=== PATIENT | male | born 1950 | race Caucasian/White ===

== ENCOUNTER → 2016-08-12 | Outpatient (CLI) | payer OTHER, MEDICARE ==
[~2016-08-12] MED LIST: ACET-1256 PO; ALLO300T2 PO; ASCO1CAP3 PO; CLIN1CAP51 PO; CYAN10005 PO; DOXA2TAB PO; FLUT0.15 NAE; FURO-85 PO; GLIM4TAB2 PO; INSU1.2I SC; LISI-725 PO; METF1TAB53 PO; MULTTAB58 PO; OMEGCAP2 PO; POTA20TA16 PO; PYRI50TA77 PO; VERA360C2 PO
[2016-08-12 18:20] LABS: BLOOD UREA NITROGEN 13 mg/dl (7-18); BUN/CREATININE RATIO 11.8 (10-20); CALCIUM 9.4 mg/dl (8.5-10.1); CARBON DIOXIDE 22 mmol/L (21-32); CHLORIDE 105 mmol/L (98-107); GLUCOSE 84 mg/dl (70-99); POTASSIUM 3.8 mmol/L (3.5-5.1); SODIUM 139 mmol/L (136-145)
[2016-08-13 06:40] LABS: ESTIMATED AVERAGE GLUCOSE 154 mg/dl; HA1C FLAG Normal (Normal)
== END | disposition home or self-care (01) ==
LOC: C.LABPBG 15:38
PROVIDERS: ATTEND Family Medicine
DX: Z00.00 Encounter for general adult medical examination without abnormal findings (principal); N18.9 Chronic kidney disease, unspecified; E11.9 Type 2 diabetes mellitus without complications; I10 Essential (primary) hypertension

== ENCOUNTER → 2016-12-07 | Outpatient (CLI) | payer OTHER, MEDICARE ==
[~2016-12-07] MED LIST changes: +LIRA18IN SQ; +LVMI SQ
[2016-12-07 13:21] LABS: ESTIMATED AVERAGE GLUCOSE 143 mg/dl; HA1C FLAG Normal (Normal)
[2016-12-07 13:42] LABS: ALT/SGPT 40 U/L (12-78); BLOOD UREA NITROGEN 19 mg/dl (7-18); BUN/CREATININE RATIO 17.5 (10-20); CARBON DIOXIDE 23 mmol/L (21-32); CHLORIDE 104 mmol/L (98-107); CHOLESTEROL 118 mg/dl (0-200); GLUCOSE 144 mg/dl (70-99); SODIUM 139 mmol/L (136-145)
[2016-12-07 13:45] LABS: CHOLESTEROL/HDL RATIO 2.3; HDL CHOLESTEROL 52 mg/dl; LDL CHOLESTEROL CALCULATED 48 mg/dl; TRIGLYCERIDES 91 mg/dl (0-150); VERY LOW DENSITY LIPOPROT CALC 18 mg/dl
[2016-12-07 14:35] LABS: LYME DISEASE AB IGM NEG (NEG)
[2016-12-07 14:38] LABS: LYME DISEASE AB IGG NEG (NEG)
== END | disposition home or self-care (01) ==
LOC: C.LABPBG 09:56
PROVIDERS: ATTEND Family Medicine
DX: E11.22 Type 2 diabetes mellitus with diabetic chronic kidney disease (principal); N18.9 Chronic kidney disease, unspecified; M19.90 Unspecified osteoarthritis, unspecified site

== ENCOUNTER → 2016-12-19 | Outpatient (CLI) | payer OTHER, MEDICARE ==
--- NOTE | 2016-12-19 13:53 | DIAGNOSTIC IMAGING REPORT ---
Right knee including BILATERAL STANDING AP VIEWS CLINICAL HISTORY: M25.561 right knee pain COMPARISON: None. DISCUSSION: No acute fractures or dislocations are visualized. There are mild osteoarthritic changes with small dorsal patellar spurs. There are suspected subtle chondrocalcinosis. IMPRESSION: Degenerative change with small dorsal patellar spurs. No acute fractures. Electronically signed by: Diego Broderick M.D. 12/19/2016 1:52 PM Dictated Date/Time: 12/19/2016 1:51 PM
== END | disposition home or self-care (01) ==
LOC: C.RAD 12:22
PROVIDERS: ATTEND Family Medicine
DX: M25.561 Pain in right knee (principal)

== ENCOUNTER → 2017-03-24 | Outpatient (CLI) | payer OTHER, MEDICARE ==
[~2017-03-24] MED LIST changes: -LIRA18IN SQ; -LVMI SQ
[2017-03-24 13:05] LABS: ESTIMATED AVERAGE GLUCOSE 148 mg/dl; HA1C FLAG Normal (Normal)
[2017-03-24 13:26] LABS: BLOOD UREA NITROGEN 19 mg/dl (7-18); BUN/CREATININE RATIO 17.4 (10-20); CALCIUM 8.8 mg/dl (8.5-10.1); CARBON DIOXIDE 23 mmol/L (21-32); CHLORIDE 106 mmol/L (98-107); GLUCOSE 226 mg/dl (70-99); SODIUM 137 mmol/L (136-145)
== END | disposition home or self-care (01) ==
LOC: C.LABPBG 09:40
PROVIDERS: ATTEND Family Medicine
DX: E11.9 Type 2 diabetes mellitus without complications (principal)

== ENCOUNTER → 2017-04-27 | Outpatient (CLI) | payer OTHER, MEDICARE ==
--- NOTE | 2017-04-27 18:01 | DIAGNOSTIC IMAGING REPORT ---
C-SPINE ROUTINE 4 OR 5 VIEWS CLINICAL HISTORY: Bilateral arm numbness. COMPARISON STUDY: No previous studies for comparison. FINDINGS: C7 is partially obscured on this exam. There is slight reversal of the normal cervical lordosis. No acute fracture or suspicious osseous lesion is present. Note is made of moderate bony neural foraminal narrowing of the right C4-C5 and C5-C6 neural foramen. Prevertebral soft tissues are unremarkable. There is moderate disc space narrowing at C5-C6 and mild disc space narrowing at C4-C5. IMPRESSION: 1. Moderate degenerative disc disease at C5-C6 and mild degenerative disc disease at C4-C5. Moderate bony neural foraminal narrowing of the right C4-C5 and C5-C6 neural foramen. 2. Largely obscured C7. Electronically signed by: Teofilo Garcia M.D. 04/27/2017 5:59 PM Dictated Date/Time: 04/27/2017 5:57 PM
== END | disposition home or self-care (01) ==
LOC: C.RAD 16:37
PROVIDERS: ATTEND Family Medicine
DX: M50.322 Other cervical disc degeneration at C5-C6 level (principal); M48.02 Spinal stenosis, cervical region

== ENCOUNTER → 2017-05-08 | Outpatient (CLI) | payer OTHER, MEDICARE ==
--- NOTE | 2017-05-08 15:24 | DIAGNOSTIC IMAGING REPORT ---
ORBITS FOR MRI HISTORY: 67 years-old Male Z77.018 history of metal exposure with concern for foreign body. COMPARISON: ORBIT radiographs 05/09/2016 TECHNIQUE: 3 views of the orbits FINDINGS: No radiopaque foreign body the orbits identified. No orbital fracture identified. Imaged paranasal sinuses appear generally symmetric. IMPRESSION: No opaque foreign bodies identified. The above report was generated using voice recognition software. It may contain grammatical, syntax or spelling errors. Electronically signed by: Benjamin Hanson M.D. 05/08/2017 3:23 PM Dictated Date/Time: 05/08/2017 3:22 PM
[2017-05-08 16:10] LABS: ALT/SGPT 34 U/L (12-78); AST/SGOT 18 U/L (15-37); BLOOD UREA NITROGEN 27 mg/dl (7-18); BUN/CREATININE RATIO 23.6 (10-20); CALCIUM 9.4 mg/dl (8.5-10.1); CARBON DIOXIDE 25 mmol/L (21-32); CHLORIDE 104 mmol/L (98-107); CREATININE 1.15 mg/dl (0.60-1.40); GLUCOSE 235 mg/dl (70-99); POTASSIUM 3.9 mmol/L (3.5-5.1); SODIUM 138 mmol/L (136-145)
[2017-05-08 16:12] LABS: ALKALINE PHOSPHATASE 133 U/L (45-117)
--- NOTE | 2017-05-08 17:13 | DIAGNOSTIC IMAGING REPORT ---
MRI THE RIGHT KNEE NO CONTRAST CLINICAL HISTORY: M25.561 right knee pain status post trauma COMPARISON STUDY: Conventional radiographic study dated 12/19/2016 FINDINGS: Imaging was performed in the sagittal, coronal, and axial planes. There is a small suprapatellar joint effusion. The anterior and posterior cruciate ligaments appear intact. The quadriceps and patellar tendons appear intact. The patellar retinacular structures appear intact. The medial and lateral collateral ligaments appear intact. There is a complex tear involving the posterior horn the medial meniscus. There is mild medial extrusion of the medial meniscus. There is a subchondral fracture involving the medial tibial plateau with associated marrow edema. This is nondisplaced. There is mild chondrosis involving the medial joint compartment. IMPRESSION: 1. Small nondisplaced subchondral fracture of the medial tibial plateau with adjacent marrow edema 2. Tear of the posterior horn of the medial meniscus 3. No evidence of cruciate or collateral ligament disruption Electronically signed by: Diego Broderick M.D. 05/08/2017 5:12 PM Dictated Date/Time: 05/08/2017 5:06 PM
--- NOTE | 2017-05-08 21:09 | DIAGNOSTIC IMAGING REPORT ---
MRI OF THE CERVICAL SPINE WITHOUT IV CONTRAST CLINICAL HISTORY: Neck pain. Bilateral arm numbness. Lower extremity weakness. COMPARISON STUDY: Radiographs of the cervical spine dated 04/27/2017. TECHNIQUE: MRI of the cervical spine is performed utilizing various T1 and T2-weighted sequences in the axial and sagittal planes. IV contrast was not administered for this examination. FINDINGS: Cervical spine: Vertebral body height is maintained throughout the cervical spine. There is minimal retrolisthesis at C4-C5. Alignment is otherwise preserved. There is straightening of the cervical lordosis with mild reversal centered at C4-C5. The atlantodental articulation appears preserved. The spinous processes are intact as imaged. No destructive bony lesion is seen. Intervertebral discs: There is degenerative disc desiccation seen throughout the cervical spine. Moderate loss of height is seen at C4-C5 and C5-C6. Spinal cord: The cervical spinal cord is normal in morphology and signal intensity. C2-C3: Unremarkable. C3-C4: A large posterior disc osteophyte complex effaces the ventral cord. The minimum AP canal diameter at this level measures 6.5 mm. Uncovertebral and facet arthropathy cause [id number] right and [id number] left neural foraminal stenosis. C4-C5: A posterior disc osteophyte complex effaces the ventral cord. The minimum AP canal diameter at this level measures 7 mm. Uncovertebral and facet arthropathy cause severe bilateral neural foraminal stenosis. C5-C6: A posterior disc osteophyte complex effaces the ventral cord. The minimum AP canal diameter at this level measures 7 mm. Uncovertebral and facet arthropathy contribute to [id number] left and moderate right neural foraminal stenosis. C6-C7: A posterior disc osteophyte complex abuts the ventral cord. Facet arthropathy causes minimal left-sided neural foraminal stenosis. C7-T1: Unremarkable. Soft tissues: The prevertebral and paraspinous soft tissues are normal in appearance. Brain parenchyma: Partially imaged brain parenchyma at the skull base is within normal limits. IMPRESSION: 1. Multilevel cervical spondylosis with significant acquired compromise of the central canal seen from C3 -C4 through C5-C6. See discussion for detailed [id number] analysis. 2. The cervical spinal cord is normal in morphology and signal intensity. 3. No destructive bony lesion is seen. Dictated: 05/08/2017 5:08 PM Transcribed: 05/08/2017 9:09 PM [email or web address] Electronically signed by: Neil Arroyo M.D. 05/08/2017 9:10 PM Dictated Date/Time: 05/08/2017 5:08 PM
== END | disposition home or self-care (01) ==
LOC: C.MRI 14:39
PROVIDERS: ATTEND Family Medicine
DX: Z77.018 Contact with and (suspected) exposure to other hazardous metals (principal); M50.90 Cervical disc disorder, unspecified, unspecified cervical region; R20.0 Anesthesia of skin; M25.561 Pain in right knee; S82.134A Nondisplaced fracture of medial condyle of right tibia, initial encounter for closed fracture; S83.241A Other tear of medial meniscus, current injury, right knee, initial encounter; X58.XXXA Exposure to other specified factors, initial encounter; M47.812 Spondylosis without myelopathy or radiculopathy, cervical region

== ENCOUNTER 2017-06-26 05:23 | Inpatient (IN) | payer OTHER, MEDICARE ==
[2017-06-06 13:15] VITALS: BMI 40.0
--- NOTE | 2017-06-06 13:53 | PAT Medication Instructions ---
Service Date Jun 06, 2017. Current Home Medication List Allopurinol (Zyloprim), 300 MG PO QPM Ascorbic Acid (Vitamin C), 500 MG PO BID Cyanocobalamin (Vitamin B-12), 1,000 MCG PO QAM Doxazosin Mesylate (Cardura), 2 MG PO BID Furosemide (Lasix), 40 MG PO DAILY PRN for EDEMA Glimepiride (Glimepiride), 4 TAB PO BID Insulin Detemir (Levemir), 120 UNITS SQ HS Liraglutide (Victoza), 1.8 MG SQ QAM Lisinopril (Zestril), 40 MG PO QAM Metformin Hcl (Glucophage Ext Rel), 1,000 MG PO BID Multiple Vitamin (Multivitamin), 1 TAB PO BIDM [place]-3 Fatty Acids (Fish Oil), 1 CAP PO BID Potassium Ext Rel (Klor-Con), 20 MEQ PO QPM Pyridoxine Hcl (Vitamin B 6), 100 MG PO QAM Verapamil Hcl (Verapamil Hcl Sr), 360 MG PO QAM Medication Instructions For Your Scheduled Surgery - Hold the following medications 2 weeks prior to surgery: [place]-3 Fatty Acids (Fish Oil), 1 CAP PO BID - Hold the following medications 48 hours prior to surgery: Metformin Hcl (Glucophage Ext Rel), 1,000 MG PO BID - Hold the following medications the morning of surgery: Ascorbic Acid (Vitamin C), 500 MG PO BID Cyanocobalamin (Vitamin B-12), 1,000 MCG PO QAM Doxazosin Mesylate (Cardura), 2 MG PO BID Furosemide (Lasix), 40 MG PO DAILY PRN for EDEMA Glimepiride (Glimepiride), 4 TAB PO BID Lisinopril (Zestril), 40 MG PO QAM Multiple Vitamin (Multivitamin), 1 TAB PO BIDM Pyridoxine Hcl (Vitamin B 6), 100 MG PO QAM - Take the following medications the morning of surgery with a sip of water: Liraglutide (Victoza), 1.8 MG SQ QAM Verapamil Hcl (Verapamil Hcl Sr), 360 MG PO QAM - Take the following medications as scheduled the night before surgery: Potassium Ext Rel (Klor-Con), 20 MEQ PO QPM Multiple Vitamin (Multivitamin), 1 TAB PO BIDM Insulin Detemir (Levemir), 120 UNITS SQ HS Glimepiride (Glimepiride), 4 TAB PO BID Furosemide (Lasix), 40 MG PO DAILY PRN for EDEMA (if needed) Doxazosin Mesylate (Cardura), 2 MG PO BID Ascorbic Acid (Vitamin C), 500 MG PO BID Allopurinol (Zyloprim), 300 If you have any questions please call us at [phone] or [phone] or [phone]
--- NOTE | 2017-06-06 14:31 | DIAGNOSTIC IMAGING REPORT ---
TWO VIEW CHEST CLINICAL HISTORY: Preoperative examination. FINDINGS: PA and lateral chest radiographs are compared to study dated 10/27/2013. The cardiomediastinal silhouette is unremarkable. Tiny calcified granulomas are observed. The lungs and pleural spaces are otherwise clear. There is no pneumothorax. The bony thorax appears intact. Degenerative change is noted in the thoracic spine. Surgical clips are present in the abdomen. IMPRESSION: No active disease in the chest. Electronically signed by: Neil Arroyo M.D. 06/06/2017 2:30 PM Dictated Date/Time: 06/06/2017 2:29 PM
[2017-06-06 14:54] LABS: BASO % 0.3 %; BASO ABS # 0.02 K/uL (0-0.2); COMPLETE YES; EOS % 1.8 %; HEMATOCRIT 40.5 % (42-52); IG% 0.3 %; LYMPH % 30.6 %; LYMPH ABS # 2.04 K/uL (1.2-3.4); MEAN CELL VOLUME 93.5 fL (80-100); MEAN CORPUSCULAR HEMOGLOBIN 32.3 pg (25-34); MEAN CORPUSCULAR HGB CONC 34.6 g/dl (32-36); MEAN PLATELET VOLUME 9.7 fL (7.4-10.4); MONO % 6.7 %; NEUT % 60.3 %; PLATELET COUNT 214 K/uL (130-400); RED BLOOD COUNT 4.33 M/uL (4.7-6.1); WHITE BLOOD COUNT 6.67 K/uL (4.8-10.8)
[2017-06-06 15:07] LABS: PROTHROMBIN TIME (PATIENT) 10.6 SECONDS (9.0-12.0)
[2017-06-06 15:09] LABS: URINE APPEARANCE CLEAR (CLEAR); URINE BILIRUBIN NEG (NEG); URINE COLOR YELLOW; URINE NITRITE NEG (NEG); URINE PH 5.5 (4.5-7.5); URINE SPECIFIC GRAVITY 1.025 (1.000-1.030); UROBILINOGEN NEG (NEG)
[2017-06-06 15:13] LABS: MANUAL MICROSCOPIC REQUIRED? NO; REVIEW REQ? NO
[2017-06-06 15:35] LABS: CREATININE 1.26 mg/dl (0.60-1.40)
--- NOTE | 2017-06-25 14:43 | HISTORY & PHYSICAL EXAMINATION ---
DATE OF ADMISSION: 06/26/2017 CHIEF COMPLAINT: He is here for cervical spine surgery. He has spinal cord compression. He has upper extremity pain, numbness, tingling; weakness to his upper and lower extremity, and slight abnormality of his walking ability. PAST MEDICAL HISTORY: Obesity, hypertension, carcinoma, kidney disease, diabetes. PAST SURGICAL HISTORY: Cholecystectomy, kidney stones, knee surgery. ALLERGIES: DEMEROL, TRAMADOL, LODINE. SOCIAL HISTORY: Nonsmoker, non-ET[employer] user. MEDICATIONS: Numerous, they are on an attached sheet of paper, they are placed into the computer. REVIEW OF SYSTEMS: Positive for neck pain, stiffness, muscle pain, weakness. No fevers, sweats, chills, history of cervical migraines. Ear, nose and throat negative. Denies chest pain, shortness of breath. Denies nausea, vomiting, urgency, frequency, dysuria. PHYSICAL EXAMINATION: GENERAL: He is 6 feet 2 inches, 300 pounds, conversant, alert, oriented, no signs of mental depression. VITAL SIGNS: Blood pressure 140/80, pulse 80, respiratory rate 16, temperature 97.4. CARDIAC: Normal S1, S2. Distant S3, regular at 80 beats per minute. LUNGS: Clear. ABDOMEN: Soft, nontender, obese. SKIN: Intact. VASCULAR: Structures intact, minimal varicosities. X-RAY: Reviewed. He has spinal cord compression C3-C6 of the cervical spine. ASSESSMENT: Spinal cord compression, cervical spine; obesity; diabetes mellitus. DISPOSITION: Anterior cervical discectomy and fusion C3-C4, C4-C5, C5-C6 with iliac crest bone graft.
[~2017-06-26] VITALS: Ht 188 cm; Wt 140.9 kg
[2017-06-26] VITALS (16 sets, daily range): BP systolic 133–159; BP diastolic 74–87; PULSE 67–99; TEMP 36.3–37.1; O2SAT 94–97; BMI 40.0
[~2017-06-26 05:23] MED LIST changes: -ACET-1256 PO; -CLIN1CAP51 PO; -FLUT0.15 NAE; -INSU1.2I SC; +LIRA18IN SQ; +LVMI SQ
[2017-06-26] MEDS ORDERED: LACTATED RINGER'S 1000ML 1,000 ML IV SCH (06:00)
[2017-06-26] MEDS ORDERED: CEFAZOLIN 3000MG IV PUSH 15 ML IV SCH (06:00)
[2017-06-26] MEDS ORDERED: SODIUM CHLORIDE 0.9% 1000ML 1,000 ML IV SCH (06:00)
[2017-06-26] MEDS ORDERED: BACITRACIN 50000 UNIT VIAL ONE (07:00)
[2017-06-26] MEDS ORDERED: GELATIN SPONGE SZ 100 ONE (07:00)
[2017-06-26] MEDS ORDERED: BUPIVACAINE/EPINEPHRINE 0.5% MPF 1:200,000 30 ML VIAL ONE ×2 (07:00→07:20)
[2017-06-26] MEDS ORDERED: THROMBIN FOR SOLN 20000 UNIT KIT ONE (07:00)
[2017-06-26] MEDS ORDERED: FENTANYL CITRATE INJ 50 MCG/1 ML 2 ML VIAL ONE (07:06)
[2017-06-26] MEDS ORDERED: MIDAZOLAM HCL 1 MG/ML 2ML VIAL ONE (07:06)
[2017-06-26] MEDS ORDERED: ATROPINE SULFATE 0.1 MG/ML 5ML SYR IV PRN (07:15)
[2017-06-26] MEDS ORDERED: LABETALOL HCL IV 5 MG/ML 20ML IV PRN (07:15)
[2017-06-26] MEDS ORDERED: ONDANSETRON INJ 2 MG/ML 2 ML VIAL IV PRN ×2 (07:15→10:15)
[2017-06-26] MEDS ORDERED: HYDROmorphone INJ 2 MG/ML SYR/VIAL IV PRN (07:15)
--- NOTE | 2017-06-26 07:25 | History & Physical Bridge Note ---
H&P Re-Evaluation Bridge Note: I have examined the patient, reviewed the History & Physical and in the interval since the performance of the History & Physical I have noted the following changes of clinical significance: No changes noted
[2017-06-26] MEDS ORDERED: GLYCOPYRROLATE INJ 0.2 MG/ML VIAL ONE (08:15)
[2017-06-26] MEDS ORDERED: LIDOCAINE HCL 2% 2 ML VIAL (20MG/ML) ONE (08:15)
[2017-06-26] MEDS ORDERED: LARYING-O-JET KIT (LTA) ONE ×2 (08:15)
[2017-06-26] MEDS ORDERED: NEOSTIGMINE METHYLSULFATE 5 MG/5 ML SYR ONE (08:15)
[2017-06-26] MEDS ORDERED: ROCURONIUM BROMIDE 10 MG/ML 5 ML VIAL IV ONE ×2 (08:15→08:19)
[2017-06-26] MEDS ORDERED: EpHEDrine SULFATE 50MG/5ML SYR ONE (08:15)
[2017-06-26] MEDS ORDERED: HYDROmorphone INJ 2 MG/ML SYR/VIAL ONE (08:15)
[2017-06-26] MEDS ORDERED: DEXAMETHASONE SOD INJ 4 MG/ML VIAL ONE (08:15)
[2017-06-26] MEDS ORDERED: PROPOFOL IV EMULSION 10 MG/ML 20 ML VIAL IV ONE (08:15)
[2017-06-26] MEDS ORDERED: ONDANSETRON INJ 2 MG/ML 2 ML VIAL ONE (08:15)
--- NOTE | 2017-06-26 10:03 | DIAGNOSTIC IMAGING REPORT ---
SPINE ONE VIEW, ANY LEVEL HISTORY: Cervical fusion. FLUOROSCOPY TIME: 16 seconds. FINDINGS: Intraoperative fluoroscopy was provided for the cervical spine. 3 fluoroscopic spot images were obtained. IMPRESSION: Fluoroscopy provided for a anterior cervical fusion from C3 through C6.. The above report was generated using voice recognition software. It may contain grammatical, syntax or spelling errors. Electronically signed by: Alexis Ag M.D. 06/26/2017 10:02 AM Dictated Date/Time: 06/26/2017 10:01 AM
--- NOTE | 2017-06-26 10:12 | [facility] Post Operative Brief Note ---
Immediate Operative Summary Operative Date Jun 26, 2017. Pre-Operative Diagnosis Cervical spinal stenosis, Cervical spondylosis Post-Operative Diagnosis Cervical spinal stenosis, Cervical spondylosis Procedure(s) Performed C3-C4, C4-C5, C5-C6 Anterior Cervical Discectomy and Fusion with Allograft Surgeon Dr. Bojorquez Assembler Tubing Surgeon(s) ADRIA Sotelo Estimated Blood Loss 20ml Findings cord compression Specimens none per surgeon Complication(s) None Disposition Recovery Room / PACU
[2017-06-26] MEDS ORDERED: HYDROmorphone INJ 0.5 MG/0.5 ML SYR IV PRN (10:15)
[2017-06-26] MEDS ORDERED: RACEPINEPHRINE 2.25% NEBU SOLN 0.5 ML VIAL INH PRN (10:15)
[2017-06-26] MEDS ORDERED: NALOXONE HCL 0.4 MG/1 ML VIAL/CARP IV PRN (10:15)
[2017-06-26] MEDS ORDERED: DEXAMETHASONE INJ 8 MG in SYRINGE 0 ML IV PRN (10:15)
[2017-06-26] MEDS ORDERED: ACETAMINOPHEN IV 100 ML IV PRN (10:15)
[2017-06-26] MEDS ORDERED: CEFAZOLIN IV 1,000 MG in DEXTROSE 5% 50ML 50 ML IV SCH (10:15)
[2017-06-26] MEDS ORDERED: MAGNESIUM HYDROXIDE SUSP 30 ML UDC PO PRN (10:15)
[2017-06-26] MEDS ORDERED: HYDROmorphone INJ 1 MG/ML SYR ONE (10:25)
--- NOTE | 2017-06-26 10:58 | OPERATIVE REPORT ---
DATE OF OPERATION: 06/26/2017 PREOPERATIVE DIAGNOSIS: Spinal cord compression, cervical spine C3-4, C4-5 and C5-6. POSTOPERATIVE DIAGNOSIS: Same. PROCEDURE: Anterior cervical discectomy and fusion C3-4, C4-5, C5-6 with allograft and anterior plating. A formal discectomy, foraminotomy and decompression of spinal cord at C3-4, C4-5 and C5-6. DESCRIPTION OF PROCEDURE: The patient was taken to the operating room, a general intubated anesthetic provided to the patient, kept supine, scrubbed, prepped and draped sterile. Montero catheter administered and Ancef provided. A formal timeout was obtained. We then made a transverse skin incision roughly over the C5 vertebral body dissecting the soft tissue. We had to use quite long blades to hold the self-retaining retractors. We came down on the spinal canal. We were able to first do the discectomy at C4-5, then up at C3-4, then done at C5-6. I was very pleased with the decompression and the disc material removed. There was no residual, we took off osteophytes at each and every level as well. Completed the foraminotomies. We then went with allograft. Allograft 7 mm in height placed at C5-6 and C4-5 and an 8 mm graft placed at the C3-4 interval. The anatomic fit was excellent put on anterior plate 51 mm in length by the [employer] secured with screws and locked. We irrigated thoroughly at many intervals, closed over a Stephenson drain with 4-0 Monocryl suture. Sterile dressing applied, collar applied. The patient extubated to PACU stable. No apparent intraoperative complications. Sponge and needle count correct. IMPLANTS USED: By the [employer]. I attest to the content of the Intraoperative Record and any orders documented therein. Any exception s are noted below.
[2017-06-26] MEDS ORDERED: IV FLUIDS COMPLETED PRN (11:45)
--- NOTE | 2017-06-26 12:04 | Anesthesiology Progress Note ---
Anesthesia Post Op Note Date & Time Jun 26, 2017 at 12:04 Vital Signs Vital Signs Past 12 Hours Date Time Temp Pulse Resp B/P (MAP) Pulse Ox O2 Delivery O2 Flow Rate FiO2 06/26/17 11:50 36.6 67 16 144/74 95 Nasal Cannula 4.0 Humidified Oxygen 06/26/17 11:40 67 14 130/70 95 Nasal Cannula 4 06/26/17 11:25 77 14 133/64 98 Nasal Cannula 4 06/26/17 11:15 67 14 162/82 93 Nasal Cannula 4 06/26/17 11:05 37.2 69 16 148/84 93 Nasal Cannula 4 06/26/17 10:55 63 18 152/77 95 Nasal Cannula 4 06/26/17 10:45 84 20 165/90 98 Nasal Cannula 4 06/26/17 10:35 82 18 165/84 96 Oxymask 8 06/26/17 10:25 76 18 161/90 96 Oxymask 8 06/26/17 10:15 82 16 151/88 96 Oxymask 8 06/26/17 10:08 36.5 83 16 158/84 95 Oxymask 8 06/26/17 05:50 36.8 80 20 141/87 95 Room Air Notes Mental Status: alert / awake / arousable, participated in evaluation Pt Amnestic to Procedure: Yes Nausea / Vomiting: adequately controlled Pain: adequately controlled Airway Patency, RR, SpO2: stable & adequate BP & HR: stable & adequate Hydration State: stable & adequate Anesthetic Complications: no major complications apparent
[2017-06-26] MEDS: SODIUM CHLORIDE 0.9% 1000ML 1,000 ML IV SCH (12:27)
--- NOTE | 2017-06-26 13:28 | Medical Consult ---
Consultation Date of Consultation: Jun 26, 2017. Attending Physician: Alfredito Bojorquez DO Reason for Consultation: Medical management History of Present Illness This is a 67 yo M with PMHx of DM II, hx of testicular cancer, smokeless tobacco use, who is now s/p anterior cervical discectomy and fusion C3-4, C4-5 , C5-6 with allograft and anterior plating. A formal discectomy, foraminotomy and decompression of spinal cord at C3-4, C4-5 and C5-[address] Bojorquez on 06/26/17. Hospital medicine has been consulted for hyperglycemia. The patient reports that he is having an severe/pain of the back of his neck and around both sides equally. He denies any diminished sensation to light touch or difficulty with swallowing. His is present at bedside. Her questions and concerns were addressed. The patient has been made nothing by mouth, as this is Dr. Frazier preference until he personally rounds on the patient this afternoon. Patient has been using IV Dilaudid for pain relief, although currently asking for something else to help with pain as previously described. Past Medical/Surgical History Medical Problems: (1) Cellulitis Status: Acute (2) Cellulitis of left leg Status: Acute (3) Diabetic ulcer of left great toe Status: Acute Family History Blood clots Diabetes mellitus Kidney stones Social History Smoking Status: Former Smoker Drug Use: none Marital Status: Housing Status: lives with family Occupation Status: unemployed Allergies Coded Allergies: Etodolac (Verified Allergy, Intermediate, RASH, 06/26/17) Canagliflozin (Verified Allergy, Unknown, LE SWELLING, WT GAIN, 06/26/17) Tramadol (Verified Adverse Reaction, Intermediate, NAUSEA, 06/26/17) Meperidine (Verified Adverse Reaction, Unknown, NAUSEA, 06/26/17) Current Inpatient Medications Current Inpatient Medications Medications (Trade) Dose Ordered Sig/Cyndi Route Start Time Stop Time Status Last Admin Dose Admin Lactated Ringer's 1,000 ml @ 15 mls/hr Q24H IV 06/26/17 06:00 06/27/17 05:59 Racepinephrine (Raccemic Epinephrine 2.25% 0.5ML Neb) 0.5 ml ONE PRN INH 06/26/17 10:15 06/26/17 23:59 Acetaminophen 100 ml @ 400 mls/hr Q8H PRN IV 06/26/17 10:15 07/26/17 10:14 06/26/17 10:57 400 MLS/HR Hydromorphone HCl (Dilaudid Inj) 0.5 mg Q3H PRN IV 06/26/17 10:15 07/10/17 10:14 Magnesium Hydroxide (Milk Of Magnesia Susp) 30 ml DAILY PRN PO 06/26/17 10:15 07/26/17 10:14 Docusate Sodium (coLACE CAP) 100 mg BID PO 06/26/17 21:00 07/26/17 20:59 Ondansetron HCl (Zofran Inj) 4 mg Q6 PRN IV 06/26/17 10:15 07/26/17 10:14 Lorazepam 0.5 mg/ Syringe 1 ml @ 1 mls/min Q8H PRN IV 06/26/17 10:15 07/26/17 10:14 Dexamethasone Sodium Phosphate 6 mg/Syringe 1.5 ml @ 1 mls/min Q8H IV 06/26/17 16:00 06/27/17 08:02 Sodium Chloride 1,000 ml @ 80 mls/hr [id number] IV 06/26/17 13:00 06/27/17 12:59 06/26/17 12:27 80 MLS/HR Oxycodone HCl (Roxicodone Immediate Rel Tab) 5mg for pain scale 4-6 1... Q4H PRN PO 06/26/17 10:15 07/10/17 10:14 Bisacodyl (Dulcolax Tab) 5 mg DAILY PRN PO 06/28/17 06:00 07/28/17 05:59 Bisacodyl (Dulcolax Supp) 10 mg DAILY PRN ME 06/28/17 06:00 07/28/17 05:59 Dexamethasone Sodium Phosphate 8 mg/Syringe 2 ml @ 1 mls/min ONE PRN IV 06/26/17 10:15 06/26/17 23:59 Naloxone HCl (Narcan Inj) 0.1 mg Q5M PRN IV 06/26/17 10:15 07/26/17 10:14 Hydromorphone HCl (Dilaudid Inj) 1 mg Q3H PRN IV 06/26/17 11:00 07/10/17 10:59 Miscellaneous (Iv Fluids Completed) 1 ea PRN PRN N/A 06/26/17 11:45 06/26/18 11:44 Cefazolin Sodium 1000 mg/Syringe 5 ml @ 1.667 mls/ min Q8H IV 06/26/17 16:00 06/27/17 08:02 Insulin Aspart (novoLOG ASPART) SLIDING SCALE G... ACHS SC 06/26/17 17:15 07/26/17 17:14 UNV Review of Systems Constitutional: No fever, sweats or chills Eyes: No diplopia, no worsening or blurred vision ENT: normal hearing, no trouble swallowing Respiratory: No cough, sputum, dyspnea at rest or on exertion Cardiovascular: No chest pain, tightness or palpitations Abdomen: No pain, nausea, vomiting, diarrhea or constipation Musculoskeletal: + neck pain as per HPI, no calf pain, + chronic lymphedema in the left lower extremity status post radical lymph node dissection for testicular cancer. Neurologic: No weakness, numbness/tingling, or balance problems Psychiatric: No anxiety or depression Skin: No rash or itch Physical Exam Date Time Temp Pulse Resp B/P (MAP) Pulse Ox O2 Delivery O2 Flow Rate FiO2 06/26/17 12:36 36.7 85 16 135/76 97 Nasal Cannula 4.0 06/26/17 12:20 93 16 96 Nasal Cannula 4.0 06/26/17 12:17 Nasal Cannula Humidified Oxygen 06/26/17 12:10 36.6 72 16 154/76 94 Nasal Cannula 4.0 06/26/17 12:02 95 Nasal Cannula 4.0 06/26/17 11:50 36.6 67 16 144/74 95 Nasal Cannula 4.0 Humidified Oxygen 06/26/17 11:40 67 14 130/70 95 Nasal Cannula 4 06/26/17 11:25 77 14 133/64 98 Nasal Cannula 4 06/26/17 11:15 67 14 162/82 93 Nasal Cannula 4 06/26/17 11:05 37.2 69 16 148/84 93 Nasal Cannula 4 06/26/17 10:55 63 18 152/77 95 Nasal Cannula 4 06/26/17 10:45 84 20 165/90 98 Nasal Cannula 4 06/26/17 10:35 82 18 165/84 96 Oxymask 8 06/26/17 10:25 76 18 161/90 96 Oxymask 8 06/26/17 10:15 82 16 151/88 96 Oxymask 8 06/26/17 10:08 36.5 83 16 158/84 95 Oxymask 8 06/26/17 05:50 36.8 80 20 141/87 95 Room Air General: awake, alert, no apparent distress Head: Normocephalic, atraumatic ENT: PERRL, EOMI, no pharyngeal exudate, mucous membranes dry, with bandage in place, C/D/I Chest: Clear to auscultation, on room air, no adventitious breath sounds Cardiac: Regular rate and rhythm, no murmur, no JVD, normal peripheral pulses, good capillary refill Abdominal: NABS x 4 quadrants, soft, nontender to palpation, no rebound, guarding or tenderness Extremities: Normal inspection, + LLE edema 1+ pitting, + RLE edema with nonpitting edema. No erythema, calfs nontender to palpation Psych: Normal mood and affect Neuro: AAO x 3, strength intact bilaterally and related 5/5, no motor deficits, speech is clear, no peripheral sensory deficits Laboratory Results Last 24 Hours Test 06/26/17 05:41 06/26/17 10:32 06/26/17 13:02 Bedside Glucose 269 mg/dl 270 mg/dl 322 mg/dl Assessment & Plan This is a 67 yo M with PMHx of DM II, hx of testicular cancer, smokeless tobacco use, who is now s/p anterior cervical discectomy and fusion C3-4, C4-5 , C5-6 with allograft and anterior plating. A formal discectomy, foraminotomy and decompression of spinal cord at C3-4, C4-5 and C5-[address] Bojorquez on 06/26/17. Hospital medicine has been consulted for hyperglycemia. S/p Cervical spine surgery - Pain management, bowel regimen, DVT ppx per primary team - PT per primary team already ordered - Pt received dexamethasone which increase glucose for short term DM II - Resume home medications including metformin 1000 mg BID, glimepiride 4 mg BID , and Levemir 120 U subq HS as long as patient is tolerating food well this afternoon and evening - ISS with accuchecks ACHS HTN - Holding lisinopril - pending am labs can reinstitute Hx of testicular cancer - Diagnosed 1983, status post radical lymph node dissection causing chronic lymphedema in the left lower extremity - In remission DVT ppx: no chemical w spinal surgery at this time CODE STATUS: FULL CODE Disposition: From home, lives with , discharge per primary team
[2017-06-26] MEDS ORDERED: DEXTROSE 50% 50 ML SYR IV PRN (13:30)
[2017-06-26] MEDS ORDERED: GLUCOSE 10 TABS/TUBE PO PRN (13:30)
[2017-06-26] MEDS ORDERED: GLUCAGON FOR INJ 1 MG VIAL SQ PRN (13:30)
[2017-06-26] MEDS ORDERED: GLUCOSE 40% GEL 15 GM TUBE PO PRN (13:30)
[2017-06-26] MEDS ORDERED: INSULIN ASPART 100 UNITS/ML 3 ML PEN SC ONE (14:00)
[2017-06-26] MEDS: DEXAMETHASONE INJ 6 MG in SYRINGE 0 ML IV SCH (15:52)
[2017-06-26] MEDS: CEFAZOLIN IV 1,000 MG in SYRINGE 0 ML IV SCH (16:15)
[2017-06-26] MEDS ORDERED: INSULIN ASPART 100 UNITS/ML 3 ML PEN SC SCH (17:15)
[2017-06-26] MEDS: LORAZEPAM INJ 0.5 MG in SYRINGE 0.75 ML IV PRN (17:37)
[2017-06-26] MEDS: HYDROmorphone INJ 1 MG/ML SYR IV PRN ×2 (18:24→22:54)
[2017-06-26] MEDS: INSULIN ASPART 100 UNITS/ML 3 ML PEN SC SCH ×2 (18:41→21:40)
[2017-06-26] MEDS ORDERED: INSULIN DETEMIR SC SCH (21:00)
[2017-06-26] MEDS ORDERED: GLIMEPIRIDE 2 MG TAB PO SCH (21:00)
[2017-06-26] MEDS ORDERED: INSULIN DETEMIR FLEXPEN/FLEX TOUCH 100 UNITS/ML 3ML SC SCH (21:00)
[2017-06-26] MEDS: DOCUSATE SODIUM 100 MG CAP PO SCH (21:34)
[2017-06-26] MEDS: METFORMIN HCL 500 MG TABCR PO SCH (21:34)
[2017-06-27] VITALS (19 sets, daily range): BP systolic 130–164; BP diastolic 70–91; PULSE 84–103; TEMP 36.5–37; O2SAT 88–96; Ht 188 cm; Wt 140.9 kg
[2017-06-27] MEDS: CEFAZOLIN IV 1,000 MG in SYRINGE 0 ML IV SCH ×2 (00:36→08:48)
[2017-06-27] MEDS: SODIUM CHLORIDE 0.9% 1000ML 1,000 ML IV SCH (00:36)
[2017-06-27] MEDS: DEXAMETHASONE INJ 6 MG in SYRINGE 0 ML IV SCH ×2 (00:36→08:36)
[2017-06-27] MEDS: LORAZEPAM INJ 0.5 MG in SYRINGE 0.75 ML IV PRN (01:00)
[2017-06-27] MEDS: OXYCODONE HCL IR 5 MG TAB (IMMEDIATE RELEASE) PO PRN ×3 (05:57→22:34)
--- NOTE | 2017-06-27 08:05 | Anesthesiology Progress Note ---
Anesthesia Post Op Note Date & Time Jun 27, 2017 at 08:05 Vital Signs Pain Intensity: 6.0 Vital Signs Past 12 Hours Date Time Temp Pulse Resp B/P (MAP) Pulse Ox O2 Delivery O2 Flow Rate FiO2 06/27/17 07:35 Room Air 06/27/17 07:34 90 16 93 Room Air 06/27/17 06:40 36.7 85 16 145/81 88 Room Air 2.0 06/27/17 06:40 36.7 85 16 145/81 (102) 88 Room Air 06/27/17 04:40 36.9 90 16 145/79 (101) 93 Nasal Cannula 2.0 06/27/17 04:40 36.9 90 16 145/79 93 Nasal Cannula 2.0 06/27/17 04:02 84 16 92 Nasal Cannula 2.0 06/27/17 02:40 37.0 87 16 130/76 94 Nasal Cannula 2.0 Humidified Oxygen 06/27/17 02:40 36.9 87 16 130/76 (94) 94 Nasal Cannula 2.0 Humidified Oxygen 06/27/17 00:40 36.9 85 16 133/78 (96) 93 Nasal Cannula 2.0 Humidified Oxygen 06/27/17 00:40 36.9 85 16 133/78 93 Nasal Cannula 2.0 Humidified Oxygen 06/27/17 00:00 Nasal Cannula 2.0 Humidified Oxygen 06/26/17 23:43 90 16 96 Nasal Cannula 4.0 06/26/17 22:44 37.1 90 16 133/80 95 Nasal Cannula 4.0 Humidified Oxygen 06/26/17 20:41 36.7 99 16 133/78 95 Nasal Cannula Humidified Oxygen 06/26/17 20:21 97 16 94 Nasal Cannula 4.0 Notes Mental Status: alert / awake / arousable, participated in evaluation Pt Amnestic to Procedure: Yes Nausea / Vomiting: adequately controlled Pain: adequately controlled Airway Patency, RR, SpO2: stable & adequate BP & HR: stable & adequate Hydration State: stable & adequate Anesthetic Complications: no major complications apparent
[2017-06-27] MEDS: METFORMIN HCL 500 MG TABCR PO SCH ×2 (08:37→21:18)
[2017-06-27] MEDS: DOCUSATE SODIUM 100 MG CAP PO SCH ×2 (08:37→21:19)
[2017-06-27] MEDS: INSULIN ASPART 100 UNITS/ML 3 ML PEN SC SCH ×4 (08:41→21:27)
--- NOTE | 2017-06-27 12:59 | Progress Note ---
Subjective Date of Service: Jun 27, 2017. Subjective Pt evaluation today including: conversation w/ patient, physical exam, chart review, lab review, review of studies, review of inpatient medication list Resting comfortably in bed No complaints at this time Problem List Medical Problems: (1) Cellulitis Status: Acute (2) Cellulitis of left leg Status: Acute (3) Diabetic ulcer of left great toe Status: Acute Review of Systems Constitutional: No fever, No chills, No sweats, No weight loss Eyes: No worsening of vision, No eye pain, No redness, No discharge ENT: No hearing loss, No unusual epistaxis, No nasal symptoms, No sore throat Respiratory: No cough, No sputum, No wheezing, No shortness of breath, No dyspnea on exertion Cardiac: No chest pain, No orthopnea, No PND, No edema Abdomen: No pain, No nausea, No vomiting, No diarrhea, No constipation Musculoskeletal: No joint pain, No muscle pain, No swelling, No calf pain Male : No dysuria, No urinary frequency, No incontinence, No slowing stream Neurologic: No memory loss, No paralysis, No weakness, No numbness/tingling Psychiatric: No depression symptoms, No anhedonism, No anxiety, No insomnia Heme: No abnormal bleeding/bruising, No clotting problems Skin: No rash, No itch Objective Vital Signs Date Time Temp Pulse Resp B/P (MAP) Pulse Ox O2 Delivery O2 Flow Rate FiO2 06/27/17 11:36 91 16 95 Room Air 06/27/17 10:40 36.8 90 18 149/83 92 Room Air 06/27/17 09:42 96 06/27/17 08:40 36.5 89 18 144/75 93 Room Air 06/27/17 07:35 Room Air 06/27/17 07:34 90 16 93 Room Air 06/27/17 06:40 36.7 85 16 145/81 88 Room Air 2.0 06/27/17 06:40 36.7 85 16 145/81 (102) 88 Room Air 06/27/17 04:40 36.9 90 16 145/79 (101) 93 Nasal Cannula 2.0 06/27/17 04:40 36.9 90 16 145/79 93 Nasal Cannula 2.0 06/27/17 04:02 84 16 92 Nasal Cannula 2.0 06/27/17 02:40 37.0 87 16 130/76 94 Nasal Cannula 2.0 Humidified Oxygen 06/27/17 02:40 36.9 87 16 130/76 (94) 94 Nasal Cannula 2.0 Humidified Oxygen 06/27/17 00:40 36.9 85 16 133/78 (96) 93 Nasal Cannula 2.0 Humidified Oxygen 06/27/17 00:40 36.9 85 16 133/78 93 Nasal Cannula 2.0 Humidified Oxygen 06/27/17 00:00 Nasal Cannula 2.0 Humidified Oxygen 06/26/17 23:43 90 16 96 Nasal Cannula 4.0 06/26/17 22:44 37.1 90 16 133/80 95 Nasal Cannula 4.0 Humidified Oxygen 06/26/17 20:41 36.7 99 16 133/78 95 Nasal Cannula Humidified Oxygen 06/26/17 20:21 97 16 94 Nasal Cannula 4.0 06/26/17 18:40 36.9 90 16 146/80 94 Nasal Cannula Humidified Oxygen 06/26/17 16:40 36.8 86 18 151/79 95 Nasal Cannula 4.0 Humidified Air 06/26/17 16:08 92 16 94 Nasal Cannula 4.0 06/26/17 15:50 95 Nasal Cannula 4.0 Humidified Oxygen 06/26/17 14:51 36.6 75 19 151/79 (103) 95 Nasal Cannula 4.0 06/26/17 14:35 36.5 89 16 135/74 95 Nasal Cannula 4.0 Humidified Oxygen 06/26/17 13:44 36.3 89 18 159/84 (109) 94 Nasal Cannula 4.0 Physical Exam General Appearance: WD/WN, no apparent distress Eyes: normal inspection, PERRL, EOMI, sclerae normal Neck: supple, no adenopathy, thyroid normal, no JVD Respiratory/Chest: chest non-tender, lungs clear, normal breath sounds, no respiratory distress Cardiovascular: regular rate, rhythm, no edema, no gallop, no JVD Abdomen: normal bowel sounds, non tender, soft, no organomegaly Extremities: normal range of motion, non-tender, normal inspection, no pedal edema Neurologic/Psychiatric: no motor/sensory deficits, alert, normal mood/affect, oriented x 3 Skin: normal color, warm/dry, no rash Lymphatic: no adenopathy Laboratory Results Last 24 Hours Test 06/26/17 13:02 06/26/17 17:32 06/26/17 20:43 06/27/17 08:13 Bedside Glucose 322 mg/dl 282 mg/dl 319 mg/dl 228 mg/dl Test 06/27/17 12:12 Bedside Glucose 254 mg/dl Assessment and Plan This is a 67 yo M with PMHx of DM II, hx of testicular cancer, smokeless tobacco use, who is now s/p anterior cervical discectomy and fusion C3-4, C4-5 , C5-6 with allograft and anterior plating. A formal discectomy, foraminotomy and decompression of spinal cord at C3-4, C4-5 and C5-[address] Bojorquez on 06/26/17. Hospital medicine has been consulted for hyperglycemia. S/p Cervical spine surgery - Pain management, bowel regimen, DVT ppx per primary team - PT per primary team already ordered - Pt received dexamethasone which will increase glucose for short term DM II - Resume home medications including metformin 1000 mg BID, glimepiride 4 mg BID , and increased levemir to 130 U subq HS due to hyperglycemia - ISS with accuchecks ACHS HTN - Holding lisinopril - pending labs can reinstitute Hx of testicular cancer - Diagnosed 1983, status post radical lymph node dissection causing chronic lymphedema in the left lower extremity - In remission DVT ppx: no chemical w spinal surgery at this time CODE STATUS: FULL CODE
[2017-06-27 14:28] LABS: BUN/CREATININE RATIO 12.5 (10-20); CALCIUM 8.8 mg/dl (8.5-10.1); CREATININE 1.41 mg/dl (0.60-1.40); POTASSIUM 4.1 mmol/L (3.5-5.1)
[2017-06-27 14:38] LABS: BETA-HYDROXYBUTYRATE 1.99 mg/dL (0.2-2.81)
[2017-06-27] MEDS ORDERED: NURSING DECISION MEDICATION ORDER SCH (17:15)
[2017-06-27] MEDS ORDERED: COUGH DROP (SUGAR FREE) LOZ 24 LOZ/1 BOX PO PRN (17:45)
[2017-06-27] MEDS ORDERED: INSULIN DETEMIR SC SCH (21:00)
[2017-06-28] VITALS (7 sets, daily range): BP systolic 133–161; BP diastolic 69–87; PULSE 78–89; TEMP 36.6–36.9; O2SAT 92–95
[2017-06-28] MEDS: OXYCODONE HCL IR 5 MG TAB (IMMEDIATE RELEASE) PO PRN ×3 (02:08→13:00)
[2017-06-28] MEDS ORDERED: BISACODYL 5 MG TABEC PO PRN (06:00)
[2017-06-28] MEDS ORDERED: BISACODYL 10 MG SUPP PR PRN (06:00)
[2017-06-28] MEDS: INSULIN ASPART 100 UNITS/ML 3 ML PEN SC SCH ×2 (08:45→12:59)
[2017-06-28] MEDS: METFORMIN HCL 500 MG TABCR PO SCH (08:46)
[2017-06-28] MEDS: DOCUSATE SODIUM 100 MG CAP PO SCH (08:46)
[2017-06-28] MEDS ORDERED: HYDR-5688 PO ×2 (10:26→10:35)
--- NOTE | 2017-06-28 10:27 | Discharge Instructions ---
Discharge Instructions Date of Service Jun 28, 2017. Admission Reason for Admission: Cervical Spondylosis, Disc Herniation Discharge Discharge Diagnosis / Problem: SAME ABOVE Discharge Goals Goal(s): Decrease discomfort, Improve function Activity Recommendations Activity Limitations: as noted below Lifting Limitations: until after follow-up appointment Exercise/Sports Limitations: until after follow-up appointment Shower/Bathe: tomorrow . Instructions / Follow-Up Instructions / Follow-Up MEDICATIONS: Please take your prescriptions as instructed at your pre-op appointment. SPECIAL CARE: The following information is intended to answer some of the common questions and concerns regarding your surgery. Each patient is an individual and receives individual counselling throughout the course of treatment, from diagnosis to surgery all the way through recovery. What follows is not an exhaustive list, but should be a useful guide to some of the common questions and concerns patients have regarding their surgeries. These are not provided to keep you from calling us; rather, they give you something accurate and concrete to reference as you recover from your procedure. If you need us, we are available to you. As always, if you are not sure about something, call us at [phone]. MEDICAL EMERGENCIES: For these conditions, call 911 or go to your local hospital-based Emergency Department - not [facility] or equivalent. * Paralysis * Severe chest pain or difficulty breathing * Swelling or redness of either leg Spine procedures can be rather complex and though complications are rare, they do occur. In such cases, effective advice regarding emergency situations cannot always be addressed over the telephone. You may be referred to the emergency department for more effective management of your problem. Activity Limitations: It is important to give your body time to heal, so please limit your activities : * In general, don't do anything that moves your spine too much. You should avoid contact sports, twisting or heavy lifting while you recover. * 5-10 pounds is all you should attempt to lift. * You should not plan on driving for approximately 3 weeks and you should avoid traveling more than 30-45 minutes at a time. Longer trips should be broken down with walking breaks spaced appropriately. * Physical therapy is not usually required. * Walking and good posture practices will help you recover and regain your function. * Avoid straining or sudden changes in position. * In general, the goal is to take it easy and recover. Don't cause any new problems. Just relax. Showers: * Do not take a bath, use a Jacuzzi or hot tub or otherwise submerge your incision. * It is usually safe to take a shower 4-5 days after your surgery. * Your incision does not require any special creams or ointments. * Simply clean it with soap and water, dry and re-dress with a clean bandage afterwards. Incision: * Keep incision clean, dry and protected until your first follow-up appointment. * Some amount of drainage and redness is normal. Any drainage should be fairly clear and not have a foul odor. * If you feel anything is wrong or you have excessive drainage, please call us. * Your stitches and hernan will be removed 10-14 days after your surgery. At the time of your first post-op visit. * Neck surgeries are typically closed with a suture underneath the skin. The steri-strips over the incision should be maintained until we see you in the office. Bracing: * You may be provided with a back or neck brace to encourage good posture and prevent injury. It will remind you not to do too much as you heal and will alert others to the fact that you have had a surgery. * Back braces may be removed for showers and when you are resting at home. They must be worn when you are walking around for any period of time or for travel. * For neck surgery, you will likely be provided with two cervical collars. The soft collar ([place] or foam rubber) is worn most commonly throughout the day and while sleeping. The plastic collar (provided at the hospital) is for showering/bathing. * Except while eating, collars should remain in place. More specifically, bracing is provided for a purpose and should be worn. * Please obtain your brace or collars prior to your operation and bring them to the hospital with you on the day of surgery. * You should also bring your collars to your post-op appointment with Dr. Bojorquez. You should always take good care of your body and practice healthy habits, especially following surgery. You should: * Follow your doctor's treatment plan * Sit and stand properly with good posture (ears over shoulders, shoulders over hips) Don't slouch * Learn to lift correctly * Exercise regularly (low-impact aerobic exercise is especially good, but check with your doctor first) * Generally, be up and walking for 5-10 minutes at a time at least 3-4 times per day from the day you get home * Increasing walking to tolerance until you can walk for 20-30 minutes at a time * Attain and maintain a healthy body weight * Eat healthy foods ( a well-balanced, low-fat diet rich in fruits and vegetables) and get enough calcium * Avoid excessive use of alcohol When to call our office - If you notice any of the following: * Increased pain not relieve by pain medicine * Fevers greater then 100 degrees F, chills or flu symptoms * Increased redness around incision * Drainage from the incision that is not clear * Any foul smelling drainage * Swelling or fluid collection beneath the skin Miscellaneous: * In the hospital, you may be given a walker or cane for support while walking. These are temporary needs and are intended to prevent injuries due to falls. You may discontinue them when you feel strong and steady enough on your feet. * Sleep in a comfortable position. We find that many patients find a lounge chair or recliner with several pillows to be beneficial in the early post-operative period. * The support stockings should be used for 7-10 days and may be discontinued when you are back to walking more and conducting usual household activities. No problem is insignificant. We are here to help you and get you well. Contact us at [phone]. Definitions: Foraminotomy: If part of the disc or a bone spur (osteophyte) is pressing on a nerve as it leaves the vertebra (through an exit called the foramen), a foraminotomy may be done. Otomy means "to make an opening." A foraminotomy is making the opening of the foramen larger, so the nerve can exit without being compressed. Laminotomy: Similar to the foraminotomy, a laminotomy makes a larger opening, this time in your bony plate protecting your spinal canal and spinal cord (the lamina). The lamina may be pressing on your nerve, so the surgeon may make more room for the nerves using a laminotomy. Laminectomy: Sometimes, a laminotomy is not sufficient. The surgeon may need to remove all or part of the lamina. This procedure is called a laminectomy. This can often be done at many levels without any harmful effects. Current Hospital Diet Patient's current hospital diet: Diabetes Type 2 Diet Discharge Diet Recommended Diet: Regular Diet, Diabetes Type 2 Diet Procedures Procedures Performed: C3-C4, C4-C5, C5-C6 Anterior Cervical Discectomy and Fusion with Allograft Pending Studies Studies pending at discharge: no Medical Emergencies . Who to Call and When: Medical Emergencies: If at any time you feel your situation is an emergency, please call 911 immediately. . Non-Emergent Contact Non-Emergency issues call your: Primary Care Provider . "Provider Documentation" section prepared by Gonzalo Rubio. . VTE Core Measure Inpt VTE Proph given/why not?: Treatment not indicated
[2017-06-28] MEDS ORDERED: INSULIN DETEMIR SC SCH (21:00)
== END 2017-06-28 14:00 | disposition home health service (06) | DRG 473 ==
LOC: C.ACU 05:23 → C.3E 07:19 → INTOOBSV 07:19 → ENRESERV 11:03 → OBSVTOIN 06-27 16:24
PROVIDERS: ADMIT Orthopaedic Surgery Orthopaedic Surgery of the Spine; ATTEND Orthopaedic Surgery Orthopaedic Surgery of the Spine
PROC: 0RT30ZZ Resection of Cervical Vertebral Disc, Open Approach (ICD-10-PCS; principal; 2017-06-27)
PROC: 0RG2070 Fusion of 2 or more Cervical Vertebral Joints with Autologous Tissue Substitute, Anterior Approach, Anterior Column, Open Approach (ICD-10-PCS; principal; 2017-06-27)
PROC: 01N10ZZ Release Cervical Nerve, Open Approach (ICD-10-PCS; principal; 2017-06-27)
DX: M47.12 Other spondylosis with myelopathy, cervical region (principal); M48.02 Spinal stenosis, cervical region; E11.65 Type 2 diabetes mellitus with hyperglycemia; T38.0X5A Adverse effect of glucocorticoids and synthetic analogues, initial encounter; I10 Essential (primary) hypertension; N28.9 Disorder of kidney and ureter, unspecified; E66.9 Obesity, unspecified; Z68.39 Body mass index [BMI] 39.0-39.9, adult; Z85.47 Personal history of malignant neoplasm of testis; Z87.442 Personal history of urinary calculi; Z87.891 Personal history of nicotine dependence; Z79.4 Long term (current) use of insulin; Z79.84 Long term (current) use of oral hypoglycemic drugs; Z79.899 Other long term (current) drug therapy; Z83.3 Family history of diabetes mellitus; Z84.1 Family history of disorders of kidney and ureter; Z83.2 Family history of diseases of the blood and blood-forming organs and certain disorders involving the immune mechanism

== ENCOUNTER → 2017-08-02 | Outpatient (CLI) | payer OTHER, MEDICARE ==
[~2017-08-02] MED LIST changes: +HYDR-5688 PO
[2017-08-02 12:20] LABS: HEMOGLOBIN A1C 7.9 % (4.5-5.6)
[2017-08-02 12:28] LABS: ALT/SGPT 31 U/L (12-78); BLOOD UREA NITROGEN 10 mg/dl (7-18); CALCIUM 8.6 mg/dl (8.5-10.1); CARBON DIOXIDE 26 mmol/L (21-32); CREATININE 1.04 mg/dl (0.60-1.40); GLUCOSE 116 mg/dl (70-99); POTASSIUM 3.4 mmol/L (3.5-5.1); SODIUM 136 mmol/L (136-145)
[2017-08-02 12:32] LABS: CHOLESTEROL 123 mg/dl (0-200); LDL CHOLESTEROL CALCULATED 48 mg/dl
== END | disposition home or self-care (01) ==
LOC: C.LABPBG 08:17
PROVIDERS: ATTEND Family Medicine
DX: Z85.47 Personal history of malignant neoplasm of testis (principal); E11.9 Type 2 diabetes mellitus without complications

== ENCOUNTER 2020-08-19 12:32 | Observation (INO) ==
--- NOTE | 2020-07-22 11:27 | PAT Medication Instructions ---
Medication Instructions Date of Service July 22, 2020 Home Medications Medication Instructions Recorded ascorbic acid (vitamin C) 500 mg 500 mg PO BID #60 tab 01/15/19 tablet multivitamin 1 tab PO BID #60 tab 01/15/19 omega 2-esl-lmw-fish oil 1,000 mg 1 cap PO BID #30 cap 01/15/19 (120 mg-180 mg) capsule Diabetic Shoes #1 ea 09/12/19 blood sugar diagnostic See Rx Instructions .ROUTE 12/25/19 .COMPLEX #360 strip lancets 33 gauge #360 ea 12/25/19 doxazosin 2 mg tablet See Rx Instructions .ROUTE 01/27/20 .COMPLEX #270 tab dulaglutide 1.5 mg/0.5 mL 1.5 mg SUBCUT WEEKLY 90 Days #6 ml 01/27/20 subcutaneous pen injector insulin detemir U-100 100 unit/mL 90 units SUBCUT BID 90 Days #165 ml 01/27/20 (3 mL) subcutaneous pen pen needle,diabetic dual safty 30 #100 ea 01/27/20 gauge x 3/16" oxycodone-acetaminophen 10 mg-325 1 tab PO Q6H PRN #20 tab 05/26/20 mg tablet allopurinol 300 mg tablet 300 mg PO QPM #90 tab 06/15/20 glimepiride 4 mg tablet 4 mg PO BID #180 tab 06/15/20 lisinopril 40 mg tablet 40 mg PO QAM #90 tab 06/15/20 metformin 1,000 mg tablet 1,000 mg PO BID #180 tab 06/15/20 verapamil 360 mg 24 hr 360 mg PO QAM #90 cap 06/15/20 capsule,extended release gabapentin 300 mg capsule 300 mg PO TID #270 cap 06/18/20 furosemide 40 mg tablet 40 mg PO BID PRN #180 tab 06/30/20 ascorbic acid (vitamin C) 500 mg tablet 500 mg PO BID multivitamin 1 tab PO BID omega 8-npw-djj-fish oil 1,000 mg (120 mg-180 mg) capsule 1 cap PO BID doxazosin 2 mg tablet See Rx Instructions .ROUTE .COMPLEX dulaglutide 1.5 mg/0.5 mL subcutaneous pen injector 1.5 mg SUBCUT WEEKLY insulin detemir U-100 100 unit/mL (3 mL) subcutaneous pen 90 units SUBCUT BID oxycodone-acetaminophen 10 mg-325 mg tablet 1 tab PO Q6H PRN allopurinol 300 mg tablet 300 mg PO QPM glimepiride 4 mg tablet 4 mg PO BID lisinopril 40 mg tablet 40 mg PO QAM metformin 1,000 mg tablet 1,000 mg PO BID verapamil 360 mg 24 hr capsule,extended release 360 mg PO QAM gabapentin 300 mg capsule 300 mg PO TID furosemide 40 mg tablet 40 mg PO BID PRN cyanocobalamin (vitamin B-12) [Vitamin B-12] 1,000 mcg PO HS fluticasone propionate 2 spray INTNAS DAILY PRN potassium chloride 20 meq PO QAM pyridoxine (vitamin B6) [Vitamin B-6] 500 mg PO QAM Continue as directed dulaglutide 1.5 mg/0.5 mL subcutaneous pen injector 1.5 mg SUBCUT WEEKLY (just do not take on morning of surgery) STOP taking 2 weeks before surgery omega 8-dmm-utp-fish oil 1,000 mg (120 mg-180 mg) capsule 1 cap PO BID DO NOT take the morning of surgery ascorbic acid (vitamin C) 500 mg tablet 500 mg PO BID multivitamin 1 tab PO BID glimepiride 4 mg tablet 4 mg PO BID lisinopril 40 mg tablet 40 mg PO QAM metformin 1,000 mg tablet 1,000 mg PO BID furosemide 40 mg tablet 40 mg PO BID PRN potassium chloride 20 meq PO QAM pyridoxine (vitamin B6) [Vitamin B-6] 500 mg PO QAM Take morning of surgery With a small sip of water, OTHERWISE NOTHING TO EAT OR DRINK AFTER MIDNIGHT: doxazosin 2 mg tablet See Rx Instructions .ROUTE .COMPLEX oxycodone-acetaminophen 10 mg-325 mg tablet 1 tab PO Q6H PRN (okay to take up to 4 hours prior to surgery if needed) verapamil 360 mg 24 hr capsule,extended release 360 mg PO QAM gabapentin 300 mg capsule 300 mg PO TID fluticasone propionate 2 spray INTNAS DAILY PRN (if needed) Take evening before surgery ascorbic acid (vitamin C) 500 mg tablet 500 mg PO BID multivitamin 1 tab PO BID doxazosin 2 mg tablet See Rx Instructions .ROUTE .COMPLEX insulin detemir U-100 100 unit/mL (3 mL) subcutaneous pen 90 units SUBCUT BID oxycodone-acetaminophen 10 mg-325 mg tablet 1 tab PO Q6H PRN (if needed) allopurinol 300 mg tablet 300 mg PO QPM glimepiride 4 mg tablet 4 mg PO BID metformin 1,000 mg tablet 1,000 mg PO BID gabapentin 300 mg capsule 300 mg PO TID furosemide 40 mg tablet 40 mg PO BID PRN (if needed) cyanocobalamin (vitamin B-12) [Vitamin B-12] 1,000 mcg PO HS Insulin Dependent Diabetic Patients * Test your blood sugar the morning of surgery * If Blood Sugar is GREATER THAN 150, take HALF of your regular dose of: insulin detemir U-100 100 unit/mL (3 mL) subcutaneous pen (45 units) * If Blood Sugar is LESS THAN 150, DO NOT TAKE ANY: insulin detemir U-100 100 unit/mL (3 mL) subcutaneous pen Other Notes If you have any questions please call us at [phone] or [phone] or [phone] or [phone]
--- NOTE | 2020-07-24 12:52 | Anesthesiology Consultation ---
Date of Service July 24, 2020 Assessment & Plan (1) Encounter for pre-operative examination: COVID Status: As of 07/24 assessment, patient denies travel to endemic area, known exposure/sick contacts, or symptoms of COVID19. Patient instructed that they and their household members must follow strict social distancing guidelines, wear a mask in public and avoid travel/events/gatherings for 14 days prior to surgery. Patient reports he is retired and largely stays home. Preoperative COVID19 testing to be completed prior to surgery per surgeon's arrangements [place] [facility] [place] made aware to self-isolate as much as possible between COVID testing and surgery. - Appears possible difficult intubation based on exam, however no issues noted in review of past anesthesia records -- ACDF C3-C6 06/27/17 -- ETT 8.0, MAC 3.0, atraumatic. Grade view III. EZ mask. - Difficult venipuncture per laborer cement gun placing, likely difficult IV access, may need IV team. - Chewing tobacco: patient instructed to hold AM DOS. -Mild HALI and elevated A1C/glucose on pre-op labs. PCP notified, will f/u at their discretion ([facility]). BSG AM DOS Chart Review Chart Review: Acceptable Risk for Surgery and Patient seen in Pre Admission Testing Teaching & Discussion Instructed NPO after midnight before surgery, except medications with 15 cc of water. Medication instructions provided according to the PAT guidelines. History Surgery Operation Date: 08/19/20 09:25 Proposed Procedures p Right shoulder Arthroscopic subacromial Decompression, Distal Clavicle Excision, Debridement Versus Rotator Cuff Repair with Regenetin Biologial Implant, Bicep Tenodesis - Cipriano Hightower MD Height/Weight Height: 6 ft 2 in Weight: 149.2 kg Allergies Allergy/AdvReac Type Severity Reaction Status Date / Time etodolac Allergy Intermediate Rash Verified 07/23/20 14:20 canagliflozin Allergy Unknown LE Verified 07/23/20 14:20 swelling, weight gain tramadol AdvReac Intermediate Nausea Verified 07/23/20 14:20 meperidine AdvReac Unknown Nausea Verified 07/23/20 14:20 Medications Home Medications Medication Instructions Recorded Confirmed Last Taken ascorbic acid (vitamin C) 500 mg 500 mg PO BID #60 tab 01/15/19 07/14/20 02/12/19 tablet multivitamin 1 tab PO BID #60 tab 01/15/19 07/14/20 02/12/19 omega 9-dqm-cgb-fish oil 1,000 mg 1 cap PO BID #30 cap 01/15/19 07/14/20 02/12/19 (120 mg-180 mg) capsule Diabetic Shoes #1 ea 09/12/19 03/20/20 Unknown blood sugar diagnostic See Rx Instructions .ROUTE 12/25/19 03/20/20 Unknown .COMPLEX #360 strip lancets 33 gauge #360 ea 12/25/19 03/20/20 Unknown doxazosin 2 mg tablet See Rx Instructions .ROUTE 01/27/20 07/14/20 Unknown .COMPLEX #270 tab dulaglutide 1.5 mg/0.5 mL 1.5 mg SUBCUT WEEKLY 90 Days #6 ml 01/27/20 07/14/20 Unknown subcutaneous pen injector insulin detemir U-100 100 unit/mL 90 units SUBCUT BID 90 Days #165 ml 01/27/20 07/14/20 Unknown (3 mL) subcutaneous pen pen needle,diabetic dual safty 30 #100 ea 01/27/20 Unknown gauge x 3/16" allopurinol 300 mg tablet 300 mg PO QPM #90 tab 06/15/20 07/14/20 Unknown glimepiride 4 mg tablet 4 mg PO BID #180 tab 06/15/20 07/14/20 Unknown lisinopril 40 mg tablet 40 mg PO QAM #90 tab 06/15/20 07/14/20 Unknown metformin 1,000 mg tablet 1,000 mg PO BID #180 tab 06/15/20 07/14/20 Unknown verapamil 360 mg 24 hr 360 mg PO QAM #90 cap 06/15/20 07/14/20 Unknown capsule,extended release gabapentin 300 mg capsule 300 mg PO TID #270 cap 06/18/20 07/14/20 Unknown furosemide 40 mg tablet 40 mg PO BID PRN #180 tab 06/30/20 07/14/20 Unknown cyanocobalamin (vitamin B-12) 1,000 mcg PO HS 07/14/20 07/14/20 Unknown [Vitamin B-12] fluticasone propionate 2 spray INTNAS DAILY PRN 07/14/20 07/14/20 Unknown potassium chloride 20 meq PO QAM 07/14/20 07/14/20 Unknown pyridoxine (vitamin B6) [Vitamin 500 mg PO QAM 07/14/20 07/14/20 Unknown B-6] oxycodone-acetaminophen 10 mg-325 1 tab PO Q6H PRN #20 tab 07/23/20 Unknown mg tablet Past Medical History Medical History Acquired claw toe of right foot Acquired hammer toe of left foot Cervical spondylolysis Chronic back pain Chronic kidney disease HALI (6+ years ago) d/t medication reaction, was on dialysis for short period of time, kidney function "recovered" per patient/under surveillance by PCP Degenerative disc disease Diabetes Diabetic peripheral neuropathy associated with type 2 diabetes mellitus Disorder of right rotator cuff Gout Hearing deficit B/L, no hearing aids History of diabetic ulcer of foot R foot, pt reports mostly healed, it "comes and goes" History of testicular cancer Hypertension Kidney stones Lumbar spinal stenosis 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, follows with clinic in [place] Osteoarthritis Exercise / Class Metabolic Activity II 4-5 Yardwork/Stairs/Walk up hill (Can do 1 FOS, denies any CP, does get SOB but can do it without stopping, has stairs at home) Past Family History Family History Mother Lung disease Hypertension Liver cancer Diabetes Breast cancer Father Kidney disease Grandfather (Paternal) Stroke Denies family history of Colon cancer Ovarian cancer Prostate cancer Myocardial infarction Colorectal cancer Past Surgical History Surgical History Fusion of spine (06/2017) C3-C6 ACDF: 06/26/17: Grade 3 view, MAC 3.0, ETT 8.0 at [facility] History of appendectomy History of arthroscopy (05/2017) right knee History of cholecystectomy open History of cystoscopy History of ERCP History of laminectomy lumbar x3 History of tonsillectomy S/P decompression of ulnar nerve (01/2019) Right CTR, right ulnar nerve trans[place]: 02[place]13/19[place] [facility] [place]/P decompression of ulnar nerve at elbow (01/09/19) LUE S/P orchiectomy Left Status post carpal tunnel release (01/09/19) L wrist Status post surgery radical lymphadenectomy ("left inguinal through center of back") r/t testicular cancer Past Anesthesia History No Hx of Anesthesia Complications (just one incident of awareness with sedation) and No Family Hx of Anesthesia Complications History of PONV No Hx of PONV and No Hx of Motion Sickness Social History Smoking Status: Former smoker tobacco type: smokeless tobacco Do You Dip or Chew Tobacco: Yes (1 CAN PER 2 DAYS -- ADVISED NONE AM DOS) Smoking End Date: QUIT 40 YRS AGO Hx Alcohol Use: Yes Alcohol type: beer alcohol intake frequency: a few times a week Hx Substance Use: No Review of Systems Pt denies any recent chest pain, shortness of breath, palpitations, fever, URI, or uncontrolled acid reflux. +persistent productive cough, chronic, 2/2 black lung Physical Exam Vital Signs BP: 100/62 (asymptomatic) P: 89bpm SPO2: 95% RA T: 98.6 F R: 18 Constitutional + morbidly obese ENMT Mouth: + dentures (partial upper), + chipped teeth and + macroglossia; no loose teeth Thyromental Distance: > or= 3.5 Finger Breadths Mallampati Class: III Loose tobacco/snuff covering mouth and buccal mucosa. Neck + thick neck and + limited neck extension Respiratory normal respiratory effort, lungs clear to auscultation Auscultation: + diminished lung sounds (B/L) Cardiovascular RRR, no murmur, no edema Vessels: no carotid bruit Testing Laboratory Results 07/24/20 13:14 07/24/20 13:14 PT 10.2 Seconds (9.0-12.0) 07/24/20 13:14 INR 1.0 (0.9-1.1) 07/24/20 13:14 APTT 25.6 Seconds (21.0-31.0) 07/24/20 13:14 Hemoglobin A1c 7.8 % (4.5-5.6) H 07/24/20 13:14 *Surgeon's office and PCP notified of elevated glucose and HALI. PCP to f/u at their discretion. Electrocardiogram Date: 07/24/20 Findings: + NSR @ (81bpm) and + no change from (12/2018) Chest X-Ray Date: 07/24/20 FINDINGS: PA and lateral chest radiographs are compared to study dated 06/06/2017. The heart is top normal for projection. Chronic interstitial thickening is similar to previous. There is mild elevation of the right hemidiaphragm with bibasilar scarring/atelectasis. No airspace consolidation or pleural effusion is identified. There is no pneumothorax. The skeletal structures are osteopenic. The bony thorax appears intact. Fusion hardware is seen in the lower cervical spine. Degenerative change is noted in the thoracic spine. IMPRESSION: Chronic changes as above with no active disease in the chest.
[2020-07-24 13:37] LABS: Basophils # (auto) 0.02 K/uL (0-0.2); Basophils % (auto) 0.2 %; Eosinophils # (auto) 0.19 K/uL (0-0.5); Eosinophils % (auto) 2.3 %; Hemoglobin 13.8 g/dL (14.0-18.0); Immature Granulocytes # (auto) 0.02 K/uL (0.00-0.02); Immature Granulocytes % (auto) 0.2 %; Lymphocytes # (auto) 2.34 K/uL (1.2-3.4); Lymphocytes % (auto) 28.4 %; Mean Corpuscular Hgb Conc 34.5 g/dL (32-36); Mean Corpuscular Volume 95.7 fL (80-100); Monocytes # (auto) 0.64 K/uL (0.11-0.59); Monocytes % (auto) 7.8 %; Neutrophils # (auto) 5.02 K/uL (1.4-6.5); Neutrophils % (auto) 61.1 %; Platelet Count 250 K/uL (130-400); RDW Coefficient of Variation 14.1 % (11.5-14.5); RDW Standard Deviation 48.8 fL (36.4-46.3); Red Blood Count 4.18 M/uL (4.7-6.1); White Blood Count 8.23 K/uL (4.8-10.8)
[2020-07-24 13:51] LABS: BUN Creatinine Ratio 16.5 (10-20); Calcium 9.4 mg/dl (8.5-10.1); Creatinine Clr Calc Pharmacy 66.3 ml/min; Est GFR (African American) 49.5; Est GFR (Non-African American) 42.7; Potassium 4.3 mmol/L (3.5-5.1)
[2020-07-24 13:53] LABS: Partial Thromboplastin Ratio 0.9; Partial Thromboplastin Time 25.6 Seconds (21.0-31.0); Prothrombin Time 10.2 Seconds (9.0-12.0)
--- NOTE | 2020-07-24 14:03 | XRay Report ---
TWO VIEW CHEST CLINICAL HISTORY: Preoperative examination. FINDINGS: PA and lateral chest radiographs are compared to study dated 06/06/2017. The heart is top n ormal for projection. Chronic interstitial thickening is similar to previous. There is mild elevation of the right hemidiaphragm with bibasilar scarring/atelectasis. No airspace consolidation or pleural effusion is identified. There is no pneumothorax. The skeletal structures are osteopenic. The bony t horax appears intact. Fusion hardware is seen in the lower cervical spine. Degenerative change is not ed in the thoracic spine. IMPRESSION: Chronic changes as above with no active disease in the chest. ACT 112: Negative or not required by law. Electronically signed by: Neil Arroyo M.D. 07/24/2020 2:01 PM
[2020-07-25 06:53] LABS: Estimated Average Glucose 177 mg/dl; Hemoglobin A1C 7.8 % (4.5-5.6)
--- NOTE | 2020-07-25 10:59 | Electrocardiogram Report ---
Test Reason : Blood Pressure : / mmHG Vent. Rate : 081 BPM Atrial Rate : 081 BPM P-R Int : 186 ms QRS Dur : 076 ms QT Int : 406 ms P-R-T Axes : -08 053 057 degrees QTc Int : 471 ms Normal sinus rhythm Normal ECG When compared with ECG of 31-DEC-2018 13:58, No significant change was found Confirmed by Saturnino Villa ([id number]) on 07/25/2020 10:59:07 AM Referred By: Cipriano Hightower Confirmed By:Alcon Villa
--- NOTE | 2020-07-26 07:51 | History & Physical Report ---
Date of Service July 26, 2020 Assessment & Plan (1) Impingement syndrome of right shoulder: Treatment options discussed with patient. He has continued pain and dysfunction despite care home conservative management. He would like to proceed with surgical intervention. Risks, benefits and alternatives to surgery including but not limited to infection, DVT, pain, stiffness, need for revision surgery, damage to blood vessels, damage to nerves, PE, , were discussed with the patient and they wish to proceed. Plan will be for right shoulder arthroscopy with rotator cuff repair with Regeneten biologic implant, possible suture repair vs suture anchor repair, subacromial decompression, distal clavicle excision, and biceps tenotomy vs biceps tenodesis. Surgery scheduled for 08/19/20 at [facility] with Dr. Hightower. All questions answered. He will follow up post operatively. (2) Full thickness rotator cuff tear: History of Present Illness Chief Complaint: Right shoulder pain Primary Care Provider: Candi Carrera DO 70yo male with PMHx significant for HTN, DM2, chronic lung disease possible black lung, testicular ca, CKD with history of HALI requiring dialysis. He presents with longstanding history of right shoulder pain. He has failed conservative measures including injections and therapy. He has continued pain and dysfunction. He would like to proceed with surgical intervention. Patient denies headaches, sweats, fevers, chills, double vision, blurred vision, sore throat, dysphagia, chest pain, wheezing, n/v/d/c, numbness, tingling, fatigue, urinary symptoms, mood disorders. ROS positive for right shoulder pain and stiffness, cough and sob at baseline. Allergies Allergy/AdvReac Type Severity Reaction Status Date / Time etodolac Allergy Intermediate Rash Verified 07/23/20 14:20 canagliflozin Allergy Unknown LE Verified 07/23/20 14:20 swelling, weight gain tramadol AdvReac Intermediate Nausea Verified 07/23/20 14:20 meperidine AdvReac Unknown Nausea Verified 07/23/20 14:20 Home Medications Medication Instructions Recorded Confirmed Type ascorbic acid (vitamin C) 500 mg 500 mg PO BID #60 tab 01/15/19 07/14/20 Rx tablet multivitamin 1 tab PO BID #60 tab 01/15/19 07/14/20 Rx omega 5-vqz-sos-fish oil 1,000 mg 1 cap PO BID #30 cap 01/15/19 07/14/20 Rx (120 mg-180 mg) capsule Diabetic Shoes #1 ea 09/12/19 03/20/20 Rx blood sugar diagnostic See Rx Instructions .ROUTE 12/25/19 03/20/20 Rx .COMPLEX #360 strip lancets 33 gauge #360 ea 12/25/19 03/20/20 Rx doxazosin 2 mg tablet See Rx Instructions .ROUTE 01/27/20 07/14/20 Rx .COMPLEX #270 tab dulaglutide 1.5 mg/0.5 mL 1.5 mg SUBCUT WEEKLY 90 Days #6 ml 01/27/20 07/14/20 Rx subcutaneous pen injector insulin detemir U-100 100 unit/mL 90 units SUBCUT BID 90 Days #165 ml 01/27/20 07/14/20 Rx (3 mL) subcutaneous pen pen needle,diabetic dual safty 30 #100 ea 01/27/20 Rx gauge x 3/16" allopurinol 300 mg tablet 300 mg PO QPM #90 tab 06/15/20 07/14/20 Rx glimepiride 4 mg tablet 4 mg PO BID #180 tab 06/15/20 07/14/20 Rx lisinopril 40 mg tablet 40 mg PO QAM #90 tab 06/15/20 07/14/20 Rx metformin 1,000 mg tablet 1,000 mg PO BID #180 tab 06/15/20 07/14/20 Rx verapamil 360 mg 24 hr 360 mg PO QAM #90 cap 06/15/20 07/14/20 Rx capsule,extended release gabapentin 300 mg capsule 300 mg PO TID #270 cap 06/18/20 07/14/20 Rx furosemide 40 mg tablet 40 mg PO BID PRN #180 tab 06/30/20 07/14/20 Rx cyanocobalamin (vitamin B-12) 1,000 mcg PO HS 07/14/20 07/14/20 History [Vitamin B-12] fluticasone propionate 2 spray INTNAS DAILY PRN 07/14/20 07/14/20 History potassium chloride 20 meq PO QAM 07/14/20 07/14/20 History pyridoxine (vitamin B6) [Vitamin 500 mg PO QAM 07/14/20 07/14/20 History B-6] oxycodone-acetaminophen 10 mg-325 1 tab PO Q6H PRN #20 tab 07/23/20 Rx mg tablet Past Med/Surg History Medical History (Updated 07/26/20 @ 08:00 by Alfredito Lopez) Acquired claw toe of right foot Acquired hammer toe of left foot Cervical spondylolysis Chronic back pain Chronic kidney disease HALI (6+ years ago) d/t medication reaction, was on dialysis for short period of time, kidney function "recovered" per patient/under surveillance by PCP Degenerative disc disease Diabetes Diabetic peripheral neuropathy associated with type 2 diabetes mellitus Disorder of right rotator cuff Gout Hearing deficit B/L, no hearing aids History of diabetic ulcer of foot R foot, pt reports mostly healed, it "comes and goes" History of testicular cancer Hypertension Kidney stones Lumbar spinal stenosis 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, follows with clinic in [place] Osteoarthritis Surgical History (Updated 07/23/20 @ 14:22 by Letha Sanderson) Fusion of spine (06/2017) C3-C6 ACDF: 06/26/17: Grade 3 view, MAC 3.0, ETT 8.0 at [facility] History of appendectomy History of arthroscopy (05/2017) right knee History of cholecystectomy open History of cystoscopy History of ERCP History of laminectomy lumbar x3 History of tonsillectomy S/P decompression of ulnar nerve (01/2019) Right CTR, right ulnar nerve transposition: 02/13/19: L[place]#5 [place] [facility] [place] S/P decompression of ulnar nerve at elbow (01/09/19) LUE S/P orchiectomy Left Status post carpal tunnel release (01/09/19) L wrist Status post surgery radical lymphadenectomy ("left inguinal through center of back") r/t testicular cancer Family History Mother Lung disease Hypertension Liver cancer Diabetes Breast cancer Father Kidney disease Grandfather (Paternal) Stroke Denies family history of Colon cancer Ovarian cancer Prostate cancer Myocardial infarction Colorectal cancer Social History Smoking Status: Former smoker packs per day: 3; Smoking End Date: QUIT 40 YRS AGO; Second Hand Exposure: No; Do You Dip or Chew Tobacco: Yes (1 CAN PER 2 DAYS -- ADVISED NONE AM DOS); Hx Alcohol Use: Yes Alcohol type: beer Alcohol Intake Frequency Comment: 3 Hx Substance Use: No Preferred Language: Samoan Communication Ability: Effective Visual Impairment: No Limitations Hearing Ability: Normal Field Hockey Coach Required: No Beliefs That Will Affect Care: None marital status: Current Living Situation: Spouse current occupational status: unemployed Other Information That Helps Us Care for You: No Feels Safe at Home: Yes Safety Concerns: Feels Safe At This Time Childhood Exposure to Second-Hand Smoke: No Diet Comment: regular caffeine: No during the past year weight has: decreased > 10 lbs Dental Care, Regularly: No Physical Activity Frequency: Does not Exercise Seatbelt Use: sometimes Sunscreen Use: No Assistive Devices: Denture - Upper and Glasses Review of Systems All systems reviewed & are unremarkable except as noted in HPI & below Physical Exam Constitutional: well developed and well nourished; no acute distress Eyes: PERRL, conjunctivae normal, anicteric sclerae ENMT: external ear and nose normal, oropharynx normal Neck: trachea midline, no thyromegaly Respiratory: normal respiratory effort, lungs clear to auscultation Cardiovascular: RRR, no murmur, no edema Mild LLE edema Musculoskeletal: Right shoulder: Tenderness AC joint, anterolateral acromion, biceps tendon. Positive O'ramírez's, speeds, Yergason's, Schwartz, Cross body, and Neer's impingement. Pain with strength testing. 5-/5 ER, 5/5 IR, 4+/5 supraspinatus. ROM-painful impingement arc but full motion. Pain with passive IR. Skin: no rashes, warm and dry Neurologic: patellar DTR's 2+ bilat, sensation intact Psychiatric: A+Ox3, euthymic affect Results & Data ([facility]) Laboratory Results Lab Results 07/24/20 07/24/20 07/24/20 Range/Units 13:14 13:14 13:14 WBC 8.23 (4.8-10.8) K/uL RBC 4.18 L (4.7-6.1) M/uL Hgb 13.8 L (14.0-18.0) g/dL Hct 40.0 L (42-52) % MCV 95.7 (80-100) fL MCH 33.0 (25-34) pg MCHC 34.5 (32-36) g/dL RDW Std Deviation 48.8 H (36.4-46.3) fL RDW Coeff of Hoang 14.1 (11.5-14.5) % Plt Count 250 (130-400) K/uL MPV 10.0 (7.4-10.4) fL Immature Gran % (Auto) 0.2 % Neut % (Auto) 61.1 % Lymph % (Auto) 28.4 % Sharp % (Auto) 7.8 % Eos % (Auto) 2.3 % Baso % (Auto) 0.2 % Neut # (Auto) 5.02 (1.4-6.5) K/uL Lymph # (Auto) 2.34 (1.2-3.4) K/uL Sharp # (Auto) 0.64 H (0.11-0.59) K/uL Eos # (Auto) 0.19 (0-0.5) K/uL Baso # (Auto) 0.02 (0-0.2) K/uL Immature Gran # (Auto) 0.02 (0.00-0.02) K/uL PT 10.2 (9.0-12.0) Seconds INR 1.0 (0.9-1.1) APTT 25.6 (21.0-31.0) Seconds PTT Ratio 0.9 Sodium 138 (136-145) mmol/L Potassium 4.3 (3.5-5.1) mmol/L Chloride 101 (98-107) mmol/L Carbon Dioxide 28 (21-32) mmol/L Anion Gap 8.0 (3-11) BUN 27 H (7-18) mg/dl Creatinine 1.62 H (0.6-1.4) mg/dl Est Cr Clr Drug Dosing 66.3 ml/min Est GFR ( Amer) 49.5 Est GFR (Non-Af Amer) 42.7 BUN/Creatinine Ratio 16.5 (10-20) Glucose 240 H (70-99) mg/dl Estimat Average Glucose mg/dl Hemoglobin A1c (4.5-5.6) % Calcium 9.4 (8.5-10.1) mg/dl 07/24/20 Range/Units 13:14 WBC (4.8-10.8) K/uL RBC (4.7-6.1) M/uL Hgb (14.0-18.0) g/dL Hct (42-52) % MCV (80-100) fL MCH (25-34) pg MCHC (32-36) g/dL RDW Std Deviation (36.4-46.3) fL RDW Coeff of Hoang (11.5-14.5) % Plt Count (130-400) K/uL MPV (7.4-10.4) fL Immature Gran % (Auto) % Neut % (Auto) % Lymph % (Auto) % Sharp % (Auto) % Eos % (Auto) % Baso % (Auto) % Neut # (Auto) (1.4-6.5) K/uL Lymph # (Auto) (1.2-3.4) K/uL Sharp # (Auto) (0.11-0.59) K/uL Eos # (Auto) (0-0.5) K/uL Baso # (Auto) (0-0.2) K/uL Immature Gran # (Auto) (0.00-0.02) K/uL PT (9.0-12.0) Seconds INR (0.9-1.1) APTT (21.0-31.0) Seconds PTT Ratio Sodium (136-145) mmol/L Potassium (3.5-5.1) mmol/L Chloride (98-107) mmol/L Carbon Dioxide (21-32) mmol/L Anion Gap (3-11) BUN (7-18) mg/dl Creatinine (0.6-1.4) mg/dl Est Cr Clr Drug Dosing ml/min Est GFR ( Amer) Est GFR (Non-Af Amer) BUN/Creatinine Ratio (10-20) Glucose (70-99) mg/dl Estimat Average Glucose 177 mg/dl Hemoglobin A1c 7.8 H (4.5-5.6) % Calcium (8.5-10.1) mg/dl Diagnostic Findings Right shoulder MRI: severe chronic rotator cuff tendinopathy with intratendinous degenerative tearing, high grade partial with small full thickness tear likely. Subluxation of biceps tendon with tendinopathy. Hypertrophic AC joint.
[~2020-08-19 12:32] MED LIST changes: -ALLO300T2 PO; -ASCO1CAP3 PO; -CYAN10005 PO; -DOXA2TAB PO; -FURO-85 PO; -GLIM4TAB2 PO; -HYDR-5688 PO; -LIRA18IN SQ; -LISI-725 PO; +LR 15ML/HR IV SCH; -LVMI SQ; -METF1TAB53 PO; -MULTTAB58 PO; -OMEGCAP2 PO; -POTA20TA16 PO; -PYRI50TA77 PO; +ROPIVACAINE 0.5% 5 MG/ML 30 ML VIAL ONE; -VERA360C2 PO
[2020-08-19] MEDS ORDERED: ROCURONIUM BROMIDE 10 MG/ML 5 ML VIAL IV ONE (14:41)
[2020-08-19] MEDS ORDERED: PROPOFOL IV EMULSION 10 MG/ML 20 ML VIAL IV ONE (14:41)
[2020-08-19] MEDS ORDERED: LIDOCAINE HCL 2% 2 ML VIAL/AMP(20MG/ML) INFIL ONE (14:41)
[2020-08-19] MEDS ORDERED: ONDANSETRON INJ 2 MG/ML 2 ML VIAL ONE (14:41)
[2020-08-19] MEDS ORDERED: MIDAZOLAM HCL 1 MG/ML 2ML VIAL ONE (14:42)
[2020-08-19] MEDS ORDERED: fentaNYL citrate 100 MCG/2 ML VIAL ONE (14:42)
[2020-08-19] MEDS ORDERED: ATROPINE SULFATE 0.1 MG/ML 10ML SYR IV PRN (15:04)
[2020-08-19] MEDS ORDERED: fentaNYL citrate 100 MCG/2 ML VIAL IV PRN (15:04)
[2020-08-19] MEDS ORDERED: ONDANSETRON INJ 2 MG/ML 2 ML VIAL IV PRN ×2 (15:04→19:51)
--- NOTE | 2020-08-19 15:08 | History & Physical Bridge Note ---
Date of Service August 19, 2020 History & Physical Bridge Note I have examined the patient, reviewed the History & Physical and in the interval since the performance of the History & Physical I have noted the following changes of clinical significance: no changes noted
[2020-08-19] MEDS ORDERED: PHENYLEPHRINE 100MCG/ML 5ML SYR ONE (16:33)
[2020-08-19] MEDS ORDERED: ePHEDrine sulfate 50 MG/ML AMP ONE (16:33)
[2020-08-19] MEDS ORDERED: SODIUM CHLORIDE 0.9% INJ 10 ML VIAL ONE (16:43)
[2020-08-19] MEDS ORDERED: EPINEPHRINE HCL 1 MG/ML IR ONE (16:53)
--- NOTE | 2020-08-19 18:29 | Post Operative Brief Note ---
Immediate Post Op Note v1 Date of Surgery August 19, 2020 Pre & Post Diagnosis Operation Date: 08/19/20 14:10 Pre-Op Diagnosis: Right Shoulder Impingement Syndrome, AC joint osteoarthritis, high-grade partial rotator cuff tear versus small full-thickness tear, biceps tendinopathy. Post-Op Diagnosis: Right Shoulder Impingement Syndrome, AC joint osteoarthritis, high-grade partial rotator cuff tear supraspinatus tendon, partial tear subscapularis tendon with subluxation biceps tendon with marked biceps tendinopathy, degenerative glenoid labral tearing, subacromial bursitis I identified the patient and participated in the time-out.: Yes Procedure Operation Date: 08/19/20 14:10 Actual Procedures p Right Shoulder Arthroscopic Subacromial Decompression, Distal Clavicle Excision, Repair Rotator Cuff, Debridement Subacromial Bursa, Glenoid Labral Tear and Biceps Tendon, Biceps Tenotomy(Right) - Cipriano Hightower MD Surgeon Cipriano Hightower MD Vice President Of Consulting Services Chele [place] Estimated Blood Loss 5 Findings Consistent with Post-Op Diagnosis Anesthesia Type General Regional Complications none Disposition Accompanied Patient To Recovery: No Disposition: Recovery Room Overlapping Procedure I was immediately available: during the entire case.
[2020-08-19] MEDS ORDERED: oxyCODONE/ACETAMINOPHEN 5mg/325mg TAB PO PRN (18:35)
[2020-08-19] MEDS ORDERED: GLYCOPYRROLATE 0.2 MG/ML VIAL ONE (18:40)
[2020-08-19] MEDS ORDERED: NEOSTIGMINE METHYLSULFATE 5 MG/5 ML SYR ONE (18:40)
--- NOTE | 2020-08-19 18:41 | Operative Report ---
Post Operative Report Pre & Post Diagnosis Operation Date: 08/19/20 14:10 Pre-Op Diagnosis: Right Shoulder Impingement Syndrome, acromioclavicular joint osteoarthritis, high-grade partial rotator cuff tear possible full-thickness rotator cuff tear, biceps tendinopathy, morbid obesity BMI 42.9 Post-Op Diagnosis: Right Shoulder Impingement Syndrome, AC joint osteoarthritis osteoarthritis, chondrocalcinosis AC joint, high-grade partial rotator cuff tear supraspinatus, partial tear subscapularis, marked biceps tendinopathy with subluxation, degenerative glenoid labral tear, chronic subacromial bursitis, morbid obesity BMI 42.9. I identified the patient and participated in the time-out.: Yes Procedure Operation Date: 08/19/20 14:10 Actual Procedures p Right Shoulder Arthroscopic Subacromial Decompression, Distal Clavicle Excision, Repair Rotator Cuff, Debridement partial tear rotator cuff, subacromial Bursa, Glenoid Labral Tear and Biceps Tendon, Biceps Tenotomy(Right), increased difficulty BMI 42.9- Cipriano Hightower MD Surgeon Cipriano Hightower MD Anode Rebuilder Chele COVINGTON Estimated Blood Loss 5 Findings Consistent with Post-Op Diagnosis Specimens None Anesthesia Type General Regional Complications none Disposition Accompanied Patient To Recovery: No Disposition: Recovery Room Indications 70-year male with chronic right shoulder pain failed conservative management. Patient has radiographs demonstrate hypertrophic AC joint arthritis type 2 -3 acromion process with subacromial impingement with MRI demonstrating high-grade near complete full-thickness rotator cuff tear supraspinatus tendon with biceps tendinopathy possible subluxation biceps tendon to partial tear subscapularis tendon. Patient has obesity BMI 42.9 Description of Procedure The patient was to the operating room anesthetized under regional block and general anesthesia. The patient was positioned on the operating table in the 70 beach chair position. All of the other extremities were well-padded. The right upper extremity was prepped and draped in the usual sterile fashion. Examination demonstrated patient a heavy arm and generalized obesity. Patient had abdominal obesity. Positioning took some extra time due to his size to place him in a well-padded position in the [facility] shoulder table. Arthroscopy of the shoulder was performed via anterior and posterior arthroscopy portals. Posterior portal was placed in the soft spot and the anterior portal was placed in the rotator interval. Subsequent portals included lateral subacromial and superior lateral incision for suture anchor placement. The following findings were noted: There was degenerative tearing of the superior labrum there was degenerative tearing of the anterior and anterior-inferior labrum. The articular surfaces on humeral head and the glenoid were still intact. The biceps tendon was markedly widened and markedly frayed with extensive tendinopathy with the entire segment of the intra-articular portion being involved with marked tendinopathy which extended into the bicipital groove. There is splitting of the biceps tendon and partial tearing. There was subluxation into small partial-thickness tear of the subscapularis tendon with no major detachment of subscapularis. There was a high-grade partial tear of the supraspinatus released 85% of the tendon was torn off the bone exposing the footprint. The infraspinatus tendon was intact. The supraspinatus partial tear was marked with a suture. In the subacromial space there was no was a full- thickness tear. There was chronic subacromial bursitis. There was a type III acromion process with substantial spur extending of the CA ligament with significant fraying of the CA ligament consistent with impingement. There was extensive capsule deposits in the AC joint chondrocalcinosis grade 4 osteoarthritis AC joint and a hypertrophic AC joint with significant arthritis with a very low-lying distal clavicle causing significant impingement and subacromial space. Attention was first taken to debriding the superior labrum anterior-inferior labrum removing some the inflamed synovial tissue in the joint. Biceps tendon was debrided. After thorough debridement of the biceps tendon I felt that not do well with tenodesis with a poor tissue and a tenotomy was the best treatment option. The tenotomy was performed with a radiofrequency ablator. There was a very widened proximal aspect of the biceps tendon and it did get captured in bicipital groove and did not retract. The undersurface of the rotator cuff was debrided the footprint of the supraspinatus was debrided out to the intact tendon fibers exposing the bone from the articular margin out to the lateral greater tuberosity intact fibers. In the subacromial space a thorough subacromial bursectomy was performed removing all the thickened subacromial bursa tissue and fully exposing the bursal surface of the rotator cuff. The bursa and periosteum on the undersurface of the acromion was ablated with the radiofrequency ablator and the CA ligament was released off the anterior acromion. The CA ligament was debrided back. A 5.5 bur was used to plane down the acromion to type I flat shape. A radio frequency ablator was used to ablate the undersurface of 1 cm of the distal clavicle ablating the inferior capsule. This exposed the spurs on the undersurface of the clavicle. A 5.5 bur was used to resect 1 cm distal clavicle using the dora through both the lateral and anterior portal. The superior and posterior capsule was preserved for sta bility. The rotator cuff was repaired with a PASTA technique. A [employer] Q fix anchor insertion device was used to penetrate the rotator cuff and then the drill was used and a 2.8 mm Q fix anchor was inserted just off the articular margin for medial row fixation. Sutures were passed out through an anterior working cannula. A spinal needle was passed percutaneously passing a #1 PDS suture which was brought out through the anterior working cannula with a grasper. This was individually tied to one of the bradycardia sutures from the Q fix. These were shuttled through the rotator cuff tear. This procedure was performed 4 times to span the tear. The sutures were retrieved in subacromial space and tied with A Mendel sliding locking knot with 3 reversed half hitches and alternating posts. 2 horizontal mattress repairs were performed. The tails of the tied sutures were placed into a 5.5 footprint laterally getting double row fixation . Anchors were stable with rotation there was no impingement. Was some increased length of time of the surgery and some increased difficulty due to the obesity. The portal sites were closed with interrupted nylon sutures. Sterile dressings were applied and a sling immobilizer. The patient tolerated the procedure well. My physician food and beverage assistant Chele Lopez, assisted in arm positioning, instrument management, suture management when indicated, incision closure, sling application, and will participate in the postoperative care of the patient. I attest to the content of the Intraoperative Record and any orders documented therein. Any exceptions are noted below.
--- NOTE | 2020-08-19 19:13 | Anesthesiology Progress Note ---
Date of Service August 19, 2020 Anesthesia Post Procedure Vital Signs Vital Signs: Temp Pulse Pulse Resp BP Pulse Ox 08/19/20 19:05 70 18 131/63 97 08/19/20 18:55 70 18 97/56 L 96 08/19/20 18:45 70 18 123/65 96 08/19/20 18:35 36.5 C 78 18 135/68 95 08/19/20 13:07 37.0 C 93 H 20 141/78 H 96 Transfer of Care Handoff Completed per policy Notes Mental Status: alert / awake / arousable and participated in evaluation Patient Amnestic to Procedure: Yes Nausea / Vomiting: adequately controlled Pain: adequately controlled Airway Patency, RR, SpO2: stable & adequate BP & HR: stable & adequate Hydration State: stable & adequate Anesthetic Complications: no major complications apparent and Pt Satisfied with anesthetic care Notes: Block functioning well. Pt doing ok, but decision made to admit overnight due to patient still requiring oxygen in PACU after shoulder surgery with interscalene block and the late time at which surgery was completed. Patient ok with planned overnight admit for obs.
[2020-08-19] MEDS ORDERED: METOCLOPRAMIDE HCL INJ 5 MG/ML 2 ML VIAL IV PRN (19:51)
[2020-08-19] MEDS ORDERED: FLUTICASONE PROPIONATE NA SPR 16 GM BTL PRN (19:51)
[2020-08-19] MEDS ORDERED: FUROSEMIDE 40 MG TAB PO PRN (19:51)
[2020-08-19] MEDS ORDERED: TAMSULOSIN HCL 0.4 MG CAP PO PRN (19:51)
[2020-08-19] MEDS ORDERED: MAGNESIUM HYDROXIDE SUSP 30 ML UDC PO PRN (19:51)
[2020-08-19] MEDS ORDERED: bisacodyL 10 MG SUPP PR PRN (19:51)
[2020-08-19] MEDS ORDERED: SODIUM CHLORIDE 0.9% 1000ML 1,000 ML IV SCH (19:51)
[2020-08-19] MEDS ORDERED: NALOXONE HCL 0.4 MG/1 ML VIAL/CARP IV PRN (19:51)
[2020-08-19] MEDS ORDERED: PHARMACY GLYCEMIC MGMT CONSULT PRN (20:06)
--- NOTE | 2020-08-19 20:28 | Hospitalist Consultation ---
Date of Consultation August 19, 2020 Assessment & Plan (1) SOB (shortness of breath): 70-year-old male past medical history significant for DM 2 on oral and insulin therapy, testicular cancer status post radical lymphadenectomy, hypertension, CKD, full-thickness right rotator cuff tear POD#0 s/p rotator cuff repair and and distal clavicle resection. Hospitalist service consulted due to patient's SOB and for medical management of chronic conditions. Shortness of breath: Following surgery with increased oxygen demand to 3 L nasal cannula rapidly decreased to 2 L nasal cannula. Patient is comfortable and saturating well on 2 L nasal cannula. Chest x-ray shows findings most consistent with bilateral lower lobe atelectasis, no findings suggestive of pulmonary edema or pneumonia. Patient noted to have a mild leukocytosis to 11. Incentive spirometry every hour while awake, titrate oxygen as needed with goal SPO2 greater than 92%. Shortness of breath is likely secondary to atelectasis noted on chest x-ray. Patient does not endorse a history of CAD or CHF, no echocardiogram on chart. DM2: In the outpatient setting, patient is on insulin detemir 94 units twice daily, metformin 1000 twice daily, dulaglutide 1.5 mg weekly. Most recent A1c 1 month ago was 7.5%. Pharmacy consult placed by surgical team. DM2 diet. Hypertension: Patient with mildly elevated BP following surgery. Continue home lisinopril, verapamil. Peripheral edema: At home patient is on Lasix 40 mg p.o. twice daily, this is following radical lymphadenectomy over 20 years ago when diagnosed with testicular cancer. This is at baseline, continue home meds. CODE STATUS: Full code FEN GI: Heart healthy DM2 diet DVT prophylaxis: Heparin 5000 units subcu every 12 hours Dispo: MedSurg for postop follow-up, evaluation and management of shortness of breath (2) Uncontrolled type 2 diabetes mellitus with insulin therapy: (3) Hypertension: (4) Peripheral edema: (5) Full thickness rotator cuff tear: Supervising Physician Co-Signing Physician Notes Attending addendum: I have physically seen this patient, have supervised the medical residents activities, and agree with the H&P unless as otherwise noted. Assessment and Plan: Shortness of breath- Atelectasis noted on chest x-ray Briefly increasing oxygen supply from 2 to 3 L, with rapid decrease back to 2 L. Incentive spirometry. Duonebs every 4 hours while awake and every 2 hours when necessary. Every 2 hours as needed Follow clinically Hypertension- Continue dosing lisinopril and verapamil Diabetes mellitus- Glycemic consult has already been placed with pharmacy Remaining orders and notations as noted History of Present Illness Reason for Consultation: Shortness of breath Requesting Physician: Cipriano Hightower MD Attending Physician: Cipriano Hightower MD History of Present Illness 70-year-old male past medical history significant for DM 2 on oral and insulin therapy, testicular cancer status post radical lymphadenectomy, hypertension, CKD, full-thickness right rotator cuff tear admitted for right rotator cuff repair. After surgery this afternoon patient endorsed shortness of breath requiring 3 L nasal cannula which was rapidly decreased to 2 L. Hospitalist service was consulted. On my interview patient feels comfortable on 2 L nasal cannula, but does not endorse any chest pain, dizziness, headache. No recent fevers, sick contacts. Does not endorse a history of shortness of breath, does not wear oxygen at baseline, no history of COPD or asthma but does endorse a history of "borderline black lung". Patient does take Lasix 40mg BID PRN lower extremity edema for several years following lymph node removal due to his testicular cancer. Does not endorse a history of heart failure or CAD. Allergies Allergy/AdvReac Type Severity Reaction Status Date / Time etodolac Allergy Intermediate Rash Verified 08/19/20 12:52 canagliflozin Allergy Unknown LE Verified 08/19/20 12:52 swelling, weight gain tramadol AdvReac Intermediate Nausea Verified 08/19/20 12:52 meperidine AdvReac Unknown Nausea Verified 08/19/20 12:52 Home Medications Medication Instructions Recorded Confirmed Type ascorbic acid (vitamin C) 500 mg 500 mg PO BID #60 tab 01/15/19 08/19/20 Rx tablet multivitamin 1 tab PO BID #60 tab 01/15/19 08/19/20 Rx omega 1-hnd-bxz-fish oil 1,000 mg 1 cap PO BID #30 cap 01/15/19 08/19/20 Rx (120 mg-180 mg) capsule Diabetic Shoes #1 ea 09/12/19 03/20/20 Rx dulaglutide 1.5 mg/0.5 mL 1.5 mg SUBCUT WEEKLY 90 Days #6 ml 01/27/20 08/19/20 Rx subcutaneous pen injector pen needle,diabetic dual safty 30 #100 ea 01/27/20 Rx gauge x 3/16" allopurinol 300 mg tablet 300 mg PO QPM #90 tab 06/15/20 08/19/20 Rx glimepiride 4 mg tablet 4 mg PO BID #180 tab 06/15/20 08/19/20 Rx lisinopril 40 mg tablet 40 mg PO QAM #90 tab 06/15/20 08/19/20 Rx metformin 1,000 mg tablet 1,000 mg PO BID #180 tab 06/15/20 08/19/20 Rx verapamil 360 mg 24 hr 360 mg PO QAM #90 cap 06/15/20 08/19/20 Rx capsule,extended release gabapentin 300 mg capsule 300 mg PO TID #270 cap 06/18/20 08/19/20 Rx furosemide 40 mg tablet 40 mg PO BID PRN #180 tab 06/30/20 08/19/20 Rx cyanocobalamin (vitamin B-12) 1,000 mcg PO HS 07/14/20 08/19/20 History [Vitamin B-12] fluticasone propionate 2 spray INTNAS DAILY PRN 07/14/20 08/19/20 History potassium chloride 20 meq PO QAM 07/14/20 08/19/20 History pyridoxine (vitamin B6) [Vitamin 500 mg PO QAM 07/14/20 08/19/20 History B-6] insulin detemir U-100 100 unit/mL 94 unit SUBCUT BID 90 Days #169.2 07/27/20 08/19/20 Rx (3 mL) subcutaneous pen ml doxazosin 2 mg tablet See Rx Instructions .ROUTE 08/14/20 08/19/20 Rx .COMPLEX #270 tab blood sugar diagnostic See Rx Instructions .ROUTE 08/18/20 Rx .COMPLEX #360 strip MDD USE 1 STRIP TO CHECK GLUCOSE 3 lancets 33 gauge #360 ea 08/18/20 Rx oxycodone-acetaminophen [Percocet] 1 - 2 tab PO .Q4h-6h PRN #30 tab 08/19/20 Rx MDD 6 Patient History Medical History Acquired claw toe of right foot Acquired hammer toe of left foot Cervical spondylolysis Chronic back pain Chronic kidney disease HALI (6+ years ago) d/t medication reaction, was on dialysis for short period of time, kidney function "recovered" per patient/under surveillance by PCP Degenerative disc disease Diabetes Diabetic peripheral neuropathy associated with type 2 diabetes mellitus Disorder of right rotator cuff Hearing deficit B/L, no hearing aids History of diabetic ulcer of foot R foot, pt reports mostly healed, it "comes and goes" History of testicular cancer Hypertension Impacted tooth Kidney stones Lumbar spinal stenosis 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, follows with clinic in [place] Osteoarthritis Surgical History Fusion of spine (06/2017) C3-C6 ACDF: 06/26/17: Grade 3 view, MAC 3.0, ETT 8.0 at [facility] History of appendectomy History of arthroscopy (05/2017) right knee History of cholecystectomy open History of cystoscopy History of ERCP History of laminectomy lumbar x3 History of tonsillectomy S/P decompression of ulnar nerve (01/2019) Right CTR, right ulnar nerve transposition: 02/13/19: LMA#5 at [facility] [place] S/P decompression of ulnar nerve at elbow (01/09/19) LUE S/P orchiectomy Left Status post carpal tunnel release (01/09/19) L wrist Status post surgery radical lymphadenectomy ("left inguinal through center of back") r/t testicular cancer Family History Mother Lung disease Hypertension Liver cancer Diabetes Breast cancer Father Kidney disease Grandfather (Paternal) Stroke Denies family history of Colon cancer Ovarian cancer Prostate cancer Myocardial infarction Colorectal cancer Social History Smoking Status: Former smoker packs per day: 3; Smoking End Date: QUIT 40 YRS AGO; Second Hand Exposure: No; Do You Dip or Chew Tobacco: Yes (1 CAN PER 2 DAYS -- ADVISED NONE AM DOS); Hx Alcohol Use: Yes Alcohol type: beer Alcohol Intake Frequency Comment: 3 Hx Substance Use: No Preferred Language: [place] Communication Ability: Effective Visual Impairment: No Limitations Hearing Ability: Normal Business Development Required: No Beliefs That Will Affect Care: None marital status: Current Living Situation: Spouse current occupational status: unemployed Other Information That Helps Us Care for You: No Feels Safe at Home: Yes Safety Concerns: Feels Safe At This Time Childhood Exposure to Second-Hand Smoke: No Diet Comment: regular caffeine: No during the past year weight has: decreased > 10 lbs Dental Care, Regularly: No Physical Activity Frequency: Does not Exercise Seatbelt Use: sometimes Sunscreen Use: No Assistive Devices: Oxygen - Continuous Review of Systems Review of Systems: All systems reviewed & are unremarkable except as noted in HPI & below Constitutional: no fever, no chills and no malaise Respiratory: + cough (intermittent noticed during interview) and + dyspnea (prior to starting supplemental O2, comfortable following) Cardiovascular: no chest pain, no palpitations and no edema Gastrointestinal: no abdominal pain, no constipation and no diarrhea/loose stools Physical Exam Constitutional: WD/WN, vitals as above Eyes: PERRL, conjunctivae normal, anicteric sclerae ENMT: external ear and nose normal, oropharynx normal Neck: normal visual inspection Respiratory: normal respiratory effort, lungs clear to auscultation Cardiovascular: Rate/Rhythm: regular rate and regular rhythm L>R peripheral LE edema Gastrointestinal (Abdomen): normal bowel sounds, soft, nontender, no hepatosplenomegaly Musculoskeletal: no cyanosis or clubbing, extremities motor strength 5/5 Skin: no rashes, warm and dry Neurologic: AAOx3, normal speech. Bilateral UE, LE, and face without sensory or motor deficits.No tremor. Psychiatric: A+Ox3, euthymic affect Results & Data Results & Data ([facility]) Vital Signs (Past 12 Hours) Vital Signs Temp Pulse Pulse Resp BP Pulse Ox 08/19/20 20:21 36.6 C 75 18 145/81 H 100 08/19/20 19:35 36.5 C 69 20 151/69 H 95 08/19/20 19:25 69 22 147/70 H 97 08/19/20 19:15 70 22 142/71 H 96 08/19/20 19:05 36.0 C L 70 22 140/68 96 08/19/20 18:55 70 18 97/56 L 96 08/19/20 18:45 70 18 123/65 96 08/19/20 18:35 36.5 C 78 18 135/68 95 08/19/20 13:07 37.0 C 93 H 20 141/78 H 96 Resident Activity Tracking Resident Involvement: Resident Care Provided Care Provided: Adult Hospital Medicine (1) Full thickness rotator cuff tear Laterality: right Rotator cuff tear trauma status: unspecified whether traumatic Qualified Code(s): M75.121 - Complete rotator cuff tear or rupture of right shoulder, not specified as traumatic (2) Hypertension Hypertension type: essential hypertension Qualified Code(s): I10 - Essential (primary) hypertension
[2020-08-19] MEDS ORDERED: GLUCAGON FOR INJ 1 MG VIAL SQ PRN (20:47)
[2020-08-19] MEDS ORDERED: CARBOHYDRATES FOR HYPOGLYCEMIA PO PRN (20:47)
[2020-08-19] MEDS ORDERED: DEXTROSE 50% 50 ML SYRINGE IV PRN (20:47)
[2020-08-19] MEDS ORDERED: GLUCOSE 10 TABS/TUBE PO PRN (20:47)
[2020-08-19] MEDS ORDERED: CYANOCOBALAMIN 500 MCG TABLET (VITAMIN B-12) PO SCH (21:00)
[2020-08-19] MEDS ORDERED: DOXAZosin MESYLATE TAB 2 MG TAB PO SCH (21:00)
[2020-08-19] MEDS ORDERED: MULTIVITAMIN TAB PO SCH (21:00)
[2020-08-19] MEDS ORDERED: SENNA 8.6 MG TAB PO SCH (21:00)
[2020-08-19] MEDS ORDERED: INSULIN DETEMIR FLEXPEN/FLEX TOUCH 100 UNITS/ML 3ML SQ SCH (21:00)
--- NOTE | 2020-08-19 21:06 | XRay Report ---
XR chest 1V portable CLINICAL HISTORY: increased o2 demand COMPARISON STUDY: Chest radiograph July 24, 2020. FINDINGS: Incidental note is made of an anterior cervical spine fusion. There is no pneumothorax. No definite pleural effusion is noted. Elevation of the right hemidiaphragm has developed since prior ex am. Linear right midlung opacity reflects atelectasis. There is also right infrahilar airspace opacit y. Right lung volume loss is noted. There is no evidence for pulmonary edema. IMPRESSION: 1. Right midlung linear opacity consistent with atelectasis. Right infrahilar opacity which also favo rs atelectasis given evidence for volume loss with elevation of the right hemidiaphragm. Radiographic follow-up to ensure resolution is recommended. 2. No pneumothorax. 3. No evidence for pulmonary edema. ACT 112: Negative or not required by law. Electronically signed by: Teofilo Garcia M.D. 08/19/2020 9:05 PM
[2020-08-19 21:14] LABS: Basophils # (auto) 0.01 K/uL (0-0.2); Basophils % (auto) 0.1 %; Eosinophils # (auto) 0.06 K/uL (0-0.5); Eosinophils % (auto) 0.5 %; Hematocrit (blood only) 36.8 % (42-52); Hemoglobin 12.2 g/dL (14.0-18.0); Immature Granulocytes # (auto) 0.02 K/uL (0.00-0.02); Immature Granulocytes % (auto) 0.2 %; Lymphocytes # (auto) 1.63 K/uL (1.2-3.4); Lymphocytes % (auto) 14.7 %; Mean Corpuscular Hemoglobin 31.9 pg (25-34); Mean Corpuscular Hgb Conc 33.2 g/dL (32-36); Mean Corpuscular Volume 96.3 fL (80-100); Mean Platelet Volume 9.7 fL (7.4-10.4); Monocytes # (auto) 0.61 K/uL (0.11-0.59); Monocytes % (auto) 5.5 %; Neutrophils # (auto) 8.78 K/uL (1.4-6.5); Platelet Count 229 K/uL (130-400); RDW Coefficient of Variation 14.1 % (11.5-14.5); RDW Standard Deviation 49.5 fL (36.4-46.3); Red Blood Count 3.82 M/uL (4.7-6.1); White Blood Count 11.11 K/uL (4.8-10.8)
[2020-08-19] MEDS: DOCUSATE SODIUM 100 MG CAP PO SCH (21:25)
[2020-08-19] MEDS: ASCORBIC ACID 500 MG TAB PO SCH (21:27)
[2020-08-19] MEDS: GABAPENTIN 300 MG CAP PO SCH (21:27)
[2020-08-19] MEDS: INSULIN DETEMIR FLEXPEN/FLEX TOUCH 100 UNITS/ML 3ML SC SCH (21:29)
[2020-08-19] MEDS: INSULIN ASPART 100 UNITS/ML 3 ML PEN SC SCH (21:29)
[2020-08-19 21:30] LABS: Albumin Level 3.3 gm/dl (3.4-5.0); BUN Creatinine Ratio 12.2 (10-20); Calcium 8.8 mg/dl (8.5-10.1); Creatinine Clr Calc Pharmacy 93.5 ml/min; Est GFR (African American) 74.1; Est GFR (Non-African American) 63.9; Potassium 3.3 mmol/L (3.5-5.1)
[2020-08-19 21:32] LABS: Bilirubin,Total 0.4 mg/dl (0.2-1); Globulin 3.3 gm/dl (2.5-4.0); Total Protein 6.6 gm/dl (6.4-8.2)
[2020-08-20] MEDS ORDERED: ALBUTEROL 0.083% NEBU SOLN 3 ML VIAL NEB STA (00:36)
[2020-08-20] MEDS: oxyCODONE/ACETAMINOPHEN 10-325 TAB PO PRN ×4 (00:42→13:25)
[2020-08-20] MEDS: HYDROmorphone INJ 0.5 MG/0.5 ML SYR IV PRN ×2 (00:50→05:11)
[2020-08-20] MEDS ORDERED: ALBUTEROL 0.083% NEBU SOLN 3 ML VIAL NEB PRN (04:00)
[2020-08-20] MEDS: MoRPHine SULFATE 2 MG/ML CARP IV PRN ×2 (04:13→11:27)
[2020-08-20 05:56] LABS: Hematocrit (blood only) 36.9 % (42-52); Hemoglobin 12.3 g/dL (14.0-18.0); Mean Corpuscular Hemoglobin 32.2 pg (25-34); Mean Corpuscular Hgb Conc 33.3 g/dL (32-36); Mean Corpuscular Volume 96.6 fL (80-100); Mean Platelet Volume 9.3 fL (7.4-10.4); Platelet Count 227 K/uL (130-400); RDW Coefficient of Variation 14.3 % (11.5-14.5); RDW Standard Deviation 50.4 fL (36.4-46.3); Red Blood Count 3.82 M/uL (4.7-6.1); White Blood Count 10.95 K/uL (4.8-10.8)
[2020-08-20 06:26] LABS: BUN Creatinine Ratio 11.4 (10-20); Calcium 8.3 mg/dl (8.5-10.1); Creatinine Clr Calc Pharmacy 98.6 ml/min; Est GFR (Non-African American) 68.1; Potassium 3.5 mmol/L (3.5-5.1)
--- NOTE | 2020-08-20 07:20 | Orthopedic Progress Note ---
Date of Service August 20, 2020 Assessment & Plan (1) Impingement syndrome of right shoulder: POD#1 Right shoulder arthroscopy with SAD, DCE, RCR, biceps tenotomy, and debridement -Pain management-a lot of pain since block wore off, controlled with ordered pain medication -AM labs-Hemoglobin stable at 12.3. Creatinine at baseline -NWB RUE, sling in place. No active motion of shoulder -Patient's sob is improving, continues to be on 1L O2 this morning via nasal canula. -D/C planning-home with outpatient PT when stable, likely later today if okay with medicine service. (2) Full thickness rotator cuff tear: Admission and Anticipated Discharge Date Admission Date: August 19, 2020 Subjective POD#1 right shoulder scope. Patient doing okay, having a lot of pain since block wore off. SOB has improved. Is on 1L nasal canula. No other complaints. Review of Systems Review of Systems: All systems reviewed & are unremarkable except as noted in HPI & below Physical Exam Physical Exam: Right shoulder dressing is c/d/i, sling in place. Fingers are mobile. Distally n/v status and sensation intact. Constitutional: well developed and well nourished; no acute distress Results & Data ([facility]) Vital Signs (Past 12 Hours) Vital Signs Temp Pulse Pulse Resp BP Pulse Ox 08/20/20 05:02 183/71 H 92 08/20/20 03:55 192/95 H 94 08/20/20 03:32 36.6 C 82 20 191/96 H 93 08/20/20 01:02 83 18 94 08/19/20 22:49 36.4 C L 85 18 159/75 H 99 08/19/20 21:47 36.6 C 78 18 153/83 H 93 08/19/20 20:50 36.6 C 76 18 164/91 H 98 08/19/20 20:21 36.6 C 75 18 145/81 H 100 08/19/20 19:35 36.5 C 69 20 151/69 H 95 08/19/20 19:25 69 22 147/70 H 97 (1) Full thickness rotator cuff tear Rotator cuff tear trauma status: unspecified whether traumatic Laterality: right Qualified Code(s): M75.121 - Complete rotator cuff tear or rupture of right shoulder, not specified as traumatic
[2020-08-20] MEDS ORDERED: MULTIVITAMIN TAB PO SCH (09:00)
[2020-08-20] MEDS ORDERED: POTASSIUM CHLORIDE CRTAB 20 MEQ TABCR PO SCH (09:00)
[2020-08-20] MEDS ORDERED: VERAPAMIL HCL 180 MG TABCR PO SCH (09:00)
[2020-08-20] MEDS ORDERED: lisinopril 40 MG TAB PO SCH (09:00)
[2020-08-20] MEDS ORDERED: DOXAZosin MESYLATE TAB 2 MG TAB PO SCH (09:00)
[2020-08-20] MEDS ORDERED: HEPARIN SOD 5,000 UNIT/0.5 ML VIAL SQ SCH (09:00)
[2020-08-20] MEDS ORDERED: PYRIDOXINE HCL 50 MG TAB PO SCH (09:00)
[2020-08-20] MEDS: GABAPENTIN 300 MG CAP PO SCH ×2 (09:09→13:26)
[2020-08-20] MEDS: DOCUSATE SODIUM 100 MG CAP PO SCH (09:10)
[2020-08-20] MEDS: INSULIN DETEMIR FLEXPEN/FLEX TOUCH 100 UNITS/ML 3ML SC SCH (09:11)
[2020-08-20] MEDS: INSULIN ASPART 100 UNITS/ML 3 ML PEN SC SCH ×2 (09:12→13:25)
--- NOTE | 2020-08-20 09:48 | Hospitalist Progress Note ---
Date of Service August 20, 2020 Assessment & Plan (1) Hypoxia: almost certainly atelectasis, and is improving with "borderline black lung" unclear what his baseline O2 sats are, but certainly this could contribute to a degree of hypoxia as well strongly suspect ANN underlying this too - and rec'd sleep study as outpt --->at this point has improved, is asymptomatic. as long as he can ambulate w pulse ox >90%, medically OK for home (provided dopplers negative - which is expected, see below) (2) Leg swelling: L sided, and L leg >>> R. however, he has a lot of prior procedures on that side, and also notes that prior to surgery he was drinking "14 bottles of water a day" because he was told his preop labs showed an elevated creatinine -suspect baseline postprocedure venous/lymphatic insufficiency, exacerbated by fairly massive H2O intake. venous dopplers for completeness given that VTE risk is possible (although not overtly likely). otherwise discussed ambulation, compression, elevation; also discussed how diuretics tend to cause more harm than good in situations like venous/lymphatic insufficiency Admission and Anticipated Discharge Date Admission Date: August 19, 2020 Subjective feeling fine breathing fine no sob. no murillo. notes L leg swollen last few days, but had been drinking a ton of liquid because in his preop labs he was told that his creatinine was elevated. No other new complaints. Review of Systems Review of Systems: All systems reviewed & are unremarkable except as noted in HPI & below Physical Exam Physical Exam: General he is awake alert oriented x3, pleasant no distress. HEENT normocephalic atraumatic mucous membranes moist lungs are clear to auscultation bilaterally no rales rhonchi or wheezes good effort. Abdomen soft nondistended nontender no masses organomegaly. Extremities show left lower extremity with about 2-3+ edema nontender no erythema no cords, right lower extremity no sinus clubbing or edema no calf tenderness. Results & Data Results & Data ([facility]) Vital Signs (Past 12 Hours) Vital Signs Temp Pulse Pulse Resp BP Pulse Ox 08/20/20 07:46 92 08/20/20 07:24 98.1 F 90 20 163/82 H 94 08/20/20 05:02 183/71 H 92 08/20/20 03:55 192/95 H 94 02/04/21 03:32 97.9 F 82 20 191/96 H 93 08/20/20 01:02 83 18 94 08/19/20 22:49 97.5 F L 85 18 159/75 H 99 08/19/20 21:47 97.9 F 78 18 153/83 H 93 PG Care Time/CCT Total # of Minutes Spent Total Time Spent with Patient: Total time spent is greater than 50% in coordi nation of care (as documented) at patient's floor/unit and/or counseling patient: Coding Level of Care Code 13615 Subseq Hosp Care Lvl 3 Diagnoses Hypoxia R09.02 Leg swelling M79.89
[2020-08-20] MEDS: ASCORBIC ACID 500 MG TAB PO SCH (10:36)
--- NOTE | 2020-08-20 13:21 | Ultrasound Report ---
BILATERAL LOWER EXTREMITY VENOUS DOPPLER HISTORY: Acute pain and swelling of the lower extremities L sided swelling r/o DVT COMPARISON STUDY: None. FINDINGS: There is normal compressibility, flow, and augmentation within the bilateral lower extremit y deep venous systems. IMPRESSION: No DVT within the right or left lower extremity. ACT 112: Negative or not required by law. Electronically signed by: Benjamin Hanson M.D. 08/20/2020 1:20 PM
[2020-08-20] MEDS ORDERED: INSULIN DETEMIR FLEXPEN/FLEX TOUCH 100 UNITS/ML 3ML SC SCH (21:00)
--- NOTE | 2020-08-20 23:28 | Billing Data ---
Date of Service August 20, 2020 Coding Level of Care Code 09829 Inpt Consult Level 3
--- NOTE | 2020-08-22 08:58 | Discharge Summary ---
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 He presents with longstanding history of right shoulder pain. He has failed conservative measures including injections and therapy. He has continued pain and dysfunction. He would like to proceed with surgical intervention. Patient denies headaches, sweats, fevers, chills, double vision, blurred vision, sore throat, dysphagia, chest pain, wheezing, n/v/d/c, numbness, tingling, fatigue, urinary symptoms, mood disorders. ROS positive for right shoulder pain and stiffness, cough and sob at baseline. Admission Exam Per Admitting Provider Constitutional: well developed and well nourished; no acute distress Eyes: PERRL, conjunctivae normal, anicteric sclerae ENMT: external ear and nose normal, oropharynx normal Neck: trachea midline, no thyromegaly Respiratory: normal respiratory effort, lungs clear to auscultation Cardiovascular: RRR, no murmur, no edema Mild LLE edema Musculoskeletal: Right shoulder: Tenderness AC joint, anterolateral acromion, biceps tendon. Positive O'ramírez's, speeds, Yergason's, Schwartz, Cross body, and Neer's impingement. Pain with strength testing. 5-/5 ER, 5/5 IR, 4+/5 supraspinatus. ROM-painful impingement arc but full motion. Pain with passive IR. Skin: no rashes, warm and dry Neurologic: patellar DTR's 2+ bilat, sensation intact Psychiatric: A+Ox3, euthymic affect Principal Diagnosis Right shoulder impingement, rotator cuff tear, hypoxia Discharge Exam Constitutional well developed and well nourished; no acute distress Eyes PERRL, conjunctivae normal, anicteric sclerae ENMT external ear and nose normal, oropharynx normal Neck trachea midline, no thyromegaly Respiratory normal respiratory effort, lungs clear to auscultation Cardiovascular RRR, no murmur, no edema Skin no rashes, warm and dry Neurologic patellar DTR's 2+ bilat, sensation intact Psychiatric A+Ox3, euthymic affect Discharge Data Allergies Allergy/AdvReac Type Severity Reaction Status Date / Time etodolac Allergy Intermediate Rash Verified 08/19/20 12:52 canagliflozin Allergy Unknown LE Verified 08/19/20 12:52 swelling, weight gain tramadol AdvReac Intermediate Nausea Verified 08/19/20 12:52 meperidine AdvReac Unknown Nausea Verified 08/19/20 12:52 Consultations 08/19/20 19:51 Consult Case Management - Discharge Planning Routine Consult Hospitalist Routine Procedures Performed Operation Date: 08/19/20 14:10 Actual Procedures p Right Shoulder Arthroscopic Subacromial Decompression, Distal Clavicle Excision, Repair Rotator Cuff, Debridement Subacromial Bursa, Glenoid Labral Tear and Biceps Tendon, Biceps Tenotomy(Right) - Cipriano Hightower MD Ordered Studies 08/19/20 05:00 US - OR guided needle placemen Routine 08/20/20 09:43 US venous doppler LE Routine Hospital Course (1) Impingement syndrome of right shoulder: Patient presented for same day admission following right shoulder arthroscopic subacromial decompression, distal clavicle excision, rotator cuff repair, biceps tenotomy, and debridement on 08/19/20. He tolerated procedure well. Decision was made to admit patient due to post operative hypoxia and shortness of breath. Post operatively he was placed on O2, which was weaned off by POD#1 and was maintaining adequate oxygen saturation. The Patient otherwise had an uneventful hospital course. Dr. Nilesh Mcgregor of medical service was consulted for medical management during admission. Pain controlled on oral medications. Please refer to daily progress notes for complete details. After exam on 08/20/20, patient was felt to be stable for discharge home with plans on attending outpatient PT. Patient will f/u in the office in about 2 weeks for further evaluation including x-rays and incision check, sooner if having any issues or concerns. POD#1 Right shoulder arthroscopy with SAD, DCE, RCR, biceps tenotomy, and debridement -Pain management-a lot of pain since block wore off, controlled with ordered pain medication -AM labs-Hemoglobin stable at 12.3. Creatinine at baseline -NWB RUE, sling in place. No active motion of shoulder -Patient's sob is improving, continues to be on 1L O2 this morning via nasal canula. -D/C planning-home with outpatient PT when stable, likely later today if okay with medicine service. Lab Results 01/08/21 01/08/21 01/08/21 Range/Units 13:14 13:14 13:14 WBC 8.23 (4.8-10.8) K/uL RBC 4.18 L (4.7-6.1) M/uL Hgb 13.8 L (14.0-18.0) g/dL Hct 40.0 L (42-52) % MCV 95.7 (80-100) fL MCH 33.0 (25-34) pg MCHC 34.5 (32-36) g/dL RDW Std Deviation 48.8 H (36.4-46.3) fL RDW Coeff of Hoang 14.1 (11.5-14.5) % Plt Count 250 (130-400) K/uL MPV 10.0 (7.4-10.4) fL Immature Gran % (Auto) 0.2 % Neut % (Auto) 61.1 % Lymph % (Auto) 28.4 % Gray % (Auto) 7.8 % Eos % (Auto) 2.3 % Baso % (Auto) 0.2 % Neut # (Auto) 5.02 (1.4-6.5) K/uL Lymph # (Auto) 2.34 (1.2-3.4) K/uL Gray # (Auto) 0.64 H (0.11-0.59) K/uL Eos # (Auto) 0.19 (0-0.5) K/uL Baso # (Auto) 0.02 (0-0.2) K/uL Immature Gran # (Auto) 0.02 (0.00-0.02) K/uL PT 10.2 (9.0-12.0) Seconds INR 1.0 (0.9-1.1) APTT 25.6 (21.0-31.0) Seconds PTT Ratio 0.9 Sodium 138 (136-145) mmol/L Potassium 4.3 (3.5-5.1) mmol/L Chloride 101 (98-107) mmol/L Carbon Dioxide 28 (21-32) mmol/L Anion Gap 8.0 (3-11) BUN 27 H (7-18) mg/dl Creatinine 1.62 H (0.6-1.4) mg/dl Est Cr Clr Drug Dosing 66.3 ml/min Est GFR ( Amer) 49.5 Est GFR (Non-Af Amer) 42.7 BUN/Creatinine Ratio 16.5 (10-20) Glucose 240 H (70-99) mg/dl POC Glucose (70-99) mg/dl Estimat Average Glucose mg/dl Hemoglobin A1c (4.5-5.6) % Calcium 9.4 (8.5-10.1) mg/dl Total Bilirubin (0.2-1) mg/dl AST (15-37) U/L ALT (12-78) U/L Alkaline Phosphatase (45-117) U/L Total Protein (6.4-8.2) gm/dl Albumin (3.4-5.0) gm/dl Globulin (2.5-4.0) gm/dl Albumin/Globulin Ratio (0.9-2) 07/24/20 08/19/20 08/19/20 Range/Units 13:14 12:54 18:39 WBC (4.8-10.8) K/uL RBC (4.7-6.1) M/uL Hgb (14.0-18.0) g/dL Hct (42-52) % MCV (80-100) fL MCH (25-34) pg MCHC (32-36) g/dL RDW Std Deviation (36.4-46.3) fL RDW Coeff of Hoang (11.5-14.5) % Plt Count (130-400) K/uL MPV (7.4-10.4) fL Immature Gran % (Auto) % Neut % (Auto) % Lymph % (Auto) % Gray % (Auto) % Eos % (Auto) % Baso % (Auto) % Neut # (Auto) (1.4-6.5) K/uL Lymph # (Auto) (1.2-3.4) K/uL Gray # (Auto) (0.11-0.59) K/uL Eos # (Auto) (0-0.5) K/uL Baso # (Auto) (0-0.2) K/uL Immature Gran # (Auto) (0.00-0.02) K/uL PT (9.0-12.0) Seconds INR (0.9-1.1) APTT (21.0-31.0) Seconds PTT Ratio Sodium (136-145) mmol/L Potassium (3.5-5.1) mmol/L Chloride (98-107) mmol/L Carbon Dioxide (21-32) mmol/L Anion Gap (3-11) BUN (7-18) mg/dl Creatinine (0.6-1.4) mg/dl Est Cr Clr Drug Dosing ml/min Est GFR ( Amer) Est GFR (Non-Af Amer) BUN/Creatinine Ratio (10-20) Glucose (70-99) mg/dl POC Glucose 125 H 101 H (70-99) mg/dl Estimat Average Glucose 177 mg/dl Hemoglobin A1c 7.8 H (4.5-5.6) % Calcium (8.5-10.1) mg/dl Total Bilirubin (0.2-1) mg/dl AST (15-37) U/L ALT (12-78) U/L Alkaline Phosphatase (45-117) U/L Total Protein (6.4-8.2) gm/dl Albumin (3.4-5.0) gm/dl Globulin (2.5-4.0) gm/dl Albumin/Globulin Ratio (0.9-2) 08/19/20 08/19/20 08/19/20 Range/Units 19:52 20:40 20:40 WBC 11.11 H (4.8-10.8) K/uL RBC 3.82 L (4.7-6.1) M/uL Hgb 12.2 L (14.0-18.0) g/dL Hct 36.8 L (42-52) % MCV 96.3 (80-100) fL MCH 31.9 (25-34) pg MCHC 33.2 (32-36) g/dL RDW Std Deviation 49.5 H (36.4-46.3) fL RDW Coeff of Hoang 14.1 (11.5-14.5) % Plt Count 229 (130-400) K/uL MPV 9.7 (7.4-10.4) fL Immature Gran % (Auto) 0.2 % Neut % (Auto) 79.0 % Lymph % (Auto) 14.7 % Gray % (Auto) 5.5 % Eos % (Auto) 0.5 % Baso % (Auto) 0.1 % Neut # (Auto) 8.78 H (1.4-6.5) K/uL Lymph # (Auto) 1.63 (1.2-3.4) K/uL Gray # (Auto) 0.61 H (0.11-0.59) K/uL Eos # (Auto) 0.06 (0-0.5) K/uL Baso # (Auto) 0.01 (0-0.2) K/uL Immature Gran # (Auto) 0.02 (0.00-0.02) K/uL PT (9.0-12.0) Seconds INR (0.9-1.1) APTT (21.0-31.0) Seconds PTT Ratio Sodium 142 (136-145) mmol/L Potassium 3.3 L (3.5-5.1) mmol/L Chloride 111 H (98-107) mmol/L Carbon Dioxide 23 (21-32) mmol/L Anion Gap 8.0 (3-11) BUN 14 (7-18) mg/dl Creatinine 1.16 (0.6-1.4) mg/dl Est Cr Clr Drug Dosing 93.5 ml/min Est GFR ( Amer) 74.1 Est GFR (Non-Af Amer) 63.9 BUN/Creatinine Ratio 12.2 (10-20) Glucose 113 H (70-99) mg/dl POC Glucose 118 H (70-99) mg/dl Estimat Average Glucose mg/dl Hemoglobin A1c (4.5-5.6) % Calcium 8.8 (8.5-10.1) mg/dl Total Bilirubin 0.4 (0.2-1) mg/dl AST 15 (15-37) U/L ALT 37 (12-78) U/L Alkaline Phosphatase 123 H (45-117) U/L Total Protein 6.6 (6.4-8.2) gm/dl Albumin 3.3 L (3.4-5.0) gm/dl Globulin 3.3 (2.5-4.0) gm/dl Albumin/Globulin Ratio 1.0 (0.9-2) 08/20/20 08/20/20 08/20/20 Range/Units 05:41 05:41 08:04 WBC 10.95 H (4.8-10.8) K/uL RBC 3.82 L (4.7-6.1) M/uL Hgb 12.3 L (14.0-18.0) g/dL Hct 36.9 L (42-52) % MCV 96.6 (80-100) fL MCH 32.2 (25-34) pg MCHC 33.3 (32-36) g/dL RDW Std Deviation 50.4 H (36.4-46.3) fL RDW Coeff of Hoang 14.3 (11.5-14.5) % Plt Count 227 (130-400) K/uL MPV 9.3 (7.4-10.4) fL Immature Gran % (Auto) % Neut % (Auto) % Lymph % (Auto) % Gray % (Auto) % Eos % (Auto) % Baso % (Auto) % Neut # (Auto) (1.4-6.5) K/uL Lymph # (Auto) (1.2-3.4) K/uL Gray # (Auto) (0.11-0.59) K/uL Eos # (Auto) (0-0.5) K/uL Baso # (Auto) (0-0.2) K/uL Immature Gran # (Auto) (0.00-0.02) K/uL PT (9.0-12.0) Seconds INR (0.9-1.1) APTT (21.0-31.0) Seconds PTT Ratio Sodium 142 (136-145) mmol/L Potassium 3.5 (3.5-5.1) mmol/L Chloride 110 H (98-107) mmol/L Carbon Dioxide 26 (21-32) mmol/L Anion Gap 6.0 (3-11) BUN 13 (7-18) mg/dl Creatinine 1.10 (0.6-1.4) mg/dl Est Cr Clr Drug Dosing 98.6 ml/min Est GFR ( Amer) 79.0 Est GFR (Non-Af Amer) 68.1 BUN/Creatinine Ratio 11.4 (10-20) Glucose 79 (70-99) mg/dl POC Glucose 100 H (70-99) mg/dl Estimat Average Glucose mg/dl Hemoglobin A1c (4.5-5.6) % Calcium 8.3 L (8.5-10.1) mg/dl Total Bilirubin (0.2-1) mg/dl AST (15-37) U/L ALT (12-78) U/L Alkaline Phosphatase (45-117) U/L Total Protein (6.4-8.2) gm/dl Albumin (3.4-5.0) gm/dl Globulin (2.5-4.0) gm/dl Albumin/Globulin Ratio (0.9-2) 08/20/20 08/20/20 Range/Units 09:26 12:15 WBC (4.8-10.8) K/uL RBC (4.7-6.1) M/uL Hgb (14.0-18.0) g/dL Hct (42-52) % MCV (80-100) fL MCH (25-34) pg MCHC (32-36) g/dL RDW Std Deviation (36.4-46.3) fL RDW Coeff of Hoang (11.5-14.5) % Plt Count (130-400) K/uL MPV (7.4-10.4) fL Immature Gran % (Auto) % Neut % (Auto) % Lymph % (Auto) % Gray % (Auto) % Eos % (Auto) % Baso % (Auto) % Neut # (Auto) (1.4-6.5) K/uL Lymph # (Auto) (1.2-3.4) K/uL Gray # (Auto) (0.11-0.59) K/uL Eos # (Auto) (0-0.5) K/uL Baso # (Auto) (0-0.2) K/uL Immature Gran # (Auto) (0.00-0.02) K/uL PT (9.0-12.0) Seconds INR (0.9-1.1) APTT (21.0-31.0) Seconds PTT Ratio Sodium (136-145) mmol/L Potassium (3.5-5.1) mmol/L Chloride (98-107) mmol/L Carbon Dioxide (21-32) mmol/L Anion Gap (3-11) BUN (7-18) mg/dl Creatinine (0.6-1.4) mg/dl Est Cr Clr Drug Dosing ml/min Est GFR ( Amer) Est GFR (Non-Af Amer) BUN/Creatinine Ratio (10-20) Glucose (70-99) mg/dl POC Glucose 119 H 130 H (70-99) mg/dl Estimat Average Glucose mg/dl Hemoglobin A1c (4.5-5.6) % Calcium (8.5-10.1) mg/dl Total Bilirubin (0.2-1) mg/dl AST (15-37) U/L ALT (12-78) U/L Alkaline Phosphatase (45-117) U/L Total Protein (6.4-8.2) gm/dl Albumin (3.4-5.0) gm/dl Globulin (2.5-4.0) gm/dl Albumin/Globulin Ratio (0.9-2) (2) Full thickness rotator cuff tear: Total Time Total Time Spent Total Time Spent (In Minutes): 20 Discharge Plan Discharge Items Patient Disposition: Home - Self-Care Reason For Visit: Right Shoulder Impingement Syndrome, Osteoarthriti Discharge Diagnosis: Right shoulder rotator cuff tear, impingement, AC joint OA Activity: Per Instructions section Non-emergency contact: Surgeon Call non-emergency contact if: you have any medication questions, your pain is worsening, your pain is concerning for you, you have a fever, your temperature is above 101, your wound has increased redness, your wound has increased drainage and your wound pain has increased Follow-up/Referrals: Candi Carrera DO [Primary Care Provider] - Cipriano Hightower MD [Surgeon] - 09/04/20 10:45 am Diet: Regular Addtl Attending Provider Instructions: UOC DISCHARGE IN STRUCTIONS: ROTATOR CUFF REPAIR SELF CARE INSTRUCTIONS A. You are permitted to loosen your sling/immobilizer to move your elbow, wrist, and hand to prevent stiffness. You should use your well arm (good arm) to assist the operated extremity when trying to raise the arm away from the body, hygiene purposes. Do NOT actively try to use/engage your shoulder muscles in operative arm at this time. You should NOT do overhead activity, lifting, or attempt to reach behind your back. B. You may/may not be instructed to start Physical Therapy upon discharge depending upon the size and difficulty of the repair. You will be provided a prescription for therapy with specific restrictions, if needed, at time of discharge. C. At 48 hours post-operatively, you may change your dressing. (Leave white steri-strips intact if present). Use band-aids and change daily. You are allowed to shower at this time and get the incision area wet, but DO NOT soak or submerge incision area in water. (No baths, swimming pools, hot tubs) D. Do NOT apply soap or any ointment/lotions directly over incision. E. You may use ice as needed to operative shoulder SPECIAL CARE INSTRUCTIONS: VERY IMPORTANT TO READ AND REVIEW A. There are a few signs you need to watch for after you are home. Call [facility] at [phone] if you experience any of the following: a. Increased severe shoulder pain. Some pain is expected especially when you exercise b. Increased swelling in your shoulder or arm; pain or swelling in either upper extremity. (Note: swelling and stiffness is normal and expected for se veral weeks post op, depending on type of shoulder surgery you had). c. Any fluid or drainage from the incision; redness of the incision. d. Shortness of breath or chest pain. B. Please call [facility] at [phone] if you have any questions or concerns about your operation or recovery. C. Call your physician if: a. Temperature is greater than 101 degrees (F). b. Pain is not relieved by prescribed pain medications. c. Increase drainage or redness from incision. d. Unanswered questions or concerns. D. Pain Medication: a. You will be prescribed pain medication upon discharge that should last till your first post-operative appointment. b. If you experience nausea and/or skin rash, discontinue this medication and contact our office for an alternative medication. c. Caution- narcotic pain medication can cause constipation. FOLLOW UP VISIT: Please call [facility] at [phone] to schedule a follow up appointment 10-14 days from your surgery date. Stand-Alone Forms: [employer], Opioid Pain Management Medications and DC Order Prescriptions: New oxycodone-acetaminophen [Percocet] 5-325 mg tablet 1 - 2 tab PO .Q4h-6h MDD 6 PRN (Reason: pain) Qty: 30 RF: 0 Continued dulaglutide 1.5 mg/0.5 mL pen injector 1.5 mg subcut WEEKLY 90 Days Qty: 6 RF: 1 (DME) BD AutoShield Duo Pen Needle 30 gauge x 3/16" needle See Rx Instructions .ROUTE .MEDSUPPLY Qty: 100 RF: 3 allopurinol 300 mg tablet 300 mg PO QPM Qty: 90 RF: 3 glimepiride 4 mg tablet 4 mg PO BID Qty: 180 RF: 3 lisinopril 40 mg tablet 40 mg PO QAM Qty: 90 RF: 3 metformin 1,000 mg tablet 1,000 mg PO BID Qty: 180 RF: 3 verapamil 360 mg capsule,ext rel. pellets 24 hr 360 mg PO QAM Qty: 90 RF: 3 gabapentin 300 mg capsule 300 mg PO TID Qty: 270 RF: 1 furosemide 40 mg tablet 40 mg PO BID PRN (Reason: Edema) Qty: 180 RF: 3 Levemir FlexTouch U-100 Insuln 100 unit/mL (3 mL) insulin pen 94 unit SUBCUT BID 90 Days Qty: 169.2 RF: 1 doxazosin 2 mg tablet See Rx Instructions .ROUTE .COMPLEX Qty: 270 RF: 1 OneTouch Ultra Blue Test Strip Strip See Rx Instructions .ROUTE .COMPLEX MDD USE 1 STRIP TO CHECK GLUCOSE 3 Qty: 360 RF: 1 (DME) lancets [OneTouch Delica Lancets] 33 gauge misc See Rx Instructions .ROUTE .MEDSUPPLY Qty: 360 RF: 1 ascorbic acid (vitamin C) [Vitamin C] 500 mg tablet 500 mg PO BID Qty: 60 RF: 5 multivitamin tablet 1 tab PO BID Qty: 60 RF: 5 omega 4-atc-gsi-fish oil [Fish Oil] 1,000 mg (120 mg-180 mg) capsule 1 cap PO BID Qty: 30 RF: 5 (DME) Diabetic Shoes Misc See Rx Instructions .ROUTE .MEDSUPPLY Qty: 1 RF: 0 cyanocobalamin (vitamin B-12) [Vitamin B-12] 1,000 mcg tablet 1,000 mcg PO HS RF: 0 fluticasone propionate 50 mcg/actuation spray,suspension 2 spray INTNAS DAILY PRN (Reason: Congestion) RF: 0 pyridoxine (vitamin B6) [Vitamin B-6] 250 mg tablet 500 mg PO QAM RF: 0 potassium chloride 20 mEq tablet extended release 20 meq PO QAM RF: 0 Discontinued oxycodone-acetaminophen [Percocet] 10-325 mg tablet 1 tab PO Q6H PRN (Reason: pain) Qty: 20 RF: 0 Discharge Orders: Discharge Order (Routine); Ordered 08/20/20 Ordered By: Alfredito Scott/Other Patient Handouts: Managing Type 2 Diabetes, Managing Diabetes: The A1C Test Admission Data Admit Date/Time: 08/19/20 18:51 Attending Provider: Ciprinao Hightower Admit Provider: Cipriano Hightower Primary Care Provider: Candi Carrera Other Providers: Orlando Sow Other Interventions: Discharge Summary Assessment (RN) Last Done: 08/20/20 13:38
== END 2020-08-20 16:05 | disposition home or self-care (01) ==
LOC: 3W 12:32 → ASU 12:32

== ENCOUNTER 2025-01-29 05:09 | Inpatient (IN) ==
--- NOTE | 2025-01-29 05:17 | Emergency Department Note ---
Impression & Plan Sepsis, Vasovagal near syncope ED Provider Note CHIEF COMPLAINT: Syncope HISTORY OF PRESENTING ILLNESS: The patient is a 74-year-old male who arrives to the emergency department via EMS from home for an episode of unresponsiveness. The patient was up most of the evening of the night, getting ready to travel to [facility] for lumbar spine surgery. He reports noting he has been taking oxycodone, for pain and has had some constipation from the medication. He states he took 2 laxatives yesterday, which began to feel as if they were working later into the night. He states he went to the bathroom to have a bowel movement, and was having a difficult time passing a bowel movement. He states he was forcefully pushing, and did have a small amount of stool expelled, then he returned to his bed as he was not feeling well. He reports while in bed, he noted a massive evacuation of his bowels, and he soiled the bed. He states he then began to feel faint, and weak. He reports notifying his that he was not feeling well, and she called EMS. EMS reported to nursing staff that upon arrival the patient was minimally responsive, with significant hypotension, and mottling of the lower extremities. Patient states he did take an extra dose of oxycodone prior to bedtime, for the severe back pain that he was having. He arrived via EMS on nasal cannula, for saturation in the 80s. The patient does not wear nasal cannula at baseline. His vital signs had improved from EMS arrival, and they provided him IV hydration. He reports no chest pain, abdominal pain, nausea, vomiting, shortness of breath, or dysuria. He reports no recent fevers, or feeling ill. REVIEW OF SYSTEMS: See HPI for pertinent positives and pertinent negatives. ALLERGIES: See below MEDICATIONS: See below PAST MEDICAL HISTORY: See below PHYSICAL EXAM: VITALS: Vitals are noted on the nurse's note and reviewed by myself. Hypoxia on room air, with slight hypotension upon arrival. Hypothermia, 34.7 Celsius. GENERAL: 74-year-old male, nondiaphoretic, obese. SKIN: The skin was without rashes, erythema, edema, or bruising. HEAD: Normocephalic atraumatic. EARS: External auditory canals clear, tympanic membranes pearly [place] without erythema or effusion bilaterally. EYES: Pupils equal round and reactive to light and accommodation. Conjunctivae without injection, sclerae without icterus. Extraocular movements intact. NOSE: Patent, turbinates without inflammation or discharge. No sinus tenderness. MOUTH: Mucous membranes moist. No tonsillar hypertrophy. Pharynx without erythema or exudate. Uvula midline. Airway patent. Tongue does not deviate. NECK: Supple without nuchal rigidity. No lymphadenopathy. No JVD. HEART: Regular rate and rhythm without murmurs gallops or rubs. LUNGS: Clear to auscultation bilaterally without wheezes, rales or rhonchi. No retractions or accessory muscle use. ABDOMEN: Positive bowel sounds x 4. Soft, nontender, without masses or organomegaly. Kraus sign negative. No guarding or rebound tenderness. MUSCULOSKELETAL: No muscle atrophy, erythema, or edema noted. Strength 5/5 throughout. NEURO: Patient was alert and oriented to person place and time. No focal neurological deficits. DIFFERENTIAL DIAGNOSIS: Vasovagal event, dehydration, infection, hypoglycemia, electrolyte abnormalities, cardiac sources, intracerebral event, pulmonary embolism, seizure, toxicologic, neurologic, as well as other pathologies. ED COURSE AND MEDICAL DECISION MAKING: HISTORY FROM INDEPENDENT HISTORIAN: serving as secondary historian MEDICATIONS GIVEN: 2 L NSS bolus, IV vancomycin, IV Zosyn, Narcan 0.4 mg, magnesium 2 g IV MONITOR: Continuous well driller: Order was placed for continuous well driller. Patient was placed on the well driller and continuous pulse ox. Patient was noted to be in normal sinus rhythm at an initial rate of 77 bpm per my interpretation. EKG: EKG was interpreted by myself as sinus rhythm at a rate of 77 bpm, with a first-degree AV block, no ST elevation, or depression. Previous for comparison from 01/25/2024 showed resolution of premature atrial complexes, no other concerning changes. INTERPRETATION OF LABS: I interpreted the labs with full lab results as below in the lab section of this note. Pertinent lab results discussed in the MDM section below. INTERPRETATION OF IMAGING: Imaging studies were interpreted by myself and read by radiology as per the imaging section of this note. CHRONIC MEDICAL/SOCIAL CONDITIONS AFFECTING CARE: Type 2 diabetes, close obesity, diastolic dysfunction. ESCALATION OF CARE CONSIDERED: Admission indicated, as the patient meets sepsis criteria. MDM SUMMARY: The patient is a pleasant, 74-year-old male who arrives to the emergency department for evaluation of the above-stated complaint. Saline lock was established prior to patient's arrival in the emergency department via EMS. IV fluid boluses were provided for fluid resuscitation, due to severe hypotension upon EMS arrival. Upon arrival to the emergency department the patient's blood pressure was stable, however still slightly hypotensive. Sepsis workup was obtained. Lab work shows leukocytosis 14.00 with a stable anemia. CMP shows sodium 138, potassium 4.5, chloride 103, anion gap 18, BUN 37, creatinine 3.18, glucose 148, magnesium 1.3. Lactate 7.0, with repeat after hydration 4.7. Patient was provided warmed fluids, and a warming blanket for rectal temperature consistent with hypothermia. The patient was provided a single dose of IV Narcan, as there was concern for narcotic overdose which could be causing the patient's hypoxia. The patient did show slight improvement after administration of IV Narcan. The patient received multiple IV fluid boluses with evaluation between each bolus to ensure no pulmonary edema has occurred. The patient also received IV magnesium for hypomagnesemia. An ABG was obtained which showed findings consistent with acidosis. pH 7.25, PO237, HCO3 17, CO2 18, POC ABG O2 sat 62. Urinalysis shows 1+ ketones trace leukocyte esterase, no bacteria. Viral panel obtained which was negative. Empiric antibiotics were provided, per sepsis protocol. CT imaging of the chest, abdomen and pelvis were obtained, which showed no source of infection, or significant findings per my interpretation. The patient remained hypotensive, during his stay in the emergency department. Consideration for vasopressors, however the patient's MAP was consistently at or above 65. Repeat rectal temperatures showed improvement in hypothermia. I spoke with the [facility] hospitalist regarding admission, Dr. Hernández who agreed to evaluate and accept the patient for admission. Please refer to his documentation for further patient workup and care. DIAGNOSIS: Sepsis, hypomagnesemia, lactic acidosis, leukocytosis I have personally spent greater than 30 minutes of critical care time in the direct management of this patient. This includes bedside care, interpretation of diagnostic studies, and testing, discussion with consultants, patient, and family members, and other required patient management activities. This 30 minutes is in excess of all separately billable procedures. The patient's case was discussed with Dr. Nicole, who agreed with my evaluation and treatment plan. The chart was completed utilizing Dragon Speech voice recognition software. Grammatical errors, random word insertions, pronoun errors, and incomplete sentences are an occasional consequence of this system due to software limitations, ambient noise, and hardware issues. Any formal questions or concerns about the content, text, or information contained within the body of this dictation should be directly addressed to the provider for clarification. Past Med/Surg History Problem List (Updated 02/02/25 @ 00:08 by PJ Murphy) Vasovagal near syncope (Acute) Sepsis (Acute) Abnormal MRI, lumbar spine Severe sepsis Hypovolemic shock Leukocytosis Hypercapnic respiratory failure Chronic kidney disease, stage 3a Hypomagnesemia Lactic acidosis Lumbar radiculopathy HALI (acute kidney injury) Sepsis Hypotension Lumbar spondylosis (10/15/24) History of testicular cancer Insomnia Ulnar neuropathy at elbow of right upper extremity Carpal tunnel syndrome, right Statin myopathy Dyslipidemia Diabetes type 2, controlled Class 3 obesity Hypothyroidism Diastolic dysfunction Pulmonary nodule Abnormal PFT Lymphedema of left lower extremity Personal history of diabetic foot ulcer Cervical stenosis of spine Gout Diabetic peripheral neuropathy associated with type 2 diabetes mellitus Osteoarthritis Hypertension Lumbar spinal stenosis Cervical spondylolysis Medical History Acute urinary retention (10/14/24) Vitamin D deficiency Rib contusion SOB (shortness of breath) 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 Cipriano Hightower- Right Shoulder Arthroscopic Subacromial Decompression, Distal Clavicle Excision, Repair Rotator Cuff, Debridement partial tear rotator cuff, subacromial Bursa, Glenoid Labral Tear and Biceps Tendon, Biceps Tenotomy(Right) S/P decompression of ulnar nerve (01/2019) Right CTR, right ulnar nerve transposition: 02/13/19: LMA#5 at [facility] S/P decompression of ulnar nerve at elbow (01/09/19) LUE Status post carpal tunnel release (01/09/19) L wrist History of cystoscopy S/P orchiectomy Left Status post surgery radical lymphadenectomy ("left inguinal through center of back") r/t testicular cancer History of appendectomy History of ERCP History of cholecystectomy open History of arthroscopy (05/2017) right knee History of laminectomy lumbar x3 Fusion of spine (06/2017) C3-C6 ACDF: 06/26/17: Grade 3 view, MAC 3.0, ETT 8.0 at [facility] History of tonsillectomy Family History Mother Lung disease Hypertension Liver cancer Diabetes Breast cancer Father Kidney disease Grandfather (Paternal) Stroke Denies family history of Colon cancer Ovarian cancer Prostate cancer Myocardial infarction Colorectal cancer Social History Smoking Status: Former smoker Tobacco Type: Cigarettes Age Started Using Tobacco: 17; Age Quit Using Tobacco: 24; packs per day: 3; Cigarettes Per Day: 10; Smoking End Date: 2016; Second Hand Exposure: No; Do You Dip or Chew Tobacco: No; Hx Alcohol Use: Yes Alcohol type: beer Alcohol Intake Frequency: 2-4 x/Month Alcohol Intake Frequency Comment: 3 Hx Substance Use: No Preferred Language: Icelandic Communication Ability: Effective Visual Impairment: No Limitations Hearing Ability: Hard of Hearing Mixed Signal Design Engineer Required: No Beliefs That Will Affect Care: None marital status: Current Living Situation: Spouse current occupational status: unemployed Other Information That Helps Us Care for You: No Feels Safe at Home: Yes Safety Concerns: Feels Safe At This Time Childhood Exposure to Second-Hand Smoke: No Diet: regular Diet Comment: Regular caffeine: Yes during the past year weight has: remained stable Dental Care, Regularly: No Physical Activity Frequency: Does not Exercise Seatbelt Use: always Sunscreen Use: No Assistive Devices: None Allergies Allergies Allergy/AdvReac Type Severity Reaction Status Date / Time etodolac Allergy Intermediate Rash Verified 01/28/25 11:31 canagliflozin Allergy Unknown LE Verified 01/28/25 11:31 swelling, weight gain tramadol AdvReac Intermediate Nausea Verified 01/28/25 11:31 meperidine AdvReac Unknown Nausea Verified 01/28/25 11:31 Lodine Allergy Intermediate Rash Uncoded 07/15/25 11:31 Home Meds Home Medications Medication Instructions Recorded Confirmed pyridoxine (vitamin B6) 250 mg 500 mg PO QAM 07/14/20 01/29/25 tablet (Vitamin B-6) furosemide 40 mg tablet 40 mg PO BID 09/30/24 01/29/25 acetaminophen 500 mg tablet 500 mg PO Q8H PRN Pain 10/28/24 01/29/25 allopurinol 300 mg tablet 600 mg PO BID 10/28/24 01/29/25 bumetanide 2 mg tablet 2 mg PO DAILY PRN swelling 10/28/24 01/29/25 miscellaneous medical supply 01/29/25 01/29/25 Previous Rx's Medication Instructions Recorded multivitamin 1 tab PO BID #60 tabs 01/15/19 cyanocobalamin (vitamin B-12) 1,000 mcg PO HS #90 tabs 09/17/21 1,000 mcg tablet (Vitamin B-12) omega [id number] oil 1,000 mg 1 cap PO BID #180 caps 12/07/21 (120 mg-180 mg) capsule (Fish Oil) lancets 33 gauge #300 ea 10/12/23 gabapentin 300 mg capsule 600 mg (2 x 300 mg) PO BID #720 03/07/24 caps insulin syringe-needle U-100 1 mL #200 ea 03/15/24 30 gauge x 5/16" pen needle, diabetic 31 gauge x #300 ea 06/12/24 5/16" (BD Ultra-Fine Short Pen Needle) lisinopril 40 mg tablet 40 mg PO QAM #90 tabs 06/17/24 metformin 1,000 mg tablet 1,000 mg PO BID #180 tabs 06/17/24 raised toilet seat #1 ea 09/30/24 Wheeled Walker #1 ea 10/04/24 potassium chloride 20 mEq 20 meq PO TID PRN edema #270 tabs 10/04/24 tablet,extended release blood sugar diagnostic (OneTouch #360 ea 11/28/24 Ultra Test strips) doxazosin 2 mg tablet See Rx Instructions .Route 11/28/24 .COMPLEX #270 tabs fluticasone propionate 50 2 spray intranasal DAILY PRN 11/28/24 mcg/actuation nasal Congestion #48 grams spray,suspension Tresiba FlexTouch U-100 100 See Rx Instructions subcut 12/03/24 unit/mL (3 mL) subcutaneous pen .COMPLEX #165 mL (insulin degludec) baclofen 10 mg tablet 5 mg (1/2 x 10 mg) PO BID PRN 12/24/24 muscle spasm #30 tabs tirzepatide 15 mg/0.5 mL 15 mg (0.5 mL) subcut Q7D #2 mL 12/25/24 subcutaneous pen injector trazodone 50 mg tablet 150 mg (3 x 50 mg) PO HS #270 tabs 12/31/24 levothyroxine 112 mcg tablet 112 mcg PO DAILY #30 tabs 01/02/25 verapamil 180 mg 24 hr 360 mg (2 x 180 mg) PO QAM #180 01/03/25 capsule,extended release caps benzonatate 200 mg capsule See Rx Instructions .Route 01/20/25 .COMPLEX #30 caps oxycodone-acetaminophen 10 mg-325 1 tab PO Q8H PRN pain #60 tabs 01/22/25 mg tablet Results & Data (ED) Vital Signs Vital Signs - 24 hr 01/29/25 05:14 01/29/25 05:17 01/29/25 05:17 Temperature 34.7 C L Temperature Source Rectal Pulse Rate 77 76 Pulse Rate [Apical] Pulse Rate from SpO2 Sensor Pulse Rhythm Regular Pulse Strength Normal Respiratory Rate 20 Respiratory Effort / Characteristics Non-Labored Spontaneous Respiratory Depth Normal Respiratory Pattern Regular Blood Pressure 116/61 Blood Pressure [Right Arm] Blood Pressure Mean 79 Blood Pressure Mean [Right Arm] Blood Pressure Position Lying Blood Pressure Position [Right Arm] Pulse Oximetry 88 L 88 L Oxygen Delivery Method Room Air Room Air Oxygen Flow Rate Sepsis Recent Fever Within 48 Hours No Sepsis New/Unexplained Change in Mental Status N/A Sepsis Action Taken by Nursing No Action Required 01/29/25 05:18 01/29/25 05:21 01/29/25 05:31 Temperature Temperature Source Pulse Rate 78 78 Pulse Rate [Apical] Pulse Rate from SpO2 Sensor 78 78 Pulse Rhythm Pulse Strength Respiratory Rate 14 16 Respiratory Effort / Characteristics Respiratory Depth Respiratory Pattern Blood Pressure 104/52 L 116/61 Blood Pressure [Right Arm] Blood Pressure Mean 69 79 Blood Pressure Mean [Right Arm] Blood Pressure Position Blood Pressure Position [Right Arm] Pulse Oximetry 95 94 94 Oxygen Delivery Method Nasal Cannula Oxygen Flow Rate 2 Sepsis Recent Fever Within 48 Hours Sepsis New/Unexplained Change in Mental Status Sepsis Action Taken by Nursing 01/29/25 05:45 01/29/25 06:30 01/29/25 06:36 Temperature Temperature Source Pulse Rate 84 80 Pulse Rate [Apical] Pulse Rate from SpO2 Sensor 79 Pulse Rhythm Pulse Strength Respiratory Rate 16 Respiratory Effort / Characteristics Respiratory Depth Respiratory Pattern Blood Pressure 123/55 L 123/64 Blood Pressure [Right Arm] Blood Pressure Mean 86 83 Blood Pressure Mean [Right Arm] Blood Pressure Position Blood Pressure Position [Right Arm] Pulse Oximetry 97 95 Oxygen Delivery Method Nasal Cannula Nasal Cannula Oxygen Flow Rate 4 5 Sepsis Recent Fever Within 48 Hours Sepsis New/Unexplained Change in Mental Status Sepsis Action Taken by Nursing 01/29/25 06:52 01/29/25 07:00 01/29/25 07:30 Temperature 35.3 C L 35.3 C L Temperature Source Rectal Rectal Pulse Rate Pulse Rate [Apical] 85 Pulse Rate from SpO2 Sensor Pulse Rhythm Pulse Strength Respiratory Rate 22 Respiratory Effort / Characteristics Respiratory Depth Respiratory Pattern Blood Pressure Blood Pressure [Right Arm] 84/46 L Blood Pressure Mean Blood Pressure Mean [Right Arm] 58 Blood Pressure Position Blood Pressure Position [Right Arm] Sitting Pulse Oximetry 90 Oxygen Delivery Method Oxymask Oxygen Flow Rate 6 Sepsis Recent Fever Within 48 Hours Sepsis New/Unexplained Change in Mental Status Sepsis Action Taken by Nursing 01/29/25 08:01 01/29/25 08:22 01/29/25 08:46 Temperature 36 C L Temperature Source Rectal Pulse Rate Pulse Rate [Apical] 88 83 Pulse Rate from SpO2 Sensor Pulse Rhythm Pulse Strength Respiratory Rate 20 16 Respiratory Effort / Characteristics Non-Labored Spontaneous Non-Labored Spontaneous Respiratory Depth Normal Normal Respiratory Pattern Regular Regular Blood Pressure Blood Pressure [Right Arm] 104/67 96/50 L Blood Pressure Mean Blood Pressure Mean [Right Arm] 79 65 Blood Pressure Position Blood Pressure Position [Right Arm] Sitting Sitting Pulse Oximetry 92 94 Oxygen Delivery Method Room Air Oxymask Oxygen Flow Rate 6 Sepsis Recent Fever Within 48 Hours Sepsis New/Unexplained Change in Mental Status Sepsis Action Taken by Nursing 01/29/25 09:28 01/29/25 09:33 Temperature Temperature Source Pulse Rate 83 Pulse Rate [Apical] 81 Pulse Rate from SpO2 Sensor Pulse Rhythm Pulse Strength Respiratory Rate 16 Respiratory Effort / Characteristics Non-Labored Spontaneous Respiratory Depth Normal Respiratory Pattern Regular Blood Pressure Blood Pressure [Right Arm] 98/49 L Blood Pressure Mean Blood Pressure Mean [Right Arm] 65 Blood Pressure Position Blood Pressure Position [Right Arm] Sitting Pulse Oximetry 96 Oxygen Delivery Method Oxymask Oxygen Flow Rate 6 Sepsis Recent Fever Within 48 Hours Sepsis New/Unexplained Change in Mental Status Sepsis Action Taken by Correction Medications Current Medication List: was personally reviewed by me Laboratory Data Attestation: I reviewed the patient's lab results. 02/01/25 05:58 02/01/25 05:58 Lab Results 01/29/25 01/29/25 01/29/25 Range/Units 05:17 05:19 05:20 WBC 14.00 H (4.8-10.8) K/ul RBC 3.61 L (4.70-6.10) M/uL Hgb 11.3 L (14.0-18.0) g/dl POC Hgb (14.0-18.0) g/dl Hct 35.4 L (42.0-52.0) % POC Hct (42-52) % MCV 98.1 (80.0-100.0) fL MCH 31.3 (25.0-34.0) pg MCHC 31.9 L (32.0-36.0) g/dL RDW Std Deviation 55.9 H (36.4-46.3) fL RDW Coeff of Hoang 15.7 H (11.5-14.5) % Plt Count 210 (130-400) K/uL MPV 9.8 (9.4-12.4) fL Immature Gran % (Auto) 0.4 % Neut % (Auto) 82.8 % Lymph % (Auto) 10.1 % [place] % (Auto) 6.2 % Eos % (Auto) 0.2 % Baso % (Auto) 0.3 % Neut # (Auto) 11.59 H (1.40-6.50) K/uL Lymph # (Auto) 1.42 (1.20-3.40) K/uL [place] # (Auto) 0.87 H (0.11-0.59) K/uL Eos # (Auto) 0.03 (0.00-0.50) K/uL Baso # (Auto) 0.04 (0.00-0.20) K/uL Immature Gran # (Auto) 0.05 (0.01-0.20) K/uL POC pH (7.35-7.45) POC pCO2 (35-46) mmHg POC pO2 (80-95) mmHg POC HCO3 (19-24) silvestre/L POC Total CO2 (24-31) mmol/L POC Base Excess (-9-1.8) silvestre/L POC ABG O2 Sat (90-95) % POC Sodium (135-144) mmol/L Sodium 138 (136-145) mmol/L POC Potassium (3.3-5.0) mmol/L Potassium 4.5 (3.5-5.1) mmol/L Chloride 103 (98-107) mmol/L Carbon Dioxide 17 L (21-32) mmol/L Anion Gap 18 H (3-11) BUN 37 H (6-23) mg/dl Creatinine 3.18 H (0.6-1.4) mg/dl Est Cr Clr Drug Dosing 31.6 ml/min eGFR 19.83 BUN/Creatinine Ratio 11.6 (10-20) Glucose 148 H (70-99(Fasting)) mg/dl POC Glucose 132 H (70-99) mg/dl Lactate 7.0 H* (0.4-2.0) mmol/L Calcium 8.6 (8.6-10.3) mg/dl Magnesium 1.3 L (1.7-2.4) mg/dl Total Bilirubin 0.4 (0.2-1.0) mg/dl AST 19 (13-39) U/L ALT 18 (7-52) U/L Alkaline Phosphatase 134 H (34-104) U/L Troponin I High Sens 6.3 (0-20) pg/ml B-Natriuretic Peptide 25 (0-100) pg/ml Total Protein 6.8 (6.0-8.3) gm/dl Albumin 3.5 (3.4-5.0) gm/dl Globulin 3.3 (2.5-4.0) gm/dl Albumin/Globulin Ratio 1.1 (0.9-2) Procalcitonin 0.14 (0-0.5) ng/ml Random Cortisol 30.43 mcg/dl Urine Color Urine Appearance (Clear) Urine pH (4.5-7.5) Ur Specific [place] (1.000-1.030) Urine Protein (Negative) Urine Glucose (UA) (Negative) Urine Ketones (Negative) Urine Blood (Negative) Urine Nitrite (Negative) Urine Bilirubin (Negative) Urine Urobilinogen (Negative) Ur Leukocyte Esterase (Negative) Urine WBC (Auto) (0-5) /hpf Urine RBC (Auto) (0-2) /hpf U Hyaline Cast (Auto) (0-2) /lpf U Epithel Cells (Auto) (0-2) /hpf Urine Bacteria (Auto) (None Seen) Calcium Oxalate Crystal (None Prsent) Urine Comment Adenovirus (PCR) (NotDetected) B. pertussis DNA (PCR) (NotDetected) B.parapertussis DNA PCR (NotDetected) C. pneumoniae DNA (PCR) (NotDetected) Coronavirus OC43 (PCR) (NotDetected) Coronavirus HKU1 (PCR) (NotDetected) Coronavirus 229E (PCR) (NotDetected) SARS-CoV-2 (PCR) (NotDetected) Coronavirus NL63 (PCR) (NotDetected) Human Metapneumovir PCR (NotDetected) Influenza Type A (PCR) (NotDetected) Influenza Type B (PCR) (NotDetected) M. pneumoniae (PCR) (NotDetected) Parainfluenza 1 (PCR) (NotDetected) Parainfluenza 2 (PCR) (NotDetected) Parainfluenza 3 (PCR) (NotDetected) Parainfluenza 4 (PCR) (NotDetected) RSV (PCR) (NotDetected) Entero/Rhino (PCR) (NotDetected) 01/29/25 01/29/25 01/29/25 Range/Units 06:10 06:11 06:38 WBC (4.8-10.8) K/ul RBC (4.70-6.10) M/uL Hgb (14.0-18.0) g/dl POC Hgb 11.2 L (14.0-18.0) g/dl Hct (42.0-52.0) % POC Hct 33 L (42-52) % MCV (80.0-100.0) fL MCH (25.0-34.0) pg MCHC (32.0-36.0) g/dL RDW Std Deviation (36.4-46.3) fL RDW Coeff of Hoang (11.5-14.5) % Plt Count (130-400) K/uL MPV (9.4-12.4) fL Immature Gran % (Auto) % Neut % (Auto) % Lymph % (Auto) % [place] % (Auto) % Eos % (Auto) % Baso % (Auto) % Neut # (Auto) (1.40-6.50) K/uL Lymph # (Auto) (1.20-3.40) K/uL [place] # (Auto) (0.11-0.59) K/uL Eos # (Auto) (0.00-0.50) K/uL Baso # (Auto) (0.00-0.20) K/uL Immature Gran # (Auto) (0.01-0.20) K/uL POC pH 7.25 L (7.35-7.45) POC pCO2 38 (35-46) mmHg POC pO2 37 L (80-95) mmHg POC HCO3 17 L (19-24) silvestre/L POC Total CO2 18 L (24-31) mmol/L POC Base Excess -10.0 L (-9-1.8) silvestre/L POC ABG O2 Sat 62.0 L (90-95) % POC Sodium 138 (135-144) mmol/L Sodium (136-145) mmol/L POC Potassium 5.5 H (3.3-5.0) mmol/L Potassium (3.5-5.1) mmol/L Chloride (98-107) mmol/L Carbon Dioxide (21-32) mmol/L Anion Gap (3-11) BUN (6-23) mg/dl Creatinine (0.6-1.4) mg/dl Est Cr Clr Drug Dosing ml/min eGFR BUN/Creatinine Ratio (10-20) Glucose (70-99(Fasting)) mg/dl POC Glucose (70-99) mg/dl Lactate (0.4-2.0) mmol/L Calcium (8.6-10.3) mg/dl Magnesium (1.7-2.4) mg/dl Total Bilirubin (0.2-1.0) mg/dl AST (13-39) U/L ALT (7-52) U/L Alkaline Phosphatase (34-104) U/L Troponin I High Sens (0-20) pg/ml B-Natriuretic Peptide (0-100) pg/ml Total Protein (6.0-8.3) gm/dl Albumin (3.4-5.0) gm/dl Globulin (2.5-4.0) gm/dl Albumin/Globulin Ratio (0.9-2) Procalcitonin (0-0.5) ng/ml Random Cortisol mcg/dl Urine Color Dark Yellow Urine Appearance Clear (Clear) Urine pH 5.0 (4.5-7.5) Ur Specific [place] 1.026 (1.000-1.030) Urine Protein Trace H (Negative) Urine Glucose (UA) Negative (Negative) Urine Ketones 1+ H (Negative) Urine Blood Negative (Negative) Urine Nitrite Negative (Negative) Urine Bilirubin 1+ H (Negative) Urine Urobilinogen Negative (Negative) Ur Leukocyte Esterase Trace H (Negative) Urine WBC (Auto) 0-5 (0-5) /hpf Urine RBC (Auto) 0-2 (0-2) /hpf U Hyaline Cast (Auto) >20 H (0-2) /lpf U Epithel Cells (Auto) 0-2 (0-2) /hpf Urine Bacteria (Auto) None Seen (None Seen) Calcium Oxalate Crystal Present A (None Prsent) Urine Comment Adenovirus (PCR) Not Detected (NotDetected) B. pertussis DNA (PCR) Not Detected (NotDetected) B.parapertussis DNA PCR Not Detected (NotDetected) C. pneumoniae DNA (PCR) Not Detected (NotDetected) Coronavirus OC43 (PCR) Not Detected (NotDetected) Coronavirus HKU1 (PCR) Not Detected (NotDetected) Coronavirus 229E (PCR) Not Detected (NotDetected) SARS-CoV-2 (PCR) Not Detected (NotDetected) Coronavirus NL63 (PCR) Not Detected (NotDetected) Human Metapneumovir PCR Not Detected (NotDetected) Influenza Type A (PCR) Not Detected (NotDetected) Influenza Type B (PCR) Not Detected (NotDetected) M. pneumoniae (PCR) Not Detected (NotDetected) Parainfluenza 1 (PCR) Not Detected (NotDetected) Parainfluenza 2 (PCR) Not Detected (NotDetected) Parainfluenza 3 (PCR) Not Detected (NotDetected) Parainfluenza 4 (PCR) Not Detected (NotDetected) RSV (PCR) Not Detected (NotDetected) Entero/Rhino (PCR) Not Detected (NotDetected) 01/29/25 Range/Units 07:10 WBC (4.8-10.8) K/ul RBC (4.70-6.10) M/uL Hgb (14.0-18.0) g/dl POC Hgb (14.0-18.0) g/dl Hct (42.0-52.0) % POC Hct (42-52) % MCV (80.0-100.0) fL MCH (25.0-34.0) pg MCHC (32.0-36.0) g/dL RDW Std Deviation (36.4-46.3) fL RDW Coeff of Hoang (11.5-14.5) % Plt Count (130-400) K/uL MPV (9.4-12.4) fL Immature Gran % (Auto) % Neut % (Auto) % Lymph % (Auto) % [place] % (Auto) % Eos % (Auto) % Baso % (Auto) % Neut # (Auto) (1.40-6.50) K/uL Lymph # (Auto) (1.20-3.40) K/uL [place] # (Auto) (0.11-0.59) K/uL Eos # (Auto) (0.00-0.50) K/uL Baso # (Auto) (0.00-0.20) K/uL Immature Gran # (Auto) (0.01-0.20) K/uL POC pH (7.35-7.45) POC pCO2 (35-46) mmHg POC pO2 (80-95) mmHg POC HCO3 (19-24) silvestre/L POC Total CO2 (24-31) mmol/L POC Base Excess (-9-1.8) silvestre/L POC ABG O2 Sat (90-95) % POC Sodium (135-144) mmol/L Sodium (136-145) mmol/L POC Potassium (3.3-5.0) mmol/L Potassium (3.5-5.1) mmol/L Chloride (98-107) mmol/L Carbon Dioxide (21-32) mmol/L Anion Gap (3-11) BUN (6-23) mg/dl Creatinine (0.6-1.4) mg/dl Est Cr Clr Drug Dosing ml/min eGFR BUN/Creatinine Ratio (10-20) Glucose (70-99(Fasting)) mg/dl POC Glucose (70-99) mg/dl Lactate 4.7 H* (0.4-2.0) mmol/L Calcium (8.6-10.3) mg/dl Magnesium (1.7-2.4) mg/dl Total Bilirubin (0.2-1.0) mg/dl AST (13-39) U/L ALT (7-52) U/L Alkaline Phosphatase (34-104) U/L Troponin I High Sens (0-20) pg/ml B-Natriuretic Peptide (0-100) pg/ml Total Protein (6.0-8.3) gm/dl Albumin (3.4-5.0) gm/dl Globulin (2.5-4.0) gm/dl Albumin/Globulin Ratio (0.9-2) Procalcitonin (0-0.5) ng/ml Random Cortisol mcg/dl Urine Color Urine Appearance (Clear) Urine pH (4.5-7.5) Ur Specific [place] (1.000-1.030) Urine Protein (Negative) Urine Glucose (UA) (Negative) Urine Ketones (Negative) Urine Blood (Negative) Urine Nitrite (Negative) Urine Bilirubin (Negative) Urine Urobilinogen (Negative) Ur Leukocyte Esterase (Negative) Urine WBC (Auto) (0-5) /hpf Urine RBC (Auto) (0-2) /hpf U Hyaline Cast (Auto) (0-2) /lpf U Epithel Cells (Auto) (0-2) /hpf Urine Bacteria (Auto) (None Seen) Calcium Oxalate Crystal (None Prsent) Urine Comment Adenovirus (PCR) (NotDetected) B. pertussis DNA (PCR) (NotDetected) B.parapertussis DNA PCR (NotDetected) C. pneumoniae DNA (PCR) (NotDetected) Coronavirus OC43 (PCR) (NotDetected) Coronavirus HKU1 (PCR) (NotDetected) Coronavirus 229E (PCR) (NotDetected) SARS-CoV-2 (PCR) (NotDetected) Coronavirus NL63 (PCR) (NotDetected) Human Metapneumovir PCR (NotDetected) Influenza Type A (PCR) (NotDetected) Influenza Type B (PCR) (NotDetected) M. pneumoniae (PCR) (NotDetected) Parainfluenza 1 (PCR) (NotDetected) Parainfluenza 2 (PCR) (NotDetected) Parainfluenza 3 (PCR) (NotDetected) Parainfluenza 4 (PCR) (NotDetected) RSV (PCR) (NotDetected) Entero/Rhino (PCR) (NotDetected) Administered Medications Gabapentin (Gabapentin 100 Mg Cap) 100 mg PO DAILY [facility] Stop: 03/02/25 08:59 Last Admin: 02/01/25 09:16 Dose: 100 mg Documented By: Admin: 01/31/25 08:07 Dose: 100 mg Documented By: DEBORAH Heparin Sodium (Beef Lung) (Heparin 10 Unit/Ml 5 Ml Flush) 5 ml FLUSH PRN PRN PRN Reason: Flush Stop: 03/03/25 02:53 Last Admin: 02/01/25 09:48 Dose: 5 ml Documented By: OSMIN Heparin Sodium (Porcine) (Heparin Sod 5,000 Unit/0.5 Ml Vial) 5,000 units SQ Q8 AZUL Stop: 02/28/25 13:59 Last Admin: 02/01/25 21:45 Dose: 5,000 units Documented By: [id number] Admin: 02/01/25 13:15 Dose: 5,000 units Documented By: Admin: 02/01/25 05:23 Dose: 5,000 units Documented By: Admin: 01/31/25 21:57 Dose: 5,000 units Documented By: Admin: 01/31/25 13:58 Dose: 5,000 units Documented By: Admin: 01/31/25 06:19 Dose: 5,000 units Documented By: Admin: 01/30/25 21:48 Dose: 5,000 units Documented By: Admin: 01/30/25 14:01 Dose: 5,000 units Documented By: Admin: 01/30/25 07:27 Dose: 5,000 units Documented By: Admin: 01/29/25 22:42 Dose: 5,000 units Documented By: Admin: 01/29/25 17:55 Dose: 5,000 units Documented By: EDNA Hydromorphone HCl (Hydromorphone Inj 1 Mg/Ml Syringe) 1 mg IV Q2H PRN PRN Reason: Severe Pain (7,8,9,10) on NRS Stop: 02/12/25 11:39 Last Admin: 02/01/25 19:59 Dose: 1 mg Documented By: [id number] Admin: 02/01/25 17:20 Dose: 1 mg Documented By: Admin: 02/01/25 12:50 Dose: 1 mg Documented By: Admin: 02/01/25 05:23 Dose: 1 mg Documented By: Admin: 01/31/25 23:37 Dose: 1 mg Documented By: MELODY Cefepime HCl (Maxipime 2000mg) 1,000 mg in 10 mls @ 5 mls/min IV Q12H AZUL; Protocol Stop: 02/08/25 00:00 Last Admin: 02/01/25 13:14 Dose: 5 mls/min Documented By: Admin: 01/31/25 23:47 Dose: 5 mls/min Documented By: MELODY Daptomycin 700 mg/ Syringe 14 mls @ 7 mls/min IV Q48H AZUL; Protocol Stop: 02/07/25 23:29 Last Admin: 01/31/25 23:47 Dose: 7 mls/min Documented By: MELODY Insulin Aspart (Insulin Aspart Per Unit Charge) 0 units SC ACHS AZUL Stop: 03/02/25 07:59 Last Admin: 02/01/25 20:46 Dose: Not Given Documented By: [id number] Co-signed By: FRANCISCO Admin: 02/01/25 17:46 Dose: 5 units Documented By: NEGRA Co-signed By: LAMONT Admin: 02/01/25 13:15 Dose: 3 units Documented By: NEGRA Co-signed By: NAOMI Admin: 02/01/25 09:16 Dose: 2 units Documented By: GEGE Co-signed By: NAOMI Admin: 01/31/25 21:44 Dose: Not Given Documented By: Admin: 01/31/25 17:44 Dose: 2 units Documented By: TIMI Co-signed By: BAHMAN Admin: 01/31/25 11:32 Dose: Not Given Documented By: DEBORAH Insulin Glargine (Lantus Per Unit Charge) 0 units SC HS [facility]; Protocol Stop: 03/02/25 20:59 Last Admin: 02/01/25 20:46 Dose: Not Given Documented By: [id number] Admin: 01/31/25 21:45 Dose: Not Given Documented By: MELODY Levothyroxine Sodium (Levothyroxine Sodium 112 Mcg Tablet) 112 mcg PO DAILYBB [facility] Stop: 03/01/25 06:29 Last Admin: 02/01/25 05:23 Dose: 112 mcg Documented By: Admin: 01/31/25 06:20 Dose: 112 mcg Documented By: Admin: 01/30/25 07:34 Dose: Not Given Documented By: DEBORAH Mupirocin (Mupirocin 2% Oint 22 Gm Tube) 1 appln EXT BID [facility] Stop: 03/02/25 20:59 Last Admin: 02/01/25 21:46 Dose: 1 appln Documented By: [id number] Admin: 02/01/25 09:17 Dose: 1 appln Documented By: Admin: 01/31/25 21:58 Dose: 1 appln Documented By: MELODY Pyridoxine HCl (Pyridoxine Hcl 50 Mg Tab) 500 mg PO QAM [facility] Stop: 03/01/25 08:59 Last Admin: 02/01/25 09:15 Dose: 500 mg Documented By: Admin: 01/31/25 08:07 Dose: 500 mg Documented By: Admin: 01/30/25 09:20 Dose: 500 mg Documented By: DEBORAH Discontinued Medications Dextrose (Dextrose 50% 50 Ml Syringe) 50 ml IV NOW STA Stop: 01/30/25 05:12 Last Admin: 01/30/25 05:38 Dose: 50 ml Documented By: LEFTY Gabapentin (Gabapentin 300 Mg Cap) 300 mg PO BID [facility] Stop: 02/28/25 20:59 Last Admin: 01/30/25 09:19 Dose: 300 mg Documented By: Admin: 01/29/25 22:07 Dose: Not Given Documented By: LEFTY Sodium Chloride (Nss) 1,000 mls @ 999 mls/hr IV .Q1H1M AZUL Stop: 01/29/25 06:30 Last Infusion: 01/29/25 06:32 Dose: Infused Documented By: Admin: 01/29/25 05:40 Dose: 999 mls/hr Documented By: BRISA Sodium Chloride (Nss) 1,000 mls @ 999 mls/hr IV .Q1H1M [facility] Stop: 01/29/25 07:30 Last Admin: 01/29/25 08:02 Dose: Not Given Documented By: Infusion: 01/29/25 06:32 Dose: Infused Documented By: Admin: 01/29/25 05:41 Dose: 999 mls/hr Documented By: BRISA Vancomycin HCl 2,750 mg/ (Sodium Chloride) 555 mls @ 200 mls/hr IV NOW ONE Stop: 01/29/25 08:47 Last Infusion: 01/29/25 10:12 Dose: Infused Documented By: Admin: 01/29/25 07:06 Dose: 200 mls/hr Documented By: JALEESA Piperacillin Sod/Tazobactam Sod (Zosyn) 4.5 gm in 100 mls @ 200 mls/hr IV NOW ONE; Protocol Stop: 01/29/25 06:30 Last Infusion: 01/29/25 07:21 Dose: Infused Documented By: Admin: 01/29/25 06:36 Dose: 200 mls/hr Documented By: IRA Magnesium Sulfate/Dextrose (Magnesium Sulfate / D5w) 1 gm in 100 mls @ 100 mls/hr IV Q1H [facility] Stop: 01/29/25 08:51 Last Infusion: 01/29/25 09:32 Dose: Infused Documented By: Admin: 01/29/25 08:20 Dose: 100 mls/hr Documented By: Infusion: 01/29/25 08:17 Dose: Infused Documented By: Admin: 01/29/25 07:17 Dose: 100 mls/hr Documented By: JALEESA Sodium Chloride (Nss) 1,000 mls @ 999 mls/hr IV .Q1H1M ONE Stop: 01/29/25 07:52 Last Admin: 01/29/25 08:02 Dose: Not Given Documented By: JALEESA Sodium Chloride (Nss) 1,000 mls @ 150 mls/hr IV .Q6H40M [facility] Stop: 02/01/25 08:59 Last Infusion: 01/29/25 19:45 Dose: Infused Documented By: Admin: 01/29/25 17:41 Dose: 150 mls/hr Documented By: Infusion: 01/29/25 16:23 Dose: Infused Documented By: Infusion: 01/29/25 14:17 Dose: 150 mls/hr Documented By: Admin: 01/29/25 08:50 Dose: 126 mls/hr Documented By: KR Norepinephrine Bitartrate (Levophed/D5w) 4 mg in 250 mls @ 0 mls/hr IV .Q0M AZUL; Protocol Stop: 02/28/25 09:59 Last Titration: 01/30/25 20:34 Dose: Infused Documented By: ESG Co-signed By: [id number] Admin: 01/30/25 17:31 Dose: Not Given Documented By: Admin: 01/30/25 17:04 Dose: Not Given Documented By: Titration: 01/30/25 14:00 Dose: 0 mcg/kg/min, 0 mls/hr Documented By: NMK Co-signed By: CB Titration: 01/30/25 13:20 Dose: 0.02 mcg/kg/min, 11 mls/hr Documented By: NMK Co-signed By: KJL Titration: 01/30/25 13:05 Dose: 0.04 mcg/kg/min, 22 mls/hr Documented By: NMK Co-signed By: CB Titration: 01/30/25 12:45 Dose: 0.06 mcg/kg/min, 33 mls/hr Documented By: NMK Co-signed By: TIMOTHY Admin: 01/30/25 07:49 Dose: 0.08 mcg/kg/min, 44 mls/hr Documented By: NMK Co-signed By: NEGRA Titration: 01/30/25 07:49 Dose: Infused Documented By: NMK Co-signed By: NEGRA Titration: 01/30/25 07:25 Dose: 0.08 mcg/kg/min, 44 mls/hr Documented By: LEFTY Co-signed By: DEBORAH Admin: 01/30/25 02:32 Dose: Not Given Documented By: Admin: 01/30/25 02:32 Dose: Not Given Documented By: Admin: 01/30/25 02:14 Dose: 0.08 mcg/kg/min, 44 mls/hr Documented By: ESG Co-signed By: CLC Titration: 01/30/25 02:14 Dose: Infused Documented By: ESG Co-signed By: CLC Titration: 01/29/25 21:10 Dose: 0.08 mcg/kg/min, 44 mls/hr Documented By: ESG Co-signed By: CLC Admin: 01/29/25 20:54 Dose: 0.1 mcg/kg/min, 55.1 mls/hr Documented By: ESG Co-signed By: MPC Titration: 01/29/25 20:35 Dose: Infused Documented By: ESG Co-signed By: MPC Titration: 01/29/25 20:30 Dose: 0.1 mcg/kg/min, 55.1 mls/hr Documented By: ESG Co-signed By: MPC Titration: 01/29/25 20:15 Dose: 0.12 mcg/kg/min, 66.1 mls/hr Documented By: ESG Co-signed By: MPC Titration: 01/29/25 20:00 Dose: 0.14 mcg/kg/min, 77.1 mls/hr Documented By: ESG Co-signed By: MPC Titration: 01/29/25 19:25 Dose: 0.16 mcg/kg/min, 88.1 mls/hr Documented By: AMB Co-signed By: ESG Admin: 01/29/25 17:44 Dose: 0.16 mcg/kg/min, 88.1 mls/hr Documented By: AMB Co-signed By: WMK Titration: 01/29/25 16:21 Dose: Infused Documented By: AMB Co-signed By: WMK Titration: 01/29/25 15:00 Dose: 0.14 mcg/kg/min, 77.1 mls/hr Documented By: AMB Co-signed By: WMK Titration: 01/29/25 14:30 Dose: 0.12 mcg/kg/min, 66.1 mls/hr Documented By: AMB Co-signed By: WMK Titration: 01/29/25 14:00 Dose: 0.1 mcg/kg/min, 55.1 mls/hr Documented By: AMB Co-signed By: WMK Titration: 01/29/25 13:15 Dose: 0.08 mcg/kg/min, 44 mls/hr Documented By: AMB Co-signed By: WMK Titration: 01/29/25 12:45 Dose: 0.06 mcg/kg/min, 33 mls/hr Documented By: AMB Co-signed By: LAF Titration: 01/29/25 12:20 Dose: 0.04 mcg/kg/min, 22 mls/hr Documented By: AMB Co-signed By: LAF Admin: 01/29/25 09:48 Dose: 0.02 mcg/kg/min, 11 mls/hr Documented By: KR Co-signed By: QGV Sodium Chloride (Nss) 1,000 mls @ 999 mls/hr IV .Q1H1M ONE Stop: 01/29/25 11:10 Last Infusion: 01/29/25 15:11 Dose: Infused Documented By: Admin: 01/29/25 10:15 Dose: 999 mls/hr Documented By: JALEESA Cefepime HCl (Maxipime 2000mg) 1,000 mg in 10 mls @ 5 mls/min IV Q12H AZUL Stop: 02/01/25 01:59 Last Admin: 01/31/25 02:30 Dose: 5 mls/min Documented By: Admin: 01/30/25 14:01 Dose: 5 mls/min Documented By: Admin: 01/30/25 02:13 Dose: 5 mls/min Documented By: LEFTY Cefepime HCl (Maxipime 2000mg) 2,000 mg in 20 mls @ 5 mls/min IV NOW ONE Stop: 01/29/25 13:18 Last Admin: 01/29/25 14:14 Dose: 5 mls/min Documented By: AMB Sodium Chloride (Nss) 1,000 mls @ 999 mls/hr IV .Q1H1M AZUL Stop: 01/29/25 15:15 Last Infusion: 01/29/25 15:11 Dose: Infused Documented By: Admin: 01/29/25 14:00 Dose: 999 mls/hr Documented By: Infusion: 01/29/25 13:51 Dose: Infused Documented By: Admin: 01/29/25 12:50 Dose: 999 mls/hr Documented By: AMB Sodium Chloride (Nss) 1,000 mls @ 999 mls/hr IV .Q1H1M ONE Stop: 01/29/25 15:07 Last Infusion: 01/29/25 15:12 Dose: Infused Documented By: Infusion: 01/29/25 15:11 Dose: Infused Documented By: Admin: 01/29/25 14:17 Dose: 999 mls/hr Documented By: AMB Vancomycin HCl 500 mg/ Sodium (Chloride) 110 mls @ 200 mls/hr IV TODAY@1700 ONE Stop: 01/29/25 17:32 Last Infusion: 01/29/25 18:39 Dose: Infused Documented By: Admin: 01/29/25 17:40 Dose: 200 mls/hr Documented By: AMB Vasopressin 20 units/ Sodium (Chloride) 101 mls @ 12.12 mls/hr IV .Q8H20M AZUL Stop: 02/28/25 19:44 Last Infusion: 01/31/25 06:35 Dose: Infused Documented By: ESG Co-signed By: [id number] Admin: 01/31/25 05:33 Dose: Not Given Documented By: Admin: 01/30/25 20:34 Dose: Not Given Documented By: Admin: 01/30/25 13:59 Dose: Not Given Documented By: Infusion: 01/30/25 07:25 Dose: 0 unit/min, 0 mls/hr Documented By: ESG Co-signed By: NMK Infusion: 01/30/25 06:45 Dose: 0 unit/min, 0 mls/hr Documented By: ESG Co-signed By: NMK Infusion: 01/30/25 06:15 Dose: 0.04 unit/min, 12.1 mls/hr Documented By: ESG Co-signed By: MNM Infusion: 01/30/25 05:27 Dose: 0 unit/min, 0 mls/hr Documented By: ESG Co-signed By: MNM Admin: 01/30/25 02:25 Dose: 0.04 unit/min, 12.1 mls/hr Documented By: ESG Co-signed By: CLC Infusion: 01/30/25 02:25 Dose: Infused Documented By: ESG Co-signed By: CLC Admin: 01/29/25 19:46 Dose: 0.04 unit/min, 12.1 mls/hr Documented By: ESG Co-signed By: MPC Calcium Gluconate () 1,000 mg in 60 mls @ 240 mls/hr IV NOW STA Stop: 01/30/25 05:24 Last Infusion: 01/30/25 06:15 Dose: Infused Documented By: Infusion: 01/30/25 05:31 Dose: 240 mls/hr Documented By: Admin: 01/30/25 05:27 Dose: 240 mls/hr Documented By: LEFTY Insulin Human Regular 10 units (/ Syringe) 9.9 mls @ 3 mls/sec IV ONE STA Stop: 01/30/25 05:11 Last Admin: 01/30/25 05:38 Dose: 3 mls/sec Documented By: LEFTY Co-signed By: CLC Magnesium Sulfate/Dextrose (Magnesium Sulfate / D5w) 1 gm in 100 mls @ 50 mls/hr IV Q2H AZUL Stop: 01/30/25 11:14 Last Infusion: 01/30/25 11:19 Dose: Infused Documented By: Admin: 01/30/25 09:19 Dose: 50 mls/hr Documented By: Infusion: 01/30/25 09:19 Dose: Infused Documented By: Admin: 01/30/25 07:28 Dose: 50 mls/hr Documented By: Infusion: 01/30/25 07:28 Dose: Infused Documented By: Admin: 01/30/25 05:31 Dose: 50 mls/hr Documented By: LEFTY Vancomycin HCl (Vancomycin Hcl) 1,000 mg in 270 mls @ 200 mls/hr IV NOW ONE Stop: 01/30/25 09:20 Last Infusion: 01/30/25 10:38 Dose: Infused Documented By: Admin: 01/30/25 09:15 Dose: 200 mls/hr Documented By: DEBORAH Bumetanide 2 mg/ Syringe 8 mls @ 4 mls/min IV ONE ONE Stop: 01/31/25 10:16 Last Admin: 01/31/25 10:46 Dose: 4 mls/min Documented By: DEBORAH Insulin Aspart (Insulin Aspart Per Unit Charge) 0 units SC ACHS AZUL Stop: 02/28/25 16:29 Last Admin: 01/29/25 16:32 Dose: Not Given Documented By: EDNA Insulin Aspart (Insulin Aspart Per Unit Charge) 0 units SC Q6 [facility] Stop: 03/01/25 00:00 Last Admin: 01/30/25 07:26 Dose: 2 units Documented By: LEFTY Co-signed By: DEBORAH Admin: 01/30/25 00:10 Dose: Not Given Documented By: LEFTY Insulin Aspart (Insulin Aspart Per Unit Charge) 0 units SC NOW STA Stop: 01/29/25 18:03 Last Admin: 01/29/25 19:23 Dose: Not Given Documented By: EDNA Insulin Aspart (Insulin Aspart Per Unit Charge) 0 units SC TODAY@0300,2100 [facility] Stop: 01/30/25 03:01 Last Admin: 01/30/25 03:33 Dose: Not Given Documented By: Admin: 01/29/25 22:08 Dose: Not Given Documented By: LEFTY Insulin Aspart (Insulin Aspart Per Unit Charge) 0 units SC Q4 [facility] Stop: 03/01/25 11:59 Last Admin: 01/30/25 16:45 Dose: Not Given Documented By: Admin: 01/30/25 11:49 Dose: Not Given Documented By: DEBORAH Insulin Aspart (Insulin Aspart Per Unit Charge) 0 units SC ACHS [facility] Stop: 03/01/25 20:59 Last Admin: 01/31/25 08:00 Dose: Not Given Documented By: Admin: 01/30/25 20:34 Dose: Not Given Documented By: LEFTY Insulin Aspart (Insulin Aspart Per Unit Charge) 0 units SC Q4 [facility] Stop: 03/01/25 20:59 Last Admin: 01/31/25 08:06 Dose: Not Given Documented By: DEBORAH Insulin Glargine (Lantus Per Unit Charge) 40 units SC HS ONE Stop: 01/29/25 21:01 Last Admin: 01/29/25 22:45 Dose: Not Given Documented By: LEFTY Insulin Glargine (Lantus Per Unit Charge) 0 units SC TODAY@1999 ONE; Protocol Stop: 01/30/25 20:01 Last Admin: 01/30/25 20:32 Dose: 20 units Documented By: LEFTY Co-signed By: POLLO Miscellaneous (Stat Iv Infusion Titration Per Protocol) 1 each N/A NOW STA Stop: 01/29/25 19:15 Last Admin: 01/29/25 22:46 Dose: Not Given Documented By: ESG Miscellaneous Information (Nursing To Pharmacy Communication) 1 each N/A TODAY [facility] Stop: 02/28/25 17:59 Last Admin: 01/29/25 18:40 Dose: Not Given Documented By: AMB Naloxone HCl (Naloxone Hcl 0.4 Mg/1 Ml Vial/Carp) Confirm Administered Dose 0.4 mg .ROUTE .STK-MED ONE Stop: 01/29/25 05:42 Last Admin: 01/29/25 05:45 Dose: 0.4 mg Documented By: NAW Norepinephrine Bitartrate (Norepinephrine/D5w 4 Mg/250 Ml) Confirm Administered Dose 4 mg IV .STK-MED ONE Stop: 01/29/25 09:39 Last Admin: 01/29/25 10:10 Dose: Not Given Documented By: KR Sodium Bicarbonate (Sodium Bicarb 8.4% Inj 50 Meq/50 Ml Syr) 100 meq IV NOW [facility] Stop: 01/29/25 19:54 Last Admin: 01/29/25 20:47 Dose: 100 meq Documented By: ESG Sodium Zirconium Cyclosilicate (Sodium Zirconium Cyclosilicate 10 Gm Packet) 10 gm PO TID@0600,1200,1800 [facility] Stop: 01/31/25 18:01 Last Admin: 01/31/25 16:53 Dose: 10 gm Documented By: WRPatricia Admin: 01/31/25 11:59 Dose: 10 gm Documented By: Admin: 01/31/25 06:20 Dose: 10 gm Documented By: Admin: 01/30/25 17:40 Dose: 10 gm Documented By: Admin: 01/30/25 12:39 Dose: 10 gm Documented By: Admin: 01/30/25 07:09 Dose: Not Given Documented By: ESG Imaging Data Attestation: I personally reviewed and interpreted this imaging study as follows: Discharge Plan Visit Data Chief Complaint: Syncope (Near Syncope) Stated Complaint: Near Syncope, N/V/D, Hypotension ED Provider: Shayna Nicole ED Midlevel Provider: Marjorie Nogueira Discharge Problem: Sepsis, Vasovagal near syncope Patient Disposition: Admitted As Inpatient Discharge Instructions Interventions: ED Discharge Assessment Last Done: 01/29/25 10:35
[2025-01-29 05:36] LABS: Hematocrit (blood only) 35.4 % (42.0-52.0); Hemoglobin 11.3 g/dl (14.0-18.0); Immature Granulocytes # (auto) 0.05 K/uL (0.01-0.20); Immature Granulocytes % (auto) 0.4 %; Mean Corpuscular Hemoglobin 31.3 pg (25.0-34.0); Mean Corpuscular Volume 98.1 fL (80.0-100.0); Platelet Count 210 K/uL (130-400); RDW Standard Deviation 55.9 fL (36.4-46.3); Red Blood Count 3.61 M/uL (4.70-6.10); White Blood Count 14.00 K/ul (4.8-10.8)
[2025-01-29] MEDS: SODIUM CHLORIDE 0.9% 1,000 ML IV SCH ×4 (05:40→12:50)
[2025-01-29] MEDS: NALOXONE HCL 0.4 MG/1 ML VIAL/CARP ONE (05:45)
[2025-01-29 05:55] LABS: Alanine Aminotransferase 18.0 U/L (7-52); Albumin Globulin Ratio 1.1 (0.9-2); Alkaline Phosphatase 134.0 U/L (34-104); Anion Gap 18.0 (3-11); Bilirubin,Total 0.4 mg/dl (0.2-1.0); Blood Urea Nitrogen 37.0 mg/dl (6-23); Calcium 8.6 mg/dl (8.6-10.3); Carbon Dioxide 17.0 mmol/L (21-32); Chloride 103.0 mmol/L (98-107); Creatinine Clr Calc Pharmacy 31.6 ml/min; Globulin 3.3 gm/dl (2.5-4.0); Glucose 148.0 mg/dl (70-99(Fasting)); Magnesium 1.3 mg/dl (1.7-2.4); Potassium 4.5 mmol/L (3.5-5.1); Sodium 138.0 mmol/L (136-145); Total Protein 6.8 gm/dl (6.0-8.3)
[2025-01-29] MEDS ORDERED: VANCOMYCIN CONSULT ACTIVE PRN ×2 (06:01→11:40)
[2025-01-29 06:25] LABS: iSTAT Art Bld Gas Base Excess -10.0 meg/L (-9-1.8)
[2025-01-29] MEDS: PIPERACILLIN/TAZOBACTAM 4.5 GM/100 ML BAG IV ONE (06:36)
[2025-01-29 06:48] LABS: Appearance Urine Clear (Clear); Bacteria Urine Automated None Seen (None Seen); Cast Urine Automated >20 /lpf (0-2); Epithelial Cell Urine Auto 0-2 /hpf (0-2); Glucose Urine UA Negative (Negative); WBC Urine Automated 0-5 /hpf (0-5)
[2025-01-29 06:59] LABS: RBC Urine Automated 0-2 /hpf (0-2)
[2025-01-29] MEDS: VANCOMYCIN HCL 2,750 MG in SODIUM CHLORIDE 0.9% 500 ML IV ONE (07:06)
--- NOTE | 2025-01-29 07:12 | Emergency Department Note ---
ED Visit Note I was consulted by the Advanced Practice Provider. I personally made/approved the management plan and take responsibility for the patient management. I performed a substantive portion of the visit. This includes the aspects of: Personally seeing the patient -MDM -I independently interpreted the following studies: portable chest x-ray- No acute pulmonary infiltrates or consolidation as per my independent interpretation. .
[2025-01-29] MEDS: MAGNESIUM SULFATE / D5W 1 GM/100 ML BAG IV SCH (07:17)
--- NOTE | 2025-01-29 07:27 | XRay Report ---
EXAM: XR chest 1V portable CLINICAL HISTORY: Sepsis TECHNIQUE: An X-ray image of the chest is obtained in AP projection. COMPARISON: 01/25/2024 12:12:42 [employer] FINDINGS: Pulmonary Parenchyma: Lungs are clear bilaterally. No evidence of consolidation, collapse, or focal opacities. No pulmonary nodules are identified. No evidence of pleural effusion or pleural thickening. Heart and Mediastinum: Heart size and shape are normal. No mediastinal widening or masses. No hilar or mediastinal lymphadenopathy. Bony Thorax: Bony thorax appears intact without fractures or deformities. Soft Tissues: Soft tissues overlying the chest wall are unremarkable. IMPRESSION: Normal chest X-ray. No acute cardiopulmonary abnormalities are identified. No other new interval abnormality since prior study. Electronically signed by Edward Wolfe 01-29-2025 07:27 AM
--- NOTE | 2025-01-29 07:34 | CT Scan Report ---
EXAM: CT chest diagnostic wo con CLINICAL HISTORY: PE TECHNIQUE: Contiguous axial images were obtained from the neck base through the upper abdomen without contrast. In addition, sagittal and coronal reconstructions were performed to potentially increase the sensitivity for the detection of disease. CT scan was performed according to ALARA (as low as reasonable achievable). COMPARISON: 15:22:32 [facility] . FINDINGS: Diffuse ground-glass haze with subpleural atelectasis are noted involving dependent portion of both lower lobes - suggest possibility of due to insufficient inspiration. Rest of lungs are clear, with no focal areas of consolidation. No pulmonary nodules are seen. The central airways are patent. There are no pleural effusions. No pneumothorax is seen. Evaluation of the mediastinum and amina is limited due to the lack of intravenous contrast. No axillary or mediastinal adenopathy is identified. The thyroid is unremarkable. The heart, aorta, and pulmonary arteries are of normal size and configuration. There is no appreciable coronary artery calcifications. Mild aortic atherosclerotic calcifications. No pericardial effusion is identified. Imaged portions of the upper abdomen shows tiny concretion in right kidney. No aggressive appearing osseous lesions are identified. IMPRESSION: 1. Diffuse ground-glass haze with subpleural atelectasis are noted involving dependent portion of both lower lobes - suggest possibility of due to insufficient inspiration. 2. No other new interval abnormality since prior study. Electronically signed by Edward Wolfe 01-29-2025 07:33 AM
--- NOTE | 2025-01-29 07:42 | CT Scan Report ---
EXAM: CT abd pelvis wo con CLINICAL HISTORY: abdominal pain, pre-syncope TECHNIQUE: Contiguous axial images were obtained from the level of the diaphragm to the pubic symphysis without intravenous or oral contrast. Coronal and sagittal reconstructions were likewise performed and indicated to increase the sensitivity for detecting clinically relevant pathology. CT scan was performed according to ALARA (as low as reasonable achievable). COMPARISON: October 15:22:32 LINE DRIVER FINDINGS: The visualized lung bases are clear. Evaluation of the abdominal and pelvic visceral organs is limited without intravenous contrast. The unenhanced liver, spleen, pancreas, and adrenal glands are grossly unremarkable. The gallbladder is absent. The kidneys are normal in size and attenuation without obvious calcification. There is no hydronephrosis or perinephric stranding. Right kidney show nonobstructing calculus of size 2 mm in middle calyx Left kidney show nonobstructing calculus of size 5mm in lower calyx. A simple cortical cyst of size 57 mm is noted in right kidney. The ureters are normal in caliber. No adenopathy or fluid collections are seen. No evidence of focal or diffuse bowel wall thickening or evidence of bowel obstruction is seen. The aorta is normal in caliber. The urinary bladder is normal in contour. Pelvic viscera are grossly unremarkable. No aggressive appearing osseous lesions are identified. Multiple metallic clips are noted in the retroperitoneum adjacent to the retroperitoneal vessels-stable. Diffuse atherosclerotic calcification is noted involving aorta iliac arteries. Spinal fixation screws are seen in situ without obvious loosening.-stable. IMPRESSION: 1. Right kidney show nonobstructing calculus of size 2 mm in middle calyx- reduced in number. 2. Left kidney show nonobstructing calculus of size 5mm in lower calyx.-stable. 3. A simple cortical cyst of size 57 mm is noted in right kidney.-stable. Electronically signed by Edward Wolfe 01-29-2025 07:42 AM
[2025-01-29 08:01] LABS: Chlamydia pneumoniae PCR Not Detected (NotDetected); Coronavirus 229E PCR Not Detected (NotDetected); Coronavirus CoV-2 (COVID19)PCR Not Detected (NotDetected); Coronavirus HKU1 PCR Not Detected (NotDetected); Coronavirus NL63 PCR Not Detected (NotDetected); Coronavirus OC43PCR Not Detected (NotDetected); Human Metapneumovirus PCR Not Detected (NotDetected); Parainfluenza Virus 1 PCR Not Detected (NotDetected); Parainfluenza Virus 2 PCR Not Detected (NotDetected); Parainfluenza Virus 3 PCR Not Detected (NotDetected); Parainfluenza Virus 4 PCR Not Detected (NotDetected); Respiratory Syncytial VirusPCR Not Detected (NotDetected); Rhinovirus/Enterovirus PCR Not Detected (NotDetected)
[2025-01-29] MEDS: SODIUM CHLORIDE 0.9% 1,000 ML IV ONE ×3 (08:02→14:17)
--- NOTE | 2025-01-29 08:20 | History & Physical Report ---
Date of Service January 29, 2025 Assessment & Plan (1) Sepsis: (2) HALI (acute kidney injury): (3) Lumbar radiculopathy: (4) Hypotension: (5) Lactic acidosis: (6) Hypomagnesemia: Plan This patient is a 74-year-old male who presented on 01/29 following a presyncopal episode. He was originally supposed to have lower back surgery at [place] with Dr. Galeas at 5:30am on 01/29, but woke up overnight feeling feverish. Use the bedside commode at 2:30 AM, and reports he was pale/diaphoretic; was constipated first, then had hard stool followed by loose runny stool; felt presyncopal and laid down in bed. While he did not pass out, EMS reported low BP on arrival. #Sepsis | hypotension Unclear source on admission; hypotensive at 84/46 + hypothermic at 34.7 C Leading DDx includes spinal abscess Leukocytosis of 14.00 with a neutrophilic predominance Lactate 7.0->4.7 on arrival Procalcitonin WNL Blood cultures drawn Patient relieved NSS 2L en route prehospital He then received 2 additional liters of NSS on arrival Despite this, patient has remained hypotensive BP cycled in the room at time of admission is 84/47 (MAP of 59) Hold all antihypertensive medications (verapamil, lisinopril, Lasix, doxazosin) Additional 1 L NSS bolus ordered + maintenance fluids at 126mL/hr Random cortisol 30.43 Case was discussed with Dr. Gomes who reached out to the ICU Levophed stared at 0.02 Vancomycin 2000 mg IV q12h Zosyn 4.5g IV q8h Follow current BCx #HALI Creatinine 3.18 (baseline 1.18) Avoid nephrotoxic agents where possible A/P CT without acute findings Hold lisinopril, Lasix, Bumex, allopurinol Nephrology consult appreciated Trend BMP #Lumbar radiculopathy | neuropathic pain H/o multiple back surgeries Lumbar spine MRI on 12/10/2024 revealed hardware grossly intact with adjacent enhancing inflammatory changes Patient will likely require repeat lumbar spine MRI once hemodynamically stable Home pain regimen oxycodone-acetaminophen 10 mg-325mg, which he reports taking q6h at home Hold oxycodone, trazodone Dose-reduce gabapentin 600->300mg BID in the setting of HALI IV pain control PRN #Hypoxia SpO2 88% on RA on arrival Chest CT revealed diffuse ground-glass haze; ?Insufficient inspiration Patient reported dry heaving this morning, but denied any sort of vomiting or aspiration events Supplemental oxygen as needed to maintain SpO2 >94% Antibiotics (as above) Continuous pulse oximetry #Hypothermia 34.7 C on arrival Fluid warmer Nathaniel hugger PRN Repeat temp q1h until WNL #T2DM Last A1c at 7.1% on 09/30/2024 Hold Andrea winter Patient is normally on Tresiba 80 units once daily Lantus BID + SSI while inpatient T2DM diet BSG ACHS Adjust regimen as needed Pharmacy glycemic consult appreciated given patient now requiring ICU level of care AM A1c #Lactic acidosis Noted; anion gap 18, lactate 7.0, POC pH 7.25 Treatment (as above) #Hypomagnesemia Magnesium 1.3 on arrival Magnesium sulfate 1 g IV x 2 Recheck a.m. mag #Anemia Chronic; Hgb 11.3 No active bleeding on clinical exam Trend CBC Disposition: Admit to ICU VTE PPx: Lovenox 40mg SQ q12h History of Present Illness Chief Complaint: Syncope Primary Care Provider: Candi Carrera DO Mr. Jung is a 74-year-old male with PMH of testicular cancer, lumbar spondylosis, dyslipidemia, T2DM, hypothyroidism, HTN, gout, and osteoarthritis. He presented via EMS on 01/29 following a presyncopal episode. Patient woke up at approximately 1:45 AM with his in preparation of surgery today at [facility]. He was set to have lower back surgery with Dr. Galeas, and was supposed to be at the hospital at 5:30 AM; he reports he was feeling "feverish" when he woke up. He got up to use his bedside commode around 2:30 AM, and noted that he was pale and sweaty. Patient reports he had difficulty breathing on the commode. Initially, he was straining due to constipation, but then had a hard bowel movement. He then had significant loose stool and noted his stool was very runny. Patient was having significant abdominal cramping and was dry heaving on the commode. He does not believe he aspirated, or that anything went down the wrong pipe. No vomiting. At no point did the patient pass out, but he was feeling lightheaded. reports no witnessed syncope, strokelike activity, or seizure-like activity. When he returned to the bed, he was still feeling lightheaded, sweaty, pale and his called 911. Low BP per EMS (he received 2 L of NSS en route). Patient reports he has had ongoing lower back pain for a long period of time. He reports that yesterday, it felt like someone was "punching him in the kidneys". His pain is in the lower back bilaterally and it is constant. He rates the pain 5/10 at present. He has been taking oxycodone 10 mg tablets every 6 hours as needed for the pain. Last took oxycodone last night before sleep, but did not get much sleep last night. Additionally, the patient does report he suffered a fall on Monday when he was leaning up against the pickup truck. His legs gave out and he believes he might of injured his back. He also reports that the most recent imaging of his spine showed that 2 of the screws were loose. Patient was hypotensive at 84/46 on ED arrival. No prior history of adrenal insufficiency to his knowledge. Not on chronic steroids. He took only some of his regular medicine this morning (as per was instructed prior to surgery). He is unsure which ones. Patient does have a history of testicular cancer, and had lymph nodes removed from his left leg in 1982. For this reason, he reports his left leg is always more swollen than the right. No other history of cancer. He denies smoking or tobacco use; quit 45 years ago. Hypothermic at 35.3 C; BP remains low at 84/47 at time of admission ED Course: Vancomycin 2750 mg IV Zosyn 4.5 g IV NSS 1000 mL IV x 3 Magnesium sulfate 1 g IV Narcan 0.4 mg ROS: Patient endorses feeling feverish with chills and rigors, lethargy, confusion, chronic cough, constipation followed by loose/runny stool, numbness or tingling going on the legs, fecal incontinence this morning (per ), abdominal cramping, nausea, and dry heaving. Patient denies chest pain, chest palpitations, pleuritic CP, SOB, rashes, tick bites, changes in vision, photophobia, neck pain, bright red blood in urine or stool, urinary continence, or saddle anesthesia. Allergies Allergy/AdvReac Type Severity Reaction Status Date / Time etodolac Allergy Intermediate Rash Verified 01/28/25 11:31 canagliflozin Allergy Unknown LE Verified 01/28/25 11:31 swelling, weight gain tramadol AdvReac Intermediate Nausea Verified 01/28/25 11:31 meperidine AdvReac Unknown Nausea Verified 01/28/25 11:31 Lodine Allergy Intermediate Rash Uncoded 01/28/25 11:31 Home Medications Medication Instructions Recorded Confirmed Type multivitamin 1 tab PO BID #60 tabs 01/15/19 01/29/25 Rx pyridoxine (vitamin B6) 250 mg 500 mg PO QAM 07/14/20 01/29/25 History tablet (Vitamin B-6) cyanocobalamin (vitamin B-12) 1,000 mcg PO HS #90 tabs 09/17/21 01/29/25 Rx 1,000 mcg tablet (Vitamin B-12) omega 7-xgo-cac-fish oil 1,000 mg 1 cap PO BID #180 caps 12/07/21 01/29/25 Rx (120 mg-180 mg) capsule (Fish Oil) lancets 33 gauge #300 ea 10/12/23 01/28/25 Rx gabapentin 300 mg capsule 600 mg (2 x 300 mg) PO BID #720 03/07/24 01/29/25 Rx caps insulin syringe-needle U-100 1 mL #200 ea 03/15/24 01/28/25 Rx 30 gauge x 5/16" pen needle, diabetic 31 gauge x #300 ea 06/12/24 01/28/25 Rx 5/16" (BD Ultra-Fine Short Pen Needle) lisinopril 40 mg tablet 40 mg PO QAM #90 tabs 06/17/24 01/29/25 Rx metformin 1,000 mg tablet 1,000 mg PO BID #180 tabs 06/17/24 01/29/25 Rx furosemide 40 mg tablet 40 mg PO BID 09/30/24 01/29/25 History raised toilet seat #1 ea 09/30/24 01/28/25 Rx Wheeled Walker #1 ea 10/04/24 01/28/25 Rx potassium chloride 20 mEq 20 meq PO TID PRN edema #270 tabs 10/04/24 01/29/25 Rx tablet,extended release acetaminophen 500 mg tablet 500 mg PO Q8H PRN Pain 10/28/24 01/29/25 History allopurinol 300 mg tablet 600 mg PO BID 10/28/24 01/29/25 History bumetanide 2 mg tablet 2 mg PO DAILY PRN swelling 10/28/24 01/29/25 History blood sugar diagnostic (OneTouch #360 ea 11/28/24 01/28/25 Rx Ultra Test strips) doxazosin 2 mg tablet See Rx Instructions .Route 11/28/24 01/29/25 Rx .COMPLEX #270 tabs fluticasone propionate 50 2 spray intranasal DAILY PRN 11/28/24 01/29/25 Rx mcg/actuation nasal Congestion #48 grams spray,suspension Tresiba FlexTouch U-100 100 See Rx Instructions subcut 12/03/24 01/29/25 Rx unit/mL (3 mL) subcutaneous pen .COMPLEX #165 mL (insulin degludec) baclofen 10 mg tablet 5 mg (1/2 x 10 mg) PO BID PRN 12/24/24 01/29/25 Rx muscle spasm #30 tabs tirzepatide 15 mg/0.5 mL 15 mg (0.5 mL) subcut Q7D #2 mL 12/25/24 01/29/25 Rx subcutaneous pen injector trazodone 50 mg tablet 150 mg (3 x 50 mg) PO HS #270 tabs 12/31/24 01/29/25 Rx levothyroxine 112 mcg tablet 112 mcg PO DAILY #30 tabs 01/02/25 01/29/25 Rx verapamil 180 mg 24 hr 360 mg (2 x 180 mg) PO QAM #180 01/03/25 01/29/25 Rx capsule,extended release caps benzonatate 200 mg capsule See Rx Instructions .Route 01/20/25 01/29/25 Rx .COMPLEX #30 caps oxycodone-acetaminophen 10 mg-325 1 tab PO Q8H PRN pain #60 tabs 01/22/25 01/29/25 Rx mg tablet miscellaneous medical supply 01/29/25 01/29/25 History Past Med/Surg History Problem List (Updated 01/29/25 @ 10:05 by Joseph Otero PA-C) Hypomagnesemia Lactic acidosis Lumbar radiculopathy HALI (acute kidney injury) Sepsis Hypotension Lumbar spondylosis (10/15/24) History of testicular cancer Insomnia Ulnar neuropathy at elbow of right upper extremity Carpal tunnel syndrome, right Statin myopathy Dyslipidemia Diabetes type 2, controlled Class 3 obesity Hypothyroidism Diastolic dysfunction Pulmonary nodule Abnormal PFT Lymphedema of left lower extremity Personal history of diabetic foot ulcer Cervical stenosis of spine Gout Diabetic peripheral neuropathy associated with type 2 diabetes mellitus Osteoarthritis Hypertension Lumbar spinal stenosis Cervical spondylolysis Medical History (Updated 01/29/25 @ 10:05 by Joseph Otero PA-C) Acute urinary retention (10/14/24) Vitamin D deficiency Rib contusion SOB (shortness of breath) 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, follows with clinic in [place] Kidney stones Hearing deficit B/L, no hearing aids Surgical History (Updated 12/31/24 @ 08:08 by Candi Carrera DO) History of back surgery (09/2024) Revision L3-L5 laminectomy, decompression and fusion Dr Galeas [facility] [place] S/P cataract extraction (2021) b/l eyes S/P hammer toe correction 12/20/21 S/P arthroscopy of right shoulder (08/19/20) Dr. Cipriano Hightower- Right Shoulder Arthroscopic Subacromial Decompression, Distal Clavicle Excision, Repair Rotator Cuff, Debridement partial tear rotator cuff, subacromial Bursa, Glenoid Labral Tear and Biceps Tendon, Biceps Tenotomy(Right) S/P decompression of ulnar nerve (01/2019) Right CTR, right ulnar nerve transposition: 02/13/19: LMA#5 at [facility] [place] [place] S/P decompression of ulnar nerve at elbow (01/09/19) LUE Status post carpal tunnel release (01/09/19) L wrist History of cystoscopy S/P orchiectomy Left Status post surgery radical lymphadenectomy ("left inguinal through center of back") r/t testicular cancer History of appendectomy History of ERCP History of cholecystectomy open History of arthroscopy (05/2017) right knee History of laminectomy lumbar x3 Fusion of spine (06/2017) C3-C6 ACDF: 06/26/17: Grade 3 view, MAC 3.0, ETT 8.0 at [facility] History of tonsillectomy Family History Mother Lung disease Hypertension Liver cancer Diabetes Breast cancer Father Kidney disease Grandfather (Paternal) Stroke Denies family history of Colon cancer Ovarian cancer Prostate cancer Myocardial infarction Colorectal cancer Social History Smoking Status: Former smoker Tobacco Type: Cigarettes and Smokeless Tobacco (Dip or Chew) Age Started Using Tobacco: 17; Age Quit Using Tobacco: 24; packs per day: 3; Second Hand Exposure: No; Do You Dip or Chew Tobacco: Yes (1/2 can per day); Hx Alcohol Use: Yes Alcohol type: beer Alcohol Intake Frequency: 2-4 x/Month Alcohol Intake Frequency Comment: 3 Hx Substance Use: No Preferred Language: Russian Communication Ability: Effective Visual Impairment: No Limitations Hearing Ability: Hard of Hearing Tile Sprayer Required: No Beliefs That Will Affect Care: None marital status: Current Living Situation: Spouse current occupational status: unemployed Feels Safe at Home: Yes Childhood Exposure to Second-Hand Smoke: No Diet: regular Diet Comment: Regular caffeine: Yes during the past year weight has: remained stable Dental Care, Regularly: No Physical Activity Frequency: Does not Exercise Seatbelt Use: always Sunscreen Use: No Review of Systems Review of Systems: See HPI above Physical Exam Physical Exam: General: no acute distress; lethargic, and occasionally nods off during conversation; patient exhibits mild rigors and does appear toxic; (Kristy) at bedside; cooperative; SpO2 94% on oxymask 4L HEENT: normocephalic, atraumatic; no scleral icterus; PERRLA w/ EOMs intact; vision and hearing intact Neck: supple; trachea midline Skin: warm, dry without signs of tenting; no cyanosis; no rashes, bruising, lesions, or erythema noted CV: chest wall NTP; RRR; S1/S2 normal; no murmurs/rubs/gallops; pulses intact and symmetric at radial, DP, and PT Lungs: no acute respiratory distress; symmetrical chest wall expansion; clear breath sounds across all lung ball w/o adventitious sounds; no wheezing ABD: Soft, NTP; BS present; no rebound/guarding; no distention Back: Upper spine is NTP; lower spine is TTP just above the sacrum bilaterally; no rashes or erythema noted; positive leg lift bilaterally with minimal elevation (worse on the left side) MSK: no tics or fasciculations; left lower extremity is swollen when compared to the right, +2 pitting edema in the LLE, nonerythematous; 5/5 central office frame wirer strength bilaterally Neuro: A&Ox3; normal mood and affect; fluent speech; no focal deficits appreciated; diminished sensation in the left lower extremity when compared to the right assessed via light touch Results & Data Results & Data Vital Signs (Past 12 Hours) Vital Signs Temp Pulse Pulse Resp BP BP Pulse Ox 01/29/25 08:01 88 20 104/67 92 01/29/25 07:30 85 22 84/46 L 90 01/29/25 06:52 35.3 C L 01/29/25 06:36 80 16 95 01/29/25 06:30 123/64 01/29/25 05:45 84 123/55 L 97 01/29/25 05:31 94 01/29/25 05:21 78 16 116/61 94 01/29/25 05:18 78 14 104/52 L 95 01/29/25 05:17 88 L 01/29/25 05:17 34.7 C L 76 20 116/61 88 L 01/29/25 05:14 77 O2 Del Method O2 Flow Rate 01/29/25 08:01 Room Air 01/29/25 07:30 Oxymask 6 01/29/25 06:52 01/29/25 06:36 Nasal Cannula 5 01/29/25 06:30 01/29/25 05:45 Nasal Cannula 4 01/29/25 05:31 Nasal Cannula 2 01/29/25 05:21 01/29/25 05:18 01/29/25 05:17 Room Air 01/29/25 05:17 Room Air 01/29/25 05:14 Laboratory Results Abnormal lab results 01/29/25 01/29/25 01/29/25 Range/Units 05:17 05:20 06:10 WBC 14.00 H (4.8-10.8) K/ul RBC 3.61 L (4.70-6.10) M/uL Hgb 11.3 L (14.0-18.0) g/dl POC Hgb 11.2 L (14.0-18.0) g/dl Hct 35.4 L (42.0-52.0) % POC Hct 33 L (42-52) % MCHC 31.9 L (32.0-36.0) g/dL RDW Std Deviation 55.9 H (36.4-46.3) fL RDW Coeff of Hoang 15.7 H (11.5-14.5) % Neut # (Auto) 11.59 H (1.40-6.50) K/uL Mariposa # (Auto) 0.87 H (0.11-0.59) K/uL POC pH 7.25 L (7.35-7.45) POC pO2 37 L (80-95) mmHg POC HCO3 17 L (19-24) silvestre/L POC Total CO2 18 L (24-31) mmol/L POC Base Excess -10.0 L (-9-1.8) silvestre/L POC ABG O2 Sat 62.0 L (90-95) % POC Potassium 5.5 H (3.3-5.0) mmol/L Carbon Dioxide 17 L (21-32) mmol/L Anion Gap 18 H (3-11) BUN 37 H (6-23) mg/dl Creatinine 3.18 H (0.6-1.4) mg/dl Glucose 148 H (70-99(Fasting)) mg/dl POC Glucose 132 H (70-99) mg/dl Lactate 7.0 H* (0.4-2.0) mmol/L Magnesium 1.3 L (1.7-2.4) mg/dl Alkaline Phosphatase 134 H (34-104) U/L Urine Protein (Negative) Urine Ketones (Negative) Urine Bilirubin (Negative) Ur Leukocyte Esterase (Negative) U Hyaline Cast (Auto) (0-2) /lpf Calcium Oxalate Crystal (None Prsent) 01/29/25 01/29/25 Range/Units 06:11 07:10 WBC (4.8-10.8) K/ul RBC (4.70-6.10) M/uL Hgb (14.0-18.0) g/dl POC Hgb (14.0-18.0) g/dl Hct (42.0-52.0) % POC Hct (42-52) % MCHC (32.0-36.0) g/dL RDW Std Deviation (36.4-46.3) fL RDW Coeff of Hoang (11.5-14.5) % Neut # (Auto) (1.40-6.50) K/uL Mariposa # (Auto) (0.11-0.59) K/uL POC pH (7.35-7.45) POC pO2 (80-95) mmHg POC HCO3 (19-24) silvestre/L POC Total CO2 (24-31) mmol/L POC Base Excess (-9-1.8) silvestre/L POC ABG O2 Sat (90-95) % POC Potassium (3.3-5.0) mmol/L Carbon Dioxide (21-32) mmol/L Anion Gap (3-11) BUN (6-23) mg/dl Creatinine (0.6-1.4) mg/dl Glucose (70-99(Fasting)) mg/dl POC Glucose (70-99) mg/dl Lactate 4.7 H* (0.4-2.0) mmol/L Magnesium (1.7-2.4) mg/dl Alkaline Phosphatase (34-104) U/L Urine Protein Trace H (Negative) Urine Ketones 1+ H (Negative) Urine Bilirubin 1+ H (Negative) Ur Leukocyte Esterase Trace H (Negative) U Hyaline Cast (Auto) >20 H (0-2) /lpf Calcium Oxalate Crystal Present A (None Prsent) Diagnostic Findings Abdomen/Pelvis CT 01/29/25 05:29 EXAM: CT abd pelvis wo con CLINICAL HISTORY: abdominal pain, pre-syncope TECHNIQUE: Contiguous axial images were obtained from the level of the diaphragm to the pubic symphysis without intravenous or oral contrast. Coronal and sagittal reconstructions were likewise performed and indicated to increase the sensitivity for detecting clinically relevant pathology. CT scan was performed according to ALARA (as low as reasonable achievable). COMPARISON: October 15:22:32 INSPECTING SUPERVISOR FINDINGS: The visualized lung bases are clear. Evaluation of the abdominal and pelvic visceral organs is limited without intravenous contrast. The unenhanced liver, spleen, pancreas, and adrenal glands are grossly unremarkable. The gallbladder is absent. The kidneys are normal in size and attenuation without obvious calcification. There is no hydronephrosis or perinephric stranding. Right kidney show nonobstructing calculus of size 2 mm in middle calyx Left kidney show nonobstructing calculus of size 5mm in lower calyx. A simple cortical cyst of size 57 mm is noted in right kidney. The ureters are normal in caliber. No adenopathy or fluid collections are seen. No evidence of focal or diffuse bowel wall thickening or evidence of bowel obstruction is seen. The aorta is normal in caliber. The urinary bladder is normal in contour. Pelvic viscera are grossly unremarkable. No aggressive appearing osseous lesions are identified. Multiple metallic clips are noted in the retroperitoneum adjacent to the retroperitoneal vessels-stable. Diffuse atherosclerotic calcification is noted involving aorta iliac arteries. Spinal fixation screws are seen in situ without obvious loosening.-stable. IMPRESSION: 1. Right kidney show nonobstructing calculus of size 2 mm in middle calyx- reduced in number. 2. Left kidney show nonobstructing calculus of size 5mm in lower calyx.-stable. 3. A simple cortical cyst of size 57 mm is noted in right kidney.-stable. Electronically signed by Edward Wolfe 01-29-2025 07:[address] 01/29/25 05:29 EXAM: CT chest diagnostic wo con CLINICAL HISTORY: PE TECHNIQUE: Contiguous axial images were obtained from the neck base through the upper abdomen without contrast. In addition, sagittal and coronal reconstructions were performed to potentially increase the sensitivity for the detection of disease. CT scan was performed according to ALARA (as low as reasonable achievable). COMPARISON: 15:22:32 INSPECTING SUPERVISOR . FINDINGS: Diffuse ground-glass haze with subpleural atelectasis are noted involving dependent portion of both lower lobes - suggest possibility of due to insufficient inspiration. Rest of lungs are clear, with no focal areas of consolidation. No pulmonary nodules are seen. The central airways are patent. There are no pleural effusions. No pneumothorax is seen. Evaluation of the mediastinum and amina is limited due to the lack of intravenous contrast. No axillary or mediastinal adenopathy is identified. The thyroid is unremarkable. The heart, aorta, and pulmonary arteries are of normal size and configuration. There is no appreciable coronary artery calcifications. Mild aortic atherosclerotic calcifications. No pericardial effusion is identified. Imaged portions of the upper abdomen shows tiny concretion in right kidney. No aggressive appearing osseous lesions are identified. IMPRESSION: 1. Diffuse ground-glass haze with subpleural atelectasis are noted involving dependent portion of both lower lobes - suggest possibility of due to insufficient inspiration. 2. No other new interval abnormality since prior study. Electronically signed by Edward Wolfe 01-29-2025 07:33 AM Chest X-Ray 01/29/25 05:29 EXAM: XR chest 1V portable CLINICAL HISTORY: Sepsis TECHNIQUE: An X-ray image of the chest is obtained in AP projection. COMPARISON: 01/25/2024 12:12:42 INSPECTING SUPERVISOR FINDINGS: Pulmonary Parenchyma: Lungs are clear bilaterally. No evidence of consolidation, collapse, or focal opacities. No pulmonary nodules are identified. No evidence of pleural effusion or pleural thickening. Heart and Mediastinum: Heart size and shape are normal. No mediastinal widening or masses. No hilar or mediastinal lymphadenopathy. Bony Thorax: Bony thorax appears intact without fractures or deformities. Soft Tissues: Soft tissues overlying the chest wall are unremarkable. IMPRESSION: Normal chest X-ray. No acute cardiopulmonary abnormalities are identified. No other new interval abnormality since prior study. Electronically signed by Edward Wolfe 01-29-2025 07:27 AM ECG Additional Comments: ECG revealed sinus rhythm with first-degree AV block at 77 bpm; QTc 513 (caution use of QT prolonging agents) Code Status & VTE Plan Code Status Full code VTE Prophylaxis Plan VTE Prophylaxis will be ordered: Yes Supervising Physician Co-Signing Physician Notes Attending Attestation & Admit Note: Pt seen/examined, chart reviewed, admit care plan d/w ADRIA tOero. I agree w/ the newell components of his admission documentation with the following addition - -shock - septic + hypovolemic 74yo male with history of testicular cancer, lumbar spondylosis with multiple back surgeries, dyslipidemia, T2DM, hypothyroidism, HTN, gout, and osteoarthritis. Was to have lumbar back surgery today at [facility] due to loosening of hardware and refractory lumbar back pain. He takes chronic oxycodone prn for pain - 10mg tablets, about 3-4x's/day. Presented early this am with hypotension, presyncope, lethargy, hypothermia, constipation, chills, weakness. Has poor intake chronically, but was even worse yesterday. PG Care Time/CCT Total # of Minutes Spent Total Time Spent with Patient: Total time spent is greater than 50% in coordination of care (as documented) at patient's floor/unit and/or counseling patient: [place] [address] INT INP/OBS CARE 3/75MIN Patient Type Established History Comprehensive Exam Comprehensive Medical Decision Making High Complexity Diagnoses Sepsis A41.9 HALI (acute kidney injury) N17.9 Lumbar radiculopathy M54.16 Hypotension I95.9 Lactic acidosis E87.20 Hypomagnesemia E83.42
[2025-01-29] MEDS: NOREPINEPHRINE/D5W 4 MG/250 ML PLCT IV SCH (09:48)
[2025-01-29] MEDS ORDERED: STAT IV Infusion **Titration per Protocol STA (09:58)
--- NOTE | 2025-01-29 10:04 | Critical Care Consultation ---
Date of Consultation January 29, 2025 Assessment & Plan (1) Lumbar spondylosis: (2) Hypotension: Plan Impression: 74-year-old male who presented on 01/29 following a presyncopal episode. He was originally supposed to have lower back surgery at [facility] with Dr. Galeas at 5:30am on 01/29, but woke up overnight feeling feverish. Use the bedside commode at 2:30 AM, and reports he was pale/diaphoretic; was constipated first, then had hard stool followed by loose runny stool; felt presyncopal and laid down in bed. While he did not pass out, EMS reported low BP on arrival. Recommendations: 1. Neurologic: No current issues. Continue outpatient medications. Chronic back pain will need to be addressed in the outpatient setting. 2. Cardiovascular: Lactic acidosis with hypotension, likely prerenal. [id number] ultrasound performed in the ICU which were demonstrated a collapsed right ventricle with systole consistent with volume depletion. Will give an additional 2 L of crystalloid bolus at this point in time and attempt to wean norepinephrine to off. 3. Respiratory: pCO2 elevated with respect to the patient's pH consistent with chronic hypercapnic respiratory failure. 4. ID: Patient was placed on vancomycin and Zosyn empirically in the emergency room. There does not appear to be a pulmonary or intra-abdominal source. Will continue antibiotics for 24 hours empirically and then discontinue tomorrow if no source identified. 5. GI: PPI given pressor requirements. Can advance diet as tolerated. 6. Renal: Acute renal failure. Suspect prerenal etiology. Patients on diuretics and will hold for now. Will pursue additional fluid adjustment. Neph rology consultation reviewed. Repeat BMP this afternoon to follow hyperkalemia. Patient should have received bicarb in the emergency room. 7. Heme-onc: Mild anemia. No evidence of acute blood loss no indication for transfusion currently. Would not use Lovenox for DVT prophylaxis given acute renal failure. Will transition to subcu heparin 8. Endocrine: Random cortisol greater than 30. No indication for stress dose steroids. Glycemic control per protocol. Continue Synthroid Disposition: ICU VTE PPx: Subcu heparin History of Present Illness Reason for Consultation: suspected septic shock History of Present Illness Dilshad Jung is a 74yo male with history of DM2 with nephropathy (baseline Cr 1.4-1.5) and neuropathy, chronic back pain with failed L4-L5 surgery November 2024, venous insufficiency, and HTN brought to the ED for near syncope and progressing weakness. Admitted for acute dehydration with hypotension (lowest 84/46) and hypoxia with elevated lactate and leukocytosis. Patient received crystalloid in the emergency room and was initiated on empiric antibiotics. Pressors were started based on elevated lactate and he was admitted to the ICU. Allergies Allergy/AdvReac Type Severity Reaction Status Date / Time etodolac Allergy Intermediate Rash Verified 01/28/25 11:31 canagliflozin Allergy Unknown LE Verified 01/28/25 11:31 swelling, weight gain tramadol AdvReac Intermediate Nausea Verified 01/28/25 11:31 meperidine AdvReac Unknown Nausea Verified 01/28/25 11:31 Lodine Allergy Intermediate Rash Uncoded 01/28/25 11:31 Home Medications Medication Instructions Recorded Confirmed Type multivitamin 1 tab PO BID #60 tabs 01/15/19 01/29/25 Rx pyridoxine (vitamin B6) 250 mg 500 mg PO QAM 07/14/20 01/29/25 History tablet (Vitamin B-6) cyanocobalamin (vitamin B-12) 1,000 mcg PO HS #90 tabs 09/17/21 01/29/25 Rx 1,000 mcg tablet (Vitamin B-12) omega 0-wqq-zro-fish oil 1,000 mg 1 cap PO BID #180 caps 12/07/21 01/29/25 Rx (120 mg-180 mg) capsule (Fish Oil) lancets 33 gauge #300 ea 10/12/23 01/28/25 Rx gabapentin 300 mg capsule 600 mg (2 x 300 mg) PO BID #720 03/07/24 01/29/25 Rx caps insulin syringe-needle U-100 1 mL #200 ea 03/15/24 01/28/25 Rx 30 gauge x 5/16" pen needle, diabetic 31 gauge x #300 ea 06/12/24 01/28/25 Rx 5/16" (BD Ultra-Fine Short Pen Needle) lisinopril 40 mg tablet 40 mg PO QAM #90 tabs 06/17/24 01/29/25 Rx metformin 1,000 mg tablet 1,000 mg PO BID #180 tabs 06/17/24 01/29/25 Rx furosemide 40 mg tablet 40 mg PO BID 09/30/24 01/29/25 History raised toilet seat #1 ea 09/30/24 01/28/25 Rx Wheeled Walker #1 ea 10/04/24 01/28/25 Rx potassium chloride 20 mEq 20 meq PO TID PRN edema #270 tabs 10/04/24 01/29/25 Rx tablet,extended release acetaminophen 500 mg tablet 500 mg PO Q8H PRN Pain 10/28/24 01/29/25 History allopurinol 300 mg tablet 600 mg PO BID 10/28/24 01/29/25 History bumetanide 2 mg tablet 2 mg PO DAILY PRN swelling 10/28/24 01/29/25 History blood sugar diagnostic (OneTouch #360 ea 11/28/24 01/28/25 Rx Ultra Test strips) doxazosin 2 mg tablet See Rx Instructions .Route 11/28/24 01/29/25 Rx .COMPLEX #270 tabs fluticasone propionate 50 2 spray intranasal DAILY PRN 11/28/24 01/29/25 Rx mcg/actuation nasal Congestion #48 grams spray,suspension Tresiba FlexTouch U-100 100 See Rx Instructions subcut 12/03/24 01/29/25 Rx unit/mL (3 mL) subcutaneous pen .COMPLEX #165 mL (insulin degludec) baclofen 10 mg tablet 5 mg (1/2 x 10 mg) PO BID PRN 12/24/24 01/29/25 Rx muscle spasm #30 tabs tirzepatide 15 mg/0.5 mL 15 mg (0.5 mL) subcut Q7D #2 mL 12/25/24 01/29/25 Rx subcutaneous pen injector trazodone 50 mg tablet 150 mg (3 x 50 mg) PO HS #270 tabs 12/31/24 01/29/25 Rx levothyroxine 112 mcg tablet 112 mcg PO DAILY #30 tabs 01/02/25 01/29/25 Rx verapamil 180 mg 24 hr 360 mg (2 x 180 mg) PO QAM #180 01/03/25 01/29/25 Rx capsule,extended release caps benzonatate 200 mg capsule See Rx Instructions .Route 01/20/25 01/29/25 Rx .COMPLEX #30 caps oxycodone-acetaminophen 10 mg-325 1 tab PO Q8H PRN pain #60 tabs 01/22/25 01/29/25 Rx mg tablet miscellaneous medical supply 01/29/25 01/29/25 History Patient History Medical History (Updated 01/29/25 @ 10:05 by Joseph Otero PA-C) Acute urinary retention (10/14/24) Vitamin D deficiency Rib contusion SOB (shortness of breath) 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, follows with clinic in [place] Kidney stones Hearing deficit B/L, no hearing aids Surgical History (Updated 12/31/24 @ 08:08 by Candi Carrera DO) History of back surgery (09/2024) Revision L3-L5 laminectomy, decompression and [place] [facility] [place] extraction (2021) b/l eyes S/P hammer toe correction 12/20/21 S/P arthroscopy of right shoulder (08/19/20) Dr. Cipriano Hightower- Right Shoulder Arthroscopic Subacromial Decompression, Distal Clavicle Excision, Repair Rotator Cuff, Debridement partial tear rotator cuff, subacromial Bursa, Glenoid Labral Tear and Biceps Tendon, Biceps Tenotomy(Right) S/P decompression of ulnar nerve (01/2019) Right CTR, right ulnar nerve transposition: 02/13/19: LMA#5 at [facility] [place] S/P decompression of ulnar nerve at elbow (01/09/19) LUE Status post carpal tunnel release (01/09/19) L wrist History of cystoscopy S/P orchiectomy Left Status post surgery radical lymphadenectomy ("left inguinal through center of back") r/t testicular cancer History of appendectomy History of ERCP History of cholecystectomy open History of arthroscopy (05/2017) right knee History of laminectomy lumbar x3 Fusion of spine (06/2017) C3-C6 ACDF: 06/26/17: Grade 3 view, MAC 3.0, ETT 8.0 at [facility] History of tonsillectomy Family History Mother Lung disease Hypertension Liver cancer Diabetes Breast cancer Father Kidney disease Grandfather (Paternal) Stroke Denies family history of Colon cancer Ovarian cancer Prostate cancer Myocardial infarction Colorectal cancer Social History Smoking Status: Former smoker Tobacco Type: Cigarettes and Smokeless Tobacco (Dip or Chew) Age Started Using Tobacco: 17; Age Quit Using Tobacco: 24; packs per day: 3; Second Hand Exposure: No; Do You Dip or Chew Tobacco: Yes (1/2 can per day); Hx Alcohol Use: Yes Alcohol type: beer Alcohol Intake Frequency: 2-4 x/Month Alcohol Intake Frequency Comment: 3 Hx Substance Use: No Preferred Language: Georgian Communication Ability: Effective Visual Impairment: No Limitations Hearing Ability: Hard of Hearing Plush Brusher Required: No Beliefs That Will Affect Care: None marital status: Current Living Situation: Spouse current occupational status: unemployed Feels Safe at Home: Yes Childhood Exposure to Second-Hand Smoke: No Diet: regular Diet Comment: Regular caffeine: Yes during the past year weight has: remained stable Dental Care, Regularly: No Physical Activity Frequency: Does not Exercise Seatbelt Use: always Sunscreen Use: No Review of Systems Review of Systems: Please refer to admission H&P. No additions or deletions Physical Exam Constitutional: WD/WN, vitals as above + morbidly obese Neck: trachea midline, no thyromegaly Respiratory: normal respiratory effort, lungs clear to auscultation Cardiovascular: RRR, no murmur, no edema Gastrointestinal (Abdomen): normal bowel sounds, soft, nontender, no hepatosplenomegaly Musculoskeletal: Extremities: extremities normal to inspection Skin: no rashes, warm and dry Neurologic: Nonfocal exam Lymphatic: no cervical lymphadenopathy Results & Data Results & Data Vital Signs (Past 12 Hours) Vital Signs Temp Pulse Pulse Resp BP BP Pulse Ox 01/29/25 09:33 81 16 98/49 L 96 01/29/25 09:28 83 01/29/25 08:46 83 16 96/50 L 94 01/29/25 08:22 36 C L 01/29/25 08:01 88 20 104/67 92 01/29/25 07:30 85 22 84/46 L 90 01/29/25 07:00 35.3 C L 01/29/25 06:52 35.3 C L 01/29/25 06:36 80 16 95 01/29/25 06:30 123/64 01/29/25 05:45 84 123/55 L 97 01/29/25 05:31 94 01/29/25 05:21 78 16 116/61 94 01/29/25 05:18 78 14 104/52 L 95 01/29/25 05:17 88 L 01/29/25 05:17 34.7 C L 76 20 116/61 88 L 01/29/25 05:14 77 O2 Del Method O2 Flow Rate 01/29/25 09:33 Oxymask 6 01/29/25 09:28 01/29/25 08:46 Oxymask 6 01/29/25 08:22 01/29/25 08:01 Room Air 01/29/25 07:30 Oxymask 6 01/29/25 07:00 01/29/25 06:52 01/29/25 06:36 Nasal Cannula 5 01/29/25 06:30 01/29/25 05:45 Nasal Cannula 4 01/29/25 05:31 Nasal Cannula 2 01/29/25 05:21 01/29/25 05:18 01/29/25 05:17 Room Air 01/29/25 05:17 Room Air 01/29/25 05:14 Critical Care Results & Data Vital Signs (Past 12 Hours) Vital Signs Temp Pulse Pulse Resp BP BP Pulse Ox 01/29/25 10:35 85 18 115/61 93 01/29/25 09:33 81 16 98/49 L 96 01/29/25 09:28 83 01/29/25 08:46 83 16 96/50 L 94 01/29/25 08:22 36 C L 01/29/25 08:01 88 20 104/67 92 01/29/25 07:30 85 22 84/46 L 90 01/29/25 07:00 35.3 C L 01/29/25 06:52 35.3 C L 01/29/25 06:36 80 16 95 01/29/25 06:30 123/64 01/29/25 05:45 84 123/55 L 97 01/29/25 05:31 94 01/29/25 05:21 78 16 116/61 94 01/29/25 05:18 78 14 104/52 L 95 01/29/25 05:17 88 L 01/29/25 05:17 34.7 C L 76 20 116/61 88 L 01/29/25 05:14 77 O2 Del Method O2 Flow Rate 01/29/25 10:35 Oxymask 6 01/29/25 09:33 Oxymask 6 01/29/25 09:28 01/29/25 08:46 Oxymask 6 01/29/25 08:22 01/29/25 08:01 Room Air 01/29/25 07:30 Oxymask 6 01/29/25 07:00 01/29/25 06:52 01/29/25 06:36 Nasal Cannula 5 01/29/25 06:30 01/29/25 05:45 Nasal Cannula 4 01/29/25 05:31 Nasal Cannula 2 01/29/25 05:21 01/29/25 05:18 01/29/25 05:17 Room Air 01/29/25 05:17 Room Air 01/29/25 05:14 Lab & Micro Results (Past 24 Hours) RBC 3.61 M/uL (4.70-6.10) L 01/29/25 WBC 14.00 K/ul (4.8-10.8) H 01/29/25 Hgb 11.3 g/dl (14.0-18.0) L 01/29/25 Hct 35.4 % (42.0-52.0) L 01/29/25 MCV 98.1 fL (80.0-100.0) 01/29/25 MCH 31.3 pg (25.0-34.0) 01/29/25 MCHC 31.9 g/dL (32.0-36.0) L 01/29/25 RDW Standard Deviation 55.9 fL (36.4-46.3) H 01/29/25 RDW Coefficient of Variation 15.7 % (11.5-14.5) H 01/29/25 Plt Count 210 K/uL (130-400) 01/29/25 MPV 9.8 fL (9.4-12.4) 01/29/25 Neutrophils (%) (Auto) 82.8 % 01/29/25 Lymphocytes (%) (Auto) 10.1 % 01/29/25 Monocytes # (Auto) 0.87 K/uL (0.11-0.59) H 01/29/25 Eosinophils # (Auto) 0.03 K/uL (0.00-0.50) 01/29/25 Immature Granulocyte % (Auto) 0.4 % 01/29/25 Neutrophils # (Auto) 11.59 K/uL (1.40-6.50) H 01/29/25 Lymphocytes # (Auto) 1.42 K/uL (1.20-3.40) 01/29/25 Monocytes # (Auto) 0.87 K/uL (0.11-0.59) H 01/29/25 Eosinophils # (Auto) 0.03 K/uL (0.00-0.50) 01/29/25 Basophils # (Auto) 0.04 K/uL (0.00-0.20) 01/29/25 Immature Granulocyte # (Auto) 0.05 K/uL (0.01-0.20) 5 Na 138 mmol/L (136-145) 01/29/25 K 4.5 mmol/L (3.5-5.1) 01/29/25 Cl 103 mmol/L (98-107) 01/29/25 CO2 17 mmol/L (21-32) L 01/29/25 Anion Gap 18 (3-11) H 01/29/25 BUN 37 mg/dl (6-23) H 01/29/25 Creatinine 3.18 mg/dl (0.6-1.4) H 01/29/25 BUN/Creatinine Ratio 11.6 (10-20) 01/29/25 Glu 148 mg/dl (70-99(Fasting)) H 01/29/25 Ca 8.6 mg/dl (8.6-10.3) 01/29/25 Total Bilirubin 0.4 mg/dl (0.2-1.0) 01/29/25 AST 19 U/L (13-39) 01/29/25 ALT 18 U/L (7-52) 01/29/25 Alkaline Phosphatase 134 U/L (34-104) H 01/29/25 TP 6.8 gm/dl (6.0-8.3) 01/29/25 Albumin 3.5 gm/dl (3.4-5.0) 01/29/25 Globulin 3.3 gm/dl (2.5-4.0) 01/29/25 Albumin/Globulin Ratio 1.1 (0.9-2) 01/29/25 Mg 1.3 mg/dl (1.7-2.4) L 07/16/25 05:17 Calcium Level 8.6 mg/dl (8.6-10.3) 01/29/25 05:17 Diagnostic Findings (Past 24 Hours) Abdomen/Pelvis CT 01/29/25 05:29 EXAM: CT abd pelvis wo con CLINICAL HISTORY: abdominal pain, pre-syncope TECHNIQUE: Contiguous axial images were obtained from the level of the diaphragm to the pubic symphysis without intravenous or oral contrast. Coronal and sagittal reconstructions were likewise performed and indicated to increase the sensitivity for detecting clinically relevant pathology. CT scan was performed according to ALARA (as low as reasonable achievable). COMPARISON: October 15:22:32 SEED CORE OPERATOR FINDINGS: The visualized lung bases are clear. Evaluation of the abdominal and pelvic visceral organs is limited without intravenous contrast. The unenhanced liver, spleen, pancreas, and adrenal glands are grossly unremarkable. The gallbladder is absent. The kidneys are normal in size and attenuation without obvious calcification. There is no hydronephrosis or perinephric stranding. Right kidney show nonobstructing calculus of size 2 mm in middle calyx Left kidney show nonobstructing calculus of size 5mm in lower calyx. A simple cortical cyst of size 57 mm is noted in right kidney. The ureters are normal in caliber. No adenopathy or fluid collections are seen. No evidence of focal or diffuse bowel wall thickening or evidence of bowel obstruction is seen. The aorta is normal in caliber. The urinary bladder is normal in contour. Pelvic viscera are grossly unremarkable. No aggressive appearing osseous lesions are identified. Multiple metallic clips are noted in the retroperitoneum adjacent to the retroperitoneal vessels-stable. Diffuse atherosclerotic calcification is noted involving aorta iliac arteries. Spinal fixation screws are seen in situ without obvious loosening.-stable. IMPRESSION: 1. Right kidney show nonobstructing calculus of size 2 mm in middle calyx- reduced in number. 2. Left kidney show nonobstructing calculus of size 5mm in lower calyx.-stable. 3. A simple cortical cyst of size 57 mm is noted in right kidney.-stable. Electronically signed by Edward Wolfe 01-29-2025 07:[address] 01/29/25 05:29 EXAM: CT chest diagnostic wo con CLINICAL HISTORY: PE TECHNIQUE: Contiguous axial images were obtained from the neck base through the upper abdomen without contrast. In addition, sagittal and coronal reconstructions were performed to potentially increase the sensitivity for the detection of disease. CT scan was performed according to ALARA (as low as reasonable achievable). COMPARISON: 15:22:32 SEED CORE OPERATOR . FINDINGS: Diffuse ground-glass haze with subpleural atelectasis are noted involving dependent portion of both lower lobes - suggest possibility of due to insufficient inspiration. Rest of lungs are clear, with no focal areas of consolidation. No pulmonary nodules are seen. The central airways are patent. There are no pleural effusions. No pneumothorax is seen. Evaluation of the mediastinum and amina is limited due to the lack of intravenous contrast. No axillary or mediastinal adenopathy is identified. The thyroid is unremarkable. The heart, aorta, and pulmonary arteries are of normal size and configuration. There is no appreciable coronary artery calcifications. Mild aortic atherosclerotic calcifications. No pericardial effusion is identified. Imaged portions of the upper abdomen shows tiny concretion in right kidney. No aggressive appearing osseous lesions are identified. IMPRESSION: 1. Diffuse ground-glass haze with subpleural atelectasis are noted involving dependent portion of both lower lobes - suggest possibility of due to insufficient inspiration. 2. No other new interval abnormality since prior study. Electronically signed by Edward Wolfe 01-29-2025 07:33 AM Chest X-Ray 01/29/25 05:29 EXAM: XR chest 1V portable CLINICAL HISTORY: Sepsis TECHNIQUE: An X-ray image of the chest is obtained in AP projection. COMPARISON: 01/25/2024 12:12:42 SEED CORE OPERATOR FINDINGS: Pulmonary Parenchyma: Lungs are clear bilaterally. No evidence of consolidation, collapse, or focal opacities. No pulmonary nodules are identified. No evidence of pleural effusion or pleural thickening. Heart and Mediastinum: Heart size and shape are normal. No mediastinal widening or masses. No hilar or mediastinal lymphadenopathy. Bony Thorax: Bony thorax appears intact without fractures or deformities. Soft Tissues: Soft tissues overlying the chest wall are unremarkable. IMPRESSION: Normal chest X-ray. No acute cardiopulmonary abnormalities are identified. No other new interval abnormality since prior study. Electronically signed by Edward Wolfe 01-29-2025 07:27 AM I & O Totals 24 Hours 01/28/25 01/29/25 01/30/25 06:59 06:59 06:59 Intake Total 1999 855 / 855 Output Total 200 / 200 Balance 1999 655 / 655 Cumulative 01/29/25 04:57 thru 01/29/25 10:12 Intake Total 2855 Output Total 200 Balance 2655 RT Ventilator Mngmt (Last Documented) Ventilator Ordered Settings Respiratory Rate 18 01/29/25 10:35 Ventilator - PT Measurements Respiratory Rate 18 Resident Activity Tracking Resident Involvement: Resident Care Provided Care Provided: Adult Hospital Medicine
[2025-01-29] MEDS: NOREPINEPHRINE/D5W 4 MG/250 ML IV ONE (10:10)
--- NOTE | 2025-01-29 10:29 | Nephrology Consultation ---
Date of Consultation January 29, 2025 Assessment & Plan (1) HALI (acute kidney injury): (2) Lactic acidosis: (3) Hypomagnesemia: (4) Hypotension: (5) Sepsis: (6) Chronic kidney disease, stage 3a: Plan 74-year-old gentleman with history of stage III A CKD baseline creatinine 1.4- 1.5 mg/dl with history of hypertension, diabetes, dyslipidemia and degenerative disease, admitted to the hospital with presyncope hypotension and concern for sepsis of unclear source. On admission noted to have HALI, creatinine 3.1, potassium 5.5. Urinalysis unremarkable except trace proteinuria. CT abdomen pelvis with no postrenal obstruction, has nonobstructing bilateral nephrolithiasis and small right renal cyst, stable. Received IV fluid and empiric antibiotic, blood culture pending. HALI most likely prerenal etiology as clinically noted to be volume depleted with syncope, hypotension and possible sepsis of unclear source. Has been on IV fluid and pressor blood pressure slightly improved. --Agree with continuing to support hemodynamically with IV fluid and pressor as needed --Repeat electrolyte panel in afternoon, if potassium remains elevated, will consider Lokelma. - Dose medications for eGFR less than 10, continue to hold KELECHI inhibitor, diuretics. Thank you for allowing me to participate in your patient's care. It was a pleasure to see Dilshad. History of Present Illness Reason for Consultation: HALI, hyperkalemia History of Present Illness Mr. Dilshad Jung is a 74-year-old male with PMH significant for stage III A CKD, hypertension, diabetes, dyslipidemia, history of degenerative disease and gout admitted to the hospital after an episode of presyncope at home and found to be in sepsis and noted to have HALI. Nephrology consult requested for management of HALI and hyperkalemia. EMR records were reviewed in detail during patient's visit. Dilshad was brought to ER by EMS after he had an episode of presyncope at home around 2:30 AM this morning after he woke up earlier with a plan to drive to [facility] for back surgery. He was hypotensive and given 2 L of normal saline by EMS en route to ER. His blood pressure was noted to be low at 84/46 when he arrived to ER. Lab in ER was notable for acute kidney injury, creatinine was 3.2 with baseline creatinine around 1.5 mg/dl. Urinalysis with trace proteinuria but no hematuria, pyuria or bacteriuria. CT abdomen pelvis without monitors showed bilateral nonobstructing kidney stone and simple cyst in right kidney but no postrenal obstruction. Lab was also notable for lactic acidosis and hyperkalemia, potassium was 5.5. Noted to have leukocytosis, blood culture was drawn and started empirically on Vanco and Cefepime Already received 3 L of IV fluid and currently continue on normal saline at 150 mL/h. Also on low-dose pressor. At home he was on lisinopril, Lasix, both on hold. Remote history of smoking briefly many years ago. Unemployed. Family history significant for dad with history of provide chronic kidney disease. Past medical history significant for stage IIIa CKD baseline creatinine 1.4-1.5 mg/dl with history of hypertension, diabetes. Blood pressure continues to be low, with history of hypertension, all antihypertensive currently on hold. Of testicular cancer, lumbar spondylosis, dyslipidemia, T2DM, hypothyroidism, HTN, gout, and osteoarthritis. He was scheduled to be at [facility] this morning for back surgery. Overall reports feeling tired, denied any shortness of breath, chest pain. Allergies Allergy/AdvReac Type Severity Reaction Status Date / Time etodolac Allergy Intermediate Rash Verified 01/28/25 11:31 canagliflozin Allergy Unknown LE Verified 01/28/25 11:31 swelling, weight gain tramadol AdvReac Intermediate Nausea Verified 01/28/25 11:31 meperidine AdvReac Unknown Nausea Verified 01/28/25 11:31 Lodine Allergy Intermediate Rash Uncoded 01/28/25 11:31 Home Medications Medication Instructions Recorded Confirmed Type multivitamin 1 tab PO BID #60 tabs 01/15/19 01/29/25 Rx pyridoxine (vitamin B6) 250 mg 500 mg PO QAM 07/14/20 01/29/25 History tablet (Vitamin B-6) cyanocobalamin (vitamin B-12) 1,000 mcg PO HS #90 tabs 09/17/21 01/29/25 Rx 1,000 mcg tablet (Vitamin B-12) omega 1-kji-emu-fish oil 1,000 mg 1 cap PO BID #180 caps 12/07/21 01/29/25 Rx (120 mg-180 mg) capsule (Fish Oil) lancets 33 gauge #300 ea 10/12/23 01/28/25 Rx gabapentin 300 mg capsule 600 mg (2 x 300 mg) PO BID #720 03/07/24 01/29/25 Rx caps insulin syringe-needle U-100 1 mL #200 ea 03/15/24 01/28/25 Rx 30 gauge x 5/16" pen needle, diabetic 31 gauge x #300 ea 06/12/24 01/28/25 Rx 5/16" (BD Ultra-Fine Short Pen Needle) lisinopril 40 mg tablet 40 mg PO QAM #90 tabs 06/17/24 01/29/25 Rx metformin 1,000 mg tablet 1,000 mg PO BID #180 tabs 06/17/24 01/29/25 Rx furosemide 40 mg tablet 40 mg PO BID 09/30/24 01/29/25 History raised toilet seat #1 ea 09/30/24 01/28/25 Rx Wheeled Walker #1 ea 10/04/24 01/28/25 Rx potassium chloride 20 mEq 20 meq PO TID PRN edema #270 tabs 10/04/24 01/29/25 Rx tablet,extended release acetaminophen 500 mg tablet 500 mg PO Q8H PRN Pain 10/28/24 01/29/25 History allopurinol 300 mg tablet 600 mg PO BID 10/28/24 01/29/25 History bumetanide 2 mg tablet 2 mg PO DAILY PRN swelling 10/28/24 01/29/25 History blood sugar diagnostic (OneTouch #360 ea 11/28/24 01/28/25 Rx Ultra Test strips) doxazosin 2 mg tablet See Rx Instructions .Route 11/28/24 01/29/25 Rx .COMPLEX #270 tabs fluticasone propionate 50 2 spray intranasal DAILY PRN 11/28/24 01/29/25 Rx mcg/actuation nasal Congestion #48 grams spray,suspension Tresiba FlexTouch U-100 100 See Rx Instructions subcut 12/03/24 01/29/25 Rx unit/mL (3 mL) subcutaneous pen .COMPLEX #165 mL (insulin degludec) baclofen 10 mg tablet 5 mg (1/2 x 10 mg) PO BID PRN 12/24/24 01/29/25 Rx muscle spasm #30 tabs tirzepatide 15 mg/0.5 mL 15 mg (0.5 mL) subcut Q7D #2 mL 12/25/24 01/29/25 Rx subcutaneous pen injector trazodone 50 mg tablet 150 mg (3 x 50 mg) PO HS #270 tabs 12/31/24 01/29/25 Rx levothyroxine 112 mcg tablet 112 mcg PO DAILY #30 tabs 01/02/25 01/29/25 Rx verapamil 180 mg 24 hr 360 mg (2 x 180 mg) PO QAM #180 01/03/25 01/29/25 Rx capsule,extended release caps benzonatate 200 mg capsule See Rx Instructions .Route 01/20/25 01/29/25 Rx .COMPLEX #30 caps oxycodone-acetaminophen 10 mg-325 1 tab PO Q8H PRN pain #60 tabs 01/22/25 01/29/25 Rx mg tablet miscellaneous medical supply 01/29/25 01/29/25 History Patient History Medical History (Updated 01/29/25 @ 15:44 by Kim West MD) Acute urinary retention (10/14/24) Vitamin D deficiency Rib contusion SOB (shortness of breath) 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, follows with clinic in [place] Kidney stones Hearing deficit B/L, no hearing aids Surgical History (Updated 12/31/24 @ 08:08 by Candi Carrera DO) History of back surgery (09/2024) Revision L3-L5 laminectomy, decompression and fusion Dr Galeas [facility] [place] S/P cataract extraction (2021) b/l eyes S/P hammer toe correction 12/20/21 S/P arthroscopy of right shoulder (08/19/20) Dr. Cipriano Hightower- Right Shoulder Arthroscopic Subacromial Decompression, Distal Clavicle Excision, Repair Rotator Cuff, Debridement partial tear rotator cuff, subacromial Bursa, Glenoid Labral Tear and Biceps Tendon, Biceps Tenotomy(Right) S/P decompression of ulnar nerve (01/2019) Right CTR, right ulnar nerve transposition: 02/13/19: [place] [facility] [place] [facility] [place]P decompression of ulnar nerve at elbow (01/09/19) LUE Status post carpal tunnel release (01/09/19) L wrist History of cystoscopy S/P orchiectomy Left Status post surgery radical lymphadenectomy ("left inguinal through center of back") r/t testicular cancer History of appendectomy History of ERCP History of cholecystectomy open History of arthroscopy (05/2017) right knee History of laminectomy lumbar x3 Fusion of spine (06/2017) C3-C6 ACDF: 06/26/17: Grade 3 view, MAC 3.0, ETT 8.0 at [facility] History of tonsillectomy Family History Mother Lung disease Hypertension Liver cancer Diabetes Breast cancer Father Kidney disease Grandfather (Paternal) Stroke Denies family history of Colon cancer Ovarian cancer Prostate cancer Myocardial infarction Colorectal cancer Social History Smoking Status: Former smoker Tobacco Type: Cigarettes Age Started Using Tobacco: 17; Age Quit Using Tobacco: 24; packs per day: 3; Cigarettes Per Day: 10; Smoking End Date: 2016; Second Hand Exposure: No; Do You Dip or Chew Tobacco: No; Hx Alcohol Use: Yes Alcohol type: beer Alcohol Intake Frequency: 2-4 x/Month Alcohol Intake Frequency Comment: 3 Hx Substance Use: No Preferred Language: Angolan Communication Ability: Effective Visual Impairment: No Limitations Hearing Ability: Hard of Hearing Stacker Operator Required: No Beliefs That Will Affect Care: None marital status: Current Living Situation: Spouse current occupational status: unemployed Other Information That Helps Us Care for You: No Feels Safe at Home: Yes Safety Concerns: Feels Safe At This Time Childhood Exposure to Second-Hand Smoke: No Diet: regular Diet Comment: Regular caffeine: Yes during the past year weight has: remained stable Dental Care, Regularly: No Physical Activity Frequency: Does not Exercise Seatbelt Use: always Sunscreen Use: No Assistive Devices: None Results & Data Vital Signs (Past 12 Hours) Vital Signs Temp Pulse Pulse Resp BP BP Pulse Ox 01/29/25 09:33 81 16 98/49 L 96 01/29/25 09:28 83 01/29/25 08:46 83 16 96/50 L 94 01/29/25 08:22 36 C L 01/29/25 08:01 88 20 104/67 92 01/29/25 07:30 85 22 84/46 L 90 01/29/25 07:00 35.3 C L 01/29/25 06:52 35.3 C L 01/29/25 06:36 80 16 95 01/29/25 06:30 123/64 01/29/25 05:45 84 123/55 L 97 01/29/25 05:31 94 01/29/25 05:21 78 16 116/61 94 01/29/25 05:18 78 14 104/52 L 95 01/29/25 05:17 88 L 01/29/25 05:17 34.7 C L 76 20 116/61 88 L 01/29/25 05:14 77 O2 Del Method O2 Flow Rate 01/29/25 09:33 Oxymask 6 01/29/25 09:28 01/29/25 08:46 Oxymask 6 01/29/25 08:22 01/29/25 08:01 Room Air 01/29/25 07:30 Oxymask 6 01/29/25 07:00 01/29/25 06:52 01/29/25 06:36 Nasal Cannula 5 01/29/25 06:30 01/29/25 05:45 Nasal Cannula 4 01/29/25 05:31 Nasal Cannula 2 01/29/25 05:21 01/29/25 05:18 01/29/25 05:17 Room Air 01/29/25 05:17 Room Air 01/29/25 05:14 PG Care Time/CCT Total # of Minutes Spent Total Time Spent with Patient: Total time spent is greater than 50% in coordination of care (as documented) at patient's floor/unit and/or counseling patient: Coding Level of Care Code 80088 INT INP/OBS CARE 3/75MIN Diagnoses HALI (acute kidney injury) N17.9 Lactic acidosis E87.20 Hypomagnesemia E83.42 Hypotension I95.9 Sepsis A41.9 Chronic kidney disease, stage 3a N18.31
[2025-01-29] MEDS ORDERED: ACETAMINOPHEN 1,000 MG/100 ML VIAL IV PRN (11:40)
[2025-01-29] MEDS ORDERED: BACLOFEN 10 MG TAB PO PRN (11:40)
[2025-01-29] MEDS ORDERED: GLUCOSE 40% GEL 15 GM TUBE PO PRN (11:40)
[2025-01-29] MEDS ORDERED: HYDROmorphone INJ 0.5 MG/0.5 ML SYR IV PRN (11:40)
[2025-01-29] MEDS ORDERED: GLUCOSE 10 TAB/TUBE PO PRN (11:40)
[2025-01-29] MEDS ORDERED: PHARMACY GLYCEMIC MGMT CONSULT PRN (11:40)
[2025-01-29] MEDS ORDERED: GLUCAGON FOR INJ 1 MG VIAL SQ PRN (11:40)
[2025-01-29] MEDS ORDERED: DEXTROSE 50% 50 ML SYRINGE IV PRN (11:40)
[2025-01-29] MEDS ORDERED: INSULIN ASPART PER UNIT CHARGE SC SCH (11:40)
[2025-01-29] MEDS ORDERED: CARBOHYDRATES FOR HYPOGLYCEMIA PO PRN (11:40)
--- NOTE | 2025-01-29 12:25 | Billing Data ---
Date of Service January 29, 2025 Patient seen and examined with the resident. I assume the note. Exam and review of data per my note. The patient is critically ill at this point time with significant possibility of clinical decline. A total of 45 minutes of critical care time was spent in evaluation management stabilization of this patient. Coding Level of Care Code 15236 CRITICAL CARE 1ST 30-74M
--- NOTE | 2025-01-29 13:09 | Electrocardiogram Report ---
Test Reason : Blood Pressure : */* mmHG Vent. Rate : 77 BPM Atrial Rate : 77 BPM P-R Int : 220 ms QRS Dur : 78 ms QT Int : 454 ms P-R-T Axes : 56 4 29 degrees QTcB Int : 513 ms Sinus rhythm with 1st degree A-V block Low voltage QRS Cannot rule out Anterior infarct (cited on or before 02-Nov-2023) Abnormal ECG When compared with ECG of 25-Jan-2024 13:05, Premature atrial complexes are no longer Present Nonspecific T wave abnormality no longer evident in Lateral leads QT has lengthened Confirmed by Bandar Rivera ([id number]) on 01/29/2025 1:09:17 PM Referred By: REFERRED SELF Confirmed By: Bandar Rivera
--- NOTE | 2025-01-29 13:11 | Pharmacy Report ---
Pharmacy PK ABX Note - Date of Service January 29, 2025 - Assessment and Plan Assessment * 74 year old M receiving cefepime and vancomycin empirically for treatment of possible sepsis of unknown source. Risk for spinal/hardware infection per below * Patient was admitted 7 AM following a presyncopal episode. He was originally supposed to have planned/scheduled lower back surgery at [place] on day of this admission but woke up overnight feeling feverish. At admission, patient was hypotensive and hypothermic with leukocytosis and elevated lactate * PMH: multiple back surgeries with hardware * Pertinent microbiology includes * Blood cultures pending * HALI noted. Baseline SCr 1.2 mg/dL with current 3.18 mg/dL Plan Vancomycin * Loading dose: 2750 mg IV x 1 at 0706 this AM. Although this is the max loading dose, unclear if this will be sufficient given weight of 144 kg. Therefore random level ordered 6 hours post dose * Goal trough ~15-20 mcg/mL when dosing via level for acute renal dysfunction / changing renal function * Random level at 1305 today was therapeutic at 17.5 mg/dL * Will schedule a small supplemental dose of vancomycin 500 mg later today to help prevent level from becoming subtherapeutic * Repeat random level in AM Pharmacy will continue to follow and will adjust dose/frequency as necessary. Thank you. Pharmacy has transitioned to AUC monitoring for vancomycin. AUC/JENNIFER is the preferred PK/PD target and is associated with decreased risk of nephrotoxicity compared to traditional trough targets.
--- NOTE | 2025-01-29 14:06 | Procedure Note ---
Procedure Note Date of Service January 29, 2025 ARTERIAL LINE PROCEDURE NOTE: Procedure: Arterial Line Placement Attending: Dr. Peter Booth MD APC: PJ Jimenez Indication: Monitoring on Pressors/Frequent labs Anesthesia: 3ml Lidocaine 1% Consent was signed and placed on the chart prior to procedure. Indication, risks, and benefits were explained at length. A time-out was completed verifying correct patient, procedure, site, positioning, and implant(s) or special equipment if applicable. Allens test was performed to ensure adequate perfusion. Patients left wrist was prepped and draped in the usual sterile fashion. Ultrasound guidance was used to aid needle placement. A 20g Arrow arterial line was introduced into the left radial artery. Catheter was threaded, and the needle was removed with appropriate blood return. Good waveform was observed. The patient tolerated the procedure well. Confirmation of placement with ultrasound. Images saved to medical record. Blood Loss: Minimal Complications: None Procedural Ultrasound Guidance: Procedure Date: 01/29/2025 Indication: Ultrasound guidance for arterial line placement. Attending: Dr. Peter Booth MD APC: PJ Jimenez Artery Identified: YES Line confirmed in Artery with ultrasound: Yes Complications: NONE Patient tolerated procedure: [facility] Procedure Codes (Charges) Tubes, Drains, and Vasc Access Procedure 1: Tubes, Drains, and Vasc Access: [id number] Arterial Cath/Cannulation Sampling/Monitoring/Transfusion Procedure 2: Tubes, Drains, and Vasc Access: [id number] Ultrasound Guidance For Vascular Coding CPT Codes Tubes, Drains, and Vasc Access - Tubes, Drains, and Vasc Access: [id number] Arterial Cath/Cannulation Sampling/Monitoring/Transfusion ([id number]) Tubes, Drains, and Vasc Access - Tubes, Drains, and Vasc Access: [id number] Ultrasound Guidance For Vascular ([id number]) Additional Codes Date of Service (PG.SURGERY)
[2025-01-29] MEDS: CEFEPIME 2000MG 2,000 MG/20 ML SYR IV ONE (14:14)
[2025-01-29] MEDS ORDERED: PIPERACILLIN/TAZOBACTAM 4.5 GM/100 ML BAG IV SCH (14:30)
--- NOTE | 2025-01-29 14:53 | Pharmacy Report ---
Pharmacy Glycemic Short Note 2 - Date of Service January 29, 2025 - Glycemic Short BSG Results (Last 24 hours): 01/29/25 01/29/25 05:17 12:01 Glucose 148 H POC Glucose 132 H 120 H OUTPATIENT ANTIDIABETIC REGIMEN: * Tresiba 100 units SC qAM and 80 units qPM (confirmed via external med history Rx) * Metformin * Tirzepatide * HbA1c ordered for 01/30/25 ASSESSMENT: * 74 yo M with T2DM on high outpatient insulin doses admitted to ICU and on pressors for possible septic shock of unknown source * Unclear if reduced dose of Tresiba was given last night in anticipation of planned surgical intervention today - patient and unfortunately not able to confirm at this time * Will schedule reduced dose of Lantus this PM at 50% of home dose. Home regimen is mostly basal insulin and will also be providing prandial insulin while inpatient. * Unclear needs at this time - no prior hospitalizations to review PLAN FOR INPATIENT GLYCEMIC CONTROL: * Hold outpatient diabetes medications * Basal insulin * Lantus 40 units SQ at HS x1 * Bolus insulin * NovoLog per scale ACHS or Q6hrs while NPO * Goal Range: Low 120 mg/dL - High 160 mg/dL * Correction Factor: 15 mg/dL/unit * Nutritional / Prandial insulin per carb ratio of 1 unit per 5 grams CHO consumed
[2025-01-29 15:26] LABS: Anion Gap 10.0 (3-11); Blood Urea Nitrogen 37.0 mg/dl (6-23); Calcium 7.3 mg/dl (8.6-10.3); Carbon Dioxide 19.0 mmol/L (21-32); Chloride 109.0 mmol/L (98-107); Creatinine Clr Calc Pharmacy 29.3 ml/min; Glucose 119.0 mg/dl (70-99(Fasting)); Potassium 5.3 mmol/L (3.5-5.1); Sodium 138.0 mmol/L (136-145)
--- NOTE | 2025-01-29 15:51 | XCELERA ---
[id number]
[2025-01-29] MEDS: INSULIN ASPART PER UNIT CHARGE SC SCH ×2 (16:32→22:08)
[2025-01-29] MEDS: VANCOMYCIN 500 MG in NSS 100mL IV ONE (17:40)
[2025-01-29] MEDS: HEPARIN SOD 5,000 UNIT/0.5 ML VIAL SQ SCH (17:55)
[2025-01-29] MEDS: Nursing to Pharmacy Communication SCH (18:40)
[2025-01-29] MEDS ORDERED: VANCOMYCIN HCL 2,000 MG in SODIUM CHLORIDE 0.9% 500 ML IV SCH (19:00)
[2025-01-29] MEDS: INSULIN ASPART PER UNIT CHARGE SC STA (19:23)
[2025-01-29] MEDS: VASOPRESSIN 20 UNITS in SODIUM CHLORIDE 0.9% 100 ML IV SCH (19:46)
[2025-01-29 19:51] LABS: iSTAT Art Bld Gas Base Excess -11.0 meg/L (-9-1.8); iSTAT Art Bld Gas pCO2 Correct 38 mmHg (35-46); iSTAT Art Bld Gas pH Corrected 7.242 (7.35-7.45); iSTAT Arterial Blood Gas pO2 C 102
[2025-01-29] MEDS: SODIUM BICARB 8.4% INJ 50 MEQ/50 ML SYR IV STA (20:47)
[2025-01-29] MEDS ORDERED: GABAPENTIN 300 MG CAP PO SCH (21:00)
[2025-01-29] MEDS ORDERED: ENOXAPARIN INJ 40 MG/0.4 ML SYR SQ SCH (21:00)
[2025-01-29] MEDS: GABAPENTIN 300 MG CAP PO SCH (22:07)
[2025-01-29] MEDS: LANTUS PER UNIT CHARGE SC ONE (22:45)
[2025-01-29] MEDS: STAT IV Infusion **Titration per Protocol STA (22:46)
[2025-01-30] MEDS ORDERED: INSULIN ASPART PER UNIT CHARGE SC SCH
[2025-01-30] MEDS: INSULIN ASPART PER UNIT CHARGE SC SCH ×3 (00:10→20:34)
[2025-01-30] MEDS ORDERED: INSULIN ASPART PER UNIT CHARGE SC ONE (02:00)
[2025-01-30] MEDS: CEFEPIME 1000MG 1,000 MG/10 ML SYR IV SCH (02:13)
[2025-01-30 04:46] LABS: Hematocrit (blood only) 33.7 % (42.0-52.0); Hemoglobin 10.9 g/dl (14.0-18.0); Immature Granulocytes # (auto) 0.06 K/uL (0.01-0.20); Immature Granulocytes % (auto) 0.4 %; Mean Corpuscular Hemoglobin 31.2 pg (25.0-34.0); Mean Corpuscular Volume 96.6 fL (80.0-100.0); Platelet Count 235 K/uL (130-400); RDW Standard Deviation 54.9 fL (36.4-46.3); Red Blood Count 3.49 M/uL (4.70-6.10); White Blood Count 15.39 K/ul (4.8-10.8)
[2025-01-30 05:08] LABS: Alanine Aminotransferase 18.0 U/L (7-52); Albumin Globulin Ratio 1.0 (0.9-2); Alkaline Phosphatase 110.0 U/L (34-104); Anion Gap 8.0 (3-11); Bilirubin,Total 0.4 mg/dl (0.2-1.0); Blood Urea Nitrogen 40.0 mg/dl (6-23); Calcium 7.5 mg/dl (8.6-10.3); Carbon Dioxide 20.0 mmol/L (21-32); Chloride 107.0 mmol/L (98-107); Creatinine Clr Calc Pharmacy 22.4 ml/min; Globulin 3.1 gm/dl (2.5-4.0); Glucose 153.0 mg/dl (70-99(Fasting)); Magnesium 1.6 mg/dl (1.7-2.4); Potassium 6.1 mmol/L (3.5-5.1); Sodium 135.0 mmol/L (136-145); Total Protein 6.1 gm/dl (6.0-8.3)
[2025-01-30] MEDS: CALCIUM GLUCONATE 1,000 MG/60 ML BAG IV STA (05:27)
[2025-01-30] MEDS: MAGNESIUM SULFATE / D5W 1 GM/100 ML BAG IV SCH (05:31)
[2025-01-30] MEDS: INSULIN HUMAN REGULAR PER UNIT 10 UNITS in SYRINGE 9.9 ML IV STA (05:38)
[2025-01-30] MEDS: DEXTROSE 50% 50 ML SYRINGE IV STA (05:38)
[2025-01-30 05:48] LABS: iSTAT Art Bld Gas Base Excess -8.0 meg/L (-9-1.8)
--- NOTE | 2025-01-30 06:17 | Procedure Note ---
Procedure Note Date of Service January 30, 2025 INTERNAL JUGULAR CENTRAL LINE PROCEDURE NOTE: Procedure: Internal Jugular Central Line Placement Attending: Dr. Booth APC/Proceduralist: [place] PA-C Indication: Central Drug Administration, Poor Venous Access, Multiple Lab Draws Necessary, etc. Anesthesia: Lidocaine 1% Verbal consent obtained via telephone from patient's . Indication, risks, and benefits were explained at length. A time-out was completed verifying correct patient, procedure, site, positioning, and implants(s) or special equipment if applicable. Patients L Neck was cleansed and draped in the typical sterile fashion using Chloraprep. The Internal Jugular Vein and Carotid Artery were identified using ultrasound. The superficial tissue was anesthetized using 5 mL of 1% lidocaine without epinephrine under direct visualization with the ultrasound. After adequate anesthetization was achieved, the Internal Jugular vein was cannulated under direct ultrasound guidance using an introducer needle on a syringe. Good venous blood return was maintained prior to removal of syringe from introducer needle. Using Seldinger Technique, a guide wire was advanced through the introducer needle without resistance. The introducer needle was removed and the guide wire was seen within the Internal Jugular Vein on multiple views. A small incision was made in penetrating fashion at the guide wire insertion site utilizing an 11 blade scalpel. The dilator was advanced to the vessel without resistance. The dilator was exchanged for the triple lumen catheter which was advanced into the vessel without resistance. The guide wire was removed intact from the catheter without issue. Claves were placed on each catheter tip with confirmation of good blood flow from each lumen. Each port was easily flushed with sterile saline. The catheter was placed at 20cm and sutured in place. Sterile CHG-embedded Tegaderm dressing was applied over the catheter with careful attention to sterility. Patient tolerated procedure well. No immediate complications were met. Post procedure x-ray was completed, placement was appropriate and no pneumothorax was noted. [facility] Procedure Codes (Charges) Tubes, Drains, and Vasc Access Procedure 1: Tubes, Drains, and Vasc Access: [id number] Place catheter in vein superior or inferior vena cava Coding CPT Codes Tubes, Drains, and Vasc Access - Tubes, Drains, and Vasc Access: [id number] Place catheter in vein superior or inferior vena cava ([id number]) Additional Codes Date of Service (PG.SURGERY)
--- NOTE | 2025-01-30 06:53 | XRay Report ---
EXAM: XR chest 1V portable CLINICAL HISTORY: Confirm central line placement TECHNIQUE: An X-ray image of the chest is obtained in AP projection. COMPARISON: 01/29/2025 FINDINGS: The central line is seen with its tip within the normal position. Pulmonary Parenchyma: No evidence of consolidation, collapse, or focal opacities. No pulmonary nodules are identified. No evidence of pleural effusion or pleural thickening. Heart and Mediastinum: Heart size and shape are normal. No mediastinal widening or masses. No hilar or mediastinal lymphadenopathy. Bony Thorax: Bony thorax appears intact without fractures or deformities. Intervention is seen in the lower cervical spine. Soft Tissues: Soft tissues overlying the chest wall are unremarkable. IMPRESSION: 1. The central line is seen with its tip within the normal position fiordaliza cavoatrial junction. New 2. No evidence of consolidation or pleural effusion. Electronically signed by Richie Ram 01-30-2025 06:53 AM
[2025-01-30] MEDS: SODIUM ZIRCONIUM CYCLOSILICATE 10 GM PACKET PO SCH (07:09)
[2025-01-30 07:20] LABS: Hemoglobin A1C 6.5 % (4.5-5.6)
[2025-01-30] MEDS: LEVOTHYROXINE SODIUM 112 MCG TABLET PO SCH (07:34)
--- NOTE | 2025-01-30 07:55 | Critical Care Progress Note ---
Date of Service January 30, 2025 Assessment & Plan (1) Hypotension: (2) Hypercapnic respiratory failure: (3) Leukocytosis: (4) HALI (acute kidney injury): (5) Chronic kidney disease, stage 3a: (6) Diabetic peripheral neuropathy associated with type 2 diabetes mellitus: (7) Lumbar spondylosis: (8) History of back surgery: Plan Oren is a 74-year-old male with PMHx CKD IIIa with baseline creatinine 1.4-1.5, DM2 with nephropathy and neuropathy, obesity, and chronic hypercapnic respiratory failure who presented on 01/29 following a presyncopal episode, admitted for presyncope, lactic acidosis, and hypotension. Continues to be on norepi 0.08 for BP support, slight increase in white count and nphil predominance but lactate has cleared, fluid status improved. Hyperkalemia and increasing creatinine possible due to intrarenal pathology such as ATN likely 2/2 hypoperfusion in the setting of severe dehydration. Requires continued monitoring and BP support with pressors. Recommendations: 1. Neurologic: No current issues. Decreasing gabapentin to 100mg daily and holding baclofen for now with current worsening kidney function. Chronic back pain will need to be addressed in the outpatient setting. 2. Cardiovascular: S/p additional 2L of crystalloid bolus day prior and fluid status has improved, however he remains hypotensive requiring continued norepinephrine at 0.08. Lactic acidosis and anion gap have resolved but continues to be acidotic. 3. Respiratory: continue nasal cannula during the day, wean as tolerated. 4. ID: WBCs with neutrophil predominance has increased from day prior, 14 -> 15.4. Exam revealing mild LUQ and LLQ abdominal tenderness to palpation, however no distension or guarding, possible intra-abdominal source of infection. Cultures showing no growth in 24h. Continue cefepime for now. 5. GI: PPI given pressor requirements. Advance diet as tolerated. 6. Renal: HALI superimposed on CKD IIIa, increase in creatinine from 3.4 -> 4.4. S/p 2L IV crystalloid bolus day prior and with improved volume status however Nephrology consultation reviewed. Hyperkalemia to 6.1, s/p insulin with d5, lokelma ordered, BMP at 10:00. Holding home diuretics for now. - Dr. West with nephrology following, suggesting possible acute tubular necrosis as the most likely reason for increasing creatinine, which should improve with time. Would like to obtain renal panel around 14:00, continue lokelma. 7. Heme-onc: Mild anemia. No evidence of acute blood loss no indication for transfusion currently. Would not use Lovenox for DVT prophylaxis given acute renal failure. 8. Endocrine: Random cortisol greater than 30. No indication for stress dose steroids. Glycemic control per protocol. Continue Synthroid Disposition: ICU VTE PPx: Subcu heparin Admission and Anticipated Discharge Date Admission Date: January 29, 2025 Julieta Oren was seen and evaluated at bedside this AM, sleeping upon encounter. Was able to be aroused awake with voice and gentle touch. Denies any pain or discomfort at this time and notes he is feeling a bit stronger than day prior. Slow to respond at times and required repetition but ultimately answered questions appropriately. Physical Exam Physical Exam: Gen: A&Ox4, appearing tired but no acute distress, nasal cannula at 6L/min in place HEENT: EOM intact, anicteric sclerae, tongue appearing chronically dry but improved moisture CV: RRR, no m/r/g; 2+ radial pulses b/l Resp: shallow but equal breath sounds b/l, no wheeze/rales/rhonchi heard on auscultation GI/Abd: +BS, abdomen with mild tenderness to palpation of LUQ and LLQ but no distension or guarding, otherwise nontender MSK: 5/5 strength in b/l UE and LE Neuro: no facial droop, speech intact, no focal deficits Results & Data Results & Data Vital Signs (Past 12 Hours) Vital Signs Temp Pulse Resp BP Pulse Ox O2 Del Method FiO2 01/30/25 07:24 81 17 97 40 01/30/25 06:45 78 19 98 01/30/25 06:31 137/62 01/30/25 06:30 79 14 96 01/30/25 06:24 77 16 96 01/30/25 06:16 125/63 01/30/25 06:09 84 23 97 01/30/25 06:06 83 14 96 01/30/25 06:01 119/50 L 01/30/25 05:49 86 19 95 40 01/30/25 05:46 138/79 01/30/25 05:45 84 19 98 01/30/25 05:31 134/60 01/30/25 05:30 84 14 98 01/30/25 05:16 118/79 01/30/25 05:12 86 17 97 01/30/25 05:06 80 15 97 01/30/25 05:01 131/62 01/30/25 04:42 74 20 96 01/30/25 04:31 130/62 01/30/25 04:30 75 18 95 01/30/25 04:00 75 24 95 01/30/25 03:33 77 20 96 01/30/25 03:31 128/65 01/30/25 03:21 78 17 96 01/30/25 03:03 78 21 95 01/30/25 03:01 125/58 L 01/30/25 02:54 76 21 95 01/30/25 02:36 78 22 95 01/30/25 02:31 125/62 01/30/25 02:27 80 20 95 01/30/25 02:25 80 20 96 40 01/30/25 02:01 127/62 01/30/25 02:01 37.7 C H 127/62 01/30/25 02:00 78 20 95 01/30/25 01:46 123/62 01/30/25 01:46 123/62 01/30/25 01:42 80 22 96 01/30/25 01:31 129/65 01/30/25 01:24 81 21 97 01/30/25 01:16 128/69 01/30/25 01:15 81 20 96 01/30/25 01:01 125/62 01/30/25 00:39 80 19 95 01/30/25 00:30 80 19 125/65 95 01/30/25 00:16 129/63 01/30/25 00:15 82 22 95 01/30/25 00:06 84 23 97 01/30/25 00:01 122/67 01/30/25 00:00 84 01/29/25 23:54 82 22 96 01/29/25 23:31 130/62 01/29/25 23:21 82 20 95 01/29/25 23:16 132/67 01/29/25 23:12 83 18 95 01/29/25 23:03 84 22 98 01/29/25 23:01 137/67 01/29/25 22:57 84 19 98 01/29/25 22:46 126/73 07/16/25 22:45 83 22 96 01/29/25 22:33 83 19 96 01/29/25 22:31 125/59 L 01/29/25 22:31 36.7 C 125/59 L 01/29/25 22:27 83 21 96 01/29/25 22:27 83 22 96 40 01/29/25 22:16 131/59 L 01/29/25 22:15 86 19 97 01/29/25 22:01 125/62 01/29/25 22:00 84 24 97 01/29/25 21:46 135/62 01/29/25 21:45 84 20 98 01/29/25 21:30 84 19 100 01/29/25 21:16 140/60 01/29/25 21:15 84 19 98 01/29/25 21:05 139/61 01/29/25 21:01 36.7 C 94/60 L 01/29/25 20:54 88 22 100 01/29/25 20:46 129/86 01/29/25 20:39 84 20 97 01/29/25 20:33 85 22 99 01/29/25 20:31 148/57 H 01/29/25 20:18 36.4 C L 86 21 99 01/29/25 20:00 CPAP 40 (2) Hypercapnic respiratory failure Chronicity: acute on chronic Qualified Code(s): J96.22 - Acute and chronic respiratory failure with hypercapnia
--- NOTE | 2025-01-30 08:17 | Billing Data ---
Date of Service January 29, 2025 Coding Level of Care Code 26673 CRITICAL CARE 1ST 30-74M Time Spent (min) 70 Comment critical care including shock management, coordination of care with ICU, etc.
[2025-01-30] MEDS ORDERED: LANTUS PER UNIT CHARGE SQ SCH (09:00)
[2025-01-30] MEDS: VANCOMYCIN HCL 1,000 MG/270 ML BAG IV ONE (09:15)
[2025-01-30] MEDS: PYRIDOXINE HCL 50 MG TAB PO SCH (09:20)
[2025-01-30 09:31] LABS: iSTAT Art Bld Gas Base Excess -8.0 meg/L (-9-1.8)
[2025-01-30 10:36] LABS: Anion Gap 10.0 (3-11); Blood Urea Nitrogen 41.0 mg/dl (6-23); Calcium 7.9 mg/dl (8.6-10.3); Carbon Dioxide 19.0 mmol/L (21-32); Chloride 107.0 mmol/L (98-107); Creatinine Clr Calc Pharmacy 20.8 ml/min; Glucose 169.0 mg/dl (70-99(Fasting)); Potassium 5.3 mmol/L (3.5-5.1); Sodium 136.0 mmol/L (136-145)
--- NOTE | 2025-01-30 10:36 | Critical Care Progress Note ---
Date of Service January 30, 2025 Assessment & Plan (1) Hypotension: (2) Hypercapnic respiratory failure: (3) Leukocytosis: (4) HALI (acute kidney injury): (5) Chronic kidney disease, stage 3a: (6) Diabetic peripheral neuropathy associated with type 2 diabetes mellitus: (7) Lumbar spondylosis: (8) History of back surgery: (9) Hypovolemic shock: Plan Oren is a 74-year-old male with PMHx CKD IIIa with baseline creatinine 1.4-1.5, DM2 with nephropathy and neuropathy, obesity, and chronic hypercapnic respiratory failure who presented on 01/29 following a presyncopal episode, admitted for presyncope, lactic acidosis, and hypotension. Continues to be on norepi 0.08 for BP support, slight increase in white count and nphil predominance but lactate has cleared, fluid status improved. Hyperkalemia and increasing creatinine possible due to intrarenal pathology such as ATN likely 2/2 hypoperfusion in the setting of severe dehydration. Requires continued monitoring and BP support with pressors. Recommendations: 1. Neurologic: No current issues. Decreasing gabapentin to 100mg daily and holding baclofen for now with current worsening kidney function. Chronic back pain will need to be addressed in the outpatient setting. 2. Cardiovascular: S/p additional 2L of crystalloid bolus day prior and fluid status has improved, however he remains hypotensive requiring continued norepinephrine that is down to 0.01 at ths time. Did require vasopressin overnight. Lactic acidosis and anion gap have resolved but continues to be acidotic. 3. Respiratory: continue nasal cannula during the day, wean as tolerated. Off Bipap this am with improved mentation. ABG's have not shown significant elevation of pCO2. Patient likely has sleep apnea but has refused CPAP and sleep studies in the past. 4. ID: WBCs with neutrophil predominance on admission. Leukocytosis remains elevated at 15.39 but patient has been afebrile. Exam revealing mild LUQ and LLQ abdominal tenderness to palpation, however no distension or guarding, possible intra-abdominal source of infection. Cultures showing no growth in 24h. Continue cefepime for now. 5. GI: PPI given pressor requirements. Advance diet as tolerated. 6. Renal: HALI superimposed on CKD IIIa, likely ATN. Creatinine increased from 4.43->4.92. S/p 6L crystalloid. Hyperkalemia to down to 5.3 with lokelma. Holding home diuretics for now. - Dr. West with nephrology following, suggesting possible acute tubular necrosis as the most likely reason for increasing creatinine, which should improve with time. 7. Heme-onc: Mild anemia. No evidence of acute blood loss no indication for transfusion currently. Would not use Lovenox for DVT prophylaxis given acute renal failure. 8. Endocrine: Random cortisol greater than 30. No indication for stress dose steroids. Glycemic control per protocol. Continue Synthroid Disposition: ICU for Shock likely hypovolemic improving with volume resuscitation and requiring norepinephrine. Patient is full code. Patient and family updated at bedside by ICU provider on 01/30/2025. VTE PPx: Subcu heparin, SCD Admission and Anticipated Discharge Date Admission Date: January 29, 2025 Supervising Physician Co-Signing Physician Notes Patient seen and examined. EMR reviewed. Discussed with bedside nurse as well as on multidisciplinary rounds and with overnight critical care YVON. The patient's sensorium is markedly improved today however his renal function is worse. His hemodynamics have improved and he has been weaning off of vaso pressor agents. He is been afebrile. He continues to receive antibiotics. Will continue to work on weaning pressors to off. Physical therapy and Occupational Therapy evaluations. If the patient is able to wean from vasopressor agents, he may be eligible to transfer to the floor under the care of the hospitalist and critical care services will sign off. Remainder of the plan per YVON Subjective "I feel good right now. I don't remember much other than being in the emergency room." Patient had considerable encephalopathy last evening of unclear etiology pCO2- 48, Ammonia-30, TSH and cortisol within expected range. Patient placed on BiPAP. Neuro exam improved and patient is able to follow commands and be conversive. Levophed requirement increased overnight despite adequate volume resuscitation and vasopressin added. Patient hemodynamically improved and on levophed @ 0.08 this am. Creatinine increased this am to 4.92. Nephrology following will hold on dialysis at this time and continue to monitor. Patient is making small amount of urine but remains oliguric. Review of Systems Review of Systems: All systems reviewed & are unremarkable except as noted in HPI & below Physical Exam Physical Exam: VITALS: Reviewed. WEIGHT/BMI reviewed. GEN: State age appearing, well-developed, NAD. PSYCH: Good Judgment. AOx2. Normal memory, mood, and affect. HEENT -Head: NC/AT; -Eyes: PERRL, EOMI. No discharge or redn ess; -Ears: External ears are normal. -Nose: Normal nares. -Mouth and throat: MMM. Normal gums, muc marty, palate,. Good dentition. NECK: Supple, with no masses. CV: RRR, no m/r/g. LUNGS: CTA in b/l upper lobes with diminished bilateral lower lobes. Chest rise symmetrical. Breathing nonlabored. ABD: Soft, NT/ND, NBS, no masses or organomegaly. : Montero catheter putting out small yellow clear urine. SKIN: Warm, well perfused. No skin rashes or abnormal lesions. MSK: No deformities. EXT: No clubbing, cyanosis, or edema. NEURO: Face symmetric, speech clear, follows commands. Normal muscle strength and tone. No focal deficits. Results & Data Results & Data Vital Signs (Past 12 Hours) Vital Signs Temp Pulse Resp BP Pulse Ox O2 Del Method O2 Flow Rate 01/30/25 08:30 Nasal Cannula 5 01/30/25 08:00 78 01/30/25 07:24 81 17 97 01/30/25 06:45 78 19 98 01/30/25 06:31 137/62 01/30/25 06:30 79 14 96 01/30/25 06:24 77 16 96 01/30/25 06:16 125/63 01/30/25 06:09 84 23 97 01/30/25 06:06 83 14 96 01/30/25 06:01 119/50 L 01/30/25 05:49 86 19 95 01/30/25 05:46 138/79 01/30/25 05:45 84 19 98 01/30/25 05:31 134/60 01/30/25 05:30 84 14 98 01/30/25 05:16 118/79 01/30/25 05:12 86 17 97 01/30/25 05:06 80 15 97 01/30/25 05:01 131/62 01/30/25 04:42 74 20 96 01/30/25 04:31 130/62 01/30/25 04:30 75 18 95 01/30/25 04:00 75 24 95 01/30/25 03:33 77 20 96 01/30/25 03:31 128/65 01/30/25 03:21 78 17 96 01/30/25 03:03 78 21 95 01/30/25 03:01 125/58 L 01/30/25 02:54 76 21 95 01/30/25 02:36 78 22 95 01/30/25 02:31 125/62 01/30/25 02:27 80 20 95 01/30/25 02:25 80 20 96 01/30/25 02:01 127/62 01/30/25 02:01 37.7 C H 127/62 01/30/25 02:00 78 20 95 01/30/25 01:46 123/62 01/30/25 01:46 123/62 01/30/25 01:42 80 22 96 01/30/25 01:31 129/65 01/30/25 01:24 81 21 97 01/30/25 01:16 128/69 01/30/25 01:15 81 20 96 01/30/25 01:01 125/62 01/30/25 00:39 80 19 95 01/30/25 00:30 80 19 125/65 95 01/30/25 00:16 129/63 01/30/25 00:15 82 22 95 01/30/25 00:06 84 23 97 01/30/25 00:01 122/67 01/30/25 00:00 84 01/29/25 23:54 82 22 96 01/29/25 23:31 130/62 01/29/25 23:21 82 20 95 01/29/25 23:16 132/67 01/29/25 23:12 83 18 95 01/29/25 23:03 84 22 98 01/29/25 23:01 137/67 01/29/25 22:57 84 19 98 01/29/25 22:46 126/73 01/29/25 22:45 83 22 96 FiO2 01/30/25 08:30 01/30/25 08:00 01/30/25 07:24 40 01/30/25 06:45 01/30/25 06:31 01/30/25 06:30 01/30/25 06:24 01/30/25 06:16 01/30/25 06:09 01/30/25 06:06 01/30/25 06:01 01/30/25 05:49 40 01/30/25 05:46 01/30/25 05:45 01/30/25 05:31 01/30/25 05:30 01/30/25 05:16 01/30/25 05:12 01/30/25 05:06 01/30/25 05:01 01/30/25 04:42 01/30/25 04:31 01/30/25 04:30 01/30/25 04:00 01/30/25 03:33 01/30/25 03:31 01/30/25 03:21 01/30/25 03:03 01/30/25 03:01 01/30/25 02:54 01/30/25 02:36 01/30/25 02:31 01/30/25 02:27 01/30/25 02:25 40 01/30/25 02:01 01/30/25 02:01 01/30/25 02:00 01/30/25 01:46 01/30/25 01:46 01/30/25 01:42 01/30/25 01:31 01/30/25 01:24 01/30/25 01:16 01/30/25 01:15 01/30/25 01:01 01/30/25 00:39 01/30/25 00:30 01/30/25 00:16 01/30/25 00:15 01/30/25 00:06 01/30/25 00:01 01/30/25 00:00 01/29/25 23:54 01/29/25 23:31 01/29/25 23:21 01/29/25 23:16 01/29/25 23:12 01/29/25 23:03 01/29/25 23:01 01/29/25 22:57 01/29/25 22:46 01/29/25 22:45 Critical Care Results & Data Vital Signs (Past 12 Hours) Vital Signs Temp Pulse Resp BP Pulse Ox O2 Del Method O2 Flow Rate 01/30/25 08:30 Nasal Cannula 5 01/30/25 08:00 78 01/30/25 07:24 81 17 97 01/30/25 06:45 78 19 98 01/30/25 06:31 137/62 01/30/25 06:30 79 14 96 01/30/25 06:24 77 16 96 01/30/25 06:16 125/63 01/30/25 06:09 84 23 97 01/30/25 06:06 83 14 96 01/30/25 06:01 119/50 L 01/30/25 05:49 86 19 95 01/30/25 05:46 138/79 01/30/25 05:45 84 19 98 01/30/25 05:31 134/60 01/30/25 05:30 84 14 98 01/30/25 05:16 118/79 01/30/25 05:12 86 17 97 01/30/25 05:06 80 15 97 01/30/25 05:01 131/62 01/30/25 04:42 74 20 96 01/30/25 04:31 130/62 01/30/25 04:30 75 18 95 01/30/25 04:00 75 24 95 01/30/25 03:33 77 20 96 01/30/25 03:31 128/65 01/30/25 03:21 78 17 96 01/30/25 03:03 78 21 95 01/30/25 03:01 125/58 L 01/30/25 02:54 76 21 95 01/30/25 02:36 78 22 95 01/30/25 02:31 125/62 01/30/25 02:27 80 20 95 01/30/25 02:25 80 20 96 01/30/25 02:01 127/62 01/30/25 02:01 37.7 C H 127/62 01/30/25 02:00 78 20 95 01/30/25 01:46 123/62 01/30/25 01:46 123/62 01/30/25 01:42 80 22 96 01/30/25 01:31 129/65 01/30/25 01:24 81 21 97 01/30/25 01:16 128/69 01/30/25 01:15 81 20 96 01/30/25 01:01 125/62 01/30/25 00:39 80 19 95 01/30/25 00:30 80 19 125/65 95 01/30/25 00:16 129/63 01/30/25 00:15 82 22 95 01/30/25 00:06 84 23 97 01/30/25 00:01 122/67 01/30/25 00:00 84 01/29/25 23:54 82 22 96 01/29/25 23:31 130/62 01/29/25 23:21 82 20 95 01/29/25 23:16 132/67 01/29/25 23:12 83 18 95 01/29/25 23:03 84 22 98 01/29/25 23:01 137/67 01/29/25 22:57 84 19 98 01/29/25 22:46 126/73 01/29/25 22:45 83 22 96 FiO2 01/30/25 08:30 01/30/25 08:00 01/30/25 07:24 40 01/30/25 06:45 01/30/25 06:31 01/30/25 06:30 01/30/25 06:24 01/30/25 06:16 01/30/25 06:09 01/30/25 06:06 01/30/25 06:01 01/30/25 05:49 40 01/30/25 05:46 01/30/25 05:45 01/30/25 05:31 01/30/25 05:30 01/30/25 05:16 01/30/25 05:12 01/30/25 05:06 01/30/25 05:01 01/30/25 04:42 01/30/25 04:31 01/30/25 04:30 01/30/25 04:00 01/30/25 03:33 01/30/25 03:31 01/30/25 03:21 01/30/25 03:03 01/30/25 03:01 01/30/25 02:54 01/30/25 02:36 01/30/25 02:31 01/30/25 02:27 01/30/25 02:25 40 01/30/25 02:01 01/30/25 02:01 01/30/25 02:00 01/30/25 01:46 01/30/25 01:46 01/30/25 01:42 01/30/25 01:31 01/30/25 01:24 01/30/25 01:16 01/30/25 01:15 01/30/25 01:01 01/30/25 00:39 01/30/25 00:30 01/30/25 00:16 01/30/25 00:15 01/30/25 00:06 01/30/25 00:01 01/30/25 00:00 01/29/25 23:54 01/29/25 23:31 01/29/25 23:21 01/29/25 23:16 01/29/25 23:12 01/29/25 23:03 01/29/25 23:01 01/29/25 22:57 01/29/25 22:46 01/29/25 22:45 Lab & Micro Results (Past 24 Hours) RBC 3.49 M/uL (4.70-6.10) L 01/30/25 WBC 15.39 K/ul (4.8-10.8) H 01/30/25 Hgb 10.9 g/dl (14.0-18.0) L 01/30/25 Hct 33.7 % (42.0-52.0) L 01/30/25 MCV 96.6 fL (80.0-100.0) 01/30/25 MCH 31.2 pg (25.0-34.0) 01/30/25 MCHC 32.3 g/dL (32.0-36.0) 01/30/25 RDW Standard Deviation 54.9 fL (36.4-46.3) H 01/30/25 RDW Coefficient of Variation 15.6 % (11.5-14.5) H 01/30/25 Plt Count 235 K/uL (130-400) 01/30/25 MPV 10.1 fL (9.4-12.4) 01/30/25 Neutrophils (%) (Auto) 80.3 % 01/30/25 Lymphocytes (%) (Auto) 10.1 % 01/30/25 Monocytes # (Auto) 1.36 K/uL (0.11-0.59) H 01/30/25 Eosinophils # (Auto) 0.02 K/uL (0.00-0.50) 01/30/25 Immature Granulocyte % (Auto) 0.4 % 01/30/25 Neutrophils # (Auto) 12.36 K/uL (1.40-6.50) H 01/30/25 Lymphocytes # (Auto) 1.55 K/uL (1.20-3.40) 01/30/25 Monocytes # (Auto) 1.36 K/uL (0.11-0.59) H 01/30/25 Eosinophils # (Auto) 0.02 K/uL (0.00-0.50) 01/30/25 Basophils # (Auto) 0.04 K/uL (0.00-0.20) 01/30/25 Immature Granulocyte # (Auto) 0.06 K/uL (0.01-0.20) 5 Na 136 mmol/L (136-145) 01/30/25 K 5.3 mmol/L (3.5-5.1) H 01/30/25 Cl 107 mmol/L (98-107) 01/30/25 CO2 19 mmol/L (21-32) L 01/30/25 Anion Gap 10 (3-11) 01/30/25 BUN 41 mg/dl (6-23) H 01/30/25 Creatinine 4.92 mg/dl (0.6-1.4) H* 01/30/25 BUN/Creatinine Ratio 8.3 (10-20) L 01/30/25 Glu 169 mg/dl (70-99(Fasting)) H 01/30/25 Ca 7.9 mg/dl (8.6-10.3) L 01/30/25 Phosphorus Level 5.5 mg/dl (2.5-4.9) H 01/30/25 Total Bilirubin 0.4 mg/dl (0.2-1.0) 01/30/25 AST 24 U/L (13-39) 01/30/25 ALT 18 U/L (7-52) 01/30/25 Alkaline Phosphatase 110 U/L (34-104) H 01/30/25 TP 6.1 gm/dl (6.0-8.3) 01/30/25 Albumin 3.0 gm/dl (3.4-5.0) L 01/30/25 Globulin 3.1 gm/dl (2.5-4.0) 01/30/25 Albumin/Globulin Ratio 1.0 (0.9-2) 01/30/25 Mg 1.6 mg/dl (1.7-2.4) L 01/30/25 04:27 Calcium Level 7.9 mg/dl (8.6-10.3) L 01/30/25 09:55 Branden Test NA 01/29/25 19:38 Microbiology 01/29/25 05:28 Aerobic Blood Culture - Preliminary Blood No growth in Aerobic bottle after 24 hours. Anaerobic Blood Culture - Preliminary No growth in Anaerobic bottle after 24 hours. 01/29/25 05:22 Aerobic Blood Culture - Preliminary Blood No growth in Aerobic bottle after 24 hours. Anaerobic Blood Culture - Preliminary No growth in Anaerobic bottle after 24 hours. Diagnostic Findings (Past 24 Hours) Chest X-Ray 01/30/25 06:03 EXAM: XR chest 1V portable CLINICAL HISTORY: Confirm central line placement TECHNIQUE: An X-ray image of the chest is obtained in AP projection. COMPARISON: 01/29/2025 FINDINGS: The central line is seen with its tip within the normal position. Pulmonary Parenchyma: No evidence of consolidation, collapse, or focal opacities. No pulmonary nodules are identified. No evidence of pleural effusion or pleural thickening. Heart and Mediastinum: Heart size and shape are normal. No mediastinal widening or masses. No hilar or mediastinal lymphadenopathy. Bony Thorax: Bony thorax appears intact without fractures or deformities. Intervention is seen in the lower cervical spine. Soft Tissues: Soft tissues overlying the chest wall are unremarkable. IMPRESSION: 1. The central line is seen with its tip within the normal position fiordaliza cavoatrial junction. New 2. No evidence of consolidation or pleural effusion. Electronically signed by Richie Ram 01-30-2025 06:53 AM I & O Totals 24 Hours 01/29/25 01/30/25 01/31/25 06:59 06:59 06:59 Intake Total 1999 6685.930 / 6685.930 435.667 / 435.667 Output Total 570 / 570 65 / 65 Balance 1999 6115.930 / 6115.930 370.667 / 370.667 Cumulative 01/29/25 04:57 thru 01/30/25 09:19 Intake Total 9121.597 Output Total 635 Balance 8486.597 RT Ventilator Mngmt (Last Documented) Ventilator Ordered Settings Respiratory Rate 17 01/30/25 07:24 Fraction of Inspired Oxygen 40 01/30/25 07:24 Ventilator - PT Measurements Respiratory Rate 17 Coding Level of Care Code 30205 SUB INP/OBS CARE 3/50MIN Diagnoses Hypotension I95.9 Acute on chronic respiratory failure with hypercapnia J96.22 Chronicity: acute on chronic Leukocytosis D72.829 HALI (acute kidney injury) N17.9 Chronic kidney disease, stage 3a N18.31 Diabetic peripheral neuropathy associated with type 2 diabetes mellitus E11.42 Lumbar spondylosis M47.816 History of back surgery Z98.890 Hypovolemic shock R57.1 (2) Hypercapnic respiratory failure Chronicity: acute on chronic Qualified Code(s): J96.22 - Acute and chronic respiratory failure with hypercapnia
--- NOTE | 2025-01-30 12:29 | Nephrology Progress Note ---
Date of Service January 30, 2025 Assessment & Plan (1) HALI (acute kidney injury): (2) Lactic acidosis: (3) Hypomagnesemia: (4) Hypotension: (5) Sepsis: (6) Chronic kidney disease, stage 3a: Plan 74-year-old gentleman with history of stage III A CKD baseline creatinine 1.4- 1.5 mg/dl with history of hypertension, diabetes, dyslipidemia and degenerative disease, admitted to the hospital with presyncope hypotension and concern for sepsis of unclear source. On admission noted to have HALI, creatinine 3.1, potassium 5.5. Urinalysis unremarkable except trace proteinuria. CT abdomen pelvis with no postrenal obstruction, has nonobstructing bilateral nephrolithiasis and small right renal cyst, stable. Received IV fluid and empiric antibiotic, blood culture pending. Kidney function has been worsening rapidly with creatinine up to 4.4 associated with oliguria and hyperkalemia is concerning most likely for ATN. --Continue Lokelma which started this morning, Repeat labs this afternoon. If potassium remains elevated, progressive worsening kidney function or urine out put remains low, may need to consider urgent dialysis. If potassium stays normal but urine output low, Lasix 80 mg IV x 1 dose can be considered. Agree with continuing to support hemodynamically with IV fluid and pressor as needed --Dose medications for eGFR less than 10, continue to hold KELECHI inhibitor, diuretics. Admission and Anticipated Discharge Date Admission Date: January 29, 2025 Julieta Lott was seen and evaluated this morning. He denied any specific symptoms, no shortness of breath. Urine output has been low and total urine output about 350 mL. Progressive worsening of his renal function creatinine up to 4.4 mg/dl this morning, potassium remain elevated at 6.0. Review of Systems Review of Systems: All systems reviewed & are unremarkable except as noted in Subjective Physical Exam Constitutional: WD/WN, vitals as above no acute distress Eyes: + anicteric sclerae Neck: normal visual inspection Respiratory: no respiratory distress Auscultation: lungs clear to auscult ation bilaterally Cardiovascular: Rate/Rhythm: regular rate and regular rhythm Heart Sounds: normal S1 and normal S2 Extremities: no edema Musculoskeletal: Extremities: extremities normal to inspection Skin: no rashes, warm and dry Neurologic: no focal motor deficits Psychiatric: Orientation: alert and oriented x 3 Affect: euthymic affect Results & Data Vital Signs (Past 12 Hours) Vital Signs Temp Pulse Resp BP Pulse Ox O2 Del Method O2 Flow Rate 01/30/25 10:01 136/56 L 01/30/25 10:00 86 26 H 93 01/30/25 09:01 129/60 01/30/25 09:00 86 28 H 96 01/30/25 08:30 Nasal Cannula 5 01/30/25 08:12 85 16 94 01/30/25 08:07 133/59 L 01/30/25 08:00 78 01/30/25 07:24 81 17 97 01/30/25 07:01 138/63 01/30/25 06:57 80 17 98 01/30/25 06:45 78 19 98 01/30/25 06:31 137/62 01/30/25 06:30 79 14 96 01/30/25 06:24 77 16 96 01/30/25 06:16 125/63 01/30/25 06:09 84 23 97 01/30/25 06:06 83 14 96 01/30/25 06:01 119/50 L 01/30/25 05:49 86 19 95 01/30/25 05:46 138/79 01/30/25 05:45 84 19 98 01/30/25 05:31 134/60 01/30/25 05:30 84 14 98 01/30/25 05:16 118/79 01/30/25 05:12 86 17 97 01/30/25 05:06 80 15 97 01/30/25 05:01 131/62 01/30/25 04:42 74 20 96 01/30/25 04:31 130/62 01/30/25 04:30 75 18 95 01/30/25 04:00 75 24 95 01/30/25 03:33 77 20 96 01/30/25 03:31 128/65 01/30/25 03:21 78 17 96 01/30/25 03:03 78 21 95 01/30/25 03:01 125/58 L 01/30/25 02:54 76 21 95 01/30/25 02:36 78 22 95 01/30/25 02:31 125/62 01/30/25 02:27 80 20 95 01/30/25 02:25 80 20 96 01/30/25 02:01 127/62 01/30/25 02:01 37.7 C H 127/62 01/30/25 02:00 78 20 95 01/30/25 01:46 123/62 01/30/25 01:46 123/62 01/30/25 01:42 80 22 96 01/30/25 01:31 129/65 01/30/25 01:24 81 21 97 01/30/25 01:16 128/69 01/30/25 01:15 81 20 96 01/30/25 01:01 125/62 01/30/25 00:39 80 19 95 01/30/25 00:30 80 19 125/65 95 FiO2 01/30/25 10:01 01/30/25 10:00 01/30/25 09:01 01/30/25 09:00 01/30/25 08:30 01/30/25 08:12 01/30/25 08:07 01/30/25 08:00 01/30/25 07:24 40 01/30/25 07:01 01/30/25 06:57 01/30/25 06:45 01/30/25 06:31 01/30/25 06:30 01/30/25 06:24 01/30/25 06:16 01/30/25 06:09 01/30/25 06:06 01/30/25 06:01 01/30/25 05:49 40 01/30/25 05:46 01/30/25 05:45 01/30/25 05:31 01/30/25 05:30 01/30/25 05:16 01/30/25 05:12 01/30/25 05:06 01/30/25 05:01 01/30/25 04:42 01/30/25 04:31 01/30/25 04:30 01/30/25 04:00 01/30/25 03:33 01/30/25 03:31 01/30/25 03:21 01/30/25 03:03 01/30/25 03:01 01/30/25 02:54 01/30/25 02:36 01/30/25 02:31 01/30/25 02:27 01/30/25 02:25 40 01/30/25 02:01 01/30/25 02:01 01/30/25 02:00 01/30/25 01:46 01/30/25 01:46 01/30/25 01:42 01/30/25 01:31 01/30/25 01:24 01/30/25 01:16 01/30/25 01:15 01/30/25 01:01 01/30/25 00:39 01/30/25 00:30 PG Care Time/CCT Total # of Minutes Spent Total Time Spent with Patient: Total time spent is greater than 50% in coordination of care (as documented) at patient's floor/unit and/or counseling patient: Coding Level of Care Code 63761 SUB INP/OBS CARE 2/35MIN Diagnoses HALI (acute kidney injury) N17.9 Lactic acidosis E87.20 Hypomagnesemia E83.42 Hypotension I95.9 Sepsis A41.9 Chronic kidney disease, stage 3a N18.31
--- NOTE | 2025-01-30 12:35 | Pharmacy Report ---
Pharmacy PK ABX Note - Date of Service January 30, 2025 - Assessment and Plan Assessment * 74 year old M receiving cefepime and vancomycin empirically for treatment of possible sepsis of unknown source. Risk for spinal/hardware infection per below. Remains in ICU on norepinephrine. Vasopressin now added. * Patient was admitted 7/16 AM following a presyncopal episode. He was originally supposed to have planned/scheduled lower back surgery at [facility] on day of this admission but woke up overnight feeling feverish. At admission, patient was hypotensive and hypothermic with leukocytosis and elevated lactate * PMH: multiple back surgeries with hardware * Pertinent microbiology includes * Blood cultures NGTD * HALI noted. Baseline SCr 1.2 mg/dL with current SCr worsening yesterday to today. Urgent HD may be indicated later today, pending labs and ability to tolerate Plan Vancomycin * Goal trough ~15-20 mcg/mL when dosing via level for acute renal dysfunction / changing renal function * Random level today was therapeutic at 17.5 mg/dL * Will schedule a slightly larger dose of vancomycin than yesterday, given a larger amount of time from dose to subsequent level. 1000 mg IV x1 ordered. * Repeat random level in AM Pharmacy will continue to follow and will adjust dose/frequency as necessary. Thank you. Pharmacy has transitioned to AUC monitoring for vancomycin. AUC/JENNIFER is the preferred PK/PD target and is associated with decreased risk of nephrotoxicity compared to traditional trough targets.
--- NOTE | 2025-01-30 12:43 | Pharmacy Report ---
Pharmacy Glycemic Short Note 2 - Date of Service January 30, 2025 - Glycemic Short BSG Results (Last 24 hours): 01/29/25 01/29/25 01/29/25 14:52 16:28 18:40 Glucose 119 H POC Glucose (other) 120 H 127 H 01/30/25 01/30/25 01/30/25 00:23 04:27 06:31 Glucose 153 H POC Glucose (other) 137 H 176 H 01/30/25 01/30/25 09:55 11:39 Glucose 169 H POC Glucose (other) 155 H OUTPATIENT ANTIDIABETIC REGIMEN: * Tresiba 100 units SC qAM and 80 units qPM (confirmed via external med history Rx) * Metformin * Tirzepatide * HbA1c ordered for 01/30/25 ASSESSMENT: 01/30 * Patient now NPO and on a 2nd pressor * BSG's in goal range 140-180 mg/dL for critically ill patient today, despite significant reduction in basal insulin as compared to outpatient. While patient at risk for basal deficiency given dose reduction, greater risk to the patient would be hypoglycemia. Will therefore maintain lower Lantus dosing and scale tonight's dose based on BSG. Patient may require IV insulin if B SG's increase substantially, although at this point that may be unlikely * Only received two units of Novolog - insufficient to determine adequacy of current regimen. Therefore no change for now 01/29 * 74 yo M with T2DM on high outpatient insulin doses admitted to ICU and on pressors for possible septic shock of unknown source * Unclear if reduced dose of Tresiba was given last night in anticipation of planned surgical intervention today - patient and unfortunately not able to confirm at this time * Will schedule reduced dose of Lantus this PM at 50% of home dose. Home regimen is mostly basal insulin and will also be providing prandial insulin while inpatient. * Unclear needs at this time - no prior hospitalizations to review PLAN FOR INPATIENT GLYCEMIC CONTROL: * Hold outpatient diabetes medications * Basal insulin * Lantus 20-50 units x1 tonight - see MAR for details. * Bolus insulin * NovoLog q4h for NPO * Goal Range: Low 120 mg/dL - High 160 mg/dL * Correction Factor: 15 mg/dL/unit * Nutritional / Prandial insulin per carb ratio of 1 unit per 5 grams CHO consumed
--- NOTE | 2025-01-30 17:48 | Hospitalist Progress Note ---
Date of Service January 30, 2025 Assessment & Plan (1) Hypovolemic shock: (2) Severe sepsis: (3) HALI (acute kidney injury): (4) Lumbar radiculopathy: (5) Hypomagnesemia: (6) History of testicular cancer: (7) Hypothyroidism: (8) Hypertension: (9) Lumbar spinal stenosis: Plan 74yo male who presented following a presyncopal episode. He was supposed to have lumbar back surgery at [facility] with Dr. Galeas at 5:30am on 01/29, but woke up early AM of 01/29 feeling feverish. Upon presentation to [facility] was hypotensive, hypothermic, and had evidence of lactic acidosis with HALI. #Shock - -hypovolemic +/- septic -if septic uncertain of source - lung vs spine vs other -blood cx's thus far negative -required double pressors overnight (levophed + vasopressin) but now weaned off -hypothermia and lactic acidosis resolved -all antihypertensive medications (verapamil, lisinopril, Lasix, doxazosin) on hold -random cortisol 30.43 -remains on empiric abx - Vancomycin Cefepime -will ultimately need imaging of spine #HALI - -worse today -creatinine at ER presentation 3.18 (baseline 1.18) -continues to worsen, now >4.5, along with hyperkalemia from such -CT abd/pelvis without obstruction -He is oliguric but not anuric -Holding lisinopril, Lasix, Bumex, allopurinol -Nephrology consult appreciated -continue serial BMPs #Chronic lumbar spinal stenosis / Lumbar radiculopathy - -h/o multiple back surgeries -Lumbar spine MRI on 12/10/2024 revealed hardware loosening with adjacent enhancing inflammatory changes and small fluid collection -was to have [place] [facility] [place] -home pain regimen oxycodone-acetaminophen 10's q6h -gabapentin dose reduced in the setting of HALI -ultimately needs re-imaging of spine to ensure no infectious source #Hypoxia - -still with O2 requirement but no evidence of infectious process of lungs on cxr #T2DM -Last A1c at 7.1% on 09/30/2024; a1c this admission 6.5% -Hold metformin, Mounjaro -hold Tresiba 80 units once daily -cont Lantus and novolog SSI -Pharmacy glycemic consult appreciated #Lactic acidosis - -2nd to shock - resolved #Hypomagnesemia - -Magnesium 1.3 on arrival -s/p repletion & resolved #Acute metabolic encephalopathy - -multifactorial including shock, possible infection, dehydration, HALI, etc. -improving today #myoclonus vs asterixis - -suspect 2nd to HALI/worsening renal function -ammonia was normal yesterday; will repeat in am #hyperkalemia - -2nd to worsening HALI -s/p lokelam, bicarbonate, etc. -slowly improving -cont to trend BMPs #DVT proph - heparin SC #morbid obesity - BMI 43 appreciate critical care assistance care d/w nursing staff Admission and Anticipated Discharge Date Admission Date: January 29, 2025 Subjective earlier today pressor agents were weaned off entirely he remains oliguric tolerating clear liquid diet patient lying in bed during the visit he c/o "twiches" and tremors in his arms he has had these at home before, but these are much worse denies dyspnea denies abd pain denies chest pain back pain is at baseline - no worse than usual Review of Systems Review of Systems: gen - feels better overall today pulm - no cough GI - no N/V CV - no chest pain Physical Exam Physical Exam: gen - obese, looks better today, more awake/alert mouth - MM more moist today neck - no JVD heart - heart tones distant, s1 s2, RRR, no murmur lungs - CTA b/l, no rales abd - soft NT ND BS+ ext - no edema, pulses b/l feet 2+ b/l, cap refill wnl neuro - myoclonus of arms (and legs) vs asterixis Results & Data Results & Data Vital Signs (Past 12 Hours) Vital Signs Temp Pulse Resp BP Pulse Ox Pulse Ox O2 Del Method 01/30/25 17:43 36.6 C 01/30/25 15:51 90 01/30/25 13:04 147/73 H 01/30/25 12:54 83 23 95 01/30/25 12:15 90 15 92 01/30/25 12:10 110/85 01/30/25 12:00 36.6 C 01/30/25 11:06 85 30 H 93 01/30/25 11:01 119/56 L 01/30/25 10:01 136/56 L 01/30/25 10:00 86 26 H 93 01/30/25 09:01 129/60 01/30/25 09:00 86 28 H 96 01/30/25 08:30 Nasal Cannula 01/30/25 08:12 85 16 94 01/30/25 08:07 133/59 L 01/30/25 08:00 Nasal Cannula 01/30/25 08:00 78 01/30/25 07:24 81 17 97 01/30/25 07:01 138/63 01/30/25 06:57 80 17 98 01/30/25 06:45 78 19 98 01/30/25 06:31 137/62 01/30/25 06:30 79 14 96 01/30/25 06:24 77 16 96 01/30/25 06:16 125/63 01/30/25 06:09 84 23 97 01/30/25 06:06 83 14 96 01/30/25 06:01 119/50 L 01/30/25 05:49 86 19 95 O2 Flow Rate O2 Flow Rate FiO2 01/30/25 17:43 01/30/25 15:51 4 01/30/25 13:04 01/30/25 12:54 01/30/25 12:15 01/30/25 12:10 01/30/25 12:00 01/30/25 11:06 01/30/25 11:01 01/30/25 10:01 01/30/25 10:00 01/30/25 09:01 01/30/25 09:00 01/30/25 08:30 5 01/30/25 08:12 01/30/25 08:07 01/30/25 08:00 01/30/25 08:00 01/30/25 07:24 40 01/30/25 07:01 01/30/25 06:57 01/30/25 06:45 01/30/25 06:31 01/30/25 06:30 01/30/25 06:24 01/30/25 06:16 01/30/25 06:09 01/30/25 06:06 01/30/25 06:01 01/30/25 05:49 40 Laboratory Results Laboratory Results - last 24 hr 01/29/25 01/30/25 01/30/25 14:41 04:27 05:28 WBC RBC Hgb POC Hgb 11.2 L 11.6 L Hct POC Hct 33 L 34 L MCV MCH MCHC RDW Std Deviation RDW Coeff of Hoang Plt Count MPV Immature Gran % (Auto) Neut % (Auto) Lymph % (Auto) [place] % (Auto) Eos % (Auto) Baso % (Auto) Neut # (Auto) Lymph # (Auto) [place] # (Auto) Eos # (Auto) Baso # (Auto) Immature Gran # (Auto) POC pH 7.22 L 7.29 L POC pCO2 48 H 40 POC pO2 90 77 L POC HCO3 20 19 POC Total CO2 21 L 20 L POC Base Excess -8.0 -8.0 POC ABG O2 Sat 95.0 94.0 POC Sodium 138 137 Sodium POC Potassium 5.4 H 5.9 H Potassium Chloride Carbon Dioxide Anion Gap BUN Creatinine Est Cr Clr Drug Dosing eGFR BUN/Creatinine Ratio Glucose POC Glucose POC Glucose (other) Estimat Average Glucose 140 Hemoglobin A1c 6.5 H Calcium Phosphorus Magnesium Total Bilirubin Direct Bilirubin AST ALT Alkaline Phosphatase Ammonia Total Protein Albumin Random Vancomycin 01/30/25 01/30/25 01/30/25 06:31 09:55 11:39 WBC RBC Hgb POC Hgb Hct POC Hct MCV MCH MCHC RDW Std Deviation RDW Coeff of Hoang Plt Count MPV Immature Gran % (Auto) Neut % (Auto) Lymph % (Auto) [place] % (Auto) Eos % (Auto) Baso % (Auto) Neut # (Auto) Lymph # (Auto) [place] # (Auto) Eos # (Auto) Baso # (Auto) Immature Gran # (Auto) POC pH POC pCO2 POC pO2 POC HCO3 POC Total CO2 POC Base Excess POC ABG O2 Sat POC Sodium Sodium 136 POC Potassium Potassium 5.3 H Chloride 107 Carbon Dioxide 19 L Anion Gap 10 BUN 41 H Creatinine 4.92 H* D Est Cr Clr Drug Dosing 20.8 eGFR 11.75 BUN/Creatinine Ratio 8.3 L Glucose 169 H POC Glucose POC Glucose (other) 176 H 155 H Estimat Average Glucose Hemoglobin A1c Calcium 7.9 L Microbiology 01/29/25 05:28 Blood Aerobic Blood Culture - Preliminary No growth in Aerobic bottle after 24 hours. 01/29/25 05:28 Blood Anaerobic Blood Culture - Preliminary No growth in Anaerobic bottle after 24 hours. 01/29/25 05:22 Blood Aerobic Blood Culture - Preliminary No growth in Aerobic bottle after 24 hours. 01/29/25 05:22 Blood Anaerobic Blood Culture - Preliminary No growth in Anaerobic bottle after 24 hours. PG Care Time/CCT Total # of Minutes Spent Total Time Spent with Patient: Total time spent is greater than 50% in coordination of care (as documented) at patient's floor/unit and/or counseling patient: Coding Level of Care Code 62786 SUB INP/OBS CARE 2/35MIN Diagnoses Hypovolemic shock R57.1 Severe sepsis A41.9; R65.20 HALI (acute kidney injury) N17.9 Lumbar radiculopathy M54.16 Hypomagnesemia E83.42 History of testicular cancer Z85.47 Hypothyroidism E03.9 Essential hypertension I10 Hypertension type: essential hypertension Lumbar spinal stenosis M48.061 (8) Hypertension Hypertension type: essential hypertension Qualified Code(s): I10 - Essential (primary) hypertension
[2025-01-30] MEDS: LANTUS PER UNIT CHARGE SC ONE (20:32)
[2025-01-31 05:02] LABS: Hematocrit (blood only) 30.1 % (42.0-52.0); Hemoglobin 9.7 g/dl (14.0-18.0); Immature Granulocytes # (auto) 0.03 K/uL (0.01-0.20); Immature Granulocytes % (auto) 0.3 %; Mean Corpuscular Hemoglobin 31.1 pg (25.0-34.0); Mean Corpuscular Volume 96.5 fL (80.0-100.0); Platelet Count 185 K/uL (130-400); RDW Standard Deviation 55.0 fL (36.4-46.3); Red Blood Count 3.12 M/uL (4.70-6.10); White Blood Count 10.49 K/ul (4.8-10.8)
[2025-01-31 05:20] LABS: Alanine Aminotransferase 15.0 U/L (7-52); Alkaline Phosphatase 99.0 U/L (34-104); Anion Gap 9.0 (3-11); Bilirubin,Total 0.5 mg/dl (0.2-1.0); Blood Urea Nitrogen 43.0 mg/dl (6-23); Calcium 8.2 mg/dl (8.6-10.3); Carbon Dioxide 20.0 mmol/L (21-32); Chloride 107.0 mmol/L (98-107); Creatinine Clr Calc Pharmacy 17.3 ml/min; Glucose 89.0 mg/dl (70-99(Fasting)); Magnesium 1.9 mg/dl (1.7-2.4); Potassium 4.8 mmol/L (3.5-5.1); Sodium 136.0 mmol/L (136-145); Total Protein 5.7 gm/dl (6.0-8.3)
[2025-01-31] MEDS: INSULIN ASPART PER UNIT CHARGE SC SCH ×2 (08:06→11:32)
[2025-01-31] MEDS: GABAPENTIN 100 MG CAP PO SCH (08:07)
--- NOTE | 2025-01-31 10:09 | Nephrology Progress Note ---
Date of Service January 31, 2025 Assessment & Plan (1) HALI (acute kidney injury): (2) Lactic acidosis: (3) Hypomagnesemia: (4) Hypotension: (5) Sepsis: (6) Chronic kidney disease, stage 3a: Plan 74-year-old gentleman with history of stage III A CKD baseline creatinine 1.4- 1.5 mg/dl with history of hypertension, diabetes, dyslipidemia and degenerative disease and prior history of dialysis requiring acute kidney injury was few years ago, admitted to the hospital with presyncope hypotension and concern for sepsis of unclear source. On admission noted to have HALI, creatinine 3.1, potassium 5.5. Urinalysis unremarkable except trace proteinuria. CT abdomen pelvis with no postrenal obstruction, has nonobstructing bilateral nephrolithiasis and small right renal cyst, stable. Received IV fluid and empiric antibiotic, blood culture pending. Kidney function has been worsening rapidly with creatinine up to 5.9 mg/dl, was oliguric but urine output slowly started to improve. Electrolyte acceptable. --Continue to monitor kidney function, electrolytes, UO and volume status. Urine output slowly improving, respiratory status acceptable and off of pressor, do not see any indication for [employer] at this time. --Okay to use diuretics as needed to decrease urine output worsening respiratory status but do not see any need this time. --Dose medications for eGFR less than 10, continue to hold KELECHI inhibitor, diuretics. No Admission and Anticipated Discharge Date Admission Date: January 29, 2025 Subjective Oren was seen and evaluated this morning. He reports otherwise feeling well, currently off of nasal cannula oxygen, denies shortness of breath. Blood pressure has been staying stable off pressor urine output will slow slowly started to improve this morning. Creatinine continues to rise sharply up to 5.9 this morning, electrolyte improved, potassium normal. Review of Systems Review of Systems: Detailed review of system was done and pertinent positives and negatives are mentioned above. Physical Exam Constitutional: WD/WN, vitals as above no acute distress Eyes: + anicteric sclerae Respiratory: no respiratory distress Auscultation: lungs clear to auscultation bilaterally Cardiovascular: Rate/Rhythm: regular rate and regular rhythm Heart Sounds: normal S1 and normal S2 Extremities: no edema Musculoskeletal: Extremities: extremities normal to inspection Skin: no rashes, warm and dry Neurologic: no focal motor deficits Psychiatric: Orientation: alert and oriented x 3 Affect: euthymic affect Results & Data Vital Signs (Past 12 Hours) Vital Signs Temp Pulse Resp BP Pulse Ox FiO2 01/31/25 05:00 124/57 L 01/31/25 05:00 79 18 97 01/31/25 04:00 36.6 C 78 27 H 113/61 97 01/31/25 03:03 81 18 97 01/31/25 03:01 114/81 01/31/25 02:57 79 16 93 01/31/25 02:01 136/48 L 01/31/25 02:00 80 16 90 01/31/25 01:06 81 18 94 01/31/25 01:00 118/57 L 01/31/25 01:00 118/57 L 01/31/25 00:45 82 12 95 01/31/25 00:06 81 17 98 01/31/25 00:01 108/55 L 01/31/25 00:00 88 01/30/25 23:57 82 18 96 01/30/25 23:06 84 20 99 01/30/25 23:01 118/61 01/30/25 22:51 82 21 96 01/30/25 22:24 81 17 100 25 PG Care Time/CCT Total # of Minutes Spent Total Time Spent with Patient: Total time spent is greater than 50% in coordination of care (as documented) at patient's floor/unit and/or counseling patient: Coding Level of Care Code 47171 SUB INP/OBS CARE 3/50MIN Diagnoses HALI (acute kidney injury) N17.9 Lactic acidosis E87.20 Hypomagnesemia E83.42 Hypotension I95.9 Sepsis A41.9 Chronic kidney disease, stage 3a N18.31
--- NOTE | 2025-01-31 10:26 | Pharmacy Report ---
Pharmacy Glycemic Short Note 2 - Date of Service January 31, 2025 - Glycemic Short BSG Results (Last 24 hours): 01/30/25 01/30/25 01/30/25 09:55 11:39 16:10 Glucose 169 H POC Glucose 129 H POC Glucose (other) 155 H 01/30/25 01/31/25 01/31/25 20:03 04:35 08:03 Glucose 89 POC Glucose 133 H 82 POC Glucose (other) OUTPATIENT ANTIDIABETIC REGIMEN: * Tresiba 100 units SC qAM and 80 units qPM (confirmed via external med history Rx) * Metformin * Tirzepatide * HbA1c ordered for 01/30/25 ASSESSMENT: 01/31 * Dilshad received 22 units of insulin yesterday, 20 of which were basal. BSGs were: [phone] mg/dL. * Remains NPO this AM. Fasting BSG down to 82 mg/dL. SCr continues to rise, 5.93 mg/dL this AM. No plans for HD today. Lantus likely lasting a little longer than normally expected given significant HALI. Pressors off. Abx have been discontinued. * RN reports patient did have an guyanese ice later this AM when diet was ordered. Expect lunchtime BSG to be falsely elevated. Will try to adjust for this by loosening carb coverage/correction at lunchtime. May need to tighten back up later this evening. As for basal dose, will put a scaled HS dose on board that provides patient a max of 10 units basal depending on BSG this evening. 01/30 * Patient now NPO and on a 2nd pressor * BSG's in goal range 140-180 mg/dL for critically ill patient today, despite significant reduction in basal insulin as compared to outpatient. While patient at risk for basal deficiency given dose reduction, greater risk to the patient would be hypoglycemia. Will therefore maintain lower Lantus dosing and scale tonight's dose based on BSG. Patient may require IV insulin if BSG's increase substantially, although at this point that may be unlikely * Only received two units of Novolog - insufficient to determine adequacy of current regimen. Therefore no change for now 01/29 * 74 yo M with T2DM on high outpatient insulin doses admitted to ICU and on pressors for possible septic shock of unknown source * Unclear if reduced dose of Tresiba was given last night in anticipation of planned surgical intervention today - patient and unfortunately not able to confirm at this time * Will schedule reduced dose of Lantus this PM at 50% of home dose. Home regimen is mostly basal insulin and will also be providing prandial insulin while inpatient. * Unclear needs at this time - no prior hospitalizations to review PLAN FOR INPATIENT GLYCEMIC CONTROL: * Hold outpatient diabetes medications * Basal insulin * Lantus 0-10 units SC HS - see MAR for details. * Bolus insulin * NovoLog ACHS * Goal Range: Low 120 mg/dL - High 160 mg/dL * Correction Factor: 30 mg/dL/unit * Nutritional / Prandial insulin per carb ratio of 1 unit per 10 grams CHO consumed
[2025-01-31] MEDS: BUMETANIDE 2 MG in SYRINGE 0 ML IV ONE (10:46)
--- NOTE | 2025-01-31 11:18 | Critical Care Progress Note ---
Date of Service January 31, 2025 Assessment & Plan (1) Hypotension: (2) Hypercapnic respiratory failure: (3) Leukocytosis: (4) HALI (acute kidney injury): (5) Chronic kidney disease, stage 3a: (6) Diabetic peripheral neuropathy associated with type 2 diabetes mellitus: (7) Lumbar spondylosis: (8) History of back surgery: (9) Hypovolemic shock: Plan Oren is a 74-year-old male with PMHx CKD IIIa with baseline creatinine 1.4-1.5, DM2 with nephropathy and neuropathy, obesity, and chronic hypercapnic respiratory failure who presented on 01/29 following a presyncopal episode, admitted for presyncope, lactic acidosis, and hypotension. Continues to be on norepi 0.08 for BP support, slight increase in white count and neutophil predominance but lactate has cleared, fluid status improved. Hyperkalemia and increasing creatinine possible due to intrarenal pathology such as ATN likely 2/2 hypoperfusion in the setting of severe dehydration. Recommendations: 1. Neurologic: No current issues. Decreasing gabapentin to 100mg daily and holding baclofen for now with current worsening kidney function. Chronic back pain will need to be addressed in the outpatient setting. 2. Cardiovascular: Norepinephrine off since 01/30 in the afternoon. Lactic acidosis and anion gap have resolved. 3. Respiratory: continue nasal cannula during the day, wean as tolerated. Patient likely has sleep apnea but has refused CPAP and sleep studies in the past. 4. ID: WBCs with neutrophil predominance on admission. WBC down this am and patient has been afebrile. Exam revealing mild LUQ and LLQ abdominal tenderness to palpation, however no distension or guarding, possible intra-abdominal source of infection. Cultures showing no growth in 48h. D/C ABX at this time. 5. GI: PPI off. Advance diet as tolerated. 6. Renal: HALI superimposed on CKD IIIa, likely ATN. Creatinine increased to 5.93 this am. S/p 6L crystalloid. Potassium downtrending, continue lokelma. Given 2mg og Bumex. - Dr. West with nephrology following, suggesting possible acute tubular necrosis as the most likely reason for increasing creatinine, which should improve with time. Will hold on dialysis at this time and monitor electrolytes and renal function daily. 7. Heme-onc: Mild anemia. No evidence of acute blood loss no indication for transfusion currently. Would not use Lovenox for DVT prophylaxis given acute renal failure. 8. Endocrine: Random cortisol greater than 30. No indication for stress dose steroids. Glycemic control per protocol. Continue Synthroid Disposition: Patient off vasopressors and stable this am. Plan to downgrade to hospitalist service. Patient is full code. Patient and family updated at bedside by ICU provider on 01/31/2025. VTE PPx: Subcu heparin, SCD Admission and Anticipated Discharge Date Admission Date: January 29, 2025 Supervising Physician Co-Signing Physician Notes Patient seen and examined. EMR reviewed. The patient's mental status, respiratory status, and cardiovascular status are all improved. He is off pressors and off BiPAP. Unfortunately, his renal indices continue to decline. Nephrology is following. He has been maintained off antibiotics currently. Cultures no growth to date. Patient's critical care issues are resolved. He can transfer out of the intensive care unit. Critical care will sign off. Feel free to contact us with questions or concerns Subjective Patient neuro intact this am. He his on 3L NC with an SpO2 95%. Creatinine continues to rise this am. Urine output is 0.26 ml/kg/hr. Discussed with nephrology plan to hold on dialysis and monitor given electrolytes are within normal limits. Patient is edematous and on requiring oxygen. 2mg of Bumex given. Plan to downgrade to Hospitalist service this am. Review of Systems Review of Systems: All systems reviewed & are unremarkable except as noted in HPI & below Physical Exam Physical Exam: VITALS: Reviewed. WEIGHT/BMI reviewed. GEN: State age appearing, well-developed, NAD. PSYCH: Good Judgment. AOx2. Normal memory, mood, and affect. HEENT -Head: NC/AT; -Eyes: PERRL, EOMI. No discharge or redn ess; -Ears: External ears are normal. -Nose: Normal nares. -Mouth and throat: MMM. Normal gums, muc marty, palate,. Good dentition. NECK: Supple, with no masses. CV: RRR, no m/r/g. LUNGS: CTA in b/l upper lobes with diminished bilateral lower lobes. Chest rise symmetrical. Breathing nonlabored. ABD: Soft, NT/ND, NBS, no masses or organomegaly. : Montero catheter putting out small yellow clear urine. SKIN: Warm, well perfused. No skin rashes or abnormal lesions. MSK: No deformities. EXT: No clubbing, cyanosis, or edema. NEURO: Face symmetric, speech clear, follows commands. Normal muscle strength and tone. No focal deficits. Results & Data Results & Data Vital Signs (Past 12 Hours) Vital Signs Temp Pulse Resp BP Pulse Ox 01/31/25 05:00 124/57 L 01/31/25 05:00 79 18 97 01/31/25 04:00 36.6 C 78 27 H 113/61 97 01/31/25 03:03 81 18 97 01/31/25 03:01 114/81 01/31/25 02:57 79 16 93 01/31/25 02:01 136/48 L 01/31/25 02:00 80 16 90 01/31/25 01:06 81 18 94 01/31/25 01:00 118/57 L 01/31/25 01:00 118/57 L 01/31/25 00:45 82 12 95 01/31/25 00:06 81 17 98 01/31/25 00:01 108/55 L 01/31/25 00:00 88 01/30/25 23:57 82 18 96 Critical Care Results & Data Vital Signs (Past 12 Hours) Vital Signs Temp Pulse Resp BP Pulse Ox 01/31/25 05:00 124/57 L 01/31/25 05:00 79 18 97 01/31/25 04:00 36.6 C 78 27 H 113/61 97 01/31/25 03:03 81 18 97 01/31/25 03:01 114/81 01/31/25 02:57 79 16 93 01/31/25 02:01 136/48 L 01/31/25 02:00 80 16 90 01/31/25 01:06 81 18 94 01/31/25 01:00 118/57 L 01/31/25 01:00 118/57 L 01/31/25 00:45 82 12 95 01/31/25 00:06 81 17 98 01/31/25 00:01 108/55 L 01/31/25 00:00 88 01/30/25 23:57 82 18 96 Lab & Micro Results (Past 24 Hours) RBC 3.12 M/uL (4.70-6.10) L 01/31/25 WBC 10.49 K/ul (4.8-10.8) 01/31/25 Hgb 9.7 g/dl (14.0-18.0) L 01/31/25 Hct 30.1 % (42.0-52.0) L 01/31/25 MCV 96.5 fL (80.0-100.0) 01/31/25 MCH 31.1 pg (25.0-34.0) 01/31/25 MCHC 32.2 g/dL (32.0-36.0) 01/31/25 RDW Standard Deviation 55.0 fL (36.4-46.3) H 01/31/25 RDW Coefficient of Variation 15.6 % (11.5-14.5) H 01/31/25 Plt Count 185 K/uL (130-400) 01/31/25 MPV 9.6 fL (9.4-12.4) 01/31/25 Neutrophils (%) (Auto) 71.4 % 01/31/25 Lymphocytes (%) (Auto) 16.3 % 01/31/25 Monocytes # (Auto) 1.05 K/uL (0.11-0.59) H 01/31/25 Eosinophils # (Auto) 0.18 K/uL (0.00-0.50) 01/31/25 Immature Granulocyte % (Auto) 0.3 % 01/31/25 Neutrophils # (Auto) 7.49 K/uL (1.40-6.50) H 01/31/25 Lymphocytes # (Auto) 1.71 K/uL (1.20-3.40) 01/31/25 Monocytes # (Auto) 1.05 K/uL (0.11-0.59) H 01/31/25 Eosinophils # (Auto) 0.18 K/uL (0.00-0.50) 01/31/25 Basophils # (Auto) 0.03 K/uL (0.00-0.20) 01/31/25 Immature Granulocyte # (Auto) 0.03 K/uL (0.01-0.20) 5 Na 136 mmol/L (136-145) 01/31/25 K 4.8 mmol/L (3.5-5.1) 01/31/25 Cl 107 mmol/L (98-107) 01/31/25 CO2 20 mmol/L (21-32) L 01/31/25 Anion Gap 9 (3-11) 01/31/25 BUN 43 mg/dl (6-23) H 01/31/25 Creatinine 5.93 mg/dl (0.6-1.4) H* 01/31/25 BUN/Creatinine Ratio 7.3 (10-20) L 01/31/25 Glu 89 mg/dl (70-99(Fasting)) 01/31/25 Ca 8.2 mg/dl (8.6-10.3) L 01/31/25 Phosphorus Level 5.7 mg/dl (2.5-4.9) H 01/31/25 Total Bilirubin 0.5 mg/dl (0.2-1.0) 01/31/25 Direct Bilirubin 0.1 mg/dl (0-0.2) 01/31/25 AST 14 U/L (13-39) 01/31/25 ALT 15 U/L (7-52) 01/31/25 Alkaline Phosphatase 99 U/L (34-104) 01/31/25 TP 5.7 gm/dl (6.0-8.3) L 01/31/25 Albumin 2.8 gm/dl (3.4-5.0) L 01/31/25 Mg 1.9 mg/dl (1.7-2.4) 01/31/25 04:35 Calcium Level 8.2 mg/dl (8.6-10.3) L 01/31/25 04:35 Microbiology 01/29/25 05:22 Aerobic Blood Culture - Preliminary Blood No growth in Aerobic bottle after 48 hours. Anaerobic Blood Culture - Preliminary No growth in Anaerobic bottle after 48 hours. 01/29/25 05:28 Aerobic Blood Culture - Preliminary Blood No growth in Aerobic bottle after 48 hours. Anaerobic Blood Culture - Preliminary No growth in Anaerobic bottle after 48 hours. I & O Totals 24 Hours 01/30/25 01/31/25 02/01/25 06:59 06:59 06:59 Intake Total 6685.930 / 6685.930 1104.814 / 1104.814 Output Total 570 / 570 945 / 945 Balance 6115.930 / 6115.930 159.814 / 159.814 Cumulative 01/29/25 04:57 thru 01/31/25 06:35 Intake Total 9790.744 Output Total 1515 Balance 8275.744 RT Ventilator Mngmt (Last Documented) Ventilator Ordered Settings Respiratory Rate 18 01/31/25 05:00 Fraction of Inspired Oxygen 01/30/25 22:24 Ventilator - PT Measurements Respiratory Rate 18 Coding Level of Care Code 36746 SUB INP/OBS CARE 3/50MIN Diagnoses Hypotension I95.9 Acute on chronic respiratory failure with hypercapnia J96.22 Chronicity: acute on chronic Leukocytosis D72.829 HALI (acute kidney injury) N17.9 Chronic kidney disease, stage 3a N18.31 Diabetic peripheral neuropathy associated with type 2 diabetes mellitus E11.42 Lumbar spondylosis M47.816 History of back surgery Z98.890 Hypovolemic shock R57.1 (2) Hypercapnic respiratory failure Chronicity: acute on chronic Qualified Code(s): J96.22 - Acute and chronic respiratory failure with hypercapnia
--- NOTE | 2025-01-31 12:04 | Hospitalist Progress Note ---
Date of Service January 31, 2025 Assessment & Plan (1) Hypovolemic shock: (2) Severe sepsis: (3) HALI (acute kidney injury): (4) Lumbar radiculopathy: (5) Hypomagnesemia: (6) History of testicular cancer: (7) Hypothyroidism: (8) Hypertension: (9) Lumbar spinal stenosis: Plan 74yo male who presented following a presyncopal episode. He was supposed to have lumbar back surgery at [facility] with Dr. Galeas on 01/29, but woke up early AM of 01/29 feeling feverish. Upon presentation to [facility] was hypotensive, hypothermic, and had evidence of lactic acidosis with HALI. #Shock - -hypovolemic +/- septic -if septic uncertain of source - lung vs spine vs other -blood cx's remain negative -required double pressors hospital day #1 (levophed + vasopressin) but weaned off and none in 24+ hours -hypothermia and lactic acidosis resolved -all antihypertensive medications (verapamil, lisinopril, Lasix, doxazosin) remain on hold; may need to resume one of the meds as BPs rise -random cortisol 30.43 -remains on empiric abx - Vancomycin Cefepime -MRI lumbar spine ordered - r/o diskitis, abscess, etc. #HALI - -creatinine now >5, but he is non-oliguric and actually making copious urine with the bumex given this am -suspect beginning of renal recovery -creatinine at ER presentation 3.18 (baseline 1.18) -CT abd/pelvis without obstruction -Holding lisinopril, Lasix, Bumex, allopurinol -Nephrology consult appreciated -continue serial BMPs #Chronic lumbar spinal stenosis / Lumbar radiculopathy - -h/o multiple back surgeries -Lumbar spine MRI on 12/10/2024 revealed hardware loosening with adjacent enhancing inflammatory changes and small fluid collection -was to [place] [facility] [place] -home pain regimen oxycodone-acetaminophen 10's q6h -gabapentin dose reduced in the setting of HALI -MRI lumbar spine (no contrast due to HALI) orderded - r/o diskitis, abscess, etc. #Hypoxia - -still with mild O2 requirement but no evidence of infectious process of lungs on cxr -suspect probably element of volume overload from HALI and generous IV fluids day of admission -o2 requirement should resolve as he diureses #T2DM -Last A1c at 7.1% on 09/30/2024; a1c this admission 6.5% -Hold metformin, Mounjaro -hold Tresiba 80 units once daily -cont Lantus and novolog SSI -Pharmacy glycemic consult appreciated #Lactic acidosis - -2nd to shock - resolved #Hypomagnesemia - -Magnesium 1.3 on arrival -s/p repletion & resolved #Acute metabolic encephalopathy - -multifactorial including shock, possible infection, dehydration, HALI, etc. -seems resolved #myoclonus vs asterixis - -suspect 2nd to HALI/worsening renal function -ammonia normal x 2 -myoclonus resolved today #hyperkalemia - -2nd to worsening HALI -resolved #morbid obesity - BMI 43 #hypothyroidism - -TSH wnl -cont synthroid #mild skin irritation on nose - -bactroban ointment #DVT proph - -heparin SC patient transferred from ICU to floor today appreciate critical care assistance await MRI lumbar spine Admission and Anticipated Discharge Date Admission Date: January 29, 2025 Subjective patient was given bumex this am and has had copious UOP with such since then despite rising creatinine he overall feels better in comparison to admission tolerating clear liquids; he is hungry back pain persists - low back talks about his chronic LLE edema "ever since they did surgery on my lymph nodes" (left groin, when he had testicular cancer) he reports a sore on his nose denies fevers/chills/feeling cold at bedside during the visit we discussed getting MRI of the l-spine to rule out infectious process of this region as cause of his admission Review of Systems Review of Systems: cv - no chest pain pulm - no dyspnea GI - no abd pain or N/V; last BM 01/29 Physical Exam Physical Exam: gen - obese, looks good today, lying in bed comfortably, very talkative mouth - MMM neck - no JVD; CVC left neck clean heart - heart tones distant, s1 s2, RRR, no murmur lungs - CTA b/l, no rales, decreased BS bases abd - soft NT ND BS+ ext - <1+ edema left cobian, trace edema right cobian; pulses b/l feet 2+ b/l neuro - myoclonus of arms (and legs) vs asterixis resolved today skin - mild erythema over mid-nose Results & Data Results & Data Vital Signs (Past 12 Hours) Vital Signs Temp Pulse Resp BP Pulse Ox 01/31/25 08:00 87 01/31/25 05:00 124/57 L 01/31/25 05:00 79 18 97 01/31/25 04:00 36.6 C 78 27 H 113/61 97 01/31/25 03:03 81 18 97 01/31/25 03:01 114/81 01/31/25 02:57 79 16 93 01/31/25 02:01 136/48 L 01/31/25 02:00 80 16 90 01/31/25 01:06 81 18 94 01/31/25 01:00 118/57 L 01/31/25 01:00 118/57 L 01/31/25 00:45 82 12 95 01/31/25 00:06 81 17 98 Laboratory Results Laboratory Results - last 48 hr 01/29/25 01/30/25 01/30/25 14:41 04:27 06:31 WBC RBC Hgb POC Hgb 11.2 L Hct POC Hct 33 L MCV MCH MCHC RDW Std Deviation RDW Coeff of Hoang Plt Count MPV Immature Gran % (Auto) Neut % (Auto) Lymph % (Auto) Warren % (Auto) Eos % (Auto) Baso % (Auto) Neut # (Auto) Lymph # (Auto) Warren # (Auto) Eos # (Auto) Baso # (Auto) Immature Gran # (Auto) POC pH 7.22 L POC pCO2 48 H POC pO2 90 POC HCO3 20 POC Total CO2 21 L POC Base Excess -8.0 POC ABG O2 Sat 95.0 POC Sodium 138 Sodium POC Potassium 5.4 H Potassium Chloride Carbon Dioxide Anion Gap BUN Creatinine Est Cr Clr Drug Dosing eGFR BUN/Creatinine Ratio Glucose POC Glucose POC Glucose (other) 176 H Estimat Average Glucose 140 Hemoglobin A1c 6.5 H Calcium Phosphorus Magnesium Total Bilirubin Direct Bilirubin AST ALT Alkaline Phosphatase Ammonia Total Protein Albumin Random Vancomycin 01/30/25 01/30/25 01/30/25 09:55 11:39 16:10 WBC RBC Hgb POC Hgb Hct POC Hct MCV MCH MCHC RDW Std Deviation RDW Coeff of Hoang Plt Count MPV Immature Gran % (Auto) Neut % (Auto) Lymph % (Auto) Warren % (Auto) Eos % (Auto) Baso % (Auto) Neut # (Auto) Lymph # (Auto) Warren # (Auto) Eos # (Auto) Baso # (Auto) Immature Gran # (Auto) POC pH POC pCO2 POC pO2 POC HCO3 POC Total CO2 POC Base Excess POC ABG O2 Sat POC Sodium Sodium 136 POC Potassium Potassium 5.3 H Chloride 107 Carbon Dioxide 19 L Anion Gap 10 BUN 41 H Creatinine 4.92 H* D Est Cr Clr Drug Dosing 20.8 eGFR 11.75 BUN/Creatinine Ratio 8.3 L Glucose 169 H POC Glucose 129 H POC Glucose (other) 155 H Estimat Average Glucose Hemoglobin A1c Calcium 7.9 L Phosphorus Magnesium Total Bilirubin Direct Bilirubin AST ALT Alkaline Phosphatase Ammonia Total Protein Albumin Random Vancomycin 01/30/25 01/31/25 01/31/25 20:03 04:35 08:03 WBC 10.49 RBC 3.12 L Hgb 9.7 L POC Hgb Hct 30.1 L POC Hct MCV 96.5 MCH 31.1 MCHC 32.2 RDW Std Deviation 55.0 H RDW Coeff of Hoang 15.6 H Plt Count 185 MPV 9.6 Immature Gran % (Auto) 0.3 Neut % (Auto) 71.4 Lymph % (Auto) 16.3 Warren % (Auto) 10.0 Eos % (Auto) 1.7 Baso % (Auto) 0.3 Neut # (Auto) 7.49 H Lymph # (Auto) 1.71 Warren # (Auto) 1.05 H Eos # (Auto) 0.18 Baso # (Auto) 0.03 Immature Gran # (Auto) 0.03 POC pH POC pCO2 POC pO2 POC HCO3 POC Total CO2 POC Base Excess POC ABG O2 Sat POC Sodium Sodium 136 POC Potassium Potassium 4.8 Chloride 107 Carbon Dioxide 20 L Anion Gap 9 BUN 43 H Creatinine 5.93 H* D Est Cr Clr Drug Dosing 17.3 eGFR 9.39 BUN/Creatinine Ratio 7.3 L Glucose 89 POC Glucose 133 H 82 POC Glucose (other) Estimat Average Glucose Hemoglobin A1c Calcium 8.2 L Phosphorus 5.7 H Magnesium 1.9 Total Bilirubin 0.5 Direct Bilirubin 0.1 AST 14 ALT 15 Alkaline Phosphatase 99 Ammonia 16.0 L Total Protein 5.7 L Albumin 2.8 L Random Vancomycin 19.2 Microbiology 01/29/25 05:22 Blood Aerobic Blood Culture - Preliminary No growth in Aerobic bottle after 48 hours. 01/29/25 05:22 Blood Anaerobic Blood Culture - Preliminary No growth in Anaerobic bottle after 48 hours. 01/29/25 05:28 Blood Aerobic Blood Culture - Preliminary No growth in Aerobic bottle after 48 hours. 01/29/25 05:28 Blood Anaerobic Blood Culture - Preliminary No growth in Anaerobic bottle after 48 hours. PG Care Time/CCT Total # of Minutes Spent Total Time Spent with Patient: Total time spent is greater than 50% in coordination of care (as documented) at patient's floor/unit and/or counseling patient: Coding Level of Care Code 44639 SUB INP/OBS CARE 3/50MIN Diagnoses Hypovolemic shock R57.1 Severe sepsis A41.9; R65.20 HALI (acute kidney injury) N17.9 Lumbar radiculopathy M54.16 Hypomagnesemia E83.42 History of testicular cancer Z85.47 Hypothyroidism E03.9 Essential hypertension I10 Hypertension type: essential hypertension Lumbar spinal stenosis M48.061 (8) Hypertension Hypertension type: essential hypertension Qualified Code(s): I10 - Essential (primary) hypertension
--- NOTE | 2025-01-31 21:00 | Magnetic Resonance Report ---
EXAM: MR lumbar spine wo con CLINICAL HISTORY: known l-spine DDD; sepsis, pain; diskitis? TECHNIQUE: MRI of the lumbar spine was performed without the administration of intravenous contrast. Sequences obtained include sagittal T1-weighted, T2-weighted, STIR (Short Tau Inversion Recovery), and axial T2-weighted sequences. COMPARISON: MRI dated 12/10/[address] dated 12/02/2024 FINDINGS: Status post metallic hardware fixation by transpedicular screws/ivis device at L3, L4, and L5 vertebrae. The metallic hardware induces inevitable Blooming (ferromagnetic) artifacts, degrading the image quality. Spinolaminectomy of the L4 Neural arch opposite the L4-L5 intervertebral disc. Extensive soft tissue edema is seen at the subcutaneous fat of the lumbar and sacral region, Paravertebral muscles, namely the quadratus lumborum and erector spinae muscles at T12 through S3 levels. Bone marrow edema of the spinous processes of the L2 and L3, and the L5 vertebral body, Showing A 20% height reduction. These features are highly suggestive of postoperative cellulitis and myositis, and possible osteomyelitis/inflammatory spondylitis. Vertebral Alignment: Subtle degenerative spondylolisthesis is seen at the L4-L5 level. Vertebral Bodies and Intervertebral Discs: The scanned intervertebral discs show variable degrees of degeneration, denoted by low signal intensity on T2 WI with a relative reduction in height. [id number] analysis: T12-L1: There is no significant disc pathology. No spinal canal stenosis. No neural foraminal stenosis.No ligamentum flavum hypertrophy and facet joint arthropathy. L1-L2: There is no significant disc pathology. No spinal canal stenosis. No neural foraminal stenosis.No ligamentum flavum hypertrophy and facet joint arthropathy. L2-L3: There are 3.3 mm subarticular herniations compromising the subarticular recesses with mild bilateral neural foraminal stenosis and impingement of the emerging nerve roots. L3-L4: There is A 3.7 mm annular ulge indenting the thecal sac compromising the subarticular recesses. There is mild spinal canal stenosis and moderate bilateral neural foraminal stenosis with impingement of the emerging nerve roots. Buckled ligamenta flava and arthropathic facet joints augment effects. L4-L5: There is a 6.3 mm annular bulge and 10 mm left foraminal herniation indenting the thecal sac, compromising the subarticular recesses with severe left and moderate right neural foraminal stenosis with impingement of the emerging nerve roots. Degenerative spondylolisthesis and Arthropathic facet joints augment effects. An underlying annular fissure is seen. L5-S1: There is A 2.9 mm annular bulge and a 3.9 mm central herniation indenting the anterior epidural fat, compromising the subarticular recesses. There is mild central canal stenosis and mild bilateral neural foraminal stenosis with impingement of the emerging nerve roots. Buckled ligamenta flava and arthropathic facet joints augment effects. An underlying annular fissure is seen. Spinal Cord and Nerve Roots: Conus medullaris terminates at the L1 level without abnormality. Nerve roots appear unremarkable bilaterally. The lower thoracic spinal cord, conus medullaris, and cauda equina nerve roots are unremarkable. There is no significant disc pathology. No exiting nerve root or spinal cord compression. Normal morphology of the ligamentum flava. No arthropathy of the uncovertebral and zygapophyseal joints. No significant spinal canal and neural foraminal stenosis. IMPRESSION: 1. Status post metallic hardware fixation by transpedicular screws/ivis device at L3, L4, and L5 vertebrae. The metallic hardware induces inevitable Blooming (ferromagnetic) artifacts, degrading the image quality. Spinolaminectomy of the L4 Neural arch opposite the L4-L5 intervertebral disc. Extensive soft tissue edema is seen at the subcutaneous fat of the lumbar and sacral region, Paravertebral muscles, namely the quadratus lumborum and erector spinae muscles at T12 through S3 levels. Bone marrow edema of the spinous processes of the L2 and L3, and the L5 vertebral body, Showing A 20% height reduction. These features are highly suggestive of postoperative cellulitis and myositis, and possible osteomyelitis/inflammatory spondylitis. 2. Spondylodegenerative lumbar disc disease. 3. Subtle degenerative spondylolisthesis is seen at the L4-L5 level. 4. Multilevel lumbar disc pathologies and postoperative status at the L2-L3 through the L5-S1 levels with effects exerted upon the spinal canal, subarticular recesses, and neural foramina. Degenerative spondylolisthesis, Postoperative sequelae, buckled ligamenta flava, and arthropathic facet joints augment effects. 5. The comparison is consistent with a regressive course, with marked reduction of the previously noted encysted fluid signals. Close follow-up is recommended as appropriate. Electronically signed by Richie Ram 01-31-2025 9:00 PM
[2025-01-31] MEDS: LANTUS PER UNIT CHARGE SC SCH (21:45)
[2025-01-31] MEDS: MUPIROCIN 2% OINT 22 GM TUBE EXT SCH (21:58)
[2025-01-31] MEDS: HYDROmorphone INJ 1 MG/ML SYRINGE IV PRN (23:37)
[2025-01-31] MEDS: DAPTOmycin 700 MG in SYRINGE 0 ML IV SCH (23:47)
[2025-01-31] MEDS: CEFEPIME 1000MG 1,000 MG/10 ML SYR IV SCH (23:47)
[2025-02-01 06:26] LABS: Hematocrit (blood only) 30.8 % (42.0-52.0); Hemoglobin 10.6 g/dl (14.0-18.0); Immature Granulocytes # (auto) 0.02 K/uL (0.01-0.20); Immature Granulocytes % (auto) 0.3 %; Mean Corpuscular Hemoglobin 31.7 pg (25.0-34.0); Mean Corpuscular Volume 92.2 fL (80.0-100.0); Platelet Count 224 K/uL (130-400); RDW Standard Deviation 49.7 fL (36.4-46.3); Red Blood Count 3.34 M/uL (4.70-6.10); White Blood Count 7.20 K/ul (4.8-10.8)
[2025-02-01 06:51] LABS: Anion Gap 9.0 (3-11); Blood Urea Nitrogen 42.0 mg/dl (6-23); Calcium 8.4 mg/dl (8.6-10.3); Carbon Dioxide 23.0 mmol/L (21-32); Chloride 107.0 mmol/L (98-107); Creatinine Clr Calc Pharmacy 21.6 ml/min; Glucose 107.0 mg/dl (70-99(Fasting)); Magnesium 1.8 mg/dl (1.7-2.4); Potassium 4.0 mmol/L (3.5-5.1); Sodium 139.0 mmol/L (136-145)
--- NOTE | 2025-02-01 10:42 | Nephrology Progress Note ---
Date of Service February 01, 2025 Assessment & Plan (1) HALI (acute kidney injury): (2) Lactic acidosis: (3) Hypomagnesemia: (4) Hypotension: (5) Sepsis: (6) Chronic kidney disease, stage 3a: Plan 74-year-old gentleman with history of stage III A CKD baseline creatinine 1.4- 1.5 mg/dl with history of hypertension, diabetes, dyslipidemia and degenerative disease and prior history of dialysis requiring acute kidney injury was few years ago, admitted to the hospital with presyncope hypotension and concern for sepsis of unclear source. On admission noted to have HALI, creatinine 3.1, potassium 5.5. Urinalysis unremarkable except trace proteinuria. CT abdomen pelvis with no postrenal obstruction, has nonobstructing bilateral nephrolithiasis and small right renal cyst, stable. On empiric antibiotic, blood culture negative. MRI of Lumbar spine showed Extensive soft tissue edema concerning for postoperative cellulitis and myositis, and possible osteomyelitis/inflammatory spondylitis. Currently on cefepime and daptomycin. Kidney function started to improve, creatinine down to 4.3 mg/dl. Electrolyte acceptable. --Encouraged to increase her fluid intake to avoid volume depletion with high urine output obtained after Bumex yesterday. --Continue to monitor kidney function, electrolyte and intake and output., Expect kidney function to continue to improve. Admission and Anticipated Discharge Date Admission Date: January 29, 2025 Subjective Oren was seen and evaluated this morning. He reports otherwise feeling well, denies shortness of breath. Blood pressure has been staying stable. Creatinine started to improve and down to 4.3 mg/dl this morning. Great urine output after 1 dose of Bumex yesterday, negative more than 5 L. Review of Systems Review of Systems: Detailed review of system was done and pertinent positives and negatives are mentioned above. Physical Exam Constitutional: WD/WN, vitals as above no acute distress Eyes: + anicteric sclerae Respiratory: no respiratory distress Auscultation: lungs clear to auscultation bilaterally Cardiovascular: Rate/Rhythm: regular rate and regular rhythm Heart Sounds: normal S1 and normal S2 Extremities: no edema Musculoskeletal: Extremities: extremities normal to inspection Skin: no rashes, warm and dry Neurologic: no focal motor deficits Psychiatric: Orientation: alert and oriented x 3 Affect: euthymic affect Results & Data Vital Signs (Past 12 Hours) Vital Signs Temp Pulse Resp BP Pulse Ox O2 Del Method O2 Flow Rate 02/01/25 08:15 36.7 C 81 18 143/71 H 90 Nasal Cannula 02/01/25 02:34 36.8 C 79 18 150/66 H 90 Room Air 01/31/25 22:50 36.9 C 85 18 166/82 H 93 Nasal Cannula 2 PG Care Time/CCT Total # of Minutes Spent Total Time Spent with Patient: Total time spent is greater than 50% in coordination of care (as documented) at patient's floor/unit and/or counseling patient: Coding Level of Care Code 20657 SUB INP/OBS CARE 2/35MIN Diagnoses HALI (acute kidney injury) N17.9 Lactic acidosis E87.20 Hypomagnesemia E83.42 Hypotension I95.9 Sepsis A41.9 Chronic kidney disease, stage 3a N18.31
--- NOTE | 2025-02-01 18:03 | Hospitalist Progress Note ---
Date of Service February 01, 2025 Assessment & Plan (1) Hypovolemic shock: (2) Severe sepsis: (3) Abnormal MRI, lumbar spine: (4) HALI (acute kidney injury): (5) Lumbar radiculopathy: (6) Hypomagnesemia: (7) History of testicular cancer: (8) Hypothyroidism: (9) Hypertension: (10) Lumbar spinal stenosis: Plan 74yo male who presented following a presyncopal episode at home. He was supposed to have lumbar back surgery at [facility] with Dr. Galeas on 01/29, but woke up early AM of 01/29 feeling feverish and generally unwell. Upon presentation to [facility] was hypotensive, hypothermic, and had evidence of lactic acidosis with HALI. Despite copious hydration at ER presentation he had persistent shock and pressors were started. Admitted to ICU thereafter. #Shock - -hypovolemic +/- septic - resolved -source of sepsis uncertain - blood cx's negative, CT chest/abd/pelvis without a source, u/a not suggestive of UTI, resp biofire negative -required double pressors hospital day #1 (levophed + vasopressin) but weaned off about 24 hours into his hospitalization -hypothermia and lactic acidosis resolved -all antihypertensive medications (verapamil, lisinopril, Lasix, doxazosin) remain on hold; may need to resume one of the meds as BPs rise -random cortisol 30.43 -MRI lumbar spine from 01/31 with findings worrisome for possible infectious process of the lumbar region (see below) #abnormal MRI lumbar spine / chronic lumbar spinal stenosis / previous l-spine surgery at [facility] 09/2024 / lumbar radiculopathy - -h/o multiple back surgeries - most recent 09/2024 at [facility] by Dr Galeas -Lumbar spine MRI on 12/10/2024 revealed hardware loosening with adjacent enhancing inflammatory changes and small fluid collection -was to have back surgery at [facility] on day of admission -home pain regimen oxycodone-acetaminophen 10's q6h -gabapentin dose reduced in the setting of HALI -remains on dilaudid IV prn -MRI l-spine last pm with evidence of inflammation; per radiology report -- "Extensive soft tissue edema is seen at the subcutaneous fat of the lumbar and sacral region, paravertebral muscles, namely the quadratus lumborum and erector spinae muscles at T12 through S3 levels. Bone marrow edema of the spinous processes of the L2 and L3, and the L5 vertebral body, showing A 20% height reduction. These features are highly suggestive of postoperative cellulitis and myositis, and possible osteomyelitis/inflammatory spondylitis." -this am I had informal discussion with on-call ortho/spine at [facility] (Dr Niles Rodriguez); we reviewed the images together -although the inflammatory findings could be post-operative from his 09/2024 surgery, given his presentation 3 days ago (presumed septic shock) and elevated inflammatory markers need to consider that these findings could be infectious -thus, made phone call to [facility] and spoke extensively with Dr Galeas - ortho/spine -see below for phone call details -plan - continue abx in the form of cefepime + daptomycin; follow blood cx's; cont pain control #HALI - IMPROVING - -peak creatinine 5.9, now 4.7 today and having copious UOP consistent with a post-ATN diuresis -all signs point towards renal recovery -creatinine at ER presentation 3.18 (baseline 1.18) -CT abd/pelvis without obstruction -cont to hold lisinopril, Lasix, bumex, allopurinol -Nephrology consult appreciated -continue serial BMPs #Hypoxia - RESOLVED - -suspect he probably had element of volume overload from HALI and generous IV fluids day of admission -o2 requirement now resolved in face of auto-diuresis -cont to monitor #T2DM -Last A1c at 7.1% on 09/30/2024; a1c this admission 6.5% -Hold metformin, Mounjaro -hold Tresiba 80 units once daily -cont Lantus and novolog SSI -Pharmacy glycemic consult appreciated #Lactic acidosis - present on admission - -2nd to shock - resolved #Hypomagnesemia - -Magnesium 1.3 on arrival -s/p repletion & resolved -check mag level in am tomorrow #Acute metabolic encephalopathy - -multifactorial including shock, possible infection, dehydration, HALI, etc. -resolved #hyperkalemia - -2nd to HALI -resolved #morbid obesity - BMI 42 #hypothyroidism - -TSH wnl -cont synthroid #mild skin irritation on nose - -bactroban ointment BID #DVT proph - -heparin SC approximately 25-30 minute phone call was had with [facility] I spoke with Dr Alexis Galeas, ortho-spine (who knows Mr Jung well and was to operate on his l-spine on 01/29) I also spoke with Dr Kim Leos, [place] hospitalist Dr Galeas was able to review the MRI l-spine from 11/2024 and compare such with yesterday's MRI l-spine Dr Galeas reported there was similar findings overall on the 2 MRIs There is inflammation in the lumbar region - could be post-operative inflammation from surgery in September 2024, vs infectious given his clinical presentation on 01/29 (shock, hypothermia, etc) as well as recent leukocytosis & elevated sed rate/crp Plan is to allow Mr Jung's kidney function to recover this weekend into early next week I will contact their transfer center on Monday am to give clinical update to medicine and ortho Decision will be made at that time if Mr Jung should be transferred to [facility] to have exploratory lumbar surgery to exclude infection, perform wash-out, replace hardware (which was previously planned), etc late in the afternoon I visited Mr Jung a 2nd time was present at bedside reviewed the details of the phone call with [place] and plan for the rest of the weekend total time between phone call to [facility], speaking with Dr Rodriguez locally here, 2 visits to bedside, update to pt's , phone call to radiology, etc -- 85 minutes Admission and Anticipated Discharge Date Admission Date: January 29, 2025 Subjective tele overnight wnl patient resting in bed during the visit continues with low back pain and is requiring dilaudid IV for such he overall feels better and appetite has improved UOP has been copious since yesterday denies any new complaints no abd pain or N/V he has not complained of myoclonus/twitches in over 2 days Review of Systems Review of Systems: gen - no fevers or chills cv - no cp pul - no dyspnea at rest; during my 1st visit this morning we took his O2 off and he satted 90-95% in room air Physical Exam Physical Exam: gen - obese, NAD, lying comfortably in bed mouth - MMM neck - no JVD; CVC left neck clean heart - heart tones distant, s1 s2, RRR, no murmur lungs - CTA b/l, no rales abd - soft NT ND BS+ ext - <1+ edema left cobian, trace edema right cobian; pulses b/l feet 2+ b/l skin - mild erythema over mid-nose slightly better Results & Data Results & Data Vital Signs (Past 12 Hours) Vital Signs Temp Pulse Pulse Resp BP Pulse Ox O2 Del Method 02/01/25 15:40 36.7 C 74 16 158/74 H 90 Room Air 02/01/25 14:49 71 02/01/25 11:37 36.9 C 75 16 155/75 H 91 Nasal Cannula 02/01/25 11:00 Nasal Cannula 02/01/25 08:15 36.7 C 81 18 143/71 H 90 Nasal Cannula O2 Flow Rate 02/01/25 15:40 02/01/25 14:49 02/01/25 11:37 02/01/25 11:00 2 02/01/25 08:15 Laboratory Results Laboratory Results - last 24 hr 01/31/25 02/01/25 02/01/25 20:26 05:58 07:56 WBC 7.20 RBC 3.34 L Hgb 10.6 L Hct 30.8 L MCV 92.2 MCH 31.7 MCHC 34.4 RDW Std Deviation 49.7 H RDW Coeff of Hoang 14.8 H Plt Count 224 MPV 10.1 Immature Gran % (Auto) 0.3 Neut % (Auto) 62.0 Lymph % (Auto) 23.3 [place] % (Auto) 10.8 Eos % (Auto) 3.3 Baso % (Auto) 0.3 Neut # (Auto) 4.46 Lymph # (Auto) 1.68 [place] # (Auto) 0.78 H Eos # (Auto) 0.24 Baso # (Auto) 0.02 Immature Gran # (Auto) 0.02 ESR 50 H Sodium 139 Potassium 4.0 Chloride 107 Carbon Dioxide 23 Anion Gap 9 BUN 42 H Creatinine 4.70 H* D Est Cr Clr Drug Dosing 21.6 eGFR 12.41 BUN/Creatinine Ratio 8.9 L Glucose 107 H POC Glucose 133 H 115 H Calcium 8.4 L Phosphorus 4.7 D Magnesium 1.8 C-Reactive Protein 12.44 H Albumin 3.1 L 02/01/25 02/01/25 02/01/25 12:00 17:00 19:54 WBC RBC Hgb Hct MCV MCH MCHC RDW Std Deviation RDW Coeff of Hoang Plt Count MPV Immature Gran % (Auto) Neut % (Auto) Lymph % (Auto) [place] % (Auto) Eos % (Auto) Baso % (Auto) Neut # (Auto) Lymph # (Auto) [place] # (Auto) Eos # (Auto) Baso # (Auto) Immature Gran # (Auto) ESR Sodium Potassium Chloride Carbon Dioxide Anion Gap BUN Creatinine Est Cr Clr Drug Dosing eGFR BUN/Creatinine Ratio Glucose POC Glucose 136 H 155 H 135 H Calcium Phosphorus Magnesium C-Reactive Protein Albumin Diagnostic Findings Lumbar Spine MRI 01/31/25 15:11 EXAM: MR lumbar spine wo con CLINICAL HISTORY: known l-spine DDD; sepsis, pain; diskitis? TECHNIQUE: MRI of the lumbar spine was performed without the administration of intravenous contrast. Sequences obtained include sagittal T1-weighted, T2-weighted, STIR (Short Tau Inversion Recovery), and axial T2-weighted sequences. COMPARISON: MRI dated 12/10/[address] dated 12/02/2024 FINDINGS: Status post metallic hardware fixation by transpedicular screws/ivis device at L3, L4, and L5 vertebrae. The metallic hardware induces inevitable Blooming (ferromagnetic) artifacts, degrading the image quality. Spinolaminectomy of the L4 Neural arch opposite the L4-L5 intervertebral disc. Extensive soft tissue edema is seen at the subcutaneous fat of the lumbar and sacral region, Paravertebral muscles, namely the quadratus lumborum and erector spinae muscles at T12 through S3 levels. Bone marrow edema of the spinous processes of the L2 and L3, and the L5 vertebral body, Showing A 20% height reduction. These features are highly suggestive of postoperative cellulitis and myositis, and possible osteomyelitis/inflammatory spondylitis. Vertebral Alignment: Subtle degenerative spondylolisthesis is seen at the L4-L5 level. Vertebral Bodies and Intervertebral Discs: The scanned intervertebral discs show variable degrees of degeneration, denoted by low signal intensity on T2 WI with a relative reduction in height. [id number] analysis: T12-L1: There is no significant disc pathology. No spinal canal stenosis. No neural foraminal stenosis.No ligamentum flavum hypertrophy and facet joint arthropathy. L1-L2: There is no significant disc pathology. No spinal canal stenosis. No neural foraminal stenosis.No ligamentum flavum hypertrophy and facet joint arthropathy. L2-L3: There are 3.3 mm subarticular herniations compromising the subarticular recesses with mild bilateral neural foraminal stenosis and impingement of the emerging nerve roots. L3-L4: There is A 3.7 mm annular ulge indenting the thecal sac compromising the subarticular recesses. There is mild spinal canal stenosis and moderate bilateral neural foraminal stenosis with impingement of the emerging nerve roots. Buckled ligamenta flava and arthropathic facet joints augment effects. L4-L5: There is a 6.3 mm annular bulge and 10 mm left foraminal herniation indenting the thecal sac, compromising the subarticular recesses with severe left and moderate right neural foraminal stenosis with impingement of the emerging nerve roots. Degenerative spondylolisthesis and Arthropathic facet joints augment effects. An underlying annular fissure is seen. L5-S1: There is A 2.9 mm annular bulge and a 3.9 mm central herniation indenting the anterior epidural fat, compromising the subarticular recesses. There is mild central canal stenosis and mild bilateral neural foraminal stenosis with impingement of the emerging nerve roots. Buckled ligamenta flava and arthropathic facet joints augment effects. An underlying annular fissure is seen. Spinal Cord and Nerve Roots: Conus medullaris terminates at the L1 level without abnormality. Nerve roots appear unremarkable bilaterally. The lower thoracic spinal cord, conus medullaris, and cauda equina nerve roots are unremarkable. There is no significant disc pathology. No exiting nerve root or spinal cord compression. Normal morphology of the ligamentum flava. No arthropathy of the uncovertebral and zygapophyseal joints. No significant spinal canal and neural foraminal stenosis. IMPRESSION: 1. Status post metallic hardware fixation by transpedicular screws/ivis device at L3, L4, and L5 vertebrae. The metallic hardware induces inevitable Blooming (ferromagnetic) artifacts, degrading the image quality. Spinolaminectomy of the L4 Neural arch opposite the L4-L5 intervertebral disc. Extensive soft tissue edema is seen at the subcutaneous fat of the lumbar and sacral region, Paravertebral muscles, namely the quadratus lumborum and erector spinae muscles at T12 through S3 levels. Bone marrow edema of the spinous processes of the L2 and L3, and the L5 vertebral body, Showing A 20% height reduction. These features are highly suggestive of postoperative cellulitis and myositis, and possible osteomyelitis/inflammatory spondylitis. 2. Spondylodegenerative lumbar disc disease. 3. Subtle degenerative spondylolisthesis is seen at the L4-L5 level. 4. Multilevel lumbar disc pathologies and postoperative status at the L2-L3 through the L5-S1 levels with effects exerted upon the spinal canal, subarticular recesses, and neural foramina. Degenerative spondylolisthesis, Postoperative sequelae, buckled ligamenta flava, and arthropathic facet joints augment effects. 5. The comparison is consistent with a regressive course, with marked reduction of the previously noted encysted fluid signals. Close follow-up is recommended as appropriate. Electronically signed by Richie Ram 01-31-2025 9:00 PM PG Care Time/CCT Total # of Minutes Spent Total Time Spent with Patient: Total time spent is greater than 50% in coordination of care (as documented) at patient's floor/unit and/or counseling patient: Prolonged Care Time Prolonged Care Time: Yes Total Prolonged Care Time: 85 Coding Level of Care Code 51618 SUB INP/OBS CARE 3/50MIN (25 - SIGNIFICANT, SEPARATELY IDENTIFIABLE ) Diagnoses Hypovolemic shock R57.1 Severe sepsis A41.9; R65.20 Abnormal MRI, lumbar spine R93.7 HALI (acute kidney injury) N17.9 Lumbar radiculopathy M54.16 Hypomagnesemia E83.42 History of testicular cancer Z85.47 Hypothyroidism E03.9 Essential hypertension I10 Hypertension type: essential hypertension Lumbar spinal stenosis M48.061 Additional Codes Prolonged Care Time - Prolonged Care Time: Yes ([id number]) (9) Hypertension Hypertension type: essential hypertension Qualified Code(s): I10 - Essential (primary) hypertension
[2025-02-02 07:15] LABS: Anion Gap 9.0 (3-11); Blood Urea Nitrogen 34.0 mg/dl (6-23); Calcium 8.6 mg/dl (8.6-10.3); Carbon Dioxide 24.0 mmol/L (21-32); Chloride 106.0 mmol/L (98-107); Creatinine Clr Calc Pharmacy 33.2 ml/min; Glucose 128.0 mg/dl (70-99(Fasting)); Magnesium 1.7 mg/dl (1.7-2.4); Potassium 3.7 mmol/L (3.5-5.1); Sodium 139.0 mmol/L (136-145)
[2025-02-02] MEDS: MAGNESIUM OXIDE 400 MG TAB PO SCH (09:01)
[2025-02-02] MEDS: GABAPENTIN 100 MG CAP PO SCH (09:01)
[2025-02-02] MEDS: POTASSIUM CHLORIDE 10 MEQ TABCR PO SCH (09:01)
--- NOTE | 2025-02-02 10:22 | Nephrology Progress Note ---
Date of Service February 02, 2025 Assessment & Plan (1) HALI (acute kidney injury): (2) Lactic acidosis: (3) Hypomagnesemia: (4) Hypotension: (5) Sepsis: (6) Chronic kidney disease, stage 3a: Plan 74-year-old gentleman with history of stage III A CKD baseline creatinine 1.4- 1.5 mg/dl with history of hypertension, diabetes, dyslipidemia and degenerative disease and prior history of dialysis requiring acute kidney injury was few years ago, admitted to the hospital with presyncope hypotension and concern for sepsis of unclear source. On admission noted to have HALI, creatinine 3.1, potassium 5.5. Urinalysis unremarkable except trace proteinuria. CT abdomen pelvis with no postrenal obstruction, has nonobstructing bilateral nephrolithiasis and small right renal cyst, stable. On empiric antibiotic, blood culture negative. MRI of Lumbar spine showed Extensive soft tissue edema concerning for postoperative cellulitis and myositis, and possible osteomyelitis/inflammatory spondylitis. Currently on cefepime and daptomycin. Plan is to eventually transfer to [place] once kidney function improved further to have lumbar back surgery. Kidney function continues to improve, creatinine down to 3.0 mg/dl. Electrolyte acceptable. Blood pressure remain elevated. --Encouraged to increase her fluid intake to avoid volume depletion with high urine output. --Recommend starting back on verapamil as blood pressure running high. Continue to hold lisinopril for now but okay to resume once kidney function improved further and blood pressure remains elevated. --Continue to monitor kidney function, electrolyte and intake and output., Expect kidney function to continue to improve. Will sign off. Thank you for the consult, please contact if further assistance needed. Admission and Anticipated Discharge Date Admission Date: January 29, 2025 Subjective Oren was seen and evaluated this morning. Overall feeling well, denies shortness of breath but noticed some swelling in hands. Blood pressure elevated. Kidney function continues to improve rapidly, creatinine down to 3.0. Mg/dl this morning. Urine output more than 5 L. Review of Systems Review of Systems: Detailed review of system was done and pertinent positives and negatives are mentioned above. Physical Exam Constitutional: WD/WN, vitals as above no acute distress Eyes: + anicteric sclerae Respiratory: no respiratory distress Auscultation: lungs clear to auscultation bilaterally Cardiovascular: Rate/Rhythm: regular rate and regular rhythm Heart Sounds: normal S1 and normal S2 Extremities: + edema (trace b/l LE edema) Musculoskeletal: Extremities: extremities normal to inspection Skin: no rashes, warm and dry Neurologic: no focal motor deficits Psychiatric: Orientation: alert and oriented x 3 Affect: euthymic affect Results & Data Vital Signs (Past 12 Hours) Vital Signs Temp Pulse Pulse Resp BP Pulse Ox O2 Del Method 02/02/25 07:42 36.7 C 71 20 165/80 H 91 Room Air 02/02/25 05:49 70 02/02/25 04:15 36.6 C 68 18 151/82 H 93 Room Air 02/01/25 22:54 36.5 C 72 20 154/83 H 91 Room Air 02/01/25 22:16 67 PG Care Time/CCT Total # of Minutes Spent Total Time Spent with Patient: Total time spent is greater than 50% in coordination of care (as documented) at patient's floor/unit and/or counseling patient: Coding Level of Care Code 08802 SUB INP/OBS CARE 2/35MIN Diagnoses HALI (acute kidney injury) N17.9 Lactic acidosis E87.20 Hypomagnesemia E83.42 Hypotension I95.9 Sepsis A41.9 Chronic kidney disease, stage 3a N18.31
[2025-02-02] MEDS: CEFEPIME 2000MG 2,000 MG/20 ML SYR IV SCH (12:33)
[2025-02-02] MEDS: DAPTOmycin 700 MG in SYRINGE 0 ML IV SCH (12:36)
--- NOTE | 2025-02-02 17:41 | Hospitalist Progress Note ---
Date of Service February 02, 2025 Assessment & Plan (1) Hypovolemic shock: (2) Severe sepsis: (3) Abnormal MRI, lumbar spine: (4) HALI (acute kidney injury): (5) Lumbar radiculopathy: (6) Hypomagnesemia: (7) History of testicular cancer: (8) Hypothyroidism: (9) Hypertension: (10) Lumbar spinal stenosis: Plan 74yo male who presented following a presyncopal episode at home. He was supposed to have lumbar back surgery at [facility] with Dr. Galeas on 01/29, but woke up early AM of 01/29 feeling feverish and generally unwell. Upon presentation to [facility] was hypotensive, hypothermic, and had evidence of lactic acidosis with HALI. Despite copious hydration at ER presentation he had persistent shock and pressors were started. Admitted to ICU thereafter. #Shock - -hypovolemic +/- septic - resolved -source of sepsis uncertain - blood cx's negative, CT chest/abd/pelvis without a source, u/a not suggestive of UTI, resp biofire negative -required double pressors hospital day #1 (levophed + vasopressin) but weaned off about 24 hours into his hospitalization -hypothermia and lactic acidosis resolved -random cortisol 30.43 -MRI lumbar spine from 01/31 with findings worrisome for possible infectious process of the lumbar region (see below) #abnormal MRI lumbar spine / chronic lumbar spinal stenosis / previous [place] [facility] [place] / lumbar radiculopathy - -h/o multiple back surgeries - most recent 09/2024 at [facility] [place] Galeas -Lumbar spine MRI on 12/10/2024 revealed hardware loosening with adjacent enhancing inflammatory changes and small fluid collection -was to have back surgery at [facility] on day of admission -home pain regimen oxycodone-acetaminophen 10's q6h -gabapentin dose had been reduced in the setting of HALI; with HALI resolving will titrate back up his gabapentin to 200mg BID -remains on dilaudid IV prn -MRI l-spine last pm with evidence of inflammation; per radiology report -- "Extensive soft tissue edema is seen at the subcutaneous fat of the lumbar and sacral region, paravertebral muscles, namely the quadratus lumborum and erector spinae muscles at T12 through S3 levels. Bone marrow edema of the spinous processes of the L2 and L3, and the L5 vertebral body, showing A 20% height reduction. These features are highly suggestive of postoperative cellulitis and myositis, and possible osteomyelitis/inflammatory spondylitis." -had informal discussion with on-call ortho/spine at [facility] (Dr Niles Rodriguez); we reviewed the images together -although the inflammatory findings could be post-operative from his 09/2024 surgery, given his presentation (presumed septic shock) and elevated inflammatory markers need to consider that these findings could be infectious -thus, made phone call to [facility] and spoke extensively with Dr Galeas - ortho/spine - on 02/01 -Dr Galeas reviewed the MRI images; stated they were similar to 11/2024 MRI images; had similar take on the images as Dr Rodriguez - could be infectious, could be post-op inflammatory -plan - continue abx in the form of cefepime + daptomycin; follow blood cx's; cont pain control #HALI - IMPROVING - -peak creatinine 5.9, now 3 today and having copious UOP consistent with a post- ATN diuresis -all signs point towards renal recovery -creatinine at ER presentation 3.18 (baseline 1.18) -CT abd/pelvis without obstruction -cont to hold lisinopril, Lasix, bumex, allopurinol -Nephrology consult appreciated -continue serial BMPs #Hypoxia - RESOLVED - -suspect he probably had element of volume overload from HALI and generous IV fluids day of admission -o2 requirement now resolved in face of auto-diuresis -cont to monitor #T2DM -Last A1c at 7.1% on 09/30/2024; a1c this admission 6.5% -Hold metformin, Mounjaro -hold Tresiba 80 units once daily -cont Lantus and novolog SSI -Pharmacy glycemic consult appreciated #Lactic acidosis - present on admission - -2nd to shock - resolved #Hypomagnesemia - -Magnesium 1.3 on arrival -s/p repletion & resolved #Acute metabolic encephalopathy - -multifactorial including shock, possible infection, dehydration, HALI, etc. -resolved #hyperkalemia - -2nd to HALI -resolved #morbid obesity - BMI 42 #hypothyroidism - -TSH wnl -cont synthroid #mild skin irritation on nose - -bactroban ointment BID #HTN - -resume verapamil at 180mg daily (1/2 his usual dose) #DVT proph - -heparin SC #edema of limbs - -reassured patient that this is due to copious IV hydration HD #1 followed by severe HALI -he is auto-diuresing, and once his creatinine is near-normal, we can also resume his diuretics -elevated right arm on pillows spoke with Dr Alexis Galeas, ortho-spine (who knows Mr Jung well and was to operate on his l-spine on 01/29) as well as Dr Kim Leos, [place] hospitalist -- on a conference call at [facility] [place] plan - will contact their transfer center on Monday am to give clinical update to medicine and ortho Decision will be made at that time if Mr Jung should be transferred to [facility] to have exploratory lumbar surgery to exclude infection, perform wash-out, replace hardware (which was previously planned), etc overall he is progressing nicely PT/OT, OOB if possible consider removing shaw soon Admission and Anticipated Discharge Date Admission Date: January 29, 2025 Subjective pt's main complaint is that of swelling in all 4 limbs, especially the RUE and the LLE he feels "sore" in multiple areas including both shoulders denies any dyspnea eating well back pain - ongoing, severe; midline lumbar spine in location; requiring frequent IV dilaudid tele - NSR Review of Systems Review of Systems: gen - no fevers or chills cv - no cp pulm - no cough or dyspnea at rest GI - no N/V Physical Exam Physical Exam: gen - obese, NAD, lying comfortably in bed; looks well mouth - MMM neck - no JVD heart - heart tones distant, s1 s2, RRR, no murmur lungs - CTA b/l, no rales abd - soft NT ND BS+ ext - 1-2+ edema left cobian, 1+ edema right cobian; right arm with <1+ edema; left arm with trace edema; pulses b/l feet 2+ b/l skin - mild erythema over mid-nose continues to improve Results & Data Results & Data Vital Signs (Past 12 Hours) Vital Signs Temp Pulse Pulse Resp BP BP Pulse Ox 02/02/25 15:51 36.8 C 67 18 159/79 H 91 02/02/25 13:16 63 02/02/25 11:19 36.6 C 73 24 159/79 H 90 02/02/25 10:35 02/02/25 07:42 36.7 C 71 20 165/80 H 91 02/02/25 05:49 70 O2 Del Method 02/02/25 15:51 Room Air 02/02/25 13:16 02/02/25 11:19 Room Air 02/02/25 10:35 Room Air 02/02/25 07:42 Room Air 02/02/25 05:49 Laboratory Results Laboratory Results - last 24 hr 02/02/25 02/02/25 02/02/25 05:40 08:00 11:59 Sodium 139 Potassium 3.7 Chloride 106 Carbon Dioxide 24 Anion Gap 9 BUN 34 H Creatinine 3.04 H D Est Cr Clr Drug Dosing 33.2 eGFR 20.93 BUN/Creatinine Ratio 11.2 Glucose 128 H POC Glucose 139 H 150 H Calcium 8.6 Phosphorus 3.8 Magnesium 1.7 Albumin 3.1 L Diagnostic Findings Microbiology 01/29/25 05:22 Blood Aerobic Blood Culture - Preliminary No growth in Aerobic bottle after 48 hours. 01/29/25 05:22 Blood Anaerobic Blood Culture - Preliminary No growth in Anaerobic bottle after 48 hours. 01/29/25 05:28 Blood Aerobic Blood Culture - Preliminary No growth in Aerobic bottle after 48 hours. 01/29/25 05:28 Blood Anaerobic Blood Culture - Preliminary No growth in Anaerobic bottle after 48 hours. PG Care Time/CCT Total # of Minutes Spent Total Time Spent with Patient: Total time spent is greater than 50% in coordination of care (as documented) at patient's floor/unit and/or counseling patient: Coding Level of Care Code 97076 SUB INP/OBS CARE 2/35MIN Diagnoses Hypovolemic shock R57.1 Severe sepsis A41.9; R65.20 Abnormal MRI, lumbar spine R93.7 HALI (acute kidney injury) N17.9 Lumbar radiculopathy M54.16 Hypomagnesemia E83.42 History of testicular cancer Z85.47 Hypothyroidism E03.9 Essential hypertension I10 Hypertension type: essential hypertension Lumbar spinal stenosis M48.061 (9) Hypertension Hypertension type: essential hypertension Qualified Code(s): I10 - Essential (primary) hypertension
[2025-02-02] MEDS: VERAPAMIL HCL 180 MG TABCR PO SCH (18:28)
[2025-02-03 04:23] VITALS: RESP 18; O2SAT 92
[2025-02-03 07:33] LABS: Anion Gap 9.0 (3-11); Blood Urea Nitrogen 26.0 mg/dl (6-23); Calcium 8.8 mg/dl (8.6-10.3); Carbon Dioxide 24.0 mmol/L (21-32); Chloride 106.0 mmol/L (98-107); Creatinine Clr Calc Pharmacy 48.3 ml/min; Glucose 139.0 mg/dl (70-99(Fasting)); Potassium 3.7 mmol/L (3.5-5.1); Sodium 139.0 mmol/L (136-145)
[2025-02-03 08:26] VITALS: TEMP 98.1
--- NOTE | 2025-02-03 10:08 | Pharmacy Report ---
Pharmacy Glycemic Short Note 2 - Date of Service February 03, 2025 - Glycemic Short BSG Results (Last 24 hours): 02/02/25 02/02/25 02/02/25 11:59 16:50 20:15 Glucose POC Glucose 150 H 149 H 147 H 02/03/25 02/03/25 06:02 08:09 Glucose 139 H POC Glucose 129 H OUTPATIENT ANTIDIABETIC REGIMEN: * Tresiba 100 units SC qAM and 80 units qPM (confirmed via external med history Rx), CDE reports patient taking 70 units daily * Metformin * Tirzepatide * HbA1c ordered for 01/30/25 ASSESSMENT: 02/03 * Dilshad received 8 units of bolus insulin yesterday * Fasting BSG this AM still well controlled despite no basal administration for 72 hours. Unclear reasoning for significantly decreased basal requirements. HALI improving, but not yet back to baseline, potentially significant half life increase in basal insulin/dietary differences while in hospital? CDE noted significant weight loss when starting Mounjaro and decreasing appetite which is likely also contributing. Continue basal scale if needed. * No changes to NovoLog at this time, parameters significantly less than what would be predicted based on outpatient basal usage. 01/31 * Dilshad received 22 units of insulin yesterday, 20 of which were basal. BSGs were: [phone] mg/dL. * Remains NPO this AM. Fasting BSG down to 82 mg/dL. SCr continues to rise, 5.93 mg/dL this AM. No plans for HD today. Lantus likely lasting a little longer than normally expected given significant HALI. Pressors off. Abx have been discontinued. * RN reports patient did have an wolof ice later this AM when diet was ordered. Expect lunchtime BSG to be falsely elevated. Will try to adjust for this by loosening carb coverage/correction at lunchtime. May need to tighten back up later this evening. As for basal dose, will put a scaled HS dose on board that provides patient a max of 10 units basal depending on BSG this evening. 01/30 * Patient now NPO and on a 2nd pressor * BSG's in goal range 140-180 mg/dL for critically ill patient today, despite significant reduction in basal insulin as compared to outpatient. While patient at risk for basal deficiency given dose reduction, greater risk to the patient would be hypoglycemia. Will therefore maintain lower Lantus dosing and scale tonight's dose based on BSG. Patient may require IV insulin if BSG's increase substantially, although at this point that may be unlikely * Only received two units of Novolog - insufficient to determine adequacy of current regimen. Therefore no change for now 01/29 * 74 yo M with T2DM on high outpatient insulin doses admitted to ICU and on pressors for possible septic shock of unknown source * Unclear if reduced dose of Tresiba was given last night in anticipation of planned surgical intervention today - patient and unfortunately not able to confirm at this time * Will schedule reduced dose of Lantus this PM at 50% of home dose. Home regimen is mostly basal insulin and will also be providing prandial insulin while inpatient. * Unclear needs at this time - no prior hospitalizations to review PLAN FOR INPATIENT GLYCEMIC CONTROL: * Hold outpatient diabetes medications * Basal insulin * Lantus 0-10 units SC HS - see MAR for details. * Bolus insulin * NovoLog ACHS * Goal Range: Low 120 mg/dL - High 160 mg/dL * Correction Factor: 30 mg/dL/unit * Nutritional / Prandial insulin per carb ratio of 1 unit per 10 grams CHO consumed
[2025-02-03] MEDS: POLYETHYLENE (MIRALAX) 17 GM PACK PO SCH (10:16)
[2025-02-03] MEDS: SENNA 8.6 MG TAB PO SCH (10:16)
[2025-02-03 11:20] VITALS: BP 149/71
[2025-02-03 14:30] VITALS: PULSE 72
--- NOTE | 2025-02-03 14:30 | Discharge Summary ---
Discharge Summary Date of Service estela of admission - January 29, 2025 date of discharge - February 03, 2025 Principal Dx & Hospital Course #1 = Principal Diagnosis (1) Hypovolemic shock: (2) Severe sepsis: (3) Abnormal MRI, lumbar spine: (4) HALI (acute kidney injury): (5) Lumbar radiculopathy: (6) Hypomagnesemia: (7) History of testicular cancer: (8) Hypothyroidism: (9) Hypertension: (10) Lumbar spinal stenosis: Plan 74yo male who presented following a presyncopal episode at home. He was supposed to have lumbar back surgery at [facility] with Dr. Galeas on 01/29, but woke up early AM of 01/29 feeling feverish and generally unwell. Upon presentation to [facility] was hypotensive, hypothermic, and had evidence of lactic acidosis with HALI. Despite copious hydration at ER presentation he had persistent shock and pressors were started. Admitted to ICU thereafter. #Shock - -hypovolemic +/- septic - resolved -source of sepsis uncertain - blood cx's negative, CT chest/abd/pelvis without a source, u/a not suggestive of UTI, resp biofire negative -required double pressors hospital day #1 (levophed + vasopressin) but weaned off about 24 hours into his hospitalization -hypothermia and lactic acidosis resolved -random cortisol 30.43 -MRI lumbar spine from 01/31 with findings worrisome for possible infectious process of the lumbar region (see below) #abnormal MRI lumbar spine / chronic lumbar spinal stenosis / [place] [facility] [place] / lumbar radiculopathy - -h/o multiple back surgeries - most recent 09/2024 [place] [facility] [place] Galeas -Lumbar spine MRI on 12/10/2024 revealed hardware loosening with adjacent enhancing inflammatory changes and small fluid collection -was to have back surgery [place] [facility] [place] day of [place] -home pain regimen oxycodone-acetaminophen 10's q6h -gabapentin dose had been reduced in the setting of HALI; with HALI resolving will titrate back up his gabapentin to 200mg BID -remains on dilaudid IV prn -MRI l-spine last pm with evidence of inflammation; per radiology report -- "Extensive soft tissue edema is seen at the subcutaneous fat of the lumbar and sacral region, paravertebral muscles, namely the quadratus lumborum and erector spinae muscles at T12 through S3 levels. Bone marrow edema of the spinous processes of the L2 and L3, and the L5 vertebral body, showing A 20% height reduction. These features are highly suggestive of postoperative cellulitis and myositis, and possible osteomyelitis/inflammatory spondylitis." -had informal discussion with on-call ortho/spine at [facility] (Dr Niles Rodriguez); we reviewed the images together -although the inflammatory findings could be post-operative from his 09/2024 surgery, given his presentation (presumed septic shock) and elevated inflammatory markers need to consider that these findings could be infectious -thus, made phone call to [facility] and spoke extensively with Dr Galeas - ortho/spine - on 02/01 -Dr Galeas reviewed the MRI images; stated they were similar to 11/2024 MRI images; had similar take on the images as Dr Rodriguez - could be infectious, could be post-op inflammatory -plan - continue abx in the form of cefepime + daptomycin; follow blood cx's; cont pain control #HALI - IMPROVING - -peak creatinine 5.9, now 3 today and having copious UOP consistent with a post- ATN diuresis -all signs point towards renal recovery -creatinine at ER presentation 3.18 (baseline 1.18) -CT abd/pelvis without obstruction -cont to hold lisinopril, Lasix, bumex, allopurinol -Nephrology consult appreciated -continue serial BMPs #Hypoxia - RESOLVED - -suspect he probably had element of volume overload from HALI and generous IV fluids day of admission -o2 requirement now resolved in face of auto-diuresis -cont to monitor #T2DM -Last A1c at 7.1% on 09/30/2024; a1c this admission 6.5% -Hold metformin, Mounjaro -hold Tresiba 80 units once daily -cont Lantus and novolog SSI -Pharmacy glycemic consult appreciated #Lactic acidosis - present on admission - -2nd to shock - resolved #Hypomagnesemia - -Magnesium 1.3 on arrival -s/p repletion & resolved #Acute metabolic encephalopathy - -multifactorial including shock, possible infection, dehydration, HALI, etc. -resolved #hyperkalemia - -2nd to HALI -resolved #morbid obesity - BMI 42 #hypothyroidism - -TSH wnl -cont synthroid #mild skin irritation on nose - -bactroban ointment BID #HTN - -resume verapamil at 180mg daily (1/2 his usual dose) #DVT proph - -heparin SC #edema of limbs - -reassured patient that this is due to copious IV hydration HD #1 followed by severe HALI -he is auto-diuresing, and once his creatinine is near-normal, we can also resume his diuretics -elevated right arm on pillows spoke with Dr Alexis Galeas, ortho-spine (who knows Mr Jung well and was to operate on his l-spine on 01/29) as well as Dr Kim Leos, [place] hospitalist -- on a conference call [place] [facility] [place] plan - will contact their transfer center on Monday am to give clinical update to medicine and ortho Decision will be made at that time if Mr Jung should be transferred to [facility] to have exploratory lumbar surgery to exclude infection, perform wash-out, replace hardware (which was previously planned), etc overall he is progressing nicely PT/OT, OOB if possible consider removing shaw soon Admission HPI Per Admitting Provider Mr. Jung is a 74-year-old male with PMH of testicular cancer, lumbar spondylosis, dyslipidemia, T2DM, hypothyroidism, HTN, gout, and osteoarthritis. He presented via EMS on 01/29 following a presyncopal episode. Patient woke up at approximately 1:45 AM with his in preparation of surgery today at [facility]. He was set to have lower back surgery with Dr. Galeas, and was supposed to be at the hospital at 5:30 AM; he reports he was feeling "feverish" when he woke up. He got up to use his bedside commode around 2:30 AM, and noted that he was pale and sweaty. Patient reports he had difficulty breathing on the commode. Initially, he was straining due to constipation, but then had a hard bowel movement. He then had significant loose stool and noted his stool was very runny. Patient was having significant abdominal cramping and was dry heaving on the commode. He does not believe he aspirated, or that anything went down the wrong pipe. No vomiting. At no point did the patient pass out, but he was feeling lightheaded. reports no witnessed syncope, strokelike activity, or seizure-like activity. When he returned to the bed, he was still feeling lightheaded, sweaty, pale and his called 911. Low BP per EMS (he received 2 L of NSS en route). Patient reports he has had ongoing lower back pain for a long period of time. He reports that yesterday, it felt like someone was "punching him in the kidneys". His pain is in the lower back bilaterally and it is constant. He rates the pain 5/10 at present. He has been taking oxycodone 10 mg tablets every 6 hours as needed for the pain. Last took oxycodone last night before sleep, but did not get much sleep last night. Additionally, the patient does report he suffered a fall on Monday when he was leaning up against the pickup truck. His legs gave out and he believes he might of injured his back. He also reports that the most recent imaging of his spine showed that 2 of the screws were loose. Patient was hypotensive at 84/46 on ED arrival. No prior history of adrenal insufficiency to his knowledge. Not on chronic steroids. He took only some of his regular medicine this morning (as per was instructed prior to surgery). He is unsure which ones. Patient does have a history of testicular cancer, and had lymph nodes removed from his left leg in 1982. For this reason, he reports his left leg is always more swollen than the right. No other history of cancer. He denies smoking or tobacco use; quit 45 years ago. Hypothermic at 35.3 C; BP remains low at 84/47 at time of admission ED Course: Vancomycin 2750 mg IV Zosyn 4.5 g IV NSS 1000 mL IV x 3 Magnesium sulfate 1 g IV Narcan 0.4 mg ROS: Patient endorses feeling feverish with chills and rigors, lethargy, confusion, chronic cough, constipation followed by loose/runny stool, numbness or tingling going on the legs, fecal incontinence this morning (per ), abdominal cramping, nausea, and dry heaving. Patient denies chest pain, chest palpitations, pleuritic CP, SOB, rashes, tick bites, changes in vision, photophobia, neck pain, bright red blood in urine or stool, urinary continence, or saddle anesthesia. Discharge Exam gen - obese, NAD, lying comfortably in bed; looks well mouth - MMM neck - no JVD heart - heart tones distant, s1 s2, RRR, no murmur lungs - CTA b/l, no rales abd - soft NT ND BS+ ext - 1-2+ edema left cobian, 1+ edema right cobian; right arm with <1+ edema; left arm with trace edema; pulses b/l feet 2+ b/l skin - mild erythema over mid-nose continues to improve Discharge Plan Discharge Items Patient Disposition: Transfer Acute Care Hospital Reason For Visit: Near Syncope, N/V/D, Hypotension Discharge Diagnosis: 1. hypovolemic shock / presumed septic shock - required ICU stay on pressors; source - lumbar spine discitis? -remains on IV cefepime & daptomycin 2. HALI / ATN - 2nd to #2 - nearly resolved; discharge creatinine 2 3. hyperkalemia - 2nd to #2 - resolved 4. near-syncope - 2nd to #1 - has not recurred 5. acute metabolic encephalopathy - 2nd to #1 - resolved 6. morbid obesity - BMI 41 7. prior h/o testicular cancer 8. T2DM 9. acute on chronic lumbar back pain 10. h/o multiple lumbar spine surgeries, last 09/2024 at [facility] (Alexis aGleas MD) 11. CKD stage 3a; baseline creatinine ~1.5 12. lactic acidosis - resolved 13. hypothyroidism 14. chronic narcotic dependence 15. chronic lymphedema of left leg 16. HTN Activity: Resume your previous activity Non-emergency contact: Primary Care Provider and Surgeon Call non-emergency contact if: you have any medication questions, your symptoms worsen and your pain is not controlled Follow-up/Referrals: Candi Carrera DO [Primary Care Provider] - Alexis Galeas MD [Outside Practitioners] - Diet: Carb Consistent or DM2 Addtl Attending Provider Instructions: I would like to thank Dr Alexis Galeas and Dr Darron Pinon for accepting Mr Jung in transfer to [facility] for ongoing care. Addtl Forest Pathology Professor Provider Instructions: DIABETES RECOMMENDATIONS: 1.) Your blood sugar levels have been lower over the past few months. Suspect this is due to your weight loss, increasing Mounjaro dose and less intake/snacking. If you continue to struggle with lower blood sugar levels, recommend reducing your Tresiba dose. - If overnight/fasting blood sugar levels are 70-90, reduce Tresiba dose by 6 units (10%). - If overnight/fasting blood sugar levels are below 70, reduce Tresiba dose by 14 units (20%) - Continue to decrease your Tresiba dose every 7 days until overnight/fasting blood sugar levels are ~90-140. 2.) With the [place] it is important that you consume regular/balanced meals + protein thru the day to support lean body mass/muscle/strength. Recent MRI lumbar spine report from 01/31/25: FINDINGS: Status post metallic hardware fixation by transpedicular screws/ivis device at L3, L4, and L5 vertebrae. The metallic hardware induces inevitable Blooming (ferromagnetic) artifacts, degrading the image quality. Spinolaminectomy of the L4 Neural arch opposite the L4-L5 intervertebral disc. Extensive soft tissue edema is seen at the subcutaneous fat of the lumbar and sacral region, Paravertebral muscles, namely the quadratus lumborum and erector spinae muscles at T12 through S3 levels. Bone marrow edema of the spinous processes of the L2 and L3, and the L5 vertebral body, Showing A 20% height reduction. These features are highly suggestive of postoperative cellulitis and myositis, and possible osteomyelitis/inflammatory spondylitis. Vertebral Alignment: Subtle degenerative spondylolisthesis is seen at the L4-L5 level. Vertebral Bodies and Intervertebral Discs: The scanned intervertebral discs show variable degrees of degeneration, denoted by low signal intensity on T2 WI with a relative reduction in height. [id number] analysis: T12-L1: There is no significant disc pathology. No spinal canal stenosis. No neural foraminal stenosis.No ligamentum flavum hypertrophy and facet joint arthropathy. L1-L2: There is no significant disc pathology. No spinal canal stenosis. No neural foraminal stenosis.No ligamentum flavum hypertrophy and facet joint arthropathy. L2-L3: There are 3.3 mm subarticular herniations compromising the subarticular recesses with mild bilateral neural foraminal stenosis and impingement of the emerging nerve roots. L3-L4: There is A 3.7 mm annular ulge indenting the thecal sac compromising the subarticular recesses. There is mild spinal canal stenosis and moderate bilateral neural foraminal stenosis with impingement of the emerging nerve roots. Buckled ligamenta flava and arthropathic facet joints augment effects. L4-L5: There is a 6.3 mm annular bulge and 10 mm left foraminal herniation indenting the thecal sac, compromising the subarticular recesses with severe left and moderate right neural foraminal stenosis with impingement of the emerging nerve roots. Degenerative spondylolisthesis and Arthropathic facet joints augment effects. An underlying annular fissure is seen. L5-S1: There is A 2.9 mm annular bulge and a 3.9 mm central herniation indenting the anterior epidural fat, compromising the subarticular recesses. There is mild central canal stenosis and mild bilateral neural foraminal stenosis with impingement of the emerging nerve roots. Buckled ligamenta flava and arthropathic facet joints augment effects. An underlying annular fissure is seen. Spinal Cord and Nerve Roots: Conus medullaris terminates at the L1 level without abnormality. Nerve roots appear unremarkable bilaterally. The lower thoracic spinal cord, conus medullaris, and cauda equina nerve roots are unremarkable. There is no significant disc pathology. No exiting nerve root or spinal cord compression. Normal morphology of the ligamentum flava. No arthropathy of the uncovertebral and zygapophyseal joints. No significant spinal canal and neural foraminal stenosis. IMPRESSION: 1. Status post metallic hardware fixation by transpedicular screws/ivis device at L3, L4, and L5 vertebrae. The metallic hardware induces inevitable Blooming (ferromagnetic) artifacts, degrading the image quality. Spinolaminectomy of the L4 Neural arch opposite the L4-L5 intervertebral disc. Extensive soft tissue edema is seen at the subcutaneous fat of the lumbar and sacral region, Paravertebral muscles, namely the quadratus lumborum and erector spinae muscles at T12 through S3 levels. Bone marrow edema of the spinous processes of the L2 and L3, and the L5 vertebral body, Showing A 20% height reduction. These features are highly suggestive of postoperative cellulitis and myositis, and possible osteomyelitis/inflammatory spondylitis. 2. Spondylodegenerative lumbar disc disease. 3. Subtle degenerative spondylolisthesis is seen at the L4-L5 level. 4. Multilevel lumbar disc pathologies and postoperative status at the L2-L3 through the L5-S1 levels with effects exerted upon the spinal canal, subarticular recesses, and neural foramina. Degenerative spondylolisthesis, Postoperative sequelae, buckled ligamenta flava, and arthropathic facet joints augment effects. 5. The comparison is consistent with a regressive course, with marked reduction of the previously noted encysted fluid signals. Close follow-up is recommended as appropriate. Electronically signed by Richie Ram 01-31-2025 9:00 PM Pending Studies at Discharge: No Stand-Alone Forms: My [facility] [employer] Skilled Items Patient informed of condition?: Yes DNR: No Discharge Level of Care: Other Communicable Disease: No Discharge Prognosis: Stable Lines: Peripheral IV Urinary Catheter: Yes Medications and DC Order Prescriptions: New sennosides [Senna Lax] 8.6 mg Tablet 17.2 mg PO QAM Qty: 60 0RF polyethylene glycol 3350 [Miralax] 17 gram Powder In Packet 17 g PO BID Qty: 60 0RF magnesium oxide 400 mg (241.3 mg magnesium) Tablet 400 mg PO QAM Qty: 30 0RF mupirocin 2 % Ointment 1 applic EXT BID Qty: 15 0RF Rx Instructions: apply to nasal irritation on bridge of nose Continued (DME) lancets [facility] gauge [facility] See Rx Instructions .ROUTE .MEDSUPPLY Qty: 300 2RF Rx Instructions: TEST 3 TIMES PER DAY DX: E11.9 (DME) pen needle, diabetic [BD Ultra-Fine Short Pen Needle] 31 gauge x 5/16" needle See Rx Instructions .ROUTE .COMPLEX Qty: 300 3RF Dose Instruction: USING 3 PER DAY Rx Instructions: USING 3 PER DAY (DME) Wheeled Walker Misc See Rx Instructions .Route Qty: 1 0RF Rx Instructions: Heavy Duty Wheeled Walker (DME) OneTouch Ultra Test Strip See Rx Instructions .Route Qty: 360 2RF Rx Instructions: Test three times a day Dx E11.9 fluticasone propionate 50 mcg/actuation spray,suspension 2 spray INTNAS DAILY PRN (Reason: Congestion) Qty: 48 1RF Rx Instructions: administer into each nostril baclofen 10 mg tablet 5 mg PO BID PRN (Reason: muscle spasm) Qty: 30 1RF levothyroxine 112 mcg tablet 112 mcg PO DAILY Qty: 30 1RF benzonatate 200 mg capsule See Rx Instructions .ROUTE .COMPLEX Qty: 30 0RF Dose Instruction: TAKE 1 CAPSULE (200 MG) BY MOUTH TWICE A DAY NEEDED FOR COUGH Rx Instructions: TAKE 1 CAPSULE (200 MG) BY MOUTH TWICE A DAY NEEDED FOR COUGH oxycodone-acetaminophen 10-325 mg tablet 1 tab PO Q8H PRN (Reason: pain) Qty: 60 0RF multivitamin tablet 1 tab PO BID Qty: 60 5RF cyanocobalamin (vitamin B-12) [Vitamin B-12] 1,000 mcg tablet 1,000 mcg PO HS Qty: 90 3RF (DME) raised toilet seat See Rx Instructions .Route .MEDSUPPLY Qty: 1 0RF Rx Instructions: As directed acetaminophen 500 mg tablet 500 mg PO Q8H PRN (Reason: Pain) (DME) insulin syringe-needle U-100 1 mL 30 gauge x 5/16 syringe See Rx Instructions .Route Qty: 200 3RF Rx Instructions: for use with insulin injection twice daily (DME) miscellaneous medical supply Mis VAGINAL Rx Instructions: COMPRESSION PUMP.; Changed verapamil 180 mg capsule,ext rel. pellets 24 hr 180 mg PO QAM Qty: 180 1RF Rx Instructions: Take 2 tablets daily by mouth to equal 360 mg. gabapentin 300 mg capsule 200 mg PO BID Qty: 720 3RF Rx Instructions: reduced dose was being used during this hospitalization due to acute kidney injury Held omega 9-xip-izx-fish oil [Fish Oil] 1,000 mg (120 mg-180 mg) capsule 1 cap PO BID Qty: 180 3RF Hold Instructions: held upon transfer to [facility] metformin 1,000 mg tablet 1,000 mg PO BID Qty: 180 3RF Hold Instructions: on hold due to recent acute kidney injury lisinopril 40 mg tablet 40 mg PO QAM Qty: 90 3RF Hold Instructions: held upon transfer to [facility] potassium chloride 20 mEq tablet extended release 20 meq PO TID PRN (Reason: edema) Qty: 270 1RF Hold Instructions: held while hospitalized at [facility] doxazosin 2 mg tablet See Rx Instructions .ROUTE .COMPLEX Qty: 270 1RF Hold Instructions: held upon transfer to [facility] Dose Instruction: Take 2 tabs PO in AM, 1 tab PO evening ; Rx Instructions: Take 2 tabs PO in AM, 1 tab PO evening ; insulin degludec [Tresiba FlexTouch U-100] 100 unit/mL (3 mL) insulin pen See Rx Instructions subcut .COMPLEX MDD 180 units Qty: 165 3RF Hold Instructions: has been on hold while hospitalized Rx Instructions: *reports taking 70 units daily tirzepatide 15 mg/0.5 mL pen injector 15 mg subcut Q7D Qty: 2 2RF Hold Instructions: hold allopurinol 300 mg tablet 600 mg PO BID Hold Instructions: on hold due to recent acute kidney injury furosemide 40 mg tablet 40 mg PO BID Hold Instructions: held during this hospitalization; can resume at [place] when renal function stable, etc. bumetanide 2 mg tablet 2 mg PO DAILY PRN (Reason: swelling) Hold Instructions: held upon transfer to [facility] trazodone 50 mg tablet 150 mg PO HS Qty: 270 1RF Hold Instructions: held upon transfer to [facility] Discontinued pyridoxine (vitamin B6) [Vitamin B-6] 250 mg tablet 500 mg PO QAM Discharge Orders: Discharge Order (Routine); Ordered 02/03/25 Ordered By: Hudson Hernández Admission Data Admit Date/Time: 01/29/25 09:48 Attending Provider: Hudson Hernández Admit Provider: Hudson Hernández Primary Care Provider: Candi Carrera Other Providers: Hudson Hernández; Peter Booth; Kim West; Eber Chadwick [facility] Hospital Stay Data Consultations Consult Low Voltage Technician Consult Nephrology PT, OT Procedures Performed 1. arterial line 2. left IJ central line 3. echocardiogram - EF Diagnostic Imagining Performed 01/29/25 05:29 CT abd pelvis wo con Stat CT chest diagnostic wo con Stat 01/31/25 15:11 MR lumbar spine wo con Urgent Pending Results Patient Have Any Pending Studies at Discharge: No Discharge Instructions Given to Patient (Per Discharging Provider) I would like to thank Dr Alexis Galeas and Dr Darron Pinon for accepting Mr Jung in transfer to [facility] for ongoing care. Total Time Total Time Spent Total Time Spent (In Minutes): 60 Coding Diagnoses Hypovolemic shock R57.1 Severe sepsis A41.9; R65.20 Abnormal MRI, lumbar spine R93.7 HALI (acute kidney injury) N17.9 Lumbar radiculopathy M54.16 Hypomagnesemia E83.42 History of testicular cancer Z85.47 Hypothyroidism E03.9 Essential hypertension I10 Hypertension type: essential hypertension Lumbar spinal stenosis M48.061
== END 2025-02-03 15:15 | disposition short-term general hospital (02) | DRG 871 ==
LOC: ED 05:09 → 1E 09:48 → 2N 01-31 13:26